=== PATIENT | female | born 1970 | race Caucasian/White ===

== ENCOUNTER 2018-08-06 21:53 | Emergency (ER) | payer OTHER, SELFPAY ==
[2018-08-06 21:53] VITALS: BP 131/82; PULSE 94; RESP 16; TEMP 37.2; O2SAT 98; BMI 21.0
--- NOTE | 2018-08-06 22:40 | ED.VIS.GEN ---
History of Present Illness Chief Complaint: Laceration Informant: Patient Narrative: She stated that she is here for a tetanus shot. She was using a boxing trainer accidentally cut a small abrasion into her wrist. Work wanted her to come in for further evaluation. It is not bleeding. It is very small. It is barely breaking the skin. They wanted her evaluated because her tetanus needed updated. Current severity is mild. No previous. Past Medical History - Allergies and Home Meds Allergies/Adverse Reactions: Allergies No Known Allergies Allergy (Verified 04/19/16 08:26) Primary Care Physician: Bentley Clement MD [Primary Care Provider] - Prior records reviewed: Yes Past Medical History: - - Reviewed Surgical History: appendectomy Lives: With Family Smoking Status: Current every day smoker Alcohol: None Drugs: None - Family History Maternal Family History: Reports: - - No coronary artery disease Review of Systems General: Denies: Chills, Fever, Sweats Eyes: Denies: Visual changes - bilaterally, Diplopia ENT: Denies: Rhinorrhea, Sore throat Cardiovascular: Denies: Chest pain, Palpitations Respiratory: Denies: Dyspnea, Cough, Dyspnea on exertion Gastrointestinal: Denies: Abdominal pain, Nausea, Vomiting, Diarrhea, Melena, Hematochezia Genitourinary: Denies: Dysuria, Hematuria, Frequency Musculoskeletal: Denies: Back pain, Extremity Pain Skin: Reports: Wounds - Abrasion superficial scratch to the inside of the left breast. Denies: Rash Neurological: Denies: Headache, Weakness, Numbness Physical Exam Vital Signs/Narrative: Vital Signs Temp Pulse Resp BP Pulse Ox 08/06/18 21:53 98.9 F 94 16 131/82 H 98 General: Well nourished, Well developed, No Acute Distress Head: Normocephalic, Atraumatic Eyes: Perrl, EOMI ENT: Moist mucous membranes, No rhinorrhea Neck: Supple, Nontender Cardiovascular: Regular rate, Regular rhythm, No murmurs Respiratory: No distress, CTA bilaterally, Chest nontender Abdomen: Soft, Nontender, Nondistended, Normal bowel sounds Back: Nontender, Normal Inspection Extremities: Nontender, No edema Skin: Normal color, No rash, - - 0.25 cm x 1 mm superficial abrasion/break in the skin Neurological: Alert, Oriented x3, Cranial nerves II-XII grossly intact, Normal Strength, Normal Sensation Psychological: Normal affect, Normal Mood Diagnostic/Tx/Re-eval - Medical Decision Making Is a very tiny wound. It is more of a superficial abrasion. Tetanus updated. Patient will keep it clean and use a Band-Aid. There is nothing to suture. ED Disposition - Plan for ED Patient: Disposition: Senior Living Facility Diagnosis: Superficial laceration Instructions: ED Laceration All Referrals: Bentley Clement MD [Primary Care Provider] -
[2018-08-06] MEDS: Diphth,Pertuss(Acell),Tet Vac 0.5 ML Vial IM (22:48)
== END 2018-08-06 23:06 | disposition home or self-care (01) ==
PROVIDERS: Emergency Provider Emergency Medicine; Family Provider Family Medicine; PCP Family Medicine
DX: S61.512A Laceration without foreign body of left wrist, initial encounter (principal); W26.8XXA Contact with other sharp object(s), not elsewhere classified, initial encounter; Y93.9 Activity, unspecified; Y92.9 Unspecified place or not applicable; Y99.0 Civilian activity done for income or pay; F17.200 Nicotine dependence, unspecified, uncomplicated
CPT/HCPCS: 90715; 99281

== ENCOUNTER → 2019-12-07 13:54 | Outpatient (CLI) | payer MEDICAID, SELFPAY ==
--- NOTE | 2019-12-07 14:00 | BI_ITS ---
MAMMOGRAPHY - BILATERAL SCREENING 3-D TOMOSYNTHESIS REASON FOR EXAM: Female, 49 years old. Routine screening PERTINENT HISTORY: No significant family history. Implants TECHNIQUE: 2-D mammograms and 3-D Tomosynthesis of the breast (s) were performed. CAD was performed, along with implant displaced views. COMPARISON: None. FINDINGS: The breast composition is almost entirely fat. Scattered benign calcifications are seen. No dense spiculated masses or suspicious microcalcifications are identified. No architectural distortion is identified. There is no skin thickening or retraction. Implants are intact and free of complication There has been no significant change since the prior study. BI/SCREEN MAMM (CAD) W/ANNETTA BILAT IMPRESSION: No mammographic signs of malignancy. Routine yearly mammograms recommended. ASSESSMENT CATEGORY: BIRADS Category 1: Negative. A letter regarding these results will be sent to the patient by the facility within 30 days. FOLLOW UP RECOMMENDATION: Yearly follow up mammogram recommended. (A) Approximately 10% of breast cancers are not detected by mammography. A normal mammogram should not delay biopsy of a clinically suspicious abnormality. Electronically Signed: Costa Maxwell MD at 15:00 EDT , Service support ,
== END ==
PROVIDERS: PCP Family Medicine; Referring Provider Family Medicine; Visit Provider Family Medicine
DX: Z12.31 Encounter for screening mammogram for malignant neoplasm of breast (principal)
CPT/HCPCS: 77063; 77067

== ENCOUNTER 2021-08-02 04:55 | Emergency (ER) | payer MEDICAID, SELFPAY ==
[2021-08-02 04:56] VITALS: BP 150/89; PULSE 96; RESP 16; RESP 17; TEMP 37.1; O2SAT 98; BMI 20.9
--- NOTE | 2021-08-02 05:08 | CT_ITS ---
STUDY: CT ABDOMEN AND PELVIS WITHOUT CONTRAST REASON FOR EXAM: Female, 51 years old. right flank pain RADIATION DOSAGE (If Supplied By Facility): CTDIvol = ( 6.09 ) mGy, DLP = ( 282.92 ) mGycm TECHNIQUE: Transaxial images were obtained from the dome of the diaphragm to the symphysis pubis without oral contrast, and without intravenous contrast. Sagittal and coronal images were reconstructed. Individualized dose optimization techniques were used for this CT. COMPARISON: None. FINDINGS: The visualized lung bases are unremarkable. The visualized portions of the heart are within normal limits. Normal liver. Normal gallbladder and extrahepatic biliary system. Normal spleen. Normal pancreas. Normal bilateral adrenal glands. Normal right kidney. Normal left kidney. Normal visualized stomach. Normal small intestine. Normal colon. There are surgical clips in the region of the appendix consistent with a prior appendectomy. Normal abdominal aorta. Normal inferior vena cava. Normal retroperitoneum. Normal urinary bladder. Normal abdominal wall. Normal osseous structures. CT/Abdomen/Pelvis without Cont IMPRESSION: Normal unenhanced CT of the abdomen and pelvis. Electronically Signed: Rika Bradford MD at 6:43 EDT ,
--- NOTE | 2021-08-02 05:08 | EDS_ITS ---
HPI History of Present Illness Chief Complaint: Flank Pain Detail of Chief Complaint: Back pain x3 days Informant: patient Narrative Narrative: Patient presents to the emergency department chief complaint of pain in her back x3 days. Patient states that she woke up with some mild back pain 3 days ago and went to work and the pain progressively worsened. Patient now describes intermittent sharp pains radiating into her right hip and pelvis that feels like labor cramps. Patient was seen in urgent care yesterday and diagnosed with the UTI and started on antibiotics and Pyridium. Patient rates her pain currently is a 10 out of 10. She denies weakness of the extremity. She denies loss of bowel or bladder function. She denies saddle anesthesia. She denies any trauma to her back. She had some mild dysuria a few days ago but that seems to is resolved. Prior similar symptoms: No PFSH PFSH Home Medications vitamin B complex 1 ea PO DAILY 07/13/13 [History Last Taken 04/30/16 06:00] Potassium (Otc) [Potassium Otc] 99 mg PO DAILY 04/30/16 [History Last Taken 04/30/16 06:00] omega 7-klb-ize-fish oil 1 ea PO DAILY 04/30/16 [History Last Taken 04/30/16 06:00] cyclobenzaprine 10 mg PO TID PRN #20 tablet 08/02/21 [Rx Last Taken Unknown] hydrocodone-acetaminophen 1 tab PO Q4H PRN PRN 2 Days #14 tablet 08/02/21 [Rx Last Taken Unknown] naproxen 500 mg PO BID #14 tab 08/02/21 [Rx Last Taken Unknown] Allergy/AdvReac Type Severity Reaction Status Date / Time No Known Allergies Allergy Verified 04/19/16 08:26 Social History Smoking Status: Current every day smoker tobacco type: cigarettes ROS ROS ED Constitutional Constitutional ED: Reports systems reviewed and no addt'l complaints, except as documented; Denies body ache(s), change in weight or chills Eyes Eyes: Denies acute decrease in peripheral vision, change in vision, double vision or loss of vision ENT ENT ED: Reports none; Denies ear pain, lip swelling, loss taste/smell, neck pain, otalgia or sore throat Cardiovascular Cardiovascular: Reports none; Denies abdominal pain, chest pain with activity, leg edema, lightheadedness, palpitations, rapid heart rate or syncope Respiratory/Chest Respiratory/Chest: Reports none; Denies change in mental status, dry cough, dyspnea, hemoptysis, shortness of breath at rest or shortness of breath with exertion Gastrointestinal Gastrointestinal: Reports none; Denies abdominal pain, change in stool character, diarrhea, hematemesis, hematochezia, melena, rectal bleeding or vomiting Genitourinary Genitourinary ED: Reports none; Denies abdominal discomfort, anuria, dysuria, genital pain or polyuria Musculoskeletal Musculoskeletal: Reports none and back pain; Denies arthralgias, difficulty walking, extremity pain, muscle weakness or myalgias Integumentary Reports none; Denies abscess or rash Neurologic Neurologic: Reports none; Denies abnormal gait, confusion, focal weakness, frequent falls, headache(s), loss of vision, numbness, paresthesias, radicular pain, vertigo or weakness Psychiatric Psychiatric: Reports systems reviewed and no addt'l complaints, except as documented and none; Denies behavioral changes, confusion, difficulty concentrating, hallucinations, suicidal ideation, tactile hallucinations or visual hallucinations Endocrine Endocrinology: Denies none, cold intolerance, excessive sweating, fatigue or heat intolerance Hematologic/Lymphatic Hematologic/Lymphatic: Reports none; Denies anemia, easy bleeding or easy bruising Allergic/Immunologic Allergic/Immunologic ED: Denies as per HPI, none, lip swelling, mouth swelling, throat swelling, tongue swelling or hives EXAM Physical Exam Const Vital Signs: 08/02/21 04:56 Temperature 98.7 F Temperature Source Temporal Pulse Rate 96 Respiratory Rate 17 Blood Pressure 150/89 H Blood Pressure Mean 109 Pulse Ox 98 Oxygen Delivery Method Room Air Positive well nourished and well developed General Appearance ED: well developed and NAD HEENT Reports TM's clear and moist mucous membranes normocephalic and atraumatic; Negative for trauma or tenderness Tympanic Membrane ED: Yes TM's clear Eyes PERRL and EOMs intact bilaterally General Eye ED: Negative for pale conjunctiva or scleral icterus Neck no lymphadenopathy, supple and no JVD General: Negative for tenderness Chest Wall inspection of chest normal and palpation of chest normal Chest: Negative for tenderness Resp normal respiratory effort and clear to auscultation bilaterally Effort and Inspection: Negative for respiratory distress or pain with movement Auscultation: Negative for rhonchi, wheezes or diminished lung sounds Cardio regular rate, regular rhythm, S1 normal heart sound, S2 normal heart sound and no murmurs Peripheral Pulses: pulses 2+ throughout GI normal to inspection, nondistended, normoactive bowel sounds, soft to palpation, non-tender, non-distended and no masses Back/Spine no thoracic nor lumbar tenderness Back/Spine Narrative: Patient with some CVA tenderness on the right. Patient also with diffuse tenderness over the lumbar paraspinal musculature bilaterally. She has negative straight leg raises. Deep tendon reflexes are plus 2 out of 4 bilaterally at the patella Achilles. Patient has normal L5 extension bilaterally. Normal sensation to light touch. Extremity normal to inspection General Extremety ED: Negative for edema General Extremity: Negative for edema Neuro oriented x3, CN's II-XII intact bilaterally, no sensory deficits noted and gait normal Sensorium / Orientation: awake, alert, oriented to person, oriented to place and oriented to time Motor Exam: strength 5/5 throughout and strength abnormal Psych mental status grossly normal Skin no rashes or lesions noted and no wounds MDM MDM MDM Narrative Medical decision making narrative: Line established on arrival. Patient was medicated with morphine, Zofran, and Toradol. Patient had good pain relief with that. Lab work-up was unremarkable. Urinalysis was normal. CT scan of the pelvis without contrast was unremarkable. At this point I suspect patient likely has musculoskeletal back pain. There are no red flags for cauda equina. Patient will be given a prescription for Naprosyn, Flexeril, and [place]. She will be given work restrictions. Patient advised to follow-up with primary care physician 3 to 5 days. Patient to return if worsening pain, weakness in extremities, change in bowel or bladder function, or condition should worsen anyway. Lab Data Attestation: I reviewed the patient's lab results. Labs: Laboratory Results - last 24 hr 08/02/21 08/02/21 08/02/21 05:26 05:26 05:29 WBC 8.4 RBC 4.05 L Hgb 14.2 Hct 40.6 MCV 100.2 H MCH 35.1 H MCHC 35.0 RDW Std Deviation 46.6 H RDW Coeff of Elis 12.5 Plt Count 280 MPV 8.7 Immature Gran % (Auto) 0.500 Neut % (Auto) 50.2 Lymph % (Auto) 34.5 Wells % (Auto) 10.1 H Eos % (Auto) 3.7 Baso % (Auto) 1.0 Absolute Neuts (auto) 4.2 Absolute Lymphs (auto) 2.88 Nucleated RBC % 0 Sodium 132 L Potassium 4.0 Chloride 99 Carbon Dioxide 28.0 Anion Gap 5 BUN 5 L Creatinine 0.60 Estim Creat Clear Calc 91.76 Est GFR (MDRD) Af Amer 135 Est GFR (MDRD) Non-Af 111 BUN/Creatinine Ratio 8.3 L Glucose 86 Calcium 9.5 Urine Color Yellow Urine Clarity Clear Urine pH 7.0 Ur Specific [place] 1.005 Urine Protein Negative Urine Glucose (UA) Normal Urine Ketones Negative Urine Occult Blood 25 H Urine Nitrite Negative Urine Bilirubin Negative Urine Urobilinogen Normal Ur Leukocyte Esterase Negative Urine RBC 0 SEEN Urine WBC 0 SEEN Ur Squamous Epith Cells 0-5 SEEN Urine Bacteria 0 SEEN Urine Mucus 0 SEEN Radiography Diagnostic Testing: Clinical Impression(s) from Imaging Studies Abdomen/Pelvis CT 08/02/21 05:08 IMPRESSION: Normal unenhanced CT of the abdomen and pelvis. Electronically Signed: Rika Bradofrd MD at 6:43 EDT Reading Location ID and State: [facility] / [place] Tel , Service support , Discharge Plan Triage Chief Complaint: Flank Pain ED Provider: Paris Santacruz Dx/Rx/DC Orders Clinical Impression: Back pain Instructions: ED Back Pain (Acute or Chronic), ED Back and Neck Pain, General Prescriptions: New cyclobenzaprine [cyclobenzaprine] 10 MG tablet 10 mg PO TID PRN (Reason: Muscle Spasm) Qty: 20 RF: 0 hydrocodone-acetaminophen [hydrocodone-acetaminophen] 1 TABLET tablet 1 tab PO Q4H PRN PRN (Reason: Pain) 2 Days Qty: 14 RF: 0 naproxen 500 MG tablet 500 mg PO BID Qty: 14 RF: 0 No Action vitamin B complex 1 EACH capsule 1 ea PO DAILY RF: 0 omega 4-cvd-mjm-fish oil 1 EACH capsule 1 ea PO DAILY RF: 0 Potassium (Otc) [Potassium Otc] 99 MG tablet 99 mg PO DAILY RF: 0 Primary Care Provider: Bentley Clement Referrals: Bentley Clement MD [Primary Care Provider] - 3-5 Days Disposition Disposition: Home, Self Care
[2021-08-02 05:34] LABS: Bacteria 0 SEEN /hpf (None Seen); Mucous, Urine 0 SEEN /hpf (<or=2+); Red Blood Cells-Urine 0 SEEN /hpf (0-5); White Blood Cells 0 SEEN /hpf (0-5)
[2021-08-02 05:35] LABS: Absolute Lymphocyte Count 2.88 X10^3/uL (0.83-4.51); Absolute Neutrophil Count 4.2 X10^3/uL (2.0-7.7); Basophil# 0.08 X10^3/uL; Eosinophil# 0.31 X10^3/uL; Eosinophils% 3.7 % (0-5); Hematocrit 40.6 % (37-47); Hemoglobin 14.2 g/dL (12.0-15.0); Lymphocyte # 2.88 X10^3/ul (0.83-4.51); Lymphocyte % 34.5 % (19-41); Mean Corpuscular Hgb 35.1 pg (27.0-32.0); Mean Corpuscular Volume 100.2 fL (81-99); Mean Platelet Vol. 8.7 fl (6.2-12.0); Monocyte# 0.84 X10^3/uL; Monocyte% 10.1 % (0-10); NRBC Flagged by Analyzer 0 % (0-5); Neutrophil % 50.2 % (47-70); Platelet Count 280 K/mm3 (150-450); RBC Distribution Width CV 12.5 % (11.6-14.6); RBC Distribution Width SD 46.6 fl (35.1-43.9); Red Blood Count 4.05 M/mm3 (4.2-5.4); White Blood Count 8.4 K/mm3 (4.4-11.0)
[2021-08-02] MEDS: Ketorolac 15 MG/ML Vial IV (05:35)
[2021-08-02] MEDS: Ondansetron 4 MG/2 ML Vial IV (05:35)
[2021-08-02 05:36] LABS: Color, Urine Yellow (Yellow); Glucose, Dipstick Normal (Normal); Ketone-Dipstick Negative (Negative); Leukocyte Esterase-Dipstick Negative /ul (Negative); Nitrite-Dipstick Negative (Negative); Occult Blood-Urine 25 /ul (Negative); Protein-Dipstick Negative (Negative); Specific Gravity, Urine 1.005 (1.002-1.030); Urine Bilirubin Dipstick Negative (Negative); Urine Clarity Clear (Clear); Urine Urobilinogen Normal (Normal)
[2021-08-02] MEDS: Morphine 4 MG/ML Syringe IV (05:36)
[2021-08-02] MEDS: 0.9% Normal Saline 1,000 ML 150 ML IV (05:40)
[2021-08-02 05:45] LABS: Squamous Epithelial Cells - UA 0-5 SEEN /hpf (5-10)
[2021-08-02 05:55] LABS: Anion Gap 5 (5-15); BUN 5 mg/dL (7-18); BUN/Creat Ratio 8.3 RATIO (10-20); Calcium,Total 9.5 mg/dL (8.5-10.1); Chloride 99 mmol/L (98-107); EST Glomerular Filtration Rate 111 mL/min (>60); Est Glom Filt Rate - Afr Amer 135 mL/min (>60); Estimated Creatinine Clearance 91.76 ml/min; Glucose 86 mg/dL (74-106); Sodium Level 132 mmol/L (136-145)
[2021-08-02 07:22] VITALS: RESP 16
== END 2021-08-02 07:26 | disposition home or self-care (01) ==
PROVIDERS: Emergency Provider Emergency Medicine; PCP Family Medicine; Visit Provider Emergency Medicine
DX: M54.50 Low back pain, unspecified (principal); N39.0 Urinary tract infection, site not specified; F17.210 Nicotine dependence, cigarettes, uncomplicated
CPT/HCPCS: 74176; 80048; 81001; 85025; 96361; 96374; 96375; 99283; J7030; A4216; J2405

== ENCOUNTER → 2021-10-13 | Outpatient (CLI) | payer MEDICAID, SELFPAY ==
[2021-10-13 10:23] LABS: Erythrocyte Sedimentation Rate 6 mm/hr (0-30)
[2021-10-13 10:24] LABS: Absolute Lymphocyte Count 1.93 X10^3/uL (0.83-4.51); Absolute Neutrophil Count 4.2 X10^3/uL (2.0-7.7); Basophil# 0.06 X10^3/uL; Basophil% 0.9 % (0-1); Eosinophil# 0.11 X10^3/uL; Eosinophils% 1.6 % (0-5); Hematocrit 39.2 % (37-47); Hemoglobin 13.6 g/dL (12.0-15.0); Lymphocyte # 1.93 X10^3/ul (0.83-4.51); Lymphocyte % 28.2 % (19-41); Mean Corp Hgb Conc 34.7 g/dL (32-36); Mean Corpuscular Hgb 35.1 pg (27.0-32.0); Mean Corpuscular Volume 101.3 fL (81-99); Monocyte# 0.52 X10^3/uL; Monocyte% 7.6 % (0-10); NRBC Flagged by Analyzer 0 % (0-5); Neutrophil # 4.19 X10^3/uL (2.7-7.7); Neutrophil % 61.3 % (47-70); Platelet Count 345 K/mm3 (150-450); RBC Distribution Width CV 12.6 % (11.6-14.6); RBC Distribution Width SD 47.7 fl (35.1-43.9); Red Blood Count 3.87 M/mm3 (4.2-5.4); White Blood Count 6.8 K/mm3 (4.4-11.0)
[2021-10-13 10:55] LABS: ALB/GLOB Ratio 1.1 RATIO (0.9-2.4); AST(SGOT) 28 U/L (15-37); Alanine Aminotransfer ALT/SGPT 31 U/L (13-56); Albumin, Serum 4.2 g/dL (3.2-5.0); Alkaline Phosphatase 51 U/L (45-117); Anion Gap 6 (5-15); BUN 7 mg/dL (7-18); BUN/Creat Ratio 13.3 RATIO (10-20); CRP < 2.90 mg/L (0.0-3.0); Calcium,Total 8.9 mg/dL (8.5-10.1); Chloride 100 mmol/L (98-107); Creatinine, Serum 0.53 mg/dL (0.55-1.02); EST Glomerular Filtration Rate 130 mL/min (>60); Est Glom Filt Rate - Afr Amer 157 mL/min (>60); Globulin 3.7 g/dL (2.2-4.2); Glucose 76 mg/dL (74-106); Potassium 3.7 mmol/L (3.5-5.1); Protein, Total 7.9 g/dL (6.4-8.2); Rheumatoid Factor < 10.0 IU/mL (<15); Sodium Level 133 mmol/L (136-145)
[2021-10-18 11:16] LABS: ANTINUCLEAR ANTIBODIES DIRECT Negative (Negative)
[2021-10-24 21:33] LABS: HLA B27 Negative (.)
== END | disposition home or self-care (01) ==
LOC: MFPLAB 09:20
PROVIDERS: PCP Family Medicine; Referring Provider Family Medicine; Visit Provider Family Medicine
DX: M54.9 Dorsalgia, unspecified (principal)
CPT/HCPCS: 36415; 80053; 81374; 85025; 85652; 86038; 86140; 86431

== ENCOUNTER → 2021-12-16 | Outpatient (CLI) | payer MEDICAID, SELFPAY ==
--- NOTE | 2021-12-16 08:46 | MRI_ITS ---
STUDY: MRI LUMBAR SPINE WITHOUT CONTRAST REASON FOR EXAM: Female, 51 years old. LUMBAR RADICULOPATHY, RIGHT LEG PAIN TECHNIQUE: Standardized fat and water weighted pulse sequences were obtained in the sagittal and axial planes. COMPARISON: None FINDINGS: T12-L1: Normal endplates. Normal disc height, hydration and morphology. Normal bilateral facet joints. Normal central canal and bilateral lateral recesses. Normal bilateral intervertebral neural foramina. Normal lumbar lordosis. There is no substantial scoliosis. Normal conus medullaris that terminates at T12-L1 L1-2: Normal endplates. Normal disc height, hydration and morphology. Normal bilateral facet joints. Normal central canal and bilateral lateral recesses. Normal bilateral intervertebral neural foramina. L2-3: Normal endplates. Normal disc height, hydration and minimal annular bulge. Normal bilateral facet joints. Normal central canal and bilateral lateral recesses. Normal bilateral intervertebral neural foramina. L3-4: Normal endplates. Normal disc height, hydration and mild annular bulge.. Mild facet arthropathy. Normal central canal and bilateral lateral recesses. Mild to moderate bilateral neuroforaminal encroachment. L4-5: Normal endplates. Normal disc height, desiccation and mild annular bulge with right paracentral/posterolateral disc extrusion with posterior inferior extension. Facet arthropathy and thickening of ligamenta flava. Mild to moderate narrowing the central canal. Severe right lateral recess and subarticular stenosis with moderate neuroforaminal stenosis. Moderate left neuroforaminal encroachment L5-S1: Normal endplates. Normal disc height, hydration and minimal annular bulge with small right foraminal disc protrusion facet arthropathy and thickening of ligamenta flava.. Normal central canal and bilateral lateral recesses. Mild left neuroforaminal encroachment and severe narrowing on the right Normal visualized sacral ala. Normal visualized paraspinous soft tissue structures. MRI/Spine Lumbar (Routine) IMPRESSION: No evidence for acute fracture or other significant bony pathology. Multilevel spinal stenosis secondary to disc disease and bony hypertrophy most severe on the right at L4-5 and L5-S1. Findings as above Electronically Signed: Irving Noland MD at 21:35 EDT ,
== END | disposition home or self-care (01) ==
LOC: MRI 08:43
PROVIDERS: PCP Family Medicine; Referring Provider Anesthesiology Pain Medicine; Visit Provider Anesthesiology Pain Medicine
DX: M54.16 Radiculopathy, lumbar region (principal)
CPT/HCPCS: 72148

== ENCOUNTER → 2022-01-26 | Outpatient (CLI) | payer MEDICAID, SELFPAY ==
--- NOTE | 2022-01-26 13:37 | BI_ITS ---
MAMMOGRAPHY - BILATERAL SCREENING REASON FOR EXAM: Female, 51 years old. Routine annual screening examination. PERTINENT HISTORY: Non-contributory. Bilateral breast implants. TECHNIQUE: Digital bilateral breast annetta (3D mammographic acquisition) in the CC and MLO projections. 2-D mediolateral oblique (MLO) and craniocaudad (CC) views of both breasts were obtained. CAD: Full Field Digital Mammography with Computer Added Detection was performed. COMPARISON: Comparison is made with prior examination dated 12/07/2019 and 08/03/2015. FINDINGS: Breast Composition: There are scattered areas of fibroglandular density. There are no dominant masses or suspicious calcifications. Stable appearance of the bilateral breast implants. No other significant abnormalities are identified. There has been no significant change since the prior study. BI/SCRN MAMM (CAD)W/ANNETTA BILAT IMPRESSION: Stable bilateral screening mammogram. Yearly follow-up mammogram recommended. (A) ASSESSMENT CATEGORY: BIRADS Category 2: Benign. A letter regarding these results will be sent to the patient by the facility within 30 days. Approximately 10% of breast cancers are not detected by mammography. A normal mammogram should not delay biopsy of a clinically suspicious abnormality. [id number] Electronically Signed: Milton Isaac MD at 14:35 EDT ,
== END | disposition home or self-care (01) ==
PROVIDERS: PCP Family Medicine; Visit Provider Family Medicine
DX: Z12.31 Encounter for screening mammogram for malignant neoplasm of breast (principal)
CPT/HCPCS: 77063; 77067

== ENCOUNTER → 2022-03-08 | Outpatient (CLI) | payer MEDICAID, SELFPAY ==
[2022-03-22 15:38] LABS: HPV APTIMA, High Risk Negative (Negative)
== END | disposition home or self-care (01) ==
LOC: LABSPEC 15:22
PROVIDERS: PCP Family Medicine; Visit Provider Obstetrics & Gynecology
DX: Z12.4 Encounter for screening for malignant neoplasm of cervix (principal)
CPT/HCPCS: 87624; 88175; G0145

== ENCOUNTER 2022-04-16 10:02 | Observation (INO) | payer MEDICAID, SELFPAY ==
--- NOTE | 2022-04-09 13:58 | EKG12_ITS ---
Test Reason : PREOP Blood Pressure : / mmHG Vent. Rate : 091 BPM Atrial Rate : 091 BPM P-R Int : 130 ms QRS Dur : 088 ms QT Int : 362 ms P-R-T Axes : 064 -52 062 degrees QTc Int : 445 ms Normal sinus rhythm Left axis deviation Abnormal ECG Confirmed by FAM BISHOP, BARBI ([id number]), index editor JERRY KIRK ([id number]) on 04/10/2022 8:45:38 AM Referred By: Marito Faustin Confirmed By:BARBI OTTO MD
[2022-04-09 15:02] LABS: Absolute Lymphocyte Count 3.14 X10^3/uL (0.83-4.51); Absolute Neutrophil Count 5.2 X10^3/uL (2.0-7.7); Basophil# 0.05 X10^3/uL; Basophil% 0.5 % (0-1); Eosinophil# 0.12 X10^3/uL; Eosinophils% 1.3 % (0-5); Hematocrit 36.5 % (37-47); Hemoglobin 12.4 g/dL (12.0-15.0); Lymphocyte # 3.14 X10^3/ul (0.83-4.51); Lymphocyte % 33.5 % (19-41); Mean Corpuscular Hgb 34.1 pg (27.0-32.0); Mean Corpuscular Volume 100.3 fL (81-99); Mean Platelet Vol. 8.8 fl (6.2-12.0); Monocyte# 0.82 X10^3/uL; Monocyte% 8.8 % (0-10); NRBC Flagged by Analyzer 0 % (0-5); Neutrophil # 5.22 X10^3/uL (2.7-7.7); Neutrophil % 55.7 % (47-70); Platelet Count 319 K/mm3 (150-450); RBC Distribution Width CV 12.3 % (11.6-14.6); RBC Distribution Width SD 45.8 fl (35.1-43.9); Red Blood Count 3.64 M/mm3 (4.2-5.4); White Blood Count 9.4 K/mm3 (4.4-11.0)
[2022-04-09 15:28] LABS: Magnesium 2.4 mg/dL (1.6-2.6)
[2022-04-09 15:32] LABS: Anion Gap 6 (5-15); BUN 14 mg/dL (7-18); BUN/Creat Ratio 20.9 RATIO (10-20); Calcium,Total 9.9 mg/dL (8.5-10.1); Chloride 98 mmol/L (98-107); Creatinine, Serum 0.67 mg/dL (0.55-1.02); EST Glomerular Filtration Rate 98 mL/min (>60); Est Glom Filt Rate - Afr Amer 119 mL/min (>60); Glucose 93 mg/dL (74-106); Potassium 3.8 mmol/L (3.5-5.1); Sodium Level 133 mmol/L (136-145)
[2022-04-09 16:08] LABS: HIV - WCH Non-Reactive (Nonreactive); Hepatitis B Surface Antibody Non-Reactive; Hepatitis C Antibody Non-Reactive (Nonreactive)
--- NOTE | 2022-04-10 13:11 | PCM.HP.BLA ---
History and Physical MR#: [id number] Acct: [id number] Name:JACKLYN NAVARRETE Rep #: [id number] : 1970 ? ? Provider: Dr. Marito Faustin, Age/Sex:? 51/F ? ? Location: [facility] Status: Signed Intake Vital Signs ? 08/03/2203:56 03/05/2214:49 Height 5 ft 3 in 5 ft 3 in Weight: ? 110 lb 6 oz BMI ? 19.5 Intake Visit Reasons:?Lumbar spine Is patient in pain?: Yes Pain scale (1-10): 7 Allergies No Known Allergies Allergy (Verified 03/05/22 14:49) Medications vitamin B complex 1 ea PO DAILY 07/13/13 [History Confirmed 03/05/22] Potassium (Otc) [Potassium Otc] 99 mg PO DAILY 04/30/16 [History Confirmed 03/05/22] omega 4-mrw-xao-fish oil 60 mg-90 mg-500 mg capsule 1 ea PO DAILY 04/30/16 [History Confirmed 03/05/22] gabapentin 100 mg capsule 2,500 mg PO DAILY 03/05/22 [History Confirmed 03/05/22] PFSH Family History?(Updated 03/05/22 @ 14:52 by Amanda Roland) Other Cancer Myocardial infarction Social History Smoking Status:? Current every day smoker tobacco type: cigarettes HPI Lumbar spine Details: Parts of this documentation were recorded by a scribe, this documentation accurately reflects the service provided and the decisions made by me, Dr. Marito Faustin, DO 03/05/22 0475. JACKLYN DÍAZ is a 51 year old F here today for lower back pain. States that the pain is in her mid lower back and that she has really bad sciatica on her right side. States that her sciatic nerve shoots pain up her back into her right shoulder blade. States that the nerve also shoots down into her right leg into her posterior calf. States that she also has numbness and tingling on her right side as well. States that she did have injections with Basali which did help a little. States that she has been in pain since July 24 2021. Pain (location, quality, quantity, radiation): Onset (date, injury, precipitating event): Prior Hx (injury, surgery, prior issues with extremity): Aggravating factor (position, tasks): Treatments (ice/heat , Medication, injections, home exercises): Comorbidities (BMI, DM, Inflammatory conditions, blood thinner, chemotherapy): Social (upper extremity dominance, profession, tobacco/drugs/ETOH: Other:? Jacklyn is a most pleasant lady 51 years old that has a chief complaint of pain on the right side of her low back that radiates into her right buttocks down her right thigh and down her right leg.? She is describing basically an L5 dermatome.? She woke up with it on September 23 for no apparent reason.? She has been in pain ever since.? The injections that Dr. Zacarias has done have helped her some but the pain is still relentless.? She denies any bowel or bladder dysfunction.? She denies history of unexplained weight loss night fever sweats or chills. On examination she has positive tension signs on the right she has positive straight leg raising on the right.? She has 2+ patella 2+ Achilles and 2+ posterior tibial reflexes.? She has good motor strength of all the major muscle groups of both lower extremities.? She has no evidence of muscle atrophy.? She has no long tract signs.? Clonus is absent Babinski's are downgoing. I reviewed her MRI scan that was done in December.? She has a herniated disc at L4-5 on the right side along with superimposed stenosis at 4 5. Our plan is for lumbar laminectomy discectomy L4-5 on the right side.? I will see her at preop 1 week before her surgery. Coding Level of Care Code Off vis,new,level 3 Diagnoses Herniated nucleus pulposus, L4-5 right? M51.26 Time Spent (min) 30 Assessment and Plan Assessment and Plan (1) Herniated nucleus pulposus, L4-5 right:
--- NOTE | 2022-04-10 15:14 | CASEMGMT ---
QUINCY ROWLAND Assessment: TC to pt for initial transition planning/care coordination assessment. RN JANETT introduced self and role at [facility], pt voices understanding and consents to assessment. Care providers, pharmacy, and demographics verified/updated. Admitting Dx: lumbar laminectomy discectomy L4-5 PCP:Racquel Specialists:Ramin, spine [place] Preferred [facility]acy: [facility] Insurance: [facility] Prescription Benefit: yes LNOK: Keiry Vaughn, dtr; Jacky Felicity, friend Living Arrangements: Pt lives with a roommate in a two story home with 6-8 steps to enter. Pt reports she is I in ADL's and denies concerns at home. Transportation: Pt drives self and denies concerns with transportation. Pt states her dtr will transport her post surgery to medical appts. DME/HHC/SNF: Pt denies having any DME in the home, previous HHC or SNF stays. Pt states no concerns with going home at time of dc. Pt states no further concerns/needs. CM to follow. Advised pt to ask CM if any further question/concerns/needs arise, voices understanding. Pt Goal: Home Plan: Home
[2022-04-11 14:59] LABS: Hepatitis A AB, Total Negative (Negative)
[2022-04-16] VITALS (13 sets, daily range): BP systolic 101–169; BP diastolic 61–93; PULSE 66–113; RESP 16–18; TEMP 36.3–37.7; O2SAT 95–100; BMI 20.2; BMI 21.8
[2022-04-16] MEDS: Magnesium 1 GM over 15 mins IV (06:05)
[2022-04-16] MEDS: Lactated Ringers 1,000 ML 15 ML IV ×2 (06:08→10:44)
[2022-04-16] MEDS: Acetaminophen 500 MG Tablet 1000 MG PO (06:13)
[2022-04-16 06:30] LABS: Bedside Glucose 80 mg/dL (74-106)
--- NOTE | 2022-04-16 06:30 | RAD_ITS ---
STUDY: X-RAY - LUMBAR SPINE REASON FOR EXAM: Female, 51 years old. LAMINECTOMY DISCECTOMY L4-5, RIGHT TECHNIQUE: 1 view(s) of the lumbar spine were obtained. COMPARISON: None FINDINGS: The localization instrument is seen posterior to the L4-L5 disc space level. RAD/Spine 1 View Any Level IMPRESSION: The localization instrument is seen posterior to the L4-L5 disc space level. Electronically Signed: Milton Isaac MD at 15:16 EST ,
[2022-04-16] MEDS: Scopolamine 1mg/72hr Patch 1 PATCH TD (06:57)
--- NOTE | 2022-04-16 07:30 | DISC_PTH ---
PATIENT: SHUBHAM DÍAZ LOC: MS3 U#:[id number] AGE/SX: 51/F ROOM: MS311 RE04/16/[address]: Dr. Marito Faustin DO : 1970 BED: 1 DIS: 04/17/2022 SPEC #: [id number] RECD: 04/16/22 12:35 STATUS: [place] REMalissa #: [id number] DINORAH: 04/16/22 07:[address]: Marito Faustin DEPT: SURGICAL PATHOLOGY RECD BY: Veronika Bill ENTERED: 04/17/22 07:31 SP TYPE: DISC OTHR DR: MD Dr. Hussain Lundberg MD Tissues: Intervertebral disc, NOS Procedures: Surgery Specimen Level III HEADER OPERATION: ERAS, lumbar laminectomy, discectomy L4-5 PRE-OP DIAGNOSIS: Herniated nucleus pulposus L4-5 right TISSUE SUBMITTED: Disc MICROSCOPIC DIAGNOSIS Intervertebral disc, L4-5, discectomy: Fragments of intervertebral disc with degenerative change. AM:jayson 04/18/2022 MICROSCOPIC DESCRIPTION Slides are reviewed. GROSS DESCRIPTION Received in fixative is one container labeled with the patient's name and designated disc. The specimen consists of multiple irregular fragments of green, indurated tissue that in aggregate measure 3 x 2.5 x 0.3 cm. The specimen is totally submitted in one cassette. / SJ:jayson 04/17/2022 TC:5 CPT: 99642
[2022-04-16] MEDS: Cefazolin 2 GM in 0.9% Normal Saline 100 ML IV (07:40)
[2022-04-16] MEDS: THROMBIN (RECOMBINANT) 20,000 UNIT VIAL 20000 UNIT TOPICAL (08:47)
[2022-04-16] MEDS: Sugammadex Sodium 200 MG/2 ML VIAL IV (08:52)
--- NOTE | 2022-04-16 10:06 | PCM.OPRPT ---
Report of Operation Description of Surgical Findings:: Preoperative diagnoses: Herniated disc L4-5 with severe right L5 radiculopathy and intractable pain. Postoperative diagnosis: The same Procedure: Lumbar laminectomy discectomy L4-5 on the right CPT code 84654 Surgeon: Dr. Faustin faculty i on call medical assistant: Zarina LOZADA Anesthesia: General endotracheal by [facility] EBL: Too little to count Drains: None Complications: None Procedure: Patient was taken to the OR where she was placed under general endotracheal anesthesia. A Fitzgerald catheter was inserted. Neuro monitoring placed her leads on the patient. She was then placed on the prone position on the Christophe frame on the OR table. After good positioning with care to protect her bony prominences her breasts ulnar nerves of both elbows the brachial plexus bilaterally and her cervical spine and facial features the back was prepped and draped in standard fashion. I then made a longitudinal incision small in nature centered over what I thought would be L4 5 subcutaneous tissues were incised the length of the skin incision using cautery. I then elevated the subcutaneous tissues off of the platysma either side. We Culebra retractors were put in place I then opened the lumbar fascia using cautery just to the right of the spinous processes at L4-5 elevating the muscles off of the lamina of L4 and the top of the lamina of L5. An intraoperative x-ray was taken that confirmed that we were indeed at the proper level. I then had to thin down the lamina as it was quite thickened using double-action rongeurs I then released the ligamentum flavum off the underside of the lamina using sharp curettes note that the superior facet of L5 was quite large and extended quite medially at this No Doubt was what trapped the nerve between the disc and the bone. Then released the ligamentum flavum laterally and then did a medial facetectomy of the superior facet of L5. I finished the laminotomy with 45 degree Kerrison rongeurs I had a hard time removing the ligamentum flavum but was able to remove it to where we could see the dura. We then retracted the nerve root that was incidentally quite swollen and red medialward exposing the protruded disc that had trapped the nerve between it and the now partial removal of the medial facet of L5. I then cut the annulus with a 15 blade remove that portion and removed more nucleus from within the disc space with pituitary rongeurs. This completely decompressed the L5 nerve root I then checked it into the foramen of both on the posterior portion and the anterior portion of the nerve and it was found to be completely decompressed. Noted we thoroughly irrigated this several times in the course of the case to prevent infection. I did pack the laminotomy site with thrombin-soaked Gelfoam and we had excellent hemostasis note that the blood loss throughout the case was minimal. We then placed an amniotic membrane over the laminotomy site to prevent infections in the future particularly because it was an inflamed nerve root. We then placed Gelfoam over the top of that. The field was so dry that we felt that we did not need to put a drain in place. We closed the lumbar fascia using zsvevn-sv-zygxx suture with #1 Vicryl. This was followed by closure of the subcutaneous tissues with 2-0 Vicryl in interrupted fashion. The skin was approximated using skin clips. Sterile dressings were then applied. The patient was then recovered in the OR she was moved to her hospital bed and taken to recovery in satisfactory condition. This is the end of operative summary on Jacklyn Wilson. This is Dr. Faustin dictating.
[2022-04-16] MEDS: oxyCODONE 5 MG Tablet PO ×2 (12:09→18:02)
[2022-04-16] MEDS: Lactated Ringers 1,000 ML 100 ML IV (12:11)
[2022-04-16] MEDS: Ensure Surgery 237 ML LIQUID PO (12:11)
[2022-04-16] MEDS: Morphine 4 MG/ML Syringe IV ×5 (13:09→23:19)
[2022-04-16] MEDS: 0.9% Saline Lock 10 ML Syringe IV ×3 (13:10→18:31)
[2022-04-16] MEDS: Gabapentin 800 MG Tablet PO ×2 (14:53→21:44)
--- NOTE | 2022-04-16 15:07 | CON.PCM.HO_ITS ---
Assessment & Plan Assessment/Plan (1) Herniated nucleus pulposus, L4-5 right: PLAN: Plan This is a 51-year-old female is admitted electively after right L4-L5 lumbar laminectomy and discectomy: 1. Herniated disc L4-5 with severe right L5 radiculopathy, sciatica in nature: Patient had surgery on 04/08/2022 as described above under general anesthesia. No nausea or vomiting. Patient has Fitzgerald catheter, will keep today and may be discontinued tomorrow. PT and OT and pain control. Continue gabapentin. 2. Chronic migraine headache: Currently patient not having any acute migraine headache. Patient is not on chronic migraine prophylaxis at home. 3. Chronic smoker: On nicotine patch. 4. Patient also has left meniscectomy: No acute issues. VTE prophylaxis: DVT prophylaxis as per surgeon discretion. Bilateral SCDs while she is on bed. Total time of the visit including total time spent in counseling or coordination of care, (more than 50% of the total time, spent in obtaining medical informat ion from nurses and other ancillary care providers,explaining to the patient about labs, imaging, diagnosis and management of active complex medical conditions), discussion with attending, review of labs and imaging is 45 minutes. HPI Consult Data Date of Consult: 04/16/22 HPI Narrative Reason for Consultation: Perioperative management of herniated disc L4-L5 with right L5 radiculopath HPI Narrative: SHUBHAM DÍAZ, is a 51 F was admitted electively for lumbar laminectomy by Dr. Faustin. Hospitalist was asked to see for perioperative management. Patient has history of right-sided back pain, sciatica in nature with radiation to RLE up to calf level started in July 2021. She states she was having severe back pain w hile at work which is mostly standing job. At times, her right leg gave out, lose balance and equilibrium and she fell down. This got progressively worse and did not get better with back injection by Dr. Cantu. She does not have urine retention, overflow or incontinence. No acute bowel dysfunction. MRI done in December 2019 shows herniated disc at L4-L5 along with superimposed stenosis at L4-5. Patient had lumbar laminectomy discectomy at L4-5 on right on 04/08/2022 and admitted after surgery. Patient has Fitzgerald catheter and passing clear urine. She does not have a drain. Past medical history: Denies hypertension, diabetes mellitus type 2. Chronic smoking since young age. Currently smoking half pack per day. Denies chronic alcohol use or substance use. [facility] Medical History Alcohol use Back pain Cardiology follow-up encounter History of pain when walking History of steroid therapy History of stress test Hx of mitral valve prolapse Leg cramps Migraine headache Post-menopausal Smoker Wears glasses Home Medications omega 4-yli-bgi-fish oil 60 mg-90 mg-500 mg capsule 1 ea PO DAILY 04/30/16 [History Last Taken 04/15/22] BEET ROOT 1 tab PO/SL DAILY 03/27/22 [History Last Taken 04/15/22] gabapentin 800 mg tablet 800 mg PO TID 03/27/22 [History Last Taken 04/15/22] tumeric 100 mg-kasi 150 mg-olive 50 mg-oreg 150 mg-caprylate capsule 1 cap PO DAILY 03/27/22 [History Last Taken 04/15/22] Allergy/AdvReac Type Severity Reaction Status Date / Time No Known Allergies Allergy Verified 04/16/22 06:24 Family History Other Cancer Myocardial infarction Surgical History History of meniscectomy of left knee Hx of appendectomy Hx of breast augmentation Hx of colonoscopy Hx of laparoscopy Social History Smoking Status: Current every day smoker tobacco type: cigarettes ROS ROS Narrative Constitutional: No fever or chills. HEENT: Reports systems reviewed and no addt'l complaints, except as documented Respiratory/Chest: Denies chest pain, shortness of breath at rest or with exe rtion Gastrointestinal: Denies coffee ground emesis, hematemesis or vomiting Genitourinary: Denies burning urination or new urinary tract symptoms Musculoskeletal: Chronic back pain and sciatica. Neuropathy pain. Rest as described in HPI. Neurologic: Denies seizure-like activity. No focal weakness of RLE. skin: No ulcer. No rash Endocrinology: Reports systems reviewed and no addt'l complaints, except as documented Hematologic/Lymphatic: Reports systems reviewed and no addt'l complaints, except as documented Rest 14 ROS are negative except as mentioned in HPI Physical Exam Narrative General: Alert, Oriented x3, Cooperative HEENT: Atraumatic, PERRLA, EOMI, Normocephalic Oral: Oral mucosa moist. No Gingival or Mucosal Lesions/ Ulcerations Neck: Supple, No JVD, Negative Carotid Bruits Lungs: Air entry diminished in bilateral lung bases. No crepitation/rhonchi Cardiovascular: Regular rate, Regular Rhythm, Normal S1, Normal S2, No murmurs Abdomen: Bowel Sounds Present, Soft, Non Tender, Non-Distended : No renal angle tenderness. No suprapubic tenderness. Extremities: No edema, Capillary Refill Less than 3 Seconds Skin: No rashes, No breakdown Musculoskeletal: No Tenderness to Palpation of Joints or Extremities. ROM intact. Spine: Surgical dressing is dry over lumbar area. No drain. No palpable he matoma or bruise. Neurological: Cranial nerves II-XII grossly intact, DTR 2+/4 and Symmetrical, Neuro grossly intact Psych/Mental Status: Normal Affect, Appropriate. Lab / Micro Data Result Diagrams: 04/09/22 14:09 04/09/22 14:09 Labs: Laboratory Results - last 24 hr 04/16/22 06:01: POC Glucose 80 Charges/Coding Visit Charges Office Visits / Consults: 47505 OP Consult L4
[2022-04-16] MEDS: Cefazolin 1 GM/50 ML BAG IV ×2 (15:35→23:16)
[2022-04-16] MEDS: diazePAM 5 MG Tablet PO (20:15)
[2022-04-17 02:59] VITALS: BP 126/100; PULSE 81; RESP 18; TEMP 36.6; O2SAT 97
[2022-04-17] MEDS: diazePAM 5 MG Tablet PO ×2 (03:07→10:07)
[2022-04-17] MEDS: oxyCODONE 5 MG Tablet PO ×3 (03:07→11:40)
[2022-04-17 05:55] VITALS: BP 126/100; PULSE 81; RESP 18; TEMP 36.6; O2SAT 97
[2022-04-17] MEDS: Gabapentin 800 MG Tablet PO (05:55)
[2022-04-17] MEDS: 0.9% Saline Lock 10 ML Syringe IV (05:57)
[2022-04-17] MEDS: Morphine 4 MG/ML Syringe IV (05:58)
[2022-04-17 06:05] LABS: Absolute Lymphocyte Count 2.31 X10^3/uL (0.83-4.51); Absolute Neutrophil Count 4.3 X10^3/uL (2.0-7.7); Basophil# 0.02 X10^3/uL; Basophil% 0.3 % (0-1); Eosinophil# 0.01 X10^3/uL; Eosinophils% 0.1 % (0-5); Hematocrit 36.1 % (37-47); Hemoglobin 12.3 g/dL (12.0-15.0); Lymphocyte # 2.31 X10^3/ul (0.83-4.51); Lymphocyte % 31.4 % (19-41); Mean Corp Hgb Conc 34.1 g/dL (32-36); Mean Corpuscular Hgb 34.6 pg (27.0-32.0); Mean Corpuscular Volume 101.7 fL (81-99); Mean Platelet Vol. 9.1 fl (6.2-12.0); Monocyte# 0.68 X10^3/uL; Monocyte% 9.3 % (0-10); NRBC Flagged by Analyzer 0 % (0-5); Neutrophil # 4.31 X10^3/uL (2.7-7.7); Neutrophil % 58.6 % (47-70); Platelet Count 251 K/mm3 (150-450); RBC Distribution Width CV 12.5 % (11.6-14.6); RBC Distribution Width SD 47.1 fl (35.1-43.9); Red Blood Count 3.55 M/mm3 (4.2-5.4); White Blood Count 7.4 K/mm3 (4.4-11.0)
[2022-04-17 06:31] LABS: Anion Gap 3 (5-15); BUN 8 mg/dL (7-18); BUN/Creat Ratio 16.4 RATIO (10-20); Calcium,Total 8.9 mg/dL (8.5-10.1); Chloride 99 mmol/L (98-107); Creatinine, Serum 0.49 mg/dL (0.55-1.02); EST Glomerular Filtration Rate 141 mL/min (>60); Est Glom Filt Rate - Afr Amer 171 mL/min (>60); Estimated Creatinine Clearance 107.43 ml/min; Glucose 80 mg/dL (74-106); Sodium Level 134 mmol/L (136-145)
[2022-04-17 08:22] VITALS: BP 144/84; PULSE 67; RESP 16; TEMP 37.2; O2SAT 100
[2022-04-17 08:24] VITALS: O2SAT 95
--- NOTE | 2022-04-17 11:40 | CASEMGMT ---
QUINCY CM in to pt room, pt sitting up in bed. Pt states she is doing very well that she has walked 15 laps around the unit unassisted. Pt denies any homegoing needs and is anxious to dc.
[2022-04-17 11:51] VITALS: BP 141/92; PULSE 71; RESP 16; TEMP 36.9; O2SAT 100
--- NOTE | 2022-04-17 11:59 | PN.HOSP_ITS ---
Subjective Subjective Follow-up for perioperative management of lumbar laminectomy and discectomy. Pain is controlled. Patient positive. PT and OT. Patient walked to the hallway. Objective Data Objective Data Vital Signs: Vital Signs Temp Pulse Resp BP Pulse Ox O2 Del Method O2 Flow Rate 98.5 F 71 16 141/92 H 100 Room Air 4 04/17/22 11:51 04/17/22 11:51 04/17/22 11:51 04/17/22 11:51 04/17/22 11:51 04/17/22 11:51 04/17/22 05:55 Oxygen Flow Rate (L/min) 4 Oxygen Delivery Method Room Air Weight: 119 lb 4.991 oz Body Mass Index (BMI) 21.8 Intake & Output: Intake and Output for Last 24 Hours 04/15/22 04/16/22 04/17/22 23:59 23:59 23:59 Intake Total 1412.67 / 1412.67 2923.5 / 2923.5 Output Total 2830 / 2830 1999 Balance -1417.33 / -1417.33 923.5 / 923.5 Lab / Micro Data Result Diagrams: 04/17/22 04:59 04/17/22 04:59 Labs: Laboratory Results - last 24 hr 04/17/22 04:59: WBC 7.4, RBC 3.55 L, Hgb 12.3, Hct 36.1 L, MCV 101.7 H, MCH 34.6 H, MCHC 34.1, RDW Std Deviation 47.1 H, RDW Coeff of Elis 12.5, Plt Count 251, MPV 9.1, Immature Gran % (Auto) 0.300, Neut % (Auto) 58.6, Lymph % (Auto) 31.4, [place] % (Auto) 9.3, Eos % (Auto) 0.1, Baso % (Auto) 0.3, Absolute Neuts (auto) 4. 3, Absolute Lymphs (auto) 2.31, Nucleated RBC % 0 04/17/22 04:59: Sodium 134 L, Potassium 4.0, Chloride 99, Carbon Dioxide 32.0, Anion Gap 3 L, BUN 8, Creatinine 0.49 L, Estim Creat Clear Calc 107.43, Est GFR (MDRD) Af Amer 171, Est GFR (MDRD) Non-Af 141, BUN/Creatinine Ratio 16.4, Glucose 80, Calcium 8.9 Micro: Microbiology 04/09/22 14:09 Swab (Method) Nasal Screen MRSA/MSSA - Final Radiography Diagnostic Testing: Radiology Impression Spine X-Ray 04/16/22 06:30 IMPRESSION: The localization instrument is seen posterior to the L4-L5 disc space level. Electronically Signed: Milton Isaac MD at 15:16 EST , Physical Exam Narrative General: Alert, Oriented x3, Cooperative HEENT: Atraumatic, PERRLA, EOMI, Normocephalic Oral: Oral mucosa moist. No Gingival or Mucosal Lesions/ Ulcerations Neck: Supple, No JVD, Negative Carotid Bruits Lungs: Air entry diminished in bilateral lung bases. No crepitation/rhonchi Cardiovascular: Regular rate, Regular Rhythm, Normal S1, Normal S2, No murmurs Abdomen: Bowel Sounds Present, Soft, Non Tender, Non-Distended : No renal angle tenderness. No suprapubic tenderness. Extremities: No edema, Capillary Refill Less than 3 Seconds Skin: No rashes, No breakdown Musculoskeletal: No Tenderness to Palpation of Joints or Extremities. ROM intact. Spine: Surgical dressing is dry over lumbar area. No drain. No palpable hematoma or bruise. Neurological: Cranial nerves II-XII grossly intact, DTR 2+/4 and Symmetrical, Neuro grossly intact Psych/Mental Status: Normal Affect, Appropriate. Assessment & Plan Assessment/Plan (1) Herniated nucleus pulposus, L4-5 right: PLAN: Plan This is a 51-year-old female is admitted electively after right L4-L5 lumbar laminectomy and discectomy: 1. Herniated disc L4-5 with severe right L5 radiculopathy, sciatica in nature: Patient had surgery on 04/08/2022 as described above under general anesthesia. No nausea or vomiting. Patient has Fitzgerald catheter, will keep today and may be discontinued tomorrow. PT and OT and pain control. Continue gabapentin. 04/17: Patient did not had any major event overnight. Patient walked through the hallway. Patient is medically and hemodynamically good to be discharged home. 2. Chronic migraine headache: Currently patient not having any acute migraine headache. Patient is not on chronic migraine prophylaxis at home. 04/17: Patient did not had headache. Advised to follow-up with neurologist if she has frequent acute headache more than 10 days a month for prophylaxis 3. Chronic smoker: On nicotine patch. 4. Patient also has left meniscectomy: No acute issues. VTE prophylaxis: DVT prophylaxis as per surgeon discretion. Bilateral SCDs while she is on bed. Charges/Coding Visit Charges OBSV E&M: 79998 Subsequent observation care L2
--- NOTE | 2022-04-17 12:09 | DCINST_ITS ---
Discharge Instructions Follow Up Care Test Results: Test results from this visit will be discussed in further detail at your follow- up appointment, if applicable. Discharge Plan Admission Admit Date/Time: 04/16/22 10:02 Primary Reason for Your Visit: lumbar surgery Attending Provider: Marito Faustin Primary Care Provider: Bentley Clement Consulting Providers: Hussain Zapata Discharge Orders/Prescriptions Prescriptions: No Action omega 8-nfy-hra-fish oil 1 EACH capsule 1 ea PO DAILY gabapentin 800 mg Tablet 800 mg PO TID zlnpxis-ofvj-rtuoc-oreg-capryl 100 mg-150 mg- 50 mg-150 mg Capsule 1 cap PO DAILY BEET ROOT 1 tab PO/SL DAILY Referrals / Follow Up: Bentley Clement MD [Primary Care Provider] - Disposition Disposition (needs filled in before D/C Order can be placed): Home, Self Care
--- NOTE | 2022-04-17 12:11 | PCM.DC.SUM ---
Providers Date of Admission: 04/16/22 Primary Care Physician: Dr. Bentley Clement MD Consultations 04/16/22 11:19 Consult: Hospitalist Routine Consulting Provider: Hussain Zapata Reason for Consult: Medical Management EMERGENT Consult: No MD Notified: Yes Date Notified: 04/16/22 Time Notified: 12:09 Method of Notification: Text Reason For Visit: LUMBAR LAMINECTOMY DISCECTOMY RT L4-5 Diagnosis Discharge Diagnosis (1) Herniated nucleus pulposus, L4-5 right: Status: Acute Code(s): M51.26 - Other intervertebral disc displacement, lumbar region Plan This is discharge summary on Jacklyn Wilson. She was admitted to the hospital yesterday and underwent lumbar laminectomy L4-5 on the right side. Today on post op day #1 she is doing extremely well her leg pain is completely gone. Her dressing is dry. Neurologically she is intact. She wishes to go home. Gave her instructions regarding the care of her dressing she is to remove it on Saturday and is can start taking showers on Saturday. She already has an appointment to see me in the office. We will give her oxycodone Tylenol 7.5's 325 for home. This is the end of discharge summary on Jacklyn Wilson. This is Dr. Faustin dictating. Medications at Discharge Home Medications omega 1-gyw-gqu-fish oil 60 mg-90 mg-500 mg capsule 1 ea PO DAILY 04/30/16 BEET ROOT 1 tab PO/SL DAILY 03/27/22 gabapentin 800 mg tablet 800 mg PO TID 03/27/22 tumeric 100 mg-kasi 150 mg-olive 50 mg-oreg 150 mg-caprylate capsule 1 cap PO DAILY 03/27/22 oxycodone-acetaminophen 7.5 mg-325 mg tablet 1 tab PO Q6H PRN pain 7 days #40 tabs 04/17/22 Weight / BMI Weight Weight: 119 lb 4.991 oz Body Mass Index (BMI) 21.8 ABG / Lab / Microbiology Data Result Diagrams: 04/17/22 04:59 04/17/22 04:59 Laboratory: Laboratory Results - last 24 hr 04/17/22 04:59: WBC 7.4, RBC 3.55 L, Hgb 12.3, Hct 36.1 L, MCV 101.7 H, MCH 34.6 H, MCHC 34.1, RDW Std Deviation 47.1 H, RDW Coeff of Elis 12.5, Plt Count 251, MPV 9.1, Immature Gran % (Auto) 0.300, Neut % (Auto) 58.6, Lymph % (Auto) 31.4, [place] % (Auto) 9.3, Eos % (Auto) 0.1, Baso % (Auto) 0.3, Absolute Neuts (auto) 4.3, Absolute Lymphs (auto) 2.31, Nucleated RBC % 0 04/17/22 04:59: Sodium 134 L, Potassium 4.0, Chloride 99, Carbon Dioxide 32.0, Anion Gap 3 L, BUN 8, Creatinine 0.49 L, Estim Creat Clear Calc 107.43, Est GFR (MDRD) Af Amer 171, Est GFR (MDRD) Non-Af 141, BUN/Creatinine Ratio 16.4, Glucose 80, Calcium 8.9 Microbiology: Microbiology 04/09/22 14:09 Swab (Method) Nasal Screen MRSA/MSSA - Final Radiography Diagnostic Testing: Radiology Impression Spine X-Ray 04/16/22 06:30 IMPRESSION: The localization instrument is seen posterior to the L4-L5 disc space level. Electronically Signed: Milton Isaac MD at 15:16 EST , Meaningful Use Info Meaningful Use Diagnoses (Choose all that apply): None applicable Discharge Plan Admission Admit Date/Time: 04/16/22 10:02 Primary Reason for Your Visit: lumbar surgery Attending Provider: Marito Faustin Primary Care Provider: Bentley Clement Consulting Providers: Hussain Zapata Discharge Orders/Prescriptions Prescriptions: New oxycodone-acetaminophen 7.5-325 mg tablet 1 tab PO Q6H PRN (Reason: pain) 7 Days Qty: 40 0RF No Action omega 5-ddg-gki-fish oil 1 EACH capsule 1 ea PO DAILY gabapentin 800 mg Tablet 800 mg PO TID xywhplv-adhx-scssy-oreg-capryl 100 mg-150 mg- 50 mg-150 mg Capsule 1 cap PO DAILY BEET ROOT 1 tab PO/SL DAILY Referrals / Follow Up: Bentley Clement MD [Primary Care Provider] - Disposition Disposition (needs filled in before D/C Order can be placed): Home, Self Care
--- NOTE | 2022-04-17 13:48 | PHA.DC.MR ---
Pharmacy Service has performed discharge medication reconciliation for this patient. The patient's discharge medication list was reviewed for discrepancies and discrepancies were resolved. Home Medications omega 8-ytw-zzm-fish oil 60 mg-90 mg-500 mg capsule 1 ea PO DAILY 04/30/16 BEET ROOT 1 tab PO/SL DAILY 03/27/22 gabapentin 800 mg tablet 800 mg PO TID 03/27/22 tumeric 100 mg-kasi 150 mg-olive 50 mg-oreg 150 mg-caprylate capsule 1 cap PO DAILY 03/27/22 oxycodone-acetaminophen 7.5 mg-325 mg tablet 1 tab PO Q6H PRN pain 7 days #40 tabs 04/17/22
== END 2022-04-17 12:30 | disposition home or self-care (01) ==
LOC: SDC 10:53 → MS3 10:53
PROVIDERS: Anesthesiology; Internal Medicine; Admitting Provider Orthopaedic Surgery; PCP Family Medicine; Referring Provider Orthopaedic Surgery; Visit Provider Orthopaedic Surgery
PROC: (CPT 63030; principal; 2022-04-16 07:00)
DX: M51.16 Intervertebral disc disorders with radiculopathy, lumbar region (principal); F17.210 Nicotine dependence, cigarettes, uncomplicated; M48.061 Spinal stenosis, lumbar region without neurogenic claudication; Z79.899 Other long term (current) drug therapy
CPT/HCPCS: 63030; 00630; J2405; 36415; 72020; 80048; 82962; 83735; 85025; 86703; 86706; 86708; 86803; 87081; 88304; 93005; 96365; 96366; 96375; 96376; 97161; 97802; 99218; 99251; 99406; J7120; A4216; G0378; G0463; J3475

== ENCOUNTER 2022-08-17 19:48 | Emergency (ER) | payer MEDICAID, SELFPAY ==
[2022-08-17 19:49] VITALS: BP 145/95; PULSE 89; RESP 16; TEMP 36.6; O2SAT 100; BMI 20.8
--- NOTE | 2022-08-17 20:59 | ED.RN ---
AT APPROX 2004 PT STATES SHE IS LEAVING, DECLINES WAITING TO BE SEEN IN ED. AMBULATED OUT OF DEPT WITHOUT DIFFICULTY.
== END 2022-08-17 20:05 | disposition left against medical advice (07) ==
LOC: ED 21:07
PROVIDERS: PCP Family Medicine
DX: R10.9 Unspecified abdominal pain (principal)

== ENCOUNTER → 2023-02-06 | Outpatient (CLI) | payer MEDICAID, SELFPAY ==
--- NOTE | 2023-02-06 12:45 | BI_ITS ---
MAMMOGRAPHY - BILATERAL SCREENING REASON FOR EXAM: Female, 52 years old. Routine annual screening examination. PERTINENT HISTORY: Non-contributory. Bilateral breast implants. TECHNIQUE: Digital bilateral breast annetta (3D mammographic acquisition) in the CC and MLO projections. 2-D mediolateral oblique (MLO) and craniocaudad (CC) views of both breasts were obtained. CAD: Full Field Digital Mammography with Computer Added Detection was performed. COMPARISON: Comparison is made with prior study January 26, 2022 and December 07, 2019. FINDINGS: Breast Composition: There are scattered areas of fibroglandular density. There are no dominant masses or suspicious calcifications. Stable appearance of the bilateral breast implants. No other significant abnormalities are identified. There has been no significant change since the prior study. BI/SCRN MAMM (CAD)W/ANNETTA BILAT IMPRESSION: Stable bilateral screening mammogram. Yearly follow-up mammogram recommended. (A) ASSESSMENT CATEGORY: BIRADS Category 2: Benign. A letter regarding these results will be sent to the patient by the facility within 30 days. Approximately 10% of breast cancers are not detected by mammography. A normal mammogram should not delay biopsy of a clinically suspicious abnormality. [id number] Electronically Signed: Milton Isaac MD at 13:52 EDT ,
== END | disposition home or self-care (01) ==
PROVIDERS: PCP Family Medicine; Referring Provider Obstetrics & Gynecology; Visit Provider Obstetrics & Gynecology
DX: Z12.31 Encounter for screening mammogram for malignant neoplasm of breast (principal)
CPT/HCPCS: 77063; 77067

== ENCOUNTER → 2023-03-27 | Outpatient (CLI) | payer MEDICAID, SELFPAY ==
[2023-03-27 10:35] LABS: Absolute Lymphocyte Count 3.26 X10^3/uL (0.83-4.51); Absolute Neutrophil Count 4.7 X10^3/uL (2.0-7.7); Basophil# 0.08 X10^3/uL; Basophil% 0.9 % (0-1); Eosinophil# 0.17 X10^3/uL; Eosinophils% 1.9 % (0-5); Hematocrit 39.8 % (37-47); Hemoglobin 13.4 g/dL (12.0-15.0); Lymphocyte # 3.26 X10^3/ul (0.83-4.51); Lymphocyte % 35.7 % (19-41); Mean Corp Hgb Conc 33.7 g/dL (32-36); Mean Corpuscular Hgb 33.8 pg (27.0-32.0); Mean Corpuscular Volume 100.5 fL (81-99); Mean Platelet Vol. 8.8 fl (6.2-12.0); Monocyte# 0.85 X10^3/uL; Monocyte% 9.3 % (0-10); NRBC Flagged by Analyzer 0 % (0-5); Neutrophil # 4.74 X10^3/uL (2.7-7.7); Neutrophil % 51.9 % (47-70); Platelet Count 363 K/mm3 (150-450); RBC Distribution Width CV 12.7 % (11.6-14.6); Red Blood Count 3.96 M/mm3 (4.2-5.4); White Blood Count 9.1 K/mm3 (4.4-11.0)
[2023-03-27 11:12] LABS: Anion Gap 4 (5-15); BUN 7 mg/dL (7-18); BUN/Creat Ratio 12.3 RATIO (10-20); Chloride 97 mmol/L (98-107); Cholesterol 241 mg/dL (200); Creatinine, Serum 0.57 mg/dL (0.55-1.02); EST Glomerular Filtration Rate 118 mL/min (>60); Est Glom Filt Rate - Afr Amer 143 mL/min (>60); Glucose 88 mg/dL (74-106); High Density Lipoprotein 110 mg/dL; Potassium 4.4 mmol/L (3.5-5.1); Sodium Level 131 mmol/L (136-145); Thyroid Stim Hormone (TSH) 1.12 uIU/mL (0.358-3.74); Triglycerides 54 mg/dL; Very Low Density Lipoprotein 11 mg/dL (5-40)
== END | disposition home or self-care (01) ==
PROVIDERS: PCP Family Medicine; Referring Provider Family Medicine; Visit Provider Family Medicine
DX: Z13.220 Encounter for screening for lipoid disorders (principal); R00.2 Palpitations
CPT/HCPCS: 36415; 80048; 80061; 84443; 85025

== ENCOUNTER → 2023-04-03 | Outpatient (CLI) | payer MEDICAID, SELFPAY ==
[2023-04-03 10:58] LABS: Osmolality, Serum 275 mOsm/KG (275-295)
== END | disposition home or self-care (01) ==
LOC: MTLAB 08:09
PROVIDERS: PCP Family Medicine; Referring Provider Family Medicine; Visit Provider Family Medicine
DX: E87.1 Hypo-osmolality and hyponatremia (principal)
CPT/HCPCS: 36415; 83930

== ENCOUNTER 2023-06-11 11:30 | Outpatient (RCR) | payer MEDICAID, SELFPAY ==
--- NOTE | 2023-05-28 13:11 | HP.PTEVAL_ITS ---
Patient's Visit Information Visit Information Visit Information: SHUBHAM DÍAZ is a 52 year old F referred to Physical Therapy by Dr. Marito Faustin DO with a diagnosis of HNP L4/L5 and sp laminectomy . Date of Evaluation: 05/28/23 Physical Therapist: TIFFANY Jeffrey Visit Plan Frequency: 2x /Week Duration: 2 Months Plan: 2X/ week for 8 weeks for neutral spine core stability, R LE strengthening, Light LB and leg stretching with HEP HEP: PPT and zandra pose back stretch Subjective Subjective: Pt reports that she woke up one morning to go to work and she could barely move and went to the ER and did not have a good experience. 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 Pain was down her R leg and she was dragging her R leg and falling. She went to her PCP he had thought that she had ruptured it and then did PT, which made it worse. She had an MRI after waiting after 2 months and then was referred to Dr Zacarias for pain management and he got the MRI approved. The MRI showed HD and got shots and woke up the next morning with no pain. It lasted a week. He made another appt with him and they went in from another angle and then referred to Dr Faustin. Dr Faustin did the surgery on 03-25-22 and the pain in her butt has never gone away but the pain in her back is gone. She has been dealing with the pain in her butt. 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 She has a back brace that she wears when she has to lift. He back is painful again. If she sits longer than an hour than her back and leg are painful. She can not walk like she used to. She is looking at an MRI or fusion if PT does not work. She stretches at home with the piriformis on the R at home and she has a roller but it it really painful. She has N&T in her R butt cheek and it is stuck in the middle of her calf. It is always there in the middle of her butt. She gets some spams in her R butt cheek. She can not drive very far cause her back hurts. She wakes up every 1-2 hours. Pt has not squated down to the floor in years....she goes on all 4 out of fear Pain Back pain: Pain Intensity (Out of 10): 6 R buttock pain: Pain Intensity (Out of 10): 7 Objective Objective: Gait: Pt walks with short stride Trunk AROM: flex 50%, ext 10%, SB B 50%, Rot B 10% Pt is able to heel and toe raise Increase pain with walking BW LE MMT: R hip flex 15.4 and L 15.5 R knee ext 14.3 and L 23.4 R knee flex 7.4 and L 12.8 R hip abd 10.7 and L 14.4 R hip ext 7.3 and L 14.3 Prone on Elbows slight pain in R buttcheck, if lays flat not on elbow she has less pain in her R buttcheek. SLUMP TEST + on the R for pain in R buttock SLR tight but no pain. Standing heel and toe raises: no strength issue. 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 Goal Time Frame: 6-8 Weeks Goal 4:: Increase trunk Rotation and extension AROM (at the time of the eval: Trunk AROM: flex 50%, ext 10%, SB B 50%, Rot B 10%) Goal Time Frame: 6-8 Weeks Rehabilitation Potential Rehabilitation Potential: Good Anticipated Interventions Patient/Client Instruction: Educate patient on: Condition and Plan of Care For the Purpose of:: To decrease pain, To increase ROM, To improve nutrient delivery to tissue, To improve muscle performance and motor function, To improve ability to perform ADL's, To increase tolerance to activity/condition/position, To improve performance and independence with ADL's, To decrease level of supervision to perform tasks, To improve gait and locomotor functions, To improve health of tissue, To decrease soft tissue restriction and To increase flexibility/ROM Therapeutic Exercise to Include: Strength training, Postural training, Flexibilty training, Gait and locomotor training, Neuromotor development, Active ROM, Dynamic Lumbar Stabilization and Scapular Strength/Stabilization For the Purpose of:: To decrease pain, To increase ROM, To improve nutrient delivery to tissue, To improve muscle performance and motor function, To improve ability to perform ADL's, To increase tolerance to activity/condition/position, To improve performance and independence with ADL's, To improve gait and locomotor functions, To improve health of tissue, To decrease soft tissue res triction and To increase flexibility/ROM Text: Thank you for the opportunity to evaluate your patient. For Medicare and Medicare HMO plans, please review the plan of care and approve it. It will need to be FAXED BACK to us at [phone] for Medicare purposes. For Medicare only, by signing this I certify the plan of care. Please let me know if there are questions or concerns regarding this plan of care. Physician Signature: Date:
--- NOTE | 2023-06-11 11:53 | HP.PTDCSUM ---
Discharge Summary D/C summary: It has been my pleasure to treat SHUBHAM DÍAZ referred by Dr. Marito Faustin DO, with the diagnosis of HNP L4/L5 and sp laminectomy for a total of 4 visit(s). Discharge Date: 06/11/23 Please see the following information for a summary of their discharge status. Subjective Subjective: Pt has her MRI on 06-18-23. She is in so much pain last night. She does not think that PT is helping. She has appeal to her insurance company for them to keep her. She has tried the towel roll and she can only tolerate it so much. 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 Goal Progress: Not Progressing Goal 4:: Increase trunk Rotation and extension AROM (at the time of the eval: Trunk AROM: flex 50%, ext 10%, SB B 50%, Rot B 10%) Goal Progress: Not Progressing Plan Plan: DC PT to MRI D/C Information Discharge Comments: DC PT to MRI d/c sentence: If there are questions or concerns regarding this patient's physical therapy, please feel free to call me at [phone]. Thank you for the referral of this patient. Sincerely, Estelle Harris, MPT Balance/Gait/Functional tests Balance/Special Test Scores Oswestry Low Back Score: 21 Improvement % Improvement: 0
--- NOTE | 2023-06-24 08:15 | HP.PTDCSUM ---
Discharge Summary D/C summary: It has been my pleasure to treat SHUBHAM DÍAZ referred by Dr. Marito Faustin DO, with the diagnosis of HNP L4/L5 and sp laminectomy for a total of 4 visit(s). Discharge Date: 06/11/23 Please see the following information for a summary of their discharge status. Subjective Subjective: Pt has her MRI on 06-18-23. She is in so much pain last night. She does not think that PT is helping. She has appeal to her insurance company for them to keep her. She has tried the towel roll and she can only tolerate it so much. 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 Goal Progress: Not Progressing Goal 4:: Increase trunk Rotation and extension AROM (at the time of the eval: Trunk AROM: flex 50%, ext 10%, SB B 50%, Rot B 10%) Goal Progress: Not Progressing Plan Plan: DC PT to MRI D/C Information Discharge Comments: DC PT to MRI d/c sentence: If there are questions or concerns regarding this patient's physical therapy, please feel free to call me at [phone]. Thank you for the referral of this patient. Sincerely, Estelle Harris, MPT Balance/Gait/Functional tests Balance/Special Test Scores Oswestry Low Back Score: 21 Improvement % Improvement: 0
== END 2023-06-11 19:00 | disposition home or self-care (01) ==
LOC: PT 11:30
PROVIDERS: Referring Provider Orthopaedic Surgery; Visit Provider Orthopaedic Surgery
DX: M51.26 Other intervertebral disc displacement, lumbar region (principal); Z98.890 Other specified postprocedural states
CPT/HCPCS: 97110; 97161; 97530

== ENCOUNTER → 2023-06-18 | Outpatient (CLI) | payer MEDICAID, SELFPAY ==
--- NOTE | 2023-06-18 08:07 | MRI_ITS ---
STUDY: MRI LUMBAR SPINE WITH AND WITHOUT CONTRAST REASON FOR EXAM: Female, 52 years old. presumptive dx-reherniation of L4-5 TECHNIQUE: Standardized fat and water weighted pulse sequences were obtained in the sagittal and axial planes. IV 10ml clariscan was administered for the contrast portion of the examination. COMPARISON: MRI the lumbar spine dated December 16, 2021. X-ray the lumbar spine dated April 16, 2022. X-ray the lumbar spine dated March 05, 2022 FINDINGS: Normal lumbar lordosis. There is no substantial scoliosis. Normal conus medullaris that terminates at the T12-L1 level. No marrow edema or fracture or compression deformity is present. No suspicious lesions are present. As the prior study a right laminotomy defect has appeared at the L4-L5 level with expected and mild postoperative scarring within the surgical bed. Otherwise there are no abnormal enhancement of the remaining bony or soft tissue structures. No enhancing fluid collection is present. T12-L1: Mild disc desiccation and small Schmorl''s node. No disc herniation or bulging is present. Normal bilateral facet joints. Normal central canal and bilateral lateral recesses. Normal bilateral intervertebral neural foramina. L1-2: Mild disc desiccation and small Schmorl''s node. No disc herniation or bulging is present. Normal bilateral facet joints. Normal central canal and bilateral lateral recesses. Normal bilateral intervertebral neural foramina. L2-3: Mild disc desiccation and small Schmorl''s node. No disc herniation or bulging is present. Normal bilateral facet joints. Normal central canal and bilateral lateral recesses. Normal bilateral intervertebral neural foramina. L3-4: Diffuse disc desiccation with mild disc space narrowing and a minor anterior disc spur complex. Small Schmorl''s node. Mild facet joint and ligament of flavum hypertrophy. Normal central canal and bilateral lateral recesses. Normal bilateral intervertebral neural foramina. L4-5: Normal endplates. Right laminotomy defect and minor fibrotic scarring in the surgical bed. No recurrent extruded disc material is present. Moderate 1.77 cm focus of perineural enhancing fibrosis and thickening of the exiting nerve root within the right lateral recess at the laminotomy site is demonstrated. See image 02/01 series 7 and series 14. This results in right lateral recess stenosis with compression of the descending nerve root. Moderate central canal stenosis is present primarily due to moderate facet joint and ligament of flavum hypertrophy. A mild posterior disc space narrowing and posterior annular bulge is also present. Normal bilateral intervertebral neural foramina. Slight retrolisthesis of L4 and L5 of less than 2 mm. L5-S1: Normal endplates. Normal disc height, hydration and morphology. Normal bilateral facet joints. Normal central canal and bilateral lateral recesses. Normal bilateral intervertebral neural foramina. Normal visualized sacral ala. Normal visualized paraspinous soft tissue structures. MRI/Spine Lumbar W/WO Contrast IMPRESSION: 1. L4-5: Right laminotomy defect and minor fibrotic scarring in the surgical bed. No recurrent extruded disc material is present. Moderate 1.77 cm focus of perineural enhancing fibrosis and thickening of the exiting nerve root within the right lateral recess at the laminotomy site is demonstrated. See image 9/15 series 7 and series 14. This results in right lateral recess stenosis with compression of the descending nerve root. Moderate central canal stenosis is present primarily due to moderate facet joint and ligament of flavum hypertrophy. A mild posterior disc space narrowing and annular bulge is also present. Electronically Signed: Pete Srinivasan MD at 10:07 [facility] ,
--- OUTSIDE RECORDS SUMMARY | 2023-06-18 08:27 | XMS RPT_ITS | CCD ---
Author Name Unknown Address [address] [place] [address] Organization [facility] Care Team Providers Care Excel Specialist Name Role Phone PHYSICIAN, NOT RECORDED Primary Care Physician U navailable PHYSICIAN, NOT RECORDED Primary Care Unavaila shadi WONG MD, ABDIAS Romano Attending Unavail able Problems Problem Classification Problem Date Documented Da te Episodic/Chronic Open wounds of extremities (1 source) Laceration of left thumb; Translations: [Laceration without foreign body of left thumb without damage to nail, initial encounter] Onset: 09-20-2021 Episodic Vital Signs Date Time Vital Sign Value Performing Clinician Faci lity 09-20-2021 19:23-0400 Body temperature 98.06 [degF] ABDIAS WONG MD [facility] 09-20-2021 19:23-0400 Diastolic blood pressure 104 mm[Hg] ABDIAS WONG MD [facility] 09-20-2021 19:23-0400 Heart rate 102 /min ABDIAS WONG MD [facility] 09-20-2021 19:23-0400 Respiratory rate 16 /min ABDIAS WONG MD [facility] 09-20-2021 19:23-0400 Systolic blood pressure 162 mm[Hg] ABDIAS WONG MD [facility] Encounters Encounter Date Encounter Type Care Provider Facility Start: 09-20-2021 End: 09-20-2021 Emergency department patient visit NOT RECORDED PHYSICIAN Facility:B Start: 09-20-2021 End: 09-20-2021 Emergency department patient visit ABDIAS WONG MD [facility] Payers Date Payer Category Payer Unknown [id number] 1970 Unknown [id number] Social History Date Type Detail Facility Start: 09-20-2021 Tobacco smoking status Heavy t obacco smoker (finding) [facility] Sex Assigned At Sex [facility] Functional Status Date Assessment Result Facility 09-20-2021 Functional Status [facility] Mental Status Date Assessment Result Facility 09-20-2021 [facility] Hospital Discharge instructions 09-20-2021 Note Date & Type Note Facility 09-20-2021 Hospital Discharg e instructions Patient Education 09/20/2021 19:44:00 Laceration, Extremity: Skin Glue Extremity Laceration: Skin Glue A laceration is a cut through the skin. You have a laceration that has been closed with skin glue. This is used on cuts that have smooth edges and are not infected. It's best used on straight, clean cuts on areas that do not get a lot of tension. You may need a tetanus shot. This is given if you have no record of a shot, and the object that caused the cut may lead to tetanus. Home care Your healthcare provider may prescribe an antibiotic. This is to help prevent infection. Follow all instructions for taking this medicine. Take the medicine every day until it is gone or you are told to stop. You should not have any left over. The healthcare provider may prescribe medicines for pain. Follow instructions for taking them. Follow the healthcare provider s instructions on how to care for the cut. No bandage is needed. Skin glue peels off on its own within 5 to 10 days. Most skin wounds heal within 10 days. Keep the wound clean. You may shower or bathe as usual, but do not use soaps, lotions, or ointments on the wound area. Do not scrub the wound. After bathing, pat the wound dry with a soft towel. Don't scratch, rub, or pick at the film. Don't place tape directly over the film. Don't put liquids such as peroxide, ointments, or creams on the wound while the skin glue is in place. Many oil based products can weaken and dissolve the glue. Don't do any activities that may reinjure your wound. Don't do any activities that cause heavy sweating. Protect the wound from sunlight. Most skin wounds heal without problems. But an infection sometimes occurs even with proper treatment. Watch for the signs of infection listed below. Follow-up care Follow up as directed with your healthcare provider, or as advised. When to seek medical advice Call your healthcare provider right away if any of these occur: Wound bleeding not controlled by direct pressure Signs of infection, including increasing pain in the wound, increasing wound redness or swelling, or pus or bad odor coming from the wound Fever of 100.4 F (38. C) or higher, or as directed by your healthcare provider Wound edges reopen Wound changes colors Numbness around the wound Decreased movement around the injured area [id number] [employer]. [address] [place] [address]. All rights reserved. This information is not intended as a substitute for professional medical care. Always follow your healthcare professional's instructions. Follow Up Care 09/20/2021 19:19:49 With:CONOR PERDOMO Address: [place] [address]- When:2-4 days [facility] Evaluation + Plan note Note Date & Type Note Facility Evaluation + Plan note No data available for this section [facility] Progress note Note Date & Type Note Facility Progress note No data available for this section [facility] Summary Purpose Family History No Family History Records Found Advance Directives No Advanced Directives Records Found Additional Source Comments Care Team (unrecognized sect ion and content) Personnel Name: PHYSICIAN, NOT RECORDED INFORMATION SOURCE (unrecogn ized section and content) FOR RECORDS PERTAINING TO PATIENTS WHO ARE OR HAVE BEEN ENROLLED IN A CHEMICAL DEPENDENCY/SUBSTANCEABUSE PROGRAM, SOME INFORMATION MAY BE OMITTED. This clinical summary was aggregated from multiple sources. Caution should be exercised in using it in the provision of clinical care. This summary normalizes information from multiple sources, and as a consequence, information in this document may materially change the coding, format and clinical context of patient data. In addition, data may be omitted in some cases. CLINICAL DECISIONS SHOULD BE BASED ON THE PRIMARY CLINICAL RECORDS. [facility] [facility]. provides no warranty or guarantee of the accuracy or completeness of information in this document.
== END | disposition home or self-care (01) ==
LOC: MRI 08:02
PROVIDERS: PCP Family Medicine; Referring Provider Orthopaedic Surgery; Visit Provider Orthopaedic Surgery
DX: M51.26 Other intervertebral disc displacement, lumbar region (principal); Z98.890 Other specified postprocedural states
CPT/HCPCS: 72158; A9575

== ENCOUNTER 2023-09-09 05:26 | Inpatient (IN) | payer MEDICAID, SELFPAY ==
--- NOTE | 2023-08-30 07:03 | EKG12_ITS ---
Test Reason : PRE-OP Blood Pressure : / mmHG Vent. Rate : 098 BPM Atrial Rate : 098 BPM P-R Int : 126 ms QRS Dur : 080 ms QT Int : 360 ms P-R-T Axes : 065 -56 036 degrees QTc Int : 459 ms Normal sinus rhythm Left axis deviation Abnormal ECG Confirmed by Albert Fountain ([id number]), features editor JERRY KIRK ([id number]) on 08/30/2023 1:30:28 PM Referred By: ANAI Confirmed By:Albert Fountain
[2023-08-30 07:43] LABS: Absolute Lymphocyte Count 2.11 X10^3/uL (0.83-4.51); Basophil# 0.08 X10^3/uL; Basophil% 0.9 % (0-1); Eosinophil# 0.12 X10^3/uL; Eosinophils% 1.3 % (0-5); Hematocrit 39.7 % (37-47); Hemoglobin 13.8 g/dL (12.0-15.0); Lymphocyte # 2.11 X10^3/ul (0.83-4.51); Lymphocyte % 23.5 % (19-41); Mean Corp Hgb Conc 34.8 g/dL (32-36); Mean Corpuscular Hgb 34.8 pg (27.0-32.0); Mean Platelet Vol. 8.3 fl (6.2-12.0); Monocyte# 0.69 X10^3/uL; Monocyte% 7.7 % (0-10); NRBC Flagged by Analyzer 0 % (0-5); Neutrophil # 5.95 X10^3/uL (2.7-7.7); Neutrophil % 66.2 % (47-70); Platelet Count 287 K/mm3 (150-450); RBC Distribution Width CV 13.1 % (11.6-14.6); RBC Distribution Width SD 48.4 fl (35.1-43.9); Red Blood Count 3.97 M/mm3 (4.2-5.4)
[2023-08-30 08:37] LABS: Vitamin B12 1954 pg/mL (211-911); Vitamin D,25 Hydroxy 65.3 ng/mL
[2023-08-30 09:13] LABS: HIV - WCH Non-Reactive (Nonreactive); Hepatitis B Surface Antibody Non-Reactive; Hepatitis C Antibody Non-Reactive (Nonreactive); Magnesium 2.2 mg/dL (1.6-2.6)
[2023-08-30 09:16] LABS: ALB/GLOB Ratio 1.3 RATIO (0.9-2.4); AST(SGOT) 24 U/L (15-37); Alanine Aminotransfer ALT/SGPT 24 U/L (13-56); Albumin, Serum 4.4 g/dL (3.2-5.0); Alkaline Phosphatase 58 U/L (45-117); Anion Gap 4 (5-15); BUN 7 mg/dL (7-18); BUN/Creat Ratio 11.7 RATIO (10-20); Calcium,Total 9.4 mg/dL (8.5-10.1); Chloride 102 mmol/L (98-107); Cholesterol 236 mg/dL (200); EST Glomerular Filtration Rate 112 mL/min (>60); Est Glom Filt Rate - Afr Amer 135 mL/min (>60); Ferritin 110 ng/mL (8-252); GGTP 52 U/L (5-55); Globulin 3.5 g/dL (2.2-4.2); Glucose 90 mg/dL (74-106); High Density Lipoprotein 122 mg/dL; Protein, Total 7.9 g/dL (6.4-8.2); Sodium Level 134 mmol/L (136-145); Thyroid Stim Hormone (TSH) 1.38 uIU/mL (0.358-3.74); Triglycerides 61 mg/dL; Very Low Density Lipoprotein 12 mg/dL (5-40)
[2023-08-30 09:45] LABS: Osmolality, Serum 285 mOsm/KG (275-295)
[2023-08-31 06:09] LABS: Hepatitis A AB, Total Negative (Negative)
--- NOTE | 2023-09-05 15:34 | PCM.HP.BLA ---
History and Physical MR#: [id number] Acct: [id number] Name: JACKLYN DÍAZ Rep #: [id number] : 1970 Provider: Dr. Marito Faustin DO Age/Sex: 52/F Location: [facility] [place] Status: Signed Intake Vital Signs 08/17/2318:49 Height 5 ft 2 in Intake Visit Reasons: LUMBAR SPINE Chief Complaint: abd pain Allergies No Known Allergies Allergy (Verified 08/27/22 14:30) Medications omega 4-hga-pct-fish oil 60 mg-90 mg-500 mg capsule 1 ea PO DAILY 04/30/16 [History Confirmed 08/27/22] BEET ROOT 1 tab PO/SL DAILY 03/27/22 [History Confirmed 08/27/22] turmeric 100 mg-kasi 150 mg-olive 50 mg-oreg 150 mg-capryl capsule 1 cap PO DAILY 03/27/22 [History Confirmed 08/27/22] gabapentin 800 mg tablet 800 mg PO 05/23/23 [History Confirmed 05/23/23] PFSH Medical History Alcohol use Back pain Cardiology follow-up encounter History of pain when walking History of steroid therapy History of stress test Hx of mitral valve prolapse Leg cramps Migraine headache Post-menopausal Smoker Wears glasses Surgical History History of meniscectomy of left knee Hx of appendectomy Hx of breast augmentation Hx of colonoscopy Hx of laparoscopy Family History Other Cancer Myocardial infarction Social History Smoking Status: Current every day smoker tobacco type: cigarettes HPI LUMBAR SPINE Details: This documentation accurately reflects the service provided and the decisions made by me, Dr. Marito Faustin DO 05/23/23 0837. Part of today?s visit was documented by Angeles STAFFORD, acting as scribe. JACKLYN DÍAZ is a 52 year old F here today for sciatic back pain. She states that it radiates into her right buttock and sometimes down into her calf. She states that she feels her right buttock tighten and it has made an indentation. She states that the sciatic pain hasn't stopped since her surgery which was on 04/16/22, Lumbar laminectomy discectomy L4-5 on the right. She states that it has gotten worse over time to where is is affecting her sleep and she is unable to sit for long periods of time. She states that Tylenol and stretching are not helpful and the only thing that helps is gabapentin and a hot shower. Jacklyn returns for follow-up. Unfortunately she does not work at [employer] anymore. 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 He went into kidney failure he is on oxygen he was a very high risk to begin with. Is very hard on her she is a person that weighs about 110 or 12 pounds. Nonetheless the back has been bothering her she has a lot of back pain now and but mainly pain in the right buttocks goes into the thigh. The right buttocks pain is the worst. Laminectomy that we did a little over a year ago was at L4-5 on the right side. She has reached a point where she cannot stand the pain anymore. It wakes her up at night she is unable to sleep. At times the back pain is insurmountable. On examination she has very positive straight leg raising on the right side. Any forward bending causes a great deal of pain in her buttocks even though it is there all the time it is worse when she starts to bend forward. She has very little pain with extension. She can stand on her toes and she can stand on her heels. He has good motor strength of all the major muscle groups of both lower extremities. He does have a absent posterior tibialis reflex on the right and it is +1 on the left. Of course this points at the L5 nerve root. Symptoms have been going on long enough now that we need to proceed with an MRI scan of the lumbar spine with contrast. The insurance carrier may require physical therapy before they approve the MRI scan. However they might bypass this since this is a repeat problem. Obviously physical therapy will not help her in fact that will probably aggravate the condition. Coding Level of Care Code Off vis,est,level 3 Diagnoses S/P laminectomy Z98.890 HNP (herniated nucleus pulposus), lumbar M51.26
[2023-09-09] VITALS (20 sets, daily range): BP systolic 91–160; BP diastolic 61–93; PULSE 74–120; RESP 16–18; TEMP 36.1–36.8; O2SAT 94–100; BMI 20.2
--- NOTE | 2023-09-09 | DISC_PTH ---
PATIENT: SHUBHAM DÍAZ LOC: MS3 U#:[id number] AGE/SX: 53/F ROOM: NH313 RE09/09/[address]: Dr. Marito Faustin DO : 1970 BED: 1 DIS: 09/11/2023 SPEC #: [id number] RECD: 09/09/23 18:23 STATUS: [place] REQ #: [id number] DINORAH: 09/09/23 00:[address]: Marito Faustin DEPT: SURGICAL PATHOLOGY RECD BY: Steve Jacobson ENTERED: 09/10/23 07:59 SP TYPE: DISC OTHR DR: Dr. Craig Ellis, DO MD Dr. Thalia Matt MD Dr. Autumn L White, MD Dr. Christopher Ranney, MD Dr. David de Lorenzo, DO MD Du Marcum MD Dr. Eric Jopperi, DO Dr. Saieg Tellez, DO Dr. Diony Henderson, DO MD Dr. Cristian Daly MD Dr. Prakash Chand, MD Dr. Paul Nielsen, MD Dr. Paige Pierce, MD Dr. 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 / 09/11/2023 MICROSCOPIC DESCRIPTION Slides are reviewed. GROSS DESCRIPTION Received in fixative is one container labeled with the patient's name and designated Disc L4-5. The specimen consists of multiple irregular fragments of green indurated tissue that in aggregate measure 6.0 x 4.5 x 2.0 cm. The specimen is totally submitted in one cassette. The largest piece measures 6.5cm in greatest dimension. Roller Gold Leaf sections are submitted in two cassettes. ANGELA/ 09/10/23 TC:5 CPT:54547
[2023-09-09] MEDS: Acetaminophen 500 MG Tablet 1000 MG PO ×2 (06:17→18:12)
[2023-09-09] MEDS: Magnesium 1 GM over 15 mins IV (06:28)
[2023-09-09] MEDS: Lactated Ringers 1,000 ML 15 ML IV (06:28)
[2023-09-09 06:48] LABS: Bedside Glucose 134 mg/dL (74-106)
[2023-09-09] MEDS: Cefazolin 2 GM in 0.9% Normal Saline (100mL Bag) 100 ML IV ×2 (07:50→11:46)
[2023-09-09] MEDS: Heparin 10,000 UNITS/10 ML Vial 10000 UNITS (08:18)
--- NOTE | 2023-09-09 09:55 | RAD_ITS ---
STUDY: X-RAY - LUMBAR SPINE REASON FOR EXAM: Female, 53 years old. 360 FUSION L4-5 WITH REPEAT LAMINECTOMY ON RT TECHNIQUE: 1 view(s) of the lumbar spine were obtained. COMPARISON: None FINDINGS: Single lateral radiograph lumbar spine is obtained in operating room during surgery. . RAD/Spine 1 View Any Level IMPRESSION: X-Ray Lumbar Spine during surgery. Electronically Signed: Guy Morocho MD at 23:03 EDT ,
--- NOTE | 2023-09-09 10:50 | RAD_ITS ---
STUDY: X-RAY - LUMBAR SPINE REASON FOR EXAM: Female, 53 years old. LUMBAR 360 -- IMAGE 2 TECHNIQUE: 1 view(s) of the lumbar spine were obtained. COMPARISON: None FINDINGS: A single crosstable lateral radiograph the lumbar spine obtained in the operating room demonstrates patient is status post discectomy and anterior fixation at L4/L5. . RAD/Spine 1 View Any Level IMPRESSION: Status post discectomy and anterior fixation at L4/L5. Electronically Signed: Guy Morocho MD at 23:03 EDT ,
--- NOTE | 2023-09-09 11:15 | OP.PCM_ITS ---
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 The insurance carriers would like these 2 procedures to be coded with 1 CPT code ho wever it should be 2 CPT codes for the simple reason that these are not connected. That would be appropriate with a stand-alone cage. However it would not be appropriate for this as they are 2 different procedures. The plate is not dependent on the cage and the cage is not dependent on the plate.) #3 insertion of anterior lumbar cage CPT code 10927 #4 bone marrow aspirate from right iliac crest CPT code 08672 #5 use of bone allograft and cage CPT code 57295 Co-surgeons: Dr. Faustin and Dr. Gutierrez [employer] Online: Faith from surgery Anesthesia: General endotracheal administered by [facility] EBL: 50 cc Drains: None Complications: None Before I start the description of the operative summary I would like to point out that once the disc had been removed and we took measurements for a cage we found that we needed a 14 high 35 x 25 mm cage. Once the package was actually opened the spine rep noticed that the expiration date was July 15, 2023. Unfortunately that is the only 14 mm 35 x 25 mm cage that she had. A 14 me millimeters larger cage would have been too big. 16 high cage would have been too big also. And a 12 mm high cage would have been too small. Thus I was faced with the dilemma. However its only been 7 weeks since the so-called expiration. Note that the expiration dates on these cages are about 4 years. So 7 weeks extra over a 4-year. Is not likely to be detrimental. In fact once they do the company simply reprocess and repackaged the same cages. These expiration dates are probably required by the FDA. In a practical matter however it probably makes no difference at all. Procedure: Patient was taken to the OR where she was placed in a spine position on the operating table. The abdomen was prepped and draped in standard fashion. Bone marrow aspiration of the ASIS was done with a Jamshidi needle. 50 cc of fluid were then handed off to the program technician who was able to use her centrifuge to separate the stem cells from the other cells and concentrated them 8-10 times and give us back a few cc. The operative summary for the surgical approach as described by Dr. Gutierrez. Once I had good access to the L4-5 disc after first taken an intraoperative x-ray to confirm the level I removed the anterior annulus with a 10 blade and removed more nucleus from within the disc base with pituitary rongeurs ring curettes and bowl curettes. I was able to find the tear in the posterior longitudinal ligament where the extrusion had exited. I was able to bring back a small piece of disc however it such a large disc that we will have to do a repeat Lami once we do the backside. Once I removed all the cartilage off both endplates with curettes I took measurements for the cage we decided on a 35 x 25 mm 14 mm high cage. These have 7 degree angles. I then used the first a 12 mm broach followed by the use of the 14 mm broach this flattened the endplate surfaces and got a some bleeding endplate which is desirable. Note that thorough irrigation was carried out several times in the course of the procedure. Once the cage was opened and we found that that was the only 1 available I made the decision to go ahead and use it in spite of the somewhat arbitrary expiration date. We filled the cage with spongy bone al lograft on both halves. I then soaked it in the patient's own stem cells. We then tamped into place and countersunk it a couple of millimeters. It was an excellent fit. We then used a 25 mm anterior spine plate which of course is separate from the cage. The 2 are not connected and they are not dependent on each other. (Hence 2 different CPT codes). Once it was centered I held the plate in place while Dr. Grimaldo used the awl to punch each of the 4 holes 2 into L4 and 2 and L5. He then entered with the a 4 self-tapping 30 mm screws. He then activated the locking mechanism. We observed that on an x-ray intraoperatively and found it to be an excellent fit. Amnionic membrane was placed over the cage as the vessels would be lying right on it and this is to prevent adhesions to the vessels. The operative closure is then described in Dr. Gutierrez's operative summary. This is the end of operative summary on Jacklyn Wilson. This is Dr. Faustin dictating.
[2023-09-09] MEDS: THROMBIN (RECOMBINANT) 20,000 UNIT VIAL 20000 UNIT TOPICAL (12:03)
--- NOTE | 2023-09-09 12:10 | RAD_ITS ---
EXAM: XR SPINE, 1 VIEW CLINICAL INDICATION: LUMBAR FUSION TECHNIQUE: Single view of the spine. COMPARISON: No relevant prior studies available. FINDINGS: VERTEBRAE: Single intraoperative image shows hardware from an anterior fusion of L4 and L5 along with an interbody spacer. Preserved vertebral body height. No fracture. Preservation of the normal spine curvature. No significant facet arthropathy. DISC SPACES: Unremarkable. Disc spaces are maintained. SOFT TISSUES: Unremarkable. RAD/Spine 1 View Any Level IMPRESSION: Fusion of L4-5. Electronically Signed: Jadon Medina MD at 0:00 EDT ,
--- NOTE | 2023-09-09 14:07 | OP.PCM_ITS ---
Report of Operation Description of Surgical Findings:: Preoperative diagnosis:recurrent disc herniation L4-5 on the right Postoperative diagnosis: Same Procedures: #1 posterior fusion L4-5 CPT code 12806 #2repeat laminectomy L4-5 CPT code 66065 #3 internal segmental fixation L4-5 CPT code 08159 #4 spongy bone allograft L4-5 CPT code 61888 Surgeon: Dr. Faustin Burglar Alarm Installer: Faith from surgery Anesthesia: General endotracheal administered by [facility] EBL: 50 cc on the back, 50 cc on the front for a total of 100 for both surgeries. Drains: None Complications: None Procedure: After the anterior procedure was complete pleat and Dr. Gutierrez closed the abdomen the patient was then turned onto the prone position on the Christophe frame. After proper positioning with care to protect her bony prominences her breasts her ulnar nerves of both elbows the brachial plexus and the cervical spine and facial features the back was prepped and draped standard fashion. I then made a longitudinal incision directly over the old incision. Subcutaneous tissues were incised length of the skin incision. I then opened the lumbar fascia to the right of the spinous processes and elevated the paravertebral muscles off the top of the lamina of L4. Great care was taken to do this so sent him plunge into the dura. I then cauterized it out laterally over the facets and then cauterized scar tissue off of the top of the L5 lamina. Great care was taken to slowly go toward the middle with curettes slowly removing the scar tissue until I found the edge of the laminotomy. I then used a angled curette to release scar tissue out from underneath the lamina and I then began enlarging the size of the laminotomy basically removing more bone lateralward. I was not worried about instability as she is already fused on the front. Released the dura and scar tissue off of the top of the L5 lamina. Using 45 degree Kerrison rongeurs I carried out a significant laminectomy at the top of L5. I also removed bone lateralward completely opening the lateral space. I then began retracting. Note that I removed 2 large pieces of bone that I think were calcified disks. Also note that much of the disc was probably brought back in through the anterior approach as nucleus was removed. Once done however there was no more pressure whatsoever on the L5 nerve root. Bleeders were controlled with bipolar cautery and thrombin-soaked Gelfoam. Note that prior to the increase in size of the laminectomy I did open the left side elevated paravertebral muscles off the lamina of 5 and the lamina of L4. Super slide retractors were then used it was it with the super slide retractors that I was able to perform the laminectomy repeat in nature on the right side. I moved the ligament between the spinous process and took the measurement for the endograft. Note of the endograft is basically a bone for fusion and spacer at the same time. I then placed a spongy bone that was soaked the patient's own concentrated stem cells over the left side from lamina to lamina after first burring the lamina. Amniotic membrane was placed in the laminotomy site and Gelfoam was placed over the top of that. We then tamped the endograft into place. This was followed by the application of the internal fixation device. Once positioned properly it was locked into place and the locking mechanisms were activated. We had a very little bleeding. Note that we did thoroughly irrigate repeatedly in the course of the case. I then closed the lumbar fascia using [id number] suture with #1 Vicryl followed by closure of subcutaneous tissues with 2-0 Vicryl in interrupted fashion and the skin was approximated using skin clips. Sterile dressings were then applied. The patient was then recovered in the OR she was moved to her hospital bed and taken to recovery in satisfactory condition. This the end of operative summary on Jacklyn Wilson. This is Dr. Faustin dictating.
--- NOTE | 2023-09-09 15:09 | OP.PCM_ITS ---
Report of Operation Date of Procedure: 09/09/23 Pre-Operative Diagnosis: Recurrent disc herniation L4-5 with severe right L5 ra diculopathy intractable pain and neurological deficit Post-Operative Diagnosis: same Surgery/Procedure Performed:: #1 anterior lumbar interbody fusion L4-5 CPT code 48843 #2 Anterior spine plate L4-5 CPT code 70725/59 #3 insertion of anterior lumbar cage CPT code 29420 #4 bone marrow aspirate from right iliac crest CPT code 11023 #5 use of bone allograft and cage CPT code 41966 Surgeon: Co Surgeons: Dr. Faustin, Dr. Gutierrez Type of Anesthesia: General Description of Procedure: HPI: Patient is a 53-year-old female evaluated by Dr. Faustin for L4-L5 deg enerative disc disease with radiculopathy. He feels that she is a candidate for anterior lumbar interbody fusion in addition to her posterior instrumentation. Vascular surgery services are requested for exposure and mobilization of the abdominal great vessels. Description of procedure: Upon obtaining form consent and verification correct patient procedure site patient taken to the operating where she was placed under general anesthesia. She was then positioned prepped and draped in usual sterile fashion and timeout performed. Punctate skin incision was made over the right iliac crest and bone marrow aspirated and then passed off the field for processing for use with the implant. Next transverse incision in the left lower quadrant and Bovie with cautery to dissect down through the subcutaneous tissue and self-retaining retractor put in position. Further dissection carried on the fascia and the fascia incised transversely with counterincisions inferior medially and superior laterally. The rectus muscle was then mobilized circumferentially and retracted medially after which blunt dissection used to create a plane between the abdominal wall and the peritoneum mobilizing off of the posterior sheath. The posterior sheath was then incised vertically and then further mobilization of the abdominal contents towards the midline performed. A wet lap sponges and placed in position and then the self-retaining retractor brought into position. Retractor blades were then placed and the left iliac vessels visualized. Sharp dissection was then used to mobilize the left common and external iliac artery and these were then retracted superiorly and laterally. The left iliac veins were then dissected free with sharp dissection and the iliolumbar vein identified, ligated with silk ties, clips and oversewn with Prolene. It was then divided and hemostasis noted the iliac veins were then retracted inferiorly medially exposing the L4-L5 disc space. Further mobilization of the connective tissue anterior to the spine was performed until adequate exposure was obtained. At this point Dr. Faustin performed his discectomy which she will describe in further detail. Upon completion the retractors were then released and the vessel was inspected. There is no evidence of any injury and the iliac arteries had palpable pulses. The iliac veins were soft and compressible with no evidence of thrombus. Retractor blades were then removed and the abdominal wall incision closed with running strata fix suture followed by 3-0 Vicryl 4-0 Monocryl for the skin. Patient then flipped into prone position for further procedures described separately by Dr. Faustin.
[2023-09-09] MEDS: Ondansetron 4 MG/2 ML Vial IV (18:11)
[2023-09-09] MEDS: Gabapentin 800 MG Tablet PO (18:12)
[2023-09-09] MEDS: Lactated Ringers 1,000 ML 100 ML IV (18:12)
--- NOTE | 2023-09-09 19:01 | PN.HOSP_ITS ---
Reason for Visit Reason for Visit: Consult requested by Dr. Faustin for postoperative medical management. Subjective Subjective Nauseated postoperatively. Objective Data Objective Data Vital Signs: Vital Signs Temp Pulse Resp BP Pulse Ox O2 Del Method O2 Flow Rate 36.8 C 74 18 115/74 98 Room Air 4 09/09/23 18:16 09/09/23 18:16 09/09/23 18:16 09/09/23 18:16 09/09/23 18:16 09/09/23 18:16 09/09/23 16:00 FiO2 42 09/09/23 14:25 Oxygen Flow Rate (L/min) 4 Oxygen Delivery Method Room Air Weight: 50.349 kg Body Mass Index (BMI) 20.2 Intake & Output: Intake and Output for Last 24 Hours 09/07/23 09/08/23 09/09/23 23:59 23:59 23:59 Intake Total 2572 / 2572 Output Total 610 / 610 Balance 1961 / 1961 Lab / Micro Data 08/30/23 07:24 08/30/23 07:24 Labs: Laboratory Results - last 24 hr 09/09/23 05:55: POC Glucose 134 H Micro: Microbiology 08/30/23 07:24 Swab (Method) Nasal Screen MRSA/MSSA - Final Physical Exam Const alert Constitutional Narrative: Tremulous. Has an emesis bag near her face but no active retching or vomiting. HEENT head/scalp atraumatic and moist oral mucous membranes Resp normal respiratory effort, no retractions, no use of accessory muscles and clear to auscultation bilaterally Cardio regular rate, regular rhythm, S1 normal heart sound and S2 normal heart sound GI normal to inspection, nondistended, normoactive bowel sounds, soft to palpation, non-tender and non-distended Neuro Sensorium / Orientation: awake and alert Assessment & Plan Assessment/Plan (1) Nausea: PLAN: Plan Postoperative nausea * She has as needed ondansetron. Will add as needed Compazine as well. * Code anticipate that that would continue to improve as the anesthesia fully wears off. 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 * Management per orthopedic spine surgery. * VTE prophylaxis per orthopedic spine surgery. Thank you for the consult. The hospitalist service will follow along during this patient's hospitalization. Charges/Coding Visit Charges Inpatient E&M: 22766 Subs Hosp L2
[2023-09-09] MEDS: Cefazolin 1 GM/50 ML BAG IV (19:40)
[2023-09-09] MEDS: proCHLORPERazine 10 MG/2 ML Vial 5 MG IV (21:36)
[2023-09-10] MEDS: HYDROmorphone 0.5 MG/0.5 ML SYRINGE IV ×5 (00:22→21:14)
[2023-09-10 00:39] VITALS: BP 115/75; PULSE 93; RESP 16; TEMP 36.2; O2SAT 96
[2023-09-10] MEDS: Cefazolin 1 GM/50 ML BAG IV (03:51)
[2023-09-10] MEDS: Lactated Ringers 1,000 ML 100 ML IV (03:51)
[2023-09-10 04:00] VITALS: BP 113/76; PULSE 81; RESP 16; TEMP 36.3; O2SAT 100
[2023-09-10] MEDS: Acetaminophen 500 MG Tablet 1000 MG PO ×3 (05:30→21:14)
[2023-09-10] MEDS: Gabapentin 800 MG Tablet PO ×3 (05:31→21:14)
[2023-09-10] MEDS: 0.9% Saline Lock 10 ML Syringe IV ×2 (08:22→17:21)
[2023-09-10 08:29] VITALS: BP 106/66; PULSE 89; RESP 16; TEMP 36.6; O2SAT 98
[2023-09-10 08:30] VITALS: O2SAT 98
--- NOTE | 2023-09-10 10:03 | PCM.PN.HOSP ---
Reason for Visit Reason for Visit: Diagnoses Hypo-osmolality and hyponatremia (09/09/23) Nausea (09/09/23) Encounter for other preprocedural examination (09/09/23) Encounter for screening for lipoid disorders (09/09/23) Other specified health status (09/09/23) Objective Data Objective Data Vital Signs: Vital Signs Temp Pulse Resp BP Pulse Ox O2 Del Method O2 Flow Rate 97.9 F 89 16 106/66 98 Room Air 4 09/10/23 08:29 09/10/23 08:29 09/10/23 08:29 09/10/23 08:29 09/10/23 08:30 09/10/23 08:30 09/09/23 16:00 FiO2 42 09/09/23 14:25 Oxygen Flow Rate (L/min) 4 Oxygen Delivery Method Room Air Weight: 111 lb Body Mass Index (BMI) 20.2 Intake & Output: Intake and Output for Last 24 Hours 09/08/23 09/09/23 09/10/23 23:59 23:59 23:59 Intake Total 3167.33 / 3167.33 1136.67 / 1136.67 Output Total 660 / 660 1500 / 1500 Balance 2507.33 / 2507.33 -363.33 / -363.33 Lab / Micro Data 08/30/23 07:24 08/30/23 07:24 Micro: Microbiology 08/30/23 07:24 Swab (Method) Nasal Screen MRSA/MSSA - Final Radiography Diagnostic Testing: Radiology Impression Spine X-Ray 09/09/23 09:55 IMPRESSION: X-Ray Lumbar Spine during surgery. Electronically Signed: Guy Morocho MD at 23:03 EDT Reading Location ID and State: [id number] / [employer] , Service support , Spine X-Ray 09/09/23 10:50 IMPRESSION: Status post discectomy and anterior fixation at L4/L5. Electronically Signed: Guy Morocho MD at 23:03 EDT Reading Location ID and State: [id number] / [employer] , Service support , Spine X-Ray 09/09/23 12:10 IMPRESSION: Fusion of L4-5. Electronically Signed: Jadon Medina MD at 0:00 EDT , Physical Exam Narrative Seen and examined. Patient is spontaneously voiding urine. Passing flatus. Physical exam General: Alert, Oriented x3, Cooperative HEENT: Atraumatic, PERRLA, EOMI, Normocephalic Oral: Oral mucosa moist. No Gingival or Mucosal Lesions/ Ulcerations Neck: Supple, No JVD, Negative Carotid Bruits Chest wall/Lungs: Air entry diminished in bilateral lung bases. No crepitation/rhonchi Cardiovascular: Regular rate, Regular Rhythm, Normal S1, Normal S2, No M/G/R Abdomen: Bowel Sounds Present, Soft, Non Tender, Non-Distended : No dysuria. No renal angle tenderness. No suprapubic tenderness. Extremities: No edema, Capillary Refill Less than 3 Seconds Skin: No rashes, No breakdown Musculoskeletal: No Tenderness to Palpation of Joints or Extremities. ROM full. Spine: Lumbar spine surgical dressing is dry. Mild tenderness around the operative region. Neurological: Cranial nerves II-XII grossly intact, DTR 2+/4. No acute focal neurological deficit. Psych/Mental Status: Normal Affect, Appropriate. Assessment & Plan Assessment/Plan (1) Nausea: PLAN: Plan 1. Postoperative nausea She has as needed ondansetron. Will add as needed Compazine as well. Code anticipate that that would continue to improve as the anesthesia fully wears off. 09/09: Postop nausea has resolved. 2. Recurrent disc herniation of L4-5 Patient underwent posterior fusion of L4-5, repeat laminectomy, internal segmental fixation and spongy bone allograft to that region today. 09/09: Patient is walking in the hallway. Surgical dressing is dry. PT and OT to continue. Voiding urine and passing flatus.Bilateral SCDs. Management per orthopedic spine surgery. VTE prophylaxis per orthopedic spine surgery. Charges/Coding Visit Charges Inpatient E&M: 27246 Subs Hosp L2
--- NOTE | 2023-09-10 10:35 | CASEMGMT ---
Face to Face with pt for initial transition planning/care coordination assessment. Pt sitting up in chair in no distress. RN CM introduced self and role at [facility], pt voices understanding and consents to assessment. Pt is A&O x4 and answers all questions appropriately at this time. Care providers, pharmacy, and demographics verified/updated. Admitting Dx: Recurrent disc herniation L4-5 on R PCP:Racquel Specialists: Malinda Faustin Pharmacy: [facility] Insurance: [employer] Prescription Benefit: yes LNOK: Keiry Vaughn - daughter Living Arrangements: Pt lives with roommate in a 2 story home with 4 steps into entrance with handrails. Pt reports she is independent with ADLs and denies concerns at home. Transportation: Pt drives self and denies concerns with transportation. Stated roommate is able to assist until she can drive herself. DME: Denies having any equipment at home. HHC/SNF: Denies Hx of. Pt states no concerns with going home at time of dc. Pt states no further concerns/needs. CM to follow. Advised pt to ask CM if any further question/concerns/needs arise, voices understanding. Pt Goal: Home with no needs. Plan: Home with no needs. QUINCY Ceja CM
[2023-09-10 15:53] VITALS: BP 129/84; PULSE 75; RESP 14; TEMP 37.1; O2SAT 100
--- NOTE | 2023-09-10 16:20 | PCM.PN.ORT ---
Subjective Subjective Jacklyn is seen on rounds. This is postop day #1. She is doing remarkably well. She has been up several times walking around with no help without a walker. Her leg pain is completely resolved. She already has a little flatulence but not too much and has some mild bowel sounds. I told her that even though she is feeling hungry she is still not ready to start eating food probably until tomorrow. So for now we will keep her on the clear liquids. Both of her dressings are dry. Neurologically she is intact. I am very pleased with how she is doing as she is also. We may consider adding NicoDerm patch for her as she is a non-smoker. Will be up to her but the nurse will offer it to her. I will see her again tomorrow around noon or so. In all likelihood she will be going home. Objective Data Objective Data Vital Signs: Vital Signs Temp Pulse Resp BP Pulse Ox O2 Del Method O2 Flow Rate 98.7 F 75 14 129/84 H 100 Room Air 4 09/10/23 15:53 09/10/23 15:53 09/10/23 15:53 09/10/23 15:53 09/10/23 15:53 09/10/23 15:53 09/09/23 16:00 FiO2 42 09/09/23 14:25 Oxygen Flow Rate (L/min) 4 Oxygen Delivery Method Room Air Weight: 111 lb 0.009 oz Body Mass Index (BMI) 20.2 Intake & Output: Intake and Output for Last 24 Hours 09/08/23 09/09/23 09/10/23 23:59 23:59 23:59 Intake Total 3167.33 / 3167.33 1920.00 / 1920.00 Output Total 660 / 660 1500 / 1500 Balance 2507.33 / 2507.33 420.00 / 420.00 Lab / Micro Data 08/30/23 07:24 08/30/23 07:24 Micro: Microbiology 08/30/23 07:24 Swab (Method) Nasal Screen MRSA/MSSA - Final Radiography Diagnostic Testing: Radiology Impression Spine X-Ray 09/09/23 09:55 IMPRESSION: X-Ray Lumbar Spine during surgery. Electronically Signed: Guy Morocho MD at 23:03 EDT , Spine X-Ray 09/09/23 10:50 IMPRESSION: Status post discectomy and anterior fixation at L4/L5. Electronically Signed: Guy Morocho MD at 23:03 EDT , Spine X-Ray 09/09/23 12:10 IMPRESSION: Fusion of L4-5. Electronically Signed: Jadon Medina MD at 0:00 EDT ,
[2023-09-10 21:00] VITALS: BP 125/85; PULSE 88; RESP 18; TEMP 36.9; O2SAT 95
[2023-09-11] MEDS: HYDROmorphone 0.5 MG/0.5 ML SYRINGE IV ×2 (05:44→10:24)
[2023-09-11 06:00] VITALS: BP 140/76; PULSE 95; RESP 16; TEMP 37.1; O2SAT 100
[2023-09-11] MEDS: Acetaminophen 500 MG Tablet 1000 MG PO (06:10)
[2023-09-11] MEDS: Gabapentin 800 MG Tablet PO (06:10)
[2023-09-11 07:55] VITALS: O2SAT 99
[2023-09-11 08:00] VITALS: BP 134/93; PULSE 99; RESP 16; TEMP 37.1; O2SAT 97
[2023-09-11] MEDS: 0.9% Saline Lock 10 ML Syringe IV (10:25)
--- NOTE | 2023-09-11 11:30 | CASEMGMT ---
[facility] NOTE: RN CM to room. Pt up ad eva in room. Introduced self and role. Pt denies having any discharge needs/concerns. Jarrod BSN [facility]
--- NOTE | 2023-09-11 13:06 | DCINST_ITS ---
Discharge Instructions Activity May shower in (days): 3 May resume sexual activity in: 4-6 weeks Lifting Restrictions: 15# Dressing / Incision Remove Dressing in: 2 days Follow Up Care Test Results: Test results from this visit will be discussed in further detail at your follow- up appointment, if applicable. Discharge Plan Admission Admit Date/Time: 09/09/23 05:26 Primary Reason for Your Visit: back surgery Attending Provider: Marito Faustin Primary Care Provider: Moris Clmeent Consulting Providers: Craig Ellis; Shereen Cook; Thalia Maciel; Georgette Wen; Charanjit Snyder; Charanjit Ford; Du Gavin; Fitz Dela Cruz; Saige Tellez; Diony Henderson; Esmer Pleitez; Cristian Blunt; Tarik Monterroso; Kaitlin Mckeon; Lamont Venegas; Hussain Zapata Discharge Orders/Prescriptions Prescriptions: No Action gabapentin 800 mg tablet 800 mg PO TID cholecalciferol (vitamin D3) 250 mcg (10,000 unit) capsule 250 mcg PO PRN omega 7-hvh-hno-fish oil 1 EACH capsule 1 ea PO PRN bgiroqzv-xufu-pnnyl-oreg-capry 100 mg-150 mg- 50 mg-150 mg Capsule 1 cap PO DAILY PRN (Reason: SUPPLEMENT) multivitamin [Daily Multi-Vitamin] Tablet 1 tab PO DAILY hydromorphone [Dilaudid] 2 mg tablet 2 mg PO Q4H 5 Days Qty: 30 0RF Referrals / Follow Up: Moris Clement MD [Primary Care Provider] - Disposition Disposition (needs filled in before D/C Order can be placed): Home, Self Care
--- NOTE | 2023-09-11 13:08 | PCM.DC.SUM ---
Providers Date of Admission: 09/09/23 Primary Care Physician: Dr. Moris Clement MD Attending Physician: This is discharge summary on patient Jacklyn Wilson. This patient was admitted on Saturday 2 days ago and underwent 360 degree fusion at the L4-5 level with repeat laminectomy of L4-5 on the right side. She had a partial ileus yesterday as is expected. Last night however she had a lot of flatulence and her abdomen feels reasonably well now. She actually ate some real food this morning. She has good bowel sounds now. Her dressings are both dry. She was given directions regarding her activities. She already has an appointment to see me in the office. She knows how to get ahold of me if she should need me before I see her in the office. This is the end of the discharge summary on Jacklyn Wilson. This is Dr. Faustin dictating. Consultations 09/09/23 14:37 Consult: Hospitalist Routine Consulting Provider: [facility] Reason for Consult: Medical Management EMERGENT Consult: No MD Notified: Yes Date Notified: 09/09/23 Time Notified: 18:26 Method of Notification: Text Reason For Visit: RECURRENT DISC HERNIATION L4-5 ON RIGHT Diagnosis Discharge Diagnosis (1) Nausea: Status: Acute Code(s): R11.0 - Nausea Medications at Discharge Home Medications omega 3-iad-tpm-fish oil 60 mg-90 mg-500 mg capsule 1 ea PO PRN SUPPLEMENT 04/30/16 turmeric 100 mg-kasi 150 mg-olive 50 mg-oreg 150 mg-capryl capsule 1 cap PO DAILY PRN SUPPLEMENT 03/27/22 gabapentin 800 mg tablet 800 mg PO TID PAIN 05/23/23 cholecalciferol (vitamin D3) 250 mcg (10,000 unit) capsule 250 mcg PO PRN SUPPLEMENT 06/20/23 multivitamin (Daily Multi-Vitamin tablet) 1 tab PO DAILY SUPPLEMENT 08/26/23 hydromorphone 2 mg tablet (Dilaudid) 2 mg PO Q4H 5 days #30 tabs 09/11/23 Weight / BMI Weight Weight: 111 lb 0.009 oz Body Mass Index (BMI) 20.2 ABG / Lab / Microbiology Data 08/30/23 07:24 08/30/23 07:24 Microbiology: Microbiology 08/30/23 07:24 Swab (Method) Nasal Screen MRSA/MSSA - Final D/C Instructions May shower in (days): 3 May resume sexual activity in: 4-6 weeks Meaningful Use Info Meaningful Use Meaningful Use Diagnoses (Choose all that apply): None applicable Ischemic Stroke Statin Dosing Therapy Reference: STATIN DOSE THERAPY REFERENCE: * Patients > 75 years receive moderate or high dose statin therapy. * Patients 75 years or YOUNGER should receive HIGH intensity statin dose unless contraindicated. You will be required to document reason for non-treatment if statin daily dose does not meet guidelines. HIGH DOSE STATIN THERAPY DAILY Atorvastatin > than or = to 40 mg Rosuvastatin > than or = to 20 mg Amlodipine + Atorvastatin > than or = to 2.5/40 mg Ezetimibe + Simvastatin 10/80 mg Simvastatin 80mg Discharge Plan Admission Admit Date/Time: 09/09/23 05:26 Primary Reason for Your Visit: back surgery Attending Provider: Marito Faustin Primary Care Provider: Moris Clement Consulting Providers: Craig Ellis; Shereen Cook; Thalia Maciel; Georgette Wen; Charanjit Snyder; Charanjit Ford; Du Gavin; Fitz Dela Cruz; Saige Tellez; Diony Henderson; Esmer Pleitez; Cristian Blunt; Tarik Monterroso; Kaitlin Mckeon; Lamont Venegas; Hussain Zapata Discharge Orders/Prescriptions Prescriptions: No Action gabapentin 800 mg tablet 800 mg PO TID cholecalciferol (vitamin D3) 250 mcg (10,000 unit) capsule 250 mcg PO PRN omega 6-myr-ciz-fish oil 1 EACH capsule 1 ea PO PRN znsbbtiz-mwdi-ozqqh-oreg-capry 100 mg-150 mg- 50 mg-150 mg Capsule 1 cap PO DAILY PRN (Reason: SUPPLEMENT) multivitamin [Daily Multi-Vitamin] Tablet 1 tab PO DAILY hydromorphone [Dilaudid] 2 mg tablet 2 mg PO Q4H 5 Days Qty: 30 0RF Referrals / Follow Up: Moris Clement MD [Primary Care Provider] - Disposition Disposition (needs filled in before D/C Order can be placed): Home, Self Care
--- NOTE | 2023-09-11 15:51 | PN.HOSP_ITS ---
Reason for Visit Reason for Visit: Diagnoses Hypo-osmolality and hyponatremia (09/09/23) Nausea (09/09/23) Encounter for other preprocedural examination (09/09/23) Encounter for screening for lipoid disorders (09/09/23) Other specified health status (09/09/23) Objective Data Objective Data Vital Signs: Vital Signs Temp Pulse Resp BP Pulse Ox O2 Del Method O2 Flow Rate 98.8 F 99 16 134/93 H 97 Room Air 4 09/11/23 08:00 09/11/23 08:00 09/11/23 08:00 09/11/23 08:00 09/11/23 08:00 09/11/23 08:02 09/09/23 16:00 FiO2 42 09/09/23 14:25 Oxygen Flow Rate (L/min) 4 Oxygen Delivery Method Room Air Weight: 111 lb 0.009 oz Body Mass Index (BMI) 20.2 Intake & Output: Intake and Output for Last 24 Hours 09/09/23 09/10/23 09/11/23 23:59 23:59 23:59 Intake Total 3167.33 / 3167.33 1920.00 / 1920.00 Output Total 660 / 660 1500 / 1500 Balance 2507.33 / 2507.33 420.00 / 420.00 Lab / Micro Data 08/30/23 07:24 08/30/23 07:24 Micro: Microbiology 08/30/23 07:24 Swab (Method) Nasal Screen MRSA/MSSA - Final Physical Exam Narrative Seen and examined. Patient is spontaneously voiding urine. Passing flatus. Not had bowel movement. Patient is walking on the hallway. Physical exam General: Alert, Oriented x3, Cooperative HEENT: Atraumatic, PERRLA, EOMI, Normocephalic Oral: Oral mucosa moist. No Gingival or Mucosal Lesions/ Ulcerations Neck: Supple, No JVD, Negative Carotid Bruits Chest wall/Lungs: Air entry diminished in bilateral lung bases. No crepitation/rhonchi Cardiovascular: Regular rate, Regular Rhythm, Normal S1, Normal S2, No M/G/R Abdomen: Bowel Sounds Present, Soft, Non Tender, Non-Distended : No dysuria. No renal angle tenderness. No suprapubic tenderness. Extremities: No edema, Capillary Refill Less than 3 Seconds Skin: No rashes, No breakdown Musculoskeletal: No Tenderness to Palpation of Joints or Extremities. ROM full. Spine: Lumbar spine surgical dressing is dry. No discharge. Minimal tenderness around the operative region. Neurological: Cranial nerves II-XII grossly intact, DTR 2+/4. No acute focal neurological deficit. Psych/Mental Status: Normal Affect, Appropriate. Assessment & Plan Assessment/Plan (1) Nausea: PLAN: Plan 1. Postoperative nausea * She has as needed ondansetron. Will add as needed Compazine as well. * Code anticipate that that would continue to improve as the anesthesia fully wears off. 09/09: Postop nausea has resolved. 2. 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 09/09: Patient is walking in the hallway. Surgical dressing is dry. PT and OT to continue. Voiding urine and passing flatus.Bilateral SCDs. * Management per orthopedic spine surgery. * VTE prophylaxis per orthopedic spine surgery. 09/10: Patient is hemodynamically stable for discharge. Continue incentive spirometry for 1 week. Patient is to be discharged today. Charges/Coding Visit Charges Inpatient E&M: 45667 Subs Hosp L2
== END 2023-09-11 13:25 | disposition home or self-care (01) | DRG 304 ==
LOC: ACINP 08:50 → MS3 16:24
PROVIDERS: Anesthesiology; Admitting Provider Orthopaedic Surgery; PCP Family Medicine; Referring Provider Orthopaedic Surgery; Visit Provider Orthopaedic Surgery
PROC: 07DR0ZZ Extraction of Iliac Bone Marrow, Open Approach (ICD-10-PCS; principal; 2023-09-09 07:00)
DX: M51.26 Other intervertebral disc displacement, lumbar region (principal); K56.7 Ileus, unspecified; F17.210 Nicotine dependence, cigarettes, uncomplicated; K91.89 Other postprocedural complications and disorders of digestive system; Y83.8 Other surgical procedures as the cause of abnormal reaction of the patient, or of later complication, without mention of misadventure at the time of the procedure
CPT/HCPCS: 36415; 72020; 80053; 80061; 82306; 82607; 82728; 82962; 82977; 83735; 83930; 84443; 85025; 86703; 86706; 86708; 86803; 87077; 87081; 88304; 93005; 94668; 97802; J7120; A4216; J2405; J3475

== ENCOUNTER 2023-12-31 10:25 | Outpatient (RCR) | payer MEDICAID, SELFPAY ==
--- NOTE | 2024-01-01 10:01 | HP.PTEVAL ---
Patient's Visit Information Visit Information Visit Information: SHUBHAM DÍAZ is a 53 year old F referred to Physical Therapy by Dr. Moris Clement MD with a diagnosis of lumbar DDD and piriformis syndrome. Date of Evaluation: 12/31/23 Physical Therapist: Jones Reynoso DPT Visit Plan Frequency: 1x/Week Duration: 4 Weeks Plan: Start with slight prone lying and prone prop as this was able to centralize symptoms. May trial DN, but is very irritable in that region, slowly trial. Subjective Subjective: Pt. is here today for here initial evaluation with diagnosis of lumbar DDD and piriformis syndrome with suggestion for dry needling. Pt. reports having increased pain since 2020. Pt. reports having a discectomy then eventually a fusion earlier this year. Pt. reports having increased pain in her back and leg since. She denies NT in either LE. Pt. reports that her radicular symptoms are at her glute then skips to her R lateral calf. Pt. denies that her legs give out on her. Pt. reports pain with all positions. No position of relief, but has to frequently change positions. 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 She did see a spinal surgeon whom suggested and MRI and a bone density scan. Pain SI region R side: Pain Intensity (Out of 10): 8 Pain Intensity Range: 6 and 10 R glute: Pain Intensity (Out of 10): 8 Pain Intensity Range: 6 and 10 R calf: Pain Intensity (Out of 10): 0 Pain Intensity Range: 0 and 8 Objective Objective: POSTURE: Pt. has fairly normal posture in stance. Normal iliac crest heights. Pt. does have any lateral shift noted. PALPATION: Pt. is very tender at R SI joint and R glute. No pain along HS or calf. Pt. does have tenderness at L3-S1, but worst at R SI joint., NEURO: normal sensation and DTR of BLEs. Pt. is able to rise on heels/toes without issues. ROM: LUMBAR SPINE: flexion nil loss NE, ext min loss NE, SB nil loss Tyler NE, rotation nil loss mild increase nW. Pt. has normal HS length and normal hip flexor length. Pt. has good hip ROM without increase in symptoms. MMT: Pt. had a 15# difference with R being weaker with knee extension. The rest were symmetrical. GAIT: Normal with mild increase NW. STAIRS: Pt. is able to complete with reciprocal pattern without HR but does have mild increase in symptoms. Pt. reports worst in AMs and with prolonged standing and sitting. She reports having to frequently change positions Balance/Special Test Scores Oswestry Low Back Score: 27 Goals Goal 1:: LTG: pt. to be I with HEP. Goal Time Frame: 4-6 Weeks Goal 2:: STG: Pt. to have full ROM of lumbar spine without increase in radicular symptoms. Goal Time Frame: 2-4 Weeks Goal 3:: LTG: Pt. to be able to be able to sit for greater than 1 hour without increase in symptoms. Goal Time Frame: 4-6 Weeks Goal 4:: LTG: pt. to stand for longer than 1 hour without increase in radicular symptoms. Goal Time Frame: 4-6 Weeks Goal 5:: LTG: Pt. to reports symptoms have reduced by greater than 80%. Goal Time Frame: 4-6 Weeks Rehabilitation Potential Physical Therapy Diagnosis: Pt. has signs and symptoms consistent with lumbar DD and piriformis syndrome. Pt. has marked radicular symptoms. She was very painful with palpation of gluteal region and at R SI region. She does have good ROM of her R hip and is constantly doing piriformis stretching at home. Pt would benefit from PT to work on exercises to reduce symptoms and gradually progress her tolerance to activities. Rehabilitation Potential: Good Anticipated Interventions Patient/Client Instruction: Educate patient on: Condition, Plan of Care, Risk Factors and Benefits of Fitness Program For the Purpose of:: To foster healthy habits, To improve decision making, To facilitate caregiver knowledge, To improve self management, To prevent re-injury and To improve ability to perform tasks related to life management Therapeutic Exercise to Include: Strength training, Power training, Coordination, Body mechanics, Postural training, Flexibilty training, Passive ROM and Active ROM For the Purpose of:: To decrease pain, To decrease swelling/inflammation, To increase ROM, To improve muscle performance and motor function, To improve ability to perform ADL's, To increase tolerance to activity/condition/position, To improve performance and independence with ADL's and To decrease level of supervision to perform tasks For the Purpose of:: To increase ROM, To improve nutrient delivery to tissue, To improve health of tissue, To decrease soft tissue restriction and To increase flexibility/ROM Text: Thank you for the opportunity to evaluate your patient. For Medicare and Medicare HMO plans, please review the plan of care and approve it. It will need to be FAXED BACK to us at [phone] for Medicare purposes. For Medicare only, by signing this I certify the plan of care. Please let me know if there are questions or concerns regarding this plan of care. Physician Signature: Date:
== END 2023-12-31 19:00 | disposition home or self-care (01) ==
LOC: PT 10:25
PROVIDERS: PCP Family Medicine; Referring Provider Family Medicine; Visit Provider Family Medicine
DX: M51.36 Other intervertebral disc degeneration, lumbar region (principal); M54.50 Low back pain, unspecified; G57.00 Lesion of sciatic nerve, unspecified lower limb
CPT/HCPCS: 97161

== ENCOUNTER → 2024-01-17 | Outpatient (CLI) | payer MEDICAID, SELFPAY ==
--- NOTE | 2024-01-17 06:42 | MRI_ITS ---
EXAM: MR LUMBAR SPINE WITHOUT AND WITH INTRAVENOUS CONTRAST CLINICAL INDICATION: Pain -- Persistent radiculopathy, s/p decompression/fusion TECHNIQUE: Multiplanar and multisequence MR images of the lumbar spine without and with intravenous contrast. CONTRAST: 10 cc Clariscan COMPARISON: MR Lumbar Spine dated 05/22/2023 FINDINGS: VERTEBRAE: Alignment of the lumbar vertebral bodies is normal. No bone marrow edema. SPINAL CORD: Normal. Normal position and signal intensity of the conus medullaris. SOFT TISSUES: Interval development of a 2 cm simple appearing cystic structure along the anterior portion of the left psoas muscle at the level of the L4-5 disc. This may represent seroma or lymphocele related to the interval surgery. DISCS/SPINAL CANAL/NEURAL FORAMINA: L1-L2: Intact intervertebral disc. Stable mild irregularity of the endplates suggestive of small Schmorl nodes. No disc herniation. No spinal or neural foraminal stenosis. L2-L3: No significant disc space narrowing. Stable mild disc bulging causes mild impression on the thecal sac. No significant spinal or neural foraminal stenosis. L3-L4: Mild disc space narrowing. Mild disc bulging, ligamentous hypertrophy and facet arthropathy results in mild spinal stenosis. Intact neural foramina. L4-L5: Interval disc implantation with anterior posterior fixation. There is residual mild posterior osteophytosis, ligamentous hypertrophy and facet arthropathy causing mild spinal stenosis, improved from prior exam. Lateral disc protrusion results in moderate left and mild right neural foraminal narrowing. There is residual scar tissue along the right L4 laminotomy as well as persistent perineural soft tissue thickening along the L5 nerve root. L5-S1: Normal disc height and morphology. Normal spinal canal and lateral recesses. Mild narrowing of the neural foramina related to lateral disc protrusion and facet arthropathy.. MRI/Spine Lumbar W/WO Contrast IMPRESSION: Interval surgical disc implantation at L4-5 with improvement in the spinal stenosis. Persistent perineural thickening of the right L5 nerve root suggestive of fibrosis. Appearance of the lumbar spine otherwise unchanged. Electronically Signed: Brayan Montana MD at 13:09 EDT ,
== END | disposition home or self-care (01) ==
LOC: MRI 06:22
PROVIDERS: PCP Family Medicine; Referring Provider Orthopaedic Surgery Orthopaedic Surgery of the Spine; Visit Provider Orthopaedic Surgery Orthopaedic Surgery of the Spine
DX: M54.16 Radiculopathy, lumbar region (principal); Z98.1 Arthrodesis status
CPT/HCPCS: 72158; A9575

== ENCOUNTER → 2024-02-06 | Outpatient (CLI) | payer MEDICAID, SELFPAY ==
--- NOTE | 2024-02-06 13:46 | BD_ITS ---
STUDY: DUAL ENERGY X-RAY ABSORPTIOMETRY / DXA REASON FOR EXAM: Female, 53 years old. Pain TECHNIQUE: Bone Mineral Density (BMD) measurements of lumbar spine and bilateral hips were obtained. COMPARISON: None. FINDINGS: Lumbar Spine (L1-L4): g/cm2 (0.925) / T-score (-0.8) / Z-score (0.1) Findings are suggestive of normal bone density with a low fracture risk. Left Femur Total: g/cm2 (0.741) / T-score (-1.7) / Z-score (-1.0) Left Femoral Neck: g/cm2 (0.711) / T-score (-1.2) / Z-score (-0.3) Right Femur Total: g/cm2 (0.716) / T-score (-1.9) / Z-score (-1.2) Right Femoral Neck: g/cm2 (0.674) / T-score (-1.6) / Z-score (-0.6) BD/Dexa Bone Density Study IMPRESSION: The patient is considered osteopenic as outlined below according to World Rory Organization (WHO) criteria with a high fracture risk. Reference Information: The T-score is the number of standard deviations above or below the standard which is normal for young adults at their peak bone mineral density. The World Health Organization (WHO) interprets the T-scores as follows: Above -1 Normal bone density Between -1 and -2.5 Osteopenia Equal to / or below -2.5 Osteoporosis As a practical clinical guideline, osteopenia may be graded as follows: Mild -1 through -1.5 Moderate -1.6 through -2.0 Severe -2.1 through -2.4 The Z-score is the number of standard deviations above or below age-matched controls. A Z-score of less than -1.5 would be considered abnormal. References: 1. NIH Osteoporosis and Related Bone Diseases www osteo.org 2. International Society for Clinical Densitometry www iscd.org 3. National Osteoporosis Foundation www nof.org Electronically Signed: Milton Isaac MD at 11:56 EDT ,
== END | disposition home or self-care (01) ==
LOC: OPBD 13:46
PROVIDERS: PCP Family Medicine; Referring Provider Orthopaedic Surgery Orthopaedic Surgery of the Spine; Visit Provider Orthopaedic Surgery Orthopaedic Surgery of the Spine
DX: M85.851 Other specified disorders of bone density and structure, right thigh (principal); M85.852 Other specified disorders of bone density and structure, left thigh
CPT/HCPCS: 77080

== ENCOUNTER 2024-04-19 09:43 | Emergency (ER) | payer MEDICAID, SELFPAY ==
[2024-04-19 09:44] VITALS: BP 152/85; PULSE 93; RESP 19; TEMP 36.6; O2SAT 94; BMI 21.2
--- NOTE | 2024-04-19 10:06 | ED.VIS.BACK ---
HPI History of Present Illness Chief Complaint: Back Detail of Chief Complaint: Acute. Low back pain Informant: patient Onset/Context/Timing Onset: Yesterday Context: Sudden Onset Chronic pain exacerbated by: Not applicable Injury: bending Timing: Continuous Quality: Sharp Location: Lumbar Current Severity: Mild Maximum Severity: Severe Worsened by: improves with Movement, Bending and Lifting Relieved by: Nothing Associated Symptoms Associated Symptoms: - (Denies saddle paresthesia or anesthesia.); Negative for Numbness, Tingling, Radiation to Right Leg, Radiation to Left Leg, Fever, Abdominal Pain, Dysuria, Unable to Ambulate, Unable to Transfer, Urinary Retention, Urinary Incontinence, Constipation or Fecal Incontinence Narrative Narrative: Patient is a 53-year-old female. She has history of a fusionL4-5 nucleus pulposus. She has since had problems with the L3-4 disc. She denies fever, chills night sweats. There is no history of direct trauma. She states she dropped her cell phone. She was at her daughter's. The phone fell behind the sectional. She went to pull the sectional and got severe pain. Urinated since. She has had no loss of bowel control. She has had no saddle paresthesia anesthesia. She denies radicular pain. She does have a ride home. She reportedly has reaction to oxycodone. When asked she informed that nausea and vomiting not anaphylaxis. Prior similar symptoms: Yes Recent Illness/Hospitalization: No PFSH PFSH Medical History History of irregular heartbeat Post-menopausal Wears glasses Alcohol use History of steroid therapy Back pain Migraine headache Smoker Leg cramps History of pain when walking History of stress test Cardiology follow-up encounter Hx of mitral valve prolapse Home Medications ?Medication ?Instructions ?Recorded ?Last Taken ?Type omega 6-hyz-dcb-fish oil 60 mg-90 1 ea PO PRN SUPPLEMENT 04/30/16 04/15/22 History mg-500 mg capsule turmeric 100 mg-kasi 150 1 cap PO DAILY PRN SUPPLEMENT 03/27/22 04/15/22 History mg-olive 50 mg-oreg 150 mg-capryl capsule gabapentin 800 mg tablet 800 mg PO TID PAIN 05/23/23 09/08/23 19:30 History cholecalciferol (vitamin D3) 250 250 mcg PO PRN SUPPLEMENT 06/20/23 Unknown History mcg (10,000 unit) capsule multivitamin (Daily Multi-Vitamin 1 tab PO DAILY SUPPLEMENT 08/26/23 Unknown History tablet) omeprazole 40 mg capsule,delayed 40 mg PO QDAY 12/27/23 Unknown History release hydrocodone-acetaminophen 5-325mg 1 tab PO Q6H PRN PRN Pain 3 days 04/19/24 Unknown Rx 5mg-325mg #10 TABLETS naproxen 500 mg tablet 500 mg PO BID #14 tabs 04/19/24 Unknown Rx Allergy/AdvReac Type Severity Reaction Status Date / Time oxycodone Allergy Severe Anaphylaxis Verified 01/24/24 09:35 Family History Other Cancer Myocardial infarction Surgical History Hx of laminectomy Hx of colonoscopy Hx of laparoscopy Hx of breast augmentation Hx of appendectomy History of meniscectomy of left knee Social History Smoking Status: Current every day smoker tobacco type: cigarettes ROS ROS ED Constitutional Constitutional ED: Reports sweats; Denies chills, fever(s), subjective or weight loss Gastrointestinal Gastrointestinal: Denies abdominal pain, constipation, nausea or vomiting Genitourinary Genitourinary ED: Denies dysuria, hematuria or urinary frequency Musculoskeletal Musculoskeletal: Reports back pain; Denies arthralgias or myalgias Neurologic Neurologic: Denies paresthesias or weakness EXAM Physical Exam Const Vital Signs: 04/19/24 09:44 Temperature 97.8 F Temperature Source Temporal Pulse Rate 93 Respiratory Rate 19 H Blood Pressure 152/85 H Blood Pressure Mean 107 Pulse Ox 94 Oxygen Delivery Method Room Air Positive well nourished and well developed General Appearance ED: well developed and NAD HEENT Reports moist mucous membranes HEENT Narrative: Head is atraumatic and normocephalic. Ears are normal. Eyes PERRL and EOMs intact bilaterally General Eye ED: Negative for pale conjunctiva or scleral icterus Resp normal respiratory effort and clear to auscultation bilaterally Cardio regular rate, regular rhythm, S1 normal heart sound, S2 normal heart sound and no murmurs GI normal to inspection, nondistended, normoactive bowel sounds, soft to palpation, non-tender, non-distended and no masses Back/Spine normal to inspection; Negative for no thoracic nor lumbar tenderness Back/Spine Narrative: Patient has pain to palpation left greater than right. Straight leg test is negative bilaterally. EHL is intact bilaterally. 5/5 strength plantar and dorsiflexion of the foot. Normal sensation L3-S1 dermatome. DP pulses 2+ and palpable. Patella and ankle reflex are 1+ and symmetric. General Back: Negative for CVA tenderness Cervical Spine: Negative for cervical spine tenderness Lumbar Spine / Lower Back: ROM limited and straight leg raise negative bilaterally Extremity normal to inspection and no clubbing, cyanosis or edema Neuro oriented x3 and no sensory deficits noted Sensorium / Orientation: alert Deep Tendon Reflexes: Rt Patellar (L4): 1+, Lt Patellar (L4): 1+, Rt Ankle (S1): 1+ and Lt Ankle (S1): 1+ Deep Tendon Reflexes Back: Rt Patellar (L4): 1+, Lt Patellar (L4): 1+, Rt Ankle (S1): 1+ and Lt Ankle (S1): 1+ Plantar Reflex: Downgoing: bilateral Psych mental status grossly normal Skin no rashes or lesions noted and no wounds MDM MDM MDM Narrative Medical decision making narrative: Patient with acute back pain. History and physical are consistent with muscular pain and not due to herniated disc. She has no radicular pain. Will need to assess quadricep function once pain is under better control. At this time in my opinion advanced imaging is not indicated. And her symptoms are not consistent with spinal stenosis. There is no concern for cauda equina, spontaneous epidural hematoma or epidural abscess. Patient was medicated with 4 mg of Zofran because of the reported nausea with opiate analgesia and 50 mg of ketorolac with 4 mg of morphine sulfate. Patient was reassessed at 1051. She is now able to sit up. Patient be discharged to home with prescription for NSAID and opiate analgesia. Of note she has a lidocaine patch on her back. She arrived with this. She plans on calling Dr. Davidson's office in the morning. Discharge Plan Triage Chief Complaint: Back ED Provider: Scottie Camacho Dx/Rx/DC Orders Clinical Impression: Acute bilateral low back pain, S/P laminectomy Instructions: ED Back and Neck Pain, General Prescriptions: New hydrocodone-acetaminophen 5-325 mg tablet 1 tab PO Q6H PRN PRN (Reason: Pain) 3 Days Qty: 10 0RF naproxen 500 mg tablet 500 mg PO BID Qty: 14 0RF No Action gabapentin 800 mg tablet 800 mg PO TID cholecalciferol (vitamin D3) 250 mcg (10,000 unit) capsule 250 mcg PO PRN omeprazole 40 mg capsule,delayed release(DR/EC) 40 mg PO QDAY omega 5-lce-zni-fish oil 1 EACH capsule 1 ea PO PRN dbfplqmn-xzsx-yvdbk-oreg-capry 100 mg-150 mg- 50 mg-150 mg Capsule 1 cap PO DAILY PRN (Reason: SUPPLEMENT) multivitamin [Daily Multi-Vitamin] Tablet 1 tab PO DAILY Primary Care Provider: Moris Clement Referrals: Moris Clement MD [Primary Care Provider] - 3-5 Days if not improving Print Language: Cymraes Disposition Disposition: Home, Self Care
[2024-04-19] MEDS: Ketorolac 15 MG/ML Vial IV (10:28)
[2024-04-19] MEDS: Ondansetron 4 MG/2 ML Vial IV (10:28)
[2024-04-19] MEDS: Morphine 4 MG/ML Syringe IV (10:28)
[2024-04-19 11:18] VITALS: BP 136/84; PULSE 91; RESP 16; TEMP 36.6; O2SAT 96
== END 2024-04-19 11:18 | disposition home or self-care (01) ==
PROVIDERS: Emergency Provider Emergency Medicine; PCP Family Medicine; Visit Provider Emergency Medicine
DX: M54.50 Low back pain, unspecified (principal); Z98.890 Other specified postprocedural states; X50.9XXA Other and unspecified overexertion or strenuous movements or postures, initial encounter; Y93.89 Activity, other specified; Y92.89 Other specified places as the place of occurrence of the external cause; Z90.49 Acquired absence of other specified parts of digestive tract; F17.210 Nicotine dependence, cigarettes, uncomplicated
CPT/HCPCS: 96374; 96375; 99282; A4216; J2405

== ENCOUNTER → 2024-06-11 | Outpatient (CLI) | payer MEDICAID, SELFPAY ==
[2024-06-11 12:02] LABS: PTHIN 40.9 pg/mL (18.4-80.1)
[2024-06-15 16:08] LABS: Insulin Like Growth Factor 140 ng/mL (65-216); PROEL- A/G Ratio 1.4 (0.7-1.7); PROEL- Albumin 5.1 g/dL (2.9-4.4); PROEL- Alpha-1 Globulin 0.4 g/dL (0.0-0.4); PROEL- Alpha-2 Globulin 0.8 g/dL (0.4-1.0); PROEL- Beta Globulin 1.1 g/dL (0.7-1.3); PROEL- Gamma Globulin 1.2 g/dL (0.4-1.8); PROEL- Globulin, Total 3.6 g/dL (2.2-3.9); PROEL- TOTAL PROTEIN 8.7 g/dL (6.0-8.5); PROEL-M-Spike Not Observed g/dL (Not Observed); PROELU- Albumin, Urine 14.3 % (.); PROELU- Alpha-2-Globulin,Ur 16.3 % (.); PROELU- Beta Globulin, Ur 38.5 % (.); PROELU- Gamma Globulin, Ur 15.8 % (.); Total Protein, Ur < 4.0 mg/dL (Not Estab.)
== END | disposition home or self-care (01) ==
LOC: LAB 10:34
PROVIDERS: PCP Family Medicine; Referring Provider Internal Medicine Endocrinology, Diabetes & Metabolism; Visit Provider Internal Medicine Endocrinology, Diabetes & Metabolism
DX: S32.030A Wedge compression fracture of third lumbar vertebra, initial encounter for closed fracture (principal); M85.80 Other specified disorders of bone density and structure, unspecified site
CPT/HCPCS: 36415; 83970; 84165; 84166; 84305

== ENCOUNTER → 2024-06-16 | Outpatient (CLI) | payer MEDICAID, SELFPAY | END | disposition home or self-care (01) | LOC: LAB 07:52 | PROVIDERS: PCP Family Medicine; Referring Provider Internal Medicine Endocrinology, Diabetes & Metabolism; Visit Provider Internal Medicine Endocrinology, Diabetes & Metabolism | DX: S32.030A Wedge compression fracture of third lumbar vertebra, initial encounter for closed fracture (principal); X58.XXXA Exposure to other specified factors, initial encounter | CPT/HCPCS: 36415; 82533 ==

== ENCOUNTER → 2024-07-07 | Outpatient (CLI) | payer BC, SELFPAY ==
[2024-07-07 18:06] LABS: ALB/GLOB Ratio 1.3 RATIO (0.9-2.4); AST(SGOT) 20 U/L (15-37); Alanine Aminotransfer ALT/SGPT 22 U/L (13-56); Albumin, Serum 4.3 g/dL (3.2-5.0); Alkaline Phosphatase 59 U/L (45-117); Anion Gap 6 (5-15); BUN 11 mg/dL (7-18); BUN/Creat Ratio 21.6 RATIO (10-20); Calcium,Total 10.6 mg/dL (8.5-10.1); Chloride 97 mmol/L (98-107); Creatinine, Serum 0.51 mg/dL (0.55-1.02); EST Glomerular Filtration Rate 134 mL/min (>60); Est Glom Filt Rate - Afr Amer 162 mL/min (>60); Globulin 3.2 g/dL (2.2-4.2); Glucose 84 mg/dL (74-106); Potassium 4.5 mmol/L (3.5-5.1); Protein, Total 7.5 g/dL (6.4-8.2); Sodium Level 135 mmol/L (136-145)
[2024-07-09 14:41] LABS: Vitamin D,25 Hydroxy 39.4 ng/mL
== END | disposition home or self-care (01) ==
LOC: LAB 17:00
PROVIDERS: PCP Family Medicine; Referring Provider Internal Medicine Endocrinology, Diabetes & Metabolism; Visit Provider Internal Medicine Endocrinology, Diabetes & Metabolism
DX: E55.9 Vitamin D deficiency, unspecified (principal)
CPT/HCPCS: 36415; 80053; 82306

== ENCOUNTER → 2024-07-24 | Outpatient (CLI) | payer BC, SELFPAY ==
[2024-07-24 16:15] LABS: Absolute Lymphocyte Count 3.21 X10^3/uL (0.83-4.51); Absolute Neutrophil Count 7.1 X10^3/uL (2.0-7.7); Basophil# 0.06 X10^3/uL; Basophil% 0.5 % (0-1); Eosinophil# 0.09 X10^3/uL; Eosinophils% 0.8 % (0-5); Hematocrit 37.2 % (37-47); Hemoglobin 12.5 g/dL (12.0-15.0); Lymphocyte # 3.21 X10^3/ul (0.83-4.51); Lymphocyte % 28.2 % (19-41); Mean Corp Hgb Conc 33.6 g/dL (32-36); Mean Corpuscular Hgb 32.7 pg (27.0-32.0); Mean Corpuscular Volume 97.4 fL (81-99); Mean Platelet Vol. 8.7 fl (6.2-12.0); Monocyte# 0.89 X10^3/uL; Monocyte% 7.8 % (0-10); NRBC Flagged by Analyzer 0 % (0-5); Neutrophil # 7.11 X10^3/uL (2.7-7.7); Neutrophil % 62.3 % (47-70); Platelet Count 330 K/mm3 (150-450); RBC Distribution Width CV 13.3 % (11.6-14.6); RBC Distribution Width SD 47.9 fl (35.1-43.9); Red Blood Count 3.82 M/mm3 (4.2-5.4); White Blood Count 11.4 K/mm3 (4.4-11.0)
== END | disposition home or self-care (01) ==
LOC: LAB 15:10
PROVIDERS: PCP Family Medicine; Referring Provider Internal Medicine Endocrinology, Diabetes & Metabolism; Visit Provider Internal Medicine Endocrinology, Diabetes & Metabolism
DX: M80.80XD Other osteoporosis with current pathological fracture, unspecified site, subsequent encounter for fracture with routine healing (principal)
CPT/HCPCS: 36415; 85025

== ENCOUNTER → 2024-09-11 | Outpatient (CLI) | payer BC, SELFPAY ==
--- NOTE | 2024-09-11 14:51 | BI_ITS ---
EXAM: SCRN MAMM (CAD)W/ANNETTA BILAT DATE: 09/11/2024 CLINICAL HISTORY: F, Age 54 y/o , SCREEN BREAST CANCER Patient has bilateral breast implants. BREAST CANCER RISK ASSESSMENT: Has not been calculated. TECHNIQUE: Bilateral screening digital breast tomosynthesis with 2D and 3D images. Pushback Cathy CC and pushback Cathy MLO views of the right and left breasts were also performed. Computer aided detection. COMPARISON: Prior exam(s) dated 02/06/2023 and 01/26/2022. FINDINGS: TISSUE DENSITY: The breast tissue is composed of scattered area of fibroglandular density. Bilateral Breast Mammographic Findings: No suspicious masses, suspicious cluster of microcalcifications, architectural distortion or secondary sign of malignancy is identified in either breast. Both breast implants appear to be intact. BI/SCRN MAMM (CAD)W/ANNETTA BILAT IMPRESSION: OVERALL FINAL ASSESSMENT: BIRADS 2 BENIGN FINDING RECOMMENDATION: Routine annual follow-up in 1 Year A letter with findings and recommendations will be mailed to the patient. Reading Location: [id number]
== END | disposition home or self-care (01) ==
LOC: OPBI 14:49
PROVIDERS: PCP Family Medicine; Referring Provider Family Medicine; Visit Provider Family Medicine
DX: Z12.31 Encounter for screening mammogram for malignant neoplasm of breast (principal)
CPT/HCPCS: 77063; 77067

== ENCOUNTER → 2025-01-23 | Outpatient (CLI) | payer BC, SELFPAY ==
--- OUTSIDE RECORDS SUMMARY | 2025-01-25 07:35 | XMS RPT_ITS | CCD ---
Author Organization 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 Bentley Victor Primary Care Provider Dr. Bentley Clement Referring Provider Dr. Marito Faustin Attending Provider Gabrielle, Dr. Soto Attending Provider Dr. Bentley Clement Primary Care Provider [phone] Dr. Bentley Clement Referring Provider Dr. Marito Faustin Attending Provider Dr. Charles Anthony Attending Provider Dr. Marito Faustin Referring Provider Dr. Marito Faustin Other Provider Dr. Marito Faustin Admit Provider Dr. Hussain Zapata Attending Provider Benny, Dr. Nixon Other Provider PHYSICIAN, NOT RECORDED Primary Care UnavailABDIAS Chavira MD Attending Unavail able Dr. Bentley Clement Primary Care Provider Dr. Bentley Clement Referring Provider Dr. Marito Faustin Attending Provider Dr. Bentley Clement Primary Care Provider Dr. Bentley Clement Referring Provider Dr. Marito Faustin Attending Provider Dr. Moris Clement Primary Care Provider [phone] Dr. Moris Clement Referring Provider Dr. Marito Faustin Attending Provider Dr. Albert Fountain Attending Provider Dr. Marito Faustin Referring Provider Dr. Marito Faustin Admit Provider Dr. Marito Faustin Other Provider Dr. Craig Ellis Other Provider Dr. Shereen Cook Other Provider Dr. Thalia Maciel Other Provider Unavailable Dr. Georgette Wen Other Provider Dr. Charanjit Snyder Other Provider Unavailabl Dr. Charanjit Kent Other Provider Unavailable MD Du Gavin Other Provider Dr. Fitz Dela Cruz Other Provider Dr. Saige Tellez Other Provider Dr. Dioyn Henderson Other Provider Dr. Esmer Pleitez Other Provider Dr. Cristian Blunt Other Provider Dr. Tarik Monterroso Other Provider Dr. Kaitlin Mckeon Other Provider Dr. Lamont Venegas Other Provider [phone] Hussain Zapata Other Provider Dr. Fitz Gutierrez Attending Provider Dr. Fitz Dela Cruz Attending Provider Dr. Hussain Zapata Attending Provider Dr. Moris Clement MD Primary Care Provider Doug BISHOP, Dr. Rubin Attending Provider Dr. Scottie Camacho MD Emergency Provider Dr. Moris Clement MD Referring Provider Quique BISHOP, Dr. Coreas Attending Provider Gabrielle MD, Dr. Soto Attending Provider [phone] King EDNA, Dr. Reynoso Attending Provider King EDNA, Dr. Reynoso Referring Provider Racquel BISHOP, Dr. Subramanian Primary Care Provider Racquel BISHOP, Dr. Subramanian Attending Provider Racquel BISHOP, Dr. Subramanian Referring Provider [phone] Quique BISHOP, Dr. Coreas Attending Provider Gabrielle BISHOP, Dr. Soto Attending Provider [phone] Lei, Joss Referring Unavailable Ranney, Christopher Primary Care Unavailable Lei, Joss Attending Unavailable Gabrielle, Charles Attending Unavailable Ranney, Christopher Primary Care Unavailable Ranney, Christopher Referring Unavailable Ranney, Christopher Primary Care Unavailable Lei, Joss Attending Unavailable Dick, Edgardo Attending Unavailable Ranney, Christopher Referring Unavailable Ranney, Christopher Primary Care Unavailable Lei, Joss Attending Unavailable Ranney, Christopher Referring Unavailable Ranney, Christopher Primary Care Unavailable Gabrielle, [place] Attending Unavailable Ranney, Christopher Primary Care Unavailable Ranney, Christopher Referring Unavailable Ranney, Christopher Primary Care Unavailable Lei, Joss Attending Unavailable Gabrielle, [place] Attending Unavailable Ranney, Christopher Primary Care Unavailable Lei, Joss Attending Unavailable Ranney, Christopher Referring Unavailable Ranney, Christopher Primary Care Unavailable Dick, Edgardo Attending Unavailable Dick, Edgardo Referring Unavailable Ranney, Christopher Primary Care Unavailable Dick, Edgardo Attending Unavailable Dick, Edgardo Referring Unavailable Ranney, Christopher Primary Care Unavailable Ranney, Christopher Referring Unavailable Ranney, Christopher Primary Care Unavailable Ranney, Christopher Attending Unavailable Lei, Joss Attending Unavailable Lei, Joss Referring Unavailable Ranney, Christopher Primary Care Unavailable Camacho, Scottie Attending Unavailable Ranney, Christopher Primary Care Unavailable Dick, Edgardo Attending Unavailable Dick, Edgardo Referring Unavailable Ranney, Christopher Primary Care Unavailable Dick, Edgardo Attending Unavailable Dick, Edgardo Referring Unavailable Ranney, Christopher Primary Care Unavailable Ranney, Christopher Referring Unavailable Ranney, Christopher Primary Care Unavailable Ranney, Christopher Attending Unavailable Racquel BISHOP, Dr. Subramanian Primary Care Provider Dr. Moris Clement MD Referring Provider Bri Stephens Attending Provider Allergies Allergy Classification Reported Allergen(s) Allergy Type Date of Onset Reaction(s) Facility (5 sources) oxyCODONE Drug Allergy 4 Anaphylaxis, Other [facility] Comment on above: Sweating, Shaking un controllable and vomiting (1 source) oxyCODONE Drug Allergy 5 [facility] Repository Medications Current Medications Medication Drug Class(es) Dates Sig (Normalized) Sig (Original) calcium acetate 667 mg oral tablet (4 sources) Start: 05-25-2024 take 1 tablet by mouth once Calcium Acetate 667 mg tablet Active 667 mg PO ONCE May 25, 2024 1:00am gabapentin 800 mg oral tablet (20 sources) Anti-epileptic Agent Start: 05-23-2023 take 1 tablet by mouth three times daily Gabapentin 800 mg tablet Active 800 mg PO THREE TIMES A DAY May 23, 2023 1:00am PAIN Start: 03-27-2022 End: 09-26-2022 take 1 tablet by mouth three times daily Gabapentin 800 mg tablet Discontinued 800 mg PO THREE TIMES A DAY 90 30 0 August 27, 2022 12:00am September 25, 2022 12:00am September 26, 2022 12:04am nerve pain Start: 03-05-2022 take 2500 mg by mout h once daily Gabapentin Active 2500 MG PO DAILY March 05, 2022 12:00am Ginkgo Biloba [place] Extract (4 sources) Start: 05-25-2024 take 1 tablet by mouth twice daily Ginkgo Biloba [place] Extract 60 mg tablet Active 60 mg PO TWICE A DAY May 25, 2024 1:00am give with meal/snack methocarbamol 500 mg oral tablet (7 sources) Muscle Relaxant Start: 11-12-2024 take 1 tablet by mouth three times daily as needed for pain Methocarbamol 500 mg tablet Active 500 mg PO THREE TIMES A DAY as needed for pain/spasms 30 0 November 12, 2024 12:00am Start: 04-20-2024 End: 06-11-2024 take 1 tablet by mouth three times daily as needed for pain Methocarbamol 500 mg tablet Discontinued 500 mg PO THREE TIMES A DAY as needed for pain/spasms 30 0 April 20, 2024 1:00am June 11, 2024 10:06am Multivitamin (Daily Multi-Vitamin) tablet (5 sources) Start: 08-26-2023 Multivitamin ( Daily Multi-Vitamin) tablet Active 1 {tbl} PO DAILY August 26, 2023 12:00am SUPPLEMENT Start: 08-26-2023 Multivitamin ( Daily Multi-Vitamin) tablet Active 1 {tbl} PO DAILY August 26, 2023 12:00am Start: 08-26-2023 take 1 tablet by cameron th once daily Multivitamin (Daily Multi-Vitamin) tablet Active 1 TABLET PO DAILY August 26, 2023 12:00am [place] 4-Ktx-Kgs-Fish Oil (10 sources) Start: 04-30-2016 [place] 3-Dha-Ep a-Fish Oil Active 1 EACH PO NEEDED April 30, 2016 1:00am Start: 04-30-2016 [place] 3-Dha-Ep a-Fish Oil Active 1 EACH PO DAILY April 30, 2016 12:00am Start: 04-30-2016 [place] 3-Dha-Ep a-Fish Oil Active 1 EACH PO DAILY April 30, 2016 1:00am potassium gluconate 2.5 meq oral tablet (3 sources) Start: 04-30-2016 take 1 tablet by mouth once daily Potassium (Otc) (Potassium Otc) 99 MG tablet Active 99 MG PO DAILY April 30, 2016 1:00am tumeric (4 sources) Start: 05-25-2024 tumeric Active PO May 25, 2024 1:00am Totbgdu-Diwx-Elbvf-Ore g-Capryl (5 sources) Start: 03-27-2022 take 1 capsule by mouth once daily Xbsumvp-Rhsq-Pikbh-Oreg -Capryl Active 1 CAP PO DAILY March 27, 2022 1:00am Start: 03-27-2022 take 1 capsule by mouth once daily Xinlukh-Peim-Ncdff-Oreg-Capryl Active 1 CAP PO DAILY March 27, 2022 12:00am Jwjnhejx-Kgkh-Fpnpq-Oreg-Cap ry (2 sources) Start: 03-27-2022 take 1 capsule by mouth once daily Lqmghlyq-Qfll-Dnfax-Oreg-Capry Active 1 CAP PO DAILY March 27, 2022 1:00am Start: 03-27-2022 take 1 capsule by mouth once daily Dlhsbhtb-Mozn-Ecjjj-Oreg-Capry Active 1 CAP PO DAILY March 27, 2022 12:00am Vitamin B Complex (3 sources) Start: 07-13-2013 Vitamin B Comp ann marie Active 1 EACH PO DAILY July 13, 2013 1:00am 100 ml zoledronic acid 0.05 mg/ml injection (4 sources) Bisphosphonate Start: 06-18-2024 Zoledronic Ugzx-Avrgsycb-Hqtgc 5 mg/100 mL piggyback Active 1 NMA .Route ONCE 100 0 June 18, 2024 1:00am infuse over 20 minutes. Completed/Discontinued Medications Medication Drug Class(es) Dates Sig (Normalized) Sig (Original) acetaminophen 325 mg / HYDROcodone bitartrate 5 mg oral tablet (18 sources) Opioid Agonist Start: 04-19-2024 End: 04-28-2024 Hydrocodone-Acetamino phen 5-325 mg tablet Discontinued 1 {tbl} PO EVERY 6 HOURS NEEDED as needed for Pain 10 3 0 April 19, 2024 April 28, 2024 10:18am Acute bilateral low back pain Status post lumbar spinal fusion Herniated nucleus pulposus, L4-5 right Low back pain, unspecified Arthrodesis status Other intervertebral disc displacement, lumbar region Start: 08-02-2021 End: 03-05-2022 Hydrocodone-Acetaminophen 1 TABLET tablet Discontinued 1 {tbl} PO EVERY 4 HOURS NEEDED as needed for Pain 14 2 0 August 02, 2021 March 05, 2022 2:50pm Back pain Dorsalgia, unspecified Start: 08-02-2021 End: 03-05-2022 take 1 tablet by mouth every four hours as needed Hydrocodone-Acetaminophen Discontinued 1 TABLET PO EVERY 4 HOURS NEEDED 14 2 August 02, 2021 March 05, 2022 2:50pm acetaminophen 325 mg / oxyCODONE hydrochloride 5 mg oral tablet (20 sources) Opioid Agonist Start: 07-15-2023 End: 07-30-2023 Oxycodone-Acetaminophen 5-32 5 mg tablet Discontinued 1 {tbl} PO EVERY 6 HOURS as needed for pain 60 15 0 July 15, 2023 July 29, 2023 12:00am July 30, 2023 12:07am Herniated nucleus pulposus, L4-5 right Status post laminectomy Other intervertebral disc displacement, lumbar region Other specified postprocedural states Start: 07-15-2023 End: 07-30-2023 take 1 tablet by mouth every six hours Oxycodone-Acetaminophen Discontinued 1 TABLET PO EVERY 6 HOURS 60 15 July 15, 2023 July 30, 2023 12:07am Start: 06-11-2023 End: 06-20-2023 Oxycodone-Acetaminophen 5-32 5 mg tablet Discontinued 1 {tbl} PO EVERY 6 HOURS as needed for pain 40 10 0 June 11, 2023 June 20, 2023 1:00am June 20, 2023 2:10pm Status post laminectomy Herniation of intervertebral disc of lumbar spine Other specified postprocedural states Other intervertebral disc displacement, lumbar region Start: 06-11-2023 End: 06-20-2023 take 1 tablet by mouth every six hours Oxycodone-Acetaminophen Discontinued 1 TABLET PO EVERY 6 HOURS 40 10 June 11, 2023 June 20, 2023 2:10pm Start: 04-17-2022 End: 08-27-2022 Oxycodone-Acetaminophen 7.5- 325 mg tablet Discontinued 1 {tbl} PO EVERY 6 HOURS as needed for pain 40 7 0 April 17, 2022 August 27, 2022 2:30pm Herniated nucleus pulposus, L4-5 right Other intervertebral disc displacement, lumbar region Start: 04-17-2022 End: 08-27-2022 take 1 tablet by mouth every six hours Oxycodone-Acetaminophen Discontinued 1 TABLET PO EVERY 6 HOURS 40 7 April 17, 2022 August 27, 2022 2:30pm BEET ROOT (11 sources) Start: 03-27-2022 End: 06-20-2023 BEET ROOT Discontinued 1 {tb l} SL/PO DAILY March 27, 2022 1:00am June 20, 2023 2:09pm Start: 03-27-2022 End: 06-20-2023 take 1 tablet by mouth once daily BEET ROOT Discontinued 1 TABLET SL/PO DAILY March 27, 2022 1:00am June 20, 2023 2:09pm Start: 03-27-2022 End: 06-20-2023 take 1 tablet by mouth once daily BEET ROOT Discontinued 1 TABLET SL/PO DAILY March 27, 2022 12:00am June 20, 2023 1:09pm Start: 03-27-2022 take 1 tablet by cameron th once daily BEET ROOT Active 1 TABLET SL/PO DAILY March 27, 2022 1:00am Start: 03-27-2022 take 1 tablet by cameron th once daily BEET ROOT Active 1 TABLET SL/PO DAILY March 27, 2022 12:00am cholecalciferol 0.25 mg oral capsule (6 sources) Vitamin D Start: 06-20-2023 End: 06-11-2024 Cholecalciferol (Vitamin D3) 250 mcg (10,000 unit) capsule Discontinued 250 ug PO NEEDED June 20, 2023 1:00am June 11, 2024 10:05am SUPPLEMENT cyclobenzaprine hydrochloride 5 mg oral tablet (20 sources) Muscle Relaxant Start: 10-31-2023 End: 11-10-2023 take 1 tablet by mouth three times daily as needed for muscle spasms Cyclobenzaprine 5 mg tablet Discontinued 5 mg PO THREE TIMES A DAY as needed for muscle spasm 30 10 October 31, 2023 12:00am November 09, 2023 12:00am November 10, 2023 12:05am Start: 05-08-2022 End: 08-27-2022 take 1 tablet by mouth three times daily as needed for muscle spasms Cyclobenzaprine 5 mg tablet Discontinued 5 mg PO THREE TIMES A DAY as needed for muscle spasm 32 0 May 08, 2022 1:00am August 27, 2022 2:30pm Status post laminectomy Other specified postprocedural states Start: 08-02-2021 End: 03-05-2022 take 1 tablet by mouth three times daily as needed for muscle spasms Cyclobenzaprine 10 MG tablet Discontinued 10 mg PO THREE TIMES A DAY as needed for Muscle Spasm 0 August 02, 2021 12:00am March 05, 2022 2:50pm dexamethasone 1 mg oral tablet (4 sources) Corticosteroid Start: 06-11-2024 End: 01-23-2025 take 10 tablets by mouth once in the evening Dexamethasone 1 mg tablet Discontinued 1 mg PO .once 10 pm 1 0 June 11, 2024 1:00am January 23, 2025 11:58am HYDROmorphone hydrochloride 4 mg oral tablet (9 sources) Opioid Agonist Start: 09-25-2023 End: 10-05-2023 take 1 tablet by mouth every six hours as needed for pain Hydromorphone (Dilaudid) 4 mg tablet Discontinued 4 mg PO EVERY 6 HOURS as needed for pain 40 10 0 September 25, 2023 October 04, 2023 12:00am October 05, 2023 12:13am Status post lumbar spinal fusion Status post laminectomy Arthrodesis status Other specified postprocedural states Start: 09-11-2023 End: 09-16-2023 take 1 tablet by mouth every four hours Hydromorphone (Dilaudid) 2 mg tablet Discontinued 2 mg PO Q4H 30 5 0 September 11, 2023 September 15, 2023 12:00am September 16, 2023 12:06am Status post lumbar spinal fusion Arthrodesis status methylPREDNISolone 4 mg oral tablet (4 sources) Corticosteroid Start: 10-09-2023 End: 10-15-2023 take 1 tablet by mouth once Methylprednisolone (Medrol ([place])) 4 mg tablets,dose pack Discontinued 0 PO per package directions 21 6 0 October 09, 2023 12:00am October 14, 2023 12:00am October 15, 2023 12:04am PO PER PKG DIR naproxen 500 mg oral tablet (18 sources) Nonsteroidal Anti-inflammatory Drug Start: 04-19-2024 End: 04-28-2024 take 1 tablet by mouth twice daily Naproxen 500 mg tablet Discontinued 500 mg PO TWICE A DAY 14 April 19, 2024 1:00am April 28, 2024 10:19am Start: 08-02-2021 End: 03-05-2022 take 1 tablet by mouth twice daily Naproxen 500 MG tablet Discontinued 500 mg PO TWICE A DAY 14 August 02, 2021 12:00am March 05, 2022 2:50pm [place] 3-Myl-Euh-Fish Oil 1 E ACH capsule (4 sources) Start: 04-30-2016 End: 06-11-2024 [place] 3-Bjb-Bdj-Fish Oil 1 E A[facility] capsule Discontinued 1 NMA PO NEEDED April 30, 2016 1:00am June 11, 2024 10:06am SUPPLEMENT Start: 04-30-2016 End: 06-11-2024 [place] 1-Iaq-Qho-Fish Oil 1 E A[facility] capsule Discontinued 1 NMA PO NEEDED April 30, 2016 1:00am June 11, 2024 10:06am Omeprazole 40 mg capsule,delayed release(DR/EC) (4 sources) Start: 12-27-2023 End: 06-11-2024 take 1 capsule by mouth once daily Omeprazole 40 mg capsule,delayed release(DR/EC) Discontinued 40 mg PO daily December 27, 2023 12:00am June 11, 2024 10:07am Njxyrauc-Byou-Wufcp-Oreg- Capry 100 mg-150 mg- 50 mg-150 mg Capsule (4 sources) Start: 03-27-2022 End: 06-11-2024 take 1 capsule by mouth once daily as needed Fhdisjiz-Yyhw-Ozomx-Oreg -Capry 100 mg-150 mg- 50 mg-150 mg Capsule Discontinued 1 NMA PO DAILY as needed for SUPPLEMENT March 27, 2022 1:00am June 11, 2024 10:07am Problems Active Problems Problem Classification Problem Date Documented Da te Episodic/Chronic Genitourinary symptoms and ill-defined conditions (2 sources) Increased frequency of urination; Translations: [Frequency of micturition] 01-23-2025 Episodic Nausea and vomiting (6 sources) Nausea; Translations: [Nausea] 09-09-2023 Episodic Nutritional deficiencies (1 source) Vitamin D deficiency, unspecified; Translations: [Vitamin D deficiency, unspecified] Onset: 07-22-2024 Chronic Open wounds of extremities (1 source) Laceration of left thumb; Translations: [Laceration without foreign body of left thumb without damage to nail, initial encounter] Onset: 09-20-2021 Episodic Osteoarthritis (4 sources) Arthritis of hip; Translations: [Bilateral primary osteoarthritis of hip] 12-18-2024 Chronic Osteoporosis (7 sources) Osteoporosis; Translations: [Age-related osteoporosis without current pathological fracture] 06-19-2024 Chronic Other bone disease and musculoskeletal deformities (1 source) Osteopenia; Translations: [Other specified disorders of bone density and structure, unspecified site] 04-28-2024 Episodic Other congenital anomalies (4 sources) Transitional vertebra; 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, not associated with scoliosis] 12-18-2024 Chronic Other connective tissue disease (7 sources) History of lumbar fusion; Translations: [Arthrodesis status] 09-11-2023 Episodic Other fractures (6 sources) Compression fracture of lumbar spine; Translations: [Wedge compression fracture of third lumbar vertebra, initial encounter for closed fracture] 04-28-2024 Episodic Other injuries and conditions due to external causes (14 sources) Superficial laceration; Translations: [Other injury of unspecified body region, initial encounter] 08-07-2018 Episodic Residual codes; unclassified (10 sources) H/O Spinal surgery; Translations: [Other specified postprocedural states] 05-02-2022 Episodic Residual codes; unclassified (7 sources) Other specified postprocedural states; Translations: [Other postprocedural status] 05-02-2022 Episodic Septicemia (except in labor) (14 sources) Sepsis; Translations: [Sepsis, unspecified organism] 08-06-2018 Episodic Spondylosis; intervertebral disc disorders; other back problems (20 sources) Displacement of lumbar intervertebral disc without myelopathy; Translations: [Other intervertebral disc displacement, lumbar region] Onset: 06-24-2024 Chronic Spondylosis; intervertebral disc disorders; other back problems (20 sources) Backache; Translations: [Dorsalgia, unspecified] Onset: 01-24-2024 03-05-2022 Episodic Unclassified (1 source) M85.80 - Other specified disorders of bone density and structure, unspecified site,S32.030A - Wedge compression fracture of third lumbar vertebra, initial encounter for closed fracture Unclassified (1 source) Low back pain, unspecified; Translations: [Low back pain, unspecified] Onset: 05-21-2024 Urinary tract infections (14 sources) Pyelonephritis; Translations: [Tubulo-interstitial nephritis, not specified as acute or chronic] 08-06-2018 Episodic Past or Other Problems Problem Classification Problem Date Documented Da te Episodic/Chronic Other bone disease and musculoskeletal deformities (1 source) Other specified disorders of bone density and structure, unspecified site; Translations: [Other specified disorders of bone density and structure, unspecified site] Onset: 06-11-2024 Episodic Other bone disease and musculoskeletal deformities (1 source) Other specified disorders of bone density and structure, right thigh; Translations: [Other specified disorders of bone density and structure, right thigh] Onset: 03-02-2024 Episodic Other connective tissue disease (1 source) Arthrodesis status; Translations: [Arthrodesis status] Onset: 04-28-2024 Episodic Other fractures (1 source) Wedge compression fracture of third lumbar vertebra, initial encounter for closed fracture; Translations: [Wedge compression fracture of third lumbar vertebra, initial encounter for closed fracture] Onset: 07-04-2024 Episodic Other screening for suspected conditions (not mental disorders or infectious disease) (1 source) Encounter for screening mammogram for malignant neoplasm of breast; Translations: [Encounter for screening mammogram for malignant neoplasm of breast] Onset: 09-15-2024 Episodic Pathological fracture (1 source) Other osteoporosis with current pathological fracture, unspecified site, subsequent encounter for fracture with routine healing; Translations: [Other osteoporosis with current pathological fracture, unspecified site, subsequent encounter for fracture with routine healing] Onset: 08-04-2024 Episodic Results Test Name Value Interpretation Reference Range Facility L/S Spine Min 4 Viewson 08-0 L/S Spine Min 4 Views [facility] [address] [place] [address] [id number] (072) L/S Spine Min 4 Views MR#: [id number] Acct: [id number] Name: JACKLYN WILSON Rep #: [id number] : 1970 F 54 From: Donato Torres MD PCP: Dr. Moris Clement MD Status: DEP AMB Study: L/S Spine Min 4 Views Date of Exam: 12/18/24 Exam# [id number] Ordering Dr: Syl Liu PROCEDURE: L/S SPINE MIN 4 VIEWS 12/18/2024 REASON FOR EXAM: BACK PAIN, RECENT FALL DOWN STAIRS TECHNIQUE: L/S SPINE MIN 4 VIEWS COMPARISON: 04/28/2024 FINDINGS: Transitional anatomy. Ooeo-cnlnkuy-puyf-right hip osteoarthritis. Status post anterior and posterior fusion, L4-L5. Anterior wedge compression deformity, L3, small interval worsening. No abnormal motion with flexion/extension. RAD/L/S Spine Min 4 Views IMPRESSION: Small interval worsening in L3 anterior wedge compression deformity. Reading Location: [facility] CC: NEVILLE Wilkinson; Dr. Moris Clement MD Manufacturing Lead: Signed Normal [facility] Orthopedic Visit Reporton Orthopedic Visit Report [facility] [address] [place] [address] OFFICE VISIT Date of Service: 12/18/24 MR#: [id number] Acct: [id number] Name: JACKLYN WILSON Rep #: [id number] : 1970 Provider: Dr. Joss Lei MD Age/Sex: 54/F [place] [facility] [place] Status: Signed Intake Vital Signs 06/11/24 09:02 12/18/24 15:05 Height 5 ft 2 in 5 ft 2 in Weight: 113 lb BMI 20.6 Intake Visit Reasons: LUMBAR SPINE Chief Complaint: lumbar spine pain Accompanied by: Self Is patient in pain?: Yes Pain scale (1-10): 7 Allergies oxycodone Allergy (Severe, Verified 12/18/24 15:07) Anaphylaxis Medications ???Medication ???Instructions ???Recorded ???Confirmed ???Type gabapentin 800 mg tablet 800 mg PO TID PAIN 05/23/23 History multivitamin (Daily Multi-Vitamin 1 tab PO DAILY SUPPLEMENT 4 12/18/24 History tablet) calcium acetate 667 mg tablet 667 mg PO ONCE 05/25/24 12/18/24 H istory ginkgo biloba leaf extract 60 mg 60 mg PO BID 05/25/24 12/18/24 His tory tablet tumeric PO 05/25/24 12/18/24 History dexamethasone 1 mg tablet 1 mg PO .once 10 pm #1 TAB 5 12/18/24 Rx zoledronic acid 5 mg/100 mL in 1 ea .Route ONCE #100 mL 06/18/24 12/18/24 Rx mannitol 5 %-water intravenous piggybck methocarbamol 500 mg tablet 500 mg PO TID PRN pain/spasms #30 11/12/24 12/18/24 Rx tabs Have you fallen in the past year?: Yes PFSH Medical History (Updated 12/18/24 @ 15:44 by Chitra Jennings RN) Bilateral hip joint arthritis Transitional vertebrae Osteoporosis History of irregular heartbeat Post-menopausal Wears glasses Alcohol use History of steroid therapy Back pain Migraine headache Smoker Leg cramps History of pain when walking History of stress test Cardiology follow-up encounter Hx of mitral valve prolapse Surgical History Hx of laminectomy Hx of colonoscopy Hx of laparoscopy Hx of breast augmentation Hx of appendectomy History of meniscectomy of left knee Family History Other Alcoholism Anxiety Arthritis Cancer Diabetes Myocardial infarction Social History Smoking Status: Current every day smoker tobacco type: cigarettes Electronic Cigarette Use: with nicotine alcohol intake: current substance use type: does not use what type of physical activity do you participate in: walking frequency: daily HPI LUMBAR SPINE Details: This documentation accurately reflects the service provided and the decisions made by me, Dr. Joss Lei MD 12/18/24 [id number]. Part of today???s visit was documented by Julia Alvarenga MA and Chitra Jennings RN, acting as scribe. JACKLYN WILSON is a 54 year old F here today for lumbar spine. Patient states that she is having pain in the lower back. She fell down the steps about a month ago at home. Patient states that she was home, and she tripped over her dogs and fell down the steps. She landed on her right side. She was able to roll to her knees and pull herself up. She states the pain was severe and she had to call off of work for three to four days. She didn't feel any popping in the lower back when she fell. Patient stated that she didn't go to the ER. 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 This started a few months ago. She states that she still has lower back pain, but the pain has decreased. Patient would like to get x-rays done to see if there is any thing broken. She had an injection of Reclast in July for osteoporosis, she will receive this infusion once per year. The last injection with Dr. Moore was not helpful at all. The patient is a 54-year-old female presenting with back pain and sciatica following a recent fall. The patient experienced a fall about a month ago, tripping over her dog and landing on her side, which caused severe pain and initial difficulty in breathing. She was unable to move immediately and needed several days off work to regain mobility. The patient has a history of sciatica, which has evolved from a stabbing pain to a numbing sensation, starting in the buttock and radiating towards the knee, mainly on the right side. Prolonged standing exacerbates the pain. The patient has osteoporosis and is on Reclast, an annual IV infusion, to prevent further bone loss. She avoids steroids due to their adverse effects on bone density. The patient has a transitional vertebra with asymmetry, contributing to her pain. 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 Normal [facility] SCRN MAMM (CAD)W/ANNETTA BILATo n 09-11-2024 SCRN MAMM (CAD)W/ANNETTA BILAT [facility] Imaging Services [address] [place] [address] [id number] SCRN MAMM (CAD)W/ANNETTA BILAT MR#: [id number] Acct: [id number] Name: JACKLYN WILSON Rep #: [id number] : 1970 F 54 From: [place] PCP: Dr. Moris Clement MD Status: [facility] Study: SCRN MAMM (CAD)W/ANNETTA BILAT Date of Exam: 08/19 10/11 Exam# [id number] Ordering Dr: Moris Clement EXAM: SCRN MAMM (CAD)W/ANNETTA BILAT DATE: 09/11/2024 CLINICAL HISTORY: F, Age 54 y/o , SCREEN BREAST CANCER Patient has bilateral breast implants. BREAST CANCER RISK ASSESSMENT: Has not been calculated. TECHNIQUE: Bilateral screening digital breast tomosynthesis with 2D and 3D images. Pushback Cathy CC and pushback Cathy MLO views of the right and left breasts were also performed. Computer aided detection. COMPARISON: Prior exam(s) dated 02/06/2023 and 01/26/2022. FINDINGS: TISSUE DENSITY: The breast tissue is composed of scattered area of fibroglandular density. Bilateral Breast Mammographic Findings: No suspicious masses, suspicious cluster of microcalcifications, architectural distortion or secondary sign of malignancy is identified in either breast. Both breast implants appear to be intact. BI/SCRN MAMM (CAD)W/ANNETTA BILAT IMPRESSION: OVERALL FINAL ASSESSMENT: BIRADS 2 BENIGN FINDING RECOMMENDATION: Routine annual follow-up in 1 Year A letter with findings and recommendations will be mailed to the patient. Reading Location: [id number] CC: Dr. Moris Clement MD Manufacturing Lead: Signed Normal [facility] Absolute neutrophil countOrd ered By: Edgardo Jennings on 07-24-2024 Neutrophils (Bld) [#/Vol] 7.1 10*3/uL 2.0-7.7 [facility] Basophil percentageOrdered B y: Edgardo Jennings on 07-24-2024 Basophils/100 WBC (Bld) 0.5 % 0-[address] [facility] CBC W/Diff, Automatedon 03- Absolute Lymph 3.21 X10 3/uL Normal 0.83-4.51 [facility] Comment on above: Performed By: #### L 100.0100 ####[facility] [address] [facility] [place], [address] Absolute Neut 7.1 X10 3/uL Normal 2.0-7.7 [facility] Comment on above: Performed By: #### L 100.0100 ####[facility] [address] [place], [address] Basophils/100 WBC (Bld) 0.5 % Normal 0-[address] [facility] Comment on above: Performed By: #### L 100.0100 ####[facility] [address] [facility] [place], [address] Eosinophils/100 WBC (Bld) 0.8 % Normal 0-5 [facility] Comment on above: Performed By: #### L 100.0100 ####[facility] [address] [place], [address] Erythrocyte distribution width (RBC) [Ratio] 13.3 % Normal 11.6-14.6 [facility] Comment on above: Performed By: #### L 100.0100 ####[facility] [address] [place], [address] Hematocrit (Bld) [Volume fraction] 37.2 % Normal 37-47 [facility] Comment on above: Performed By: #### L 100.0100 ####[facility] [address] [place], [address] Hemoglobin (Bld) [Mass/Vol] 12.5 g/dL Normal 12.0-15.0 [facility] Comment on above: Performed By: #### L 100.0100 ####[facility] [address] [place], [address] IG% 0.400 Normal 0.0-0.9 [facility] Comment on above: Result Comment: IG% - Immature Granulocytes (promyelocytes, myelocytes and metamyelocytes) > 1% indicates that a LEFT SHIFT is Present. Performed By: #### L 100.0100 ####[facility] [address] [place], [address] Lymphocytes/100 WBC (Bld) 28.2 % Normal 19-41 [facility] Comment on above: Performed By: #### L 100.0100 ####[facility] [address] [place], [address] MCH (RBC) [Entitic mass] 32.7 pg High 27.0-32.0 [facility] Comment on above: Performed By: #### L 100.0100 ####[facility] [address] [place], [address] MCHC (RBC) [Mass/Vol] 33.6 g/dL Normal 32-36 [facility] Comment on above: Performed By: #### L 100.0100 ####[facility] [address] [place], [address] MCV (RBC) [Entitic vol] 97.4 fL Normal 81-[address] [facility] Comment on above: Performed By: #### L 100.0100 ####[facility] [address] [place], [address] Monocytes/100 WBC (Bld) 7.8 % Normal 0-10 [facility] Comment on above: Performed By: #### L 100.0100 ####[facility] [address] [place], [address] Neutrophils/100 WBC (Bld) 62.3 % Normal 47-70 [facility] Comment on above: Performed By: #### L 100.0100 ####[facility] [address] [place], [address] Nucleated RBC (Bld) [#/Vol] 0 10*3/uL Normal 0-5 [facility] Comment on above: Performed By: #### L 100.0100 ####[facility] [address] [place], [address] Platelet mean volume (Bld) [Entitic vol] 8.7 fL Normal 6.2-12.0 [facility] Comment on above: Performed By: #### L 100.0100 ####[facility] [address] [place], [address] Platelets (Bld) [#/Vol] 330 10*3/uL Normal 150-450 [facility] Comment on above: Performed By: #### L 100.0100 ####[facility] [address] [place], [address] RBC (Bld) [#/Vol] 3.82 10*6/uL Low 4.2-5.4 [facility] Comment on above: Performed By: #### L 100.0100 ####[facility] [address] [place], [address] RDW SD 47.9 fl High 35.1-43.9 [facility] Comment on above: Performed By: #### L 100.0100 ####[facility] [address] [place], [address] WBC (Bld) [#/Vol] 11.4 10*3/uL High 4.4-11.0 [facility] Comment on above: Performed By: #### L 100.0100 ####[facility] [address] [place], [address] Eosinophil percentageOrdered By: Edgardo Jennings on 07-24-2024 Eosinophils/100 WBC (Bld) 0.8 % 0-5 [facility] Erythrocyte distribution wid th ratioOrdered By: Edgardo Jennings on 07-24-2024 Erythrocyte distribution width (RBC) [Ratio] 13.3 % 11.6-14.6 [facility] Erythrocyte distribution wid th standard deviationOrdered By: Edgardo Jennings on 07-24-2024 Erythrocyte distribution width (RBC) [Entitic vol] 47.9 fL High 35.1-43.9 [facility] Hematocrit Auto (Bld) [Volum e fraction]Ordered By: Edgardo Jennings on 07-24-2024 Hematocrit (Bld) [Volume fraction] 37.2 % 37-47 [facility] Hemoglobin measurementOrdere d By: Edgardo Jennings on 07-24-2024 Hemoglobin (Bld) [Mass/Vol] 12.5 g/dL 12.0-15.0 [facility] Immature granulocytes/100 WB C Auto (Bld)Ordered By: Edgardo Jennings on 07-24-2024 Immature granulocytes/100 WBC (Bld) 0.400 % 0.0-0.9 [facility] Comment on above: IG% - Immature Granu locytes (promyelocytes, myelocytes and metamyelocytes) > 1% indicates that a LEFT SHIFT is Present. Lymphocytes Auto (Unsp spec) [#/Vol]Ordered By: Edgardo Jennings on 07-24-2024 Lymphocytes (Bld) [#/Vol] 3.21 10*3/uL 0.83-4.51 [facility] Lymphocytes/100 WBC Auto (Un sp spec)Ordered By: Edgardo Jennings on 07-24-2024 Lymphocytes/100 WBC (Bld) 28.2 % 19-41 [facility] MCV (mean corpuscular volume ) determinationOrdered By: Edgardo Jennings on 07-24-2024 MCV (RBC) [Entitic vol] 97.4 fL 81-[address] [facility] Mean corpuscular hemoglobin (MCH) determinationOrdered By: Edgardo Jennings on 07-24-2024 MCH (RBC) [Entitic mass] 32.7 pg High 27.0-32.0 [facility] Mean corpuscular hemoglobin concentration (MCHC) determinationOrdered By: Edgardo Jennings on 07-24-2024 MCHC (RBC) [Mass/Vol] 33.6 g/dL 32-36 [facility] Mean platelet volume determi nationOrdered By: Edgardo Jennings on 07-24-2024 Platelet mean volume (Bld) [Entitic vol] 8.7 fL 6.2-12.0 [facility] Monocyte percentageOrdered B y: Edgardo Jennings on 07-24-2024 Monocytes/100 WBC (Bld) 7.8 % 0-[address] [facility] Neutrophil percentageOrdered By: Edgardo Jennings on 07-24-2024 Neutrophils/100 WBC (Bld) 62.3 % 47-70 [facility] Nucleated red blood cell per centageOrdered By: Edgardo Jennings on 07-24-2024 Nucleated RBC/100 WBC (Bld) [Ratio] 0 % 0-5 [facility] Platelet countOrdered By: Nikolas Jennings on 07-24-2024 Platelets (Bld) [#/Vol] 330 10*3/uL 150-450 [facility] RBC Auto (Bld) [#/Vol]Ordere d By: Edgardo Jennings on 07-24-2024 RBC (Bld) [#/Vol] 3.82 10*6/uL Low 4.2-5.4 [facility] White blood cell (WBC) count Ordered By: Edgardo Jennings on 07-24-2024 WBC (Bld) [#/Vol] 11.4 10*3/uL High 4.4-11.0 [facility] Vitamin D,25 Hydroxyon 07-09 Vitamin D 25-OH 39.4 ng/mL Normal [facility] Comment on above: Result Comment: Alexandra min D 25(OH) Status Range Deficiency <20 ng/mL (50nmol/L) Insufficiency 20 - 30 ng/mL (50 - 75 nmol/L) Sufficiency 30 - 100 ng/mL (75 - 250 nmol/L) Toxicity >100 ng/mL (>250 nmol/L) Performed By: #### L 506.1000, L500.4050 #### [facility] [address] [place], [place], [id number]-WK-[id number] DOrdered By: Trever Jennings on 07-07-2024 Vitamin D 25-Hydroxy 39.4 ng/mL [facility] Comment on above: Vitamin D 25(OH) Sta tus Range Deficiency <20 ng/mL (50nmol/L) Insufficiency 20 - 30 ng/mL (50 - 75 nmol/L) Sufficiency 30 - 100 ng/mL (75 - 250 nmol/L) Toxicity >100 ng/mL (>250 nmol/L) Albumin to globulin ratioOrd ered By: Edgardo Jennings on 07-07-2024 Albumin/Globulin [Mass ratio] 1.3 {ratio} 0.9-2.4 [facility] Bilirubin, totalOrdered By: Edgardo Jennings on 07-07-2024 Bilirubin [Mass/Vol] 0.50 mg/dL 0.20-1.00 [facility] Comment on above: For patients on eltr ombopag therapy, use of Dimension [place] TBIL is not recommended. Blood urea nitrogen (BUN)/cr eatinine ratioOrdered By: Edgardo Jennings on 07-07-2024 Urea nitrogen/Creatinine [Mass ratio] 21.6 mg/mg High 10- [facility] Carbon dioxide measurementOr dered By: Edgardo Jennings on 07-07-2024 CO2 [Moles/Vol] 32.0 mmol/L 21.0-32.0 [facility] Chloride measurementOrdered By: Edgardo Jennings on 02-18-2025 Chloride [Moles/Vol] 97 mmol/L Low 98-107 [facility] Comprehensive Metabolic Prof ilon 07-07-2024 Albumin [Mass/Vol] 4.3 g/dL Normal 3.2-5.0 [facility] Comment on above: Performed By: #### L 506.1000, L500.4050 #### [facility] [address] [place], [address] Albumin/Globulin [Mass ratio] 1.3 {ratio} Normal 0.9-2.4 [facility] Comment on above: Performed By: #### L 506.1000, L500.4050 #### [facility] [address] [place], [address] ALK P 59 U/L Normal 45-117 [facility] Comment on above: Performed By: #### L 506.1000, L500.4050 #### [facility] [address] [place], [address] ALT [Catalytic activity/Vol] 22 U/L Normal 13-56 [facility] Comment on above: Performed By: #### L 506.1000, L500.4050 #### [facility] [address] [place], [address] AST [Catalytic activity/Vol] 20 U/L Normal 15-37 [facility] Comment on above: Performed By: #### L 506.1000, L500.4050 #### [facility] [address] [place], [address] Bilirubin [Mass/Vol] 0.50 mg/dL Normal 0.20-1.00 [facility] Comment on above: Result Comment: For patients on eltrombopag therapy, use of Dimension [place] TBIL is not recommended. Performed By: #### L 506.1000, L500.4050 #### [facility] [address] [place], [address] BUN/CRE 21.6 RATIO High 10-20 [facility] Comment on above: Performed By: #### L 506.1000, L500.4050 #### [facility] [address] [place], [address] CA,Total 10.6 mg/dL High 8.5-10.1 [facility] Comment on above: Performed By: #### L 506.1000, L500.4050 #### [facility] [address] [place], [address] Chloride [Moles/Vol] 97 mmol/L Low 98-107 [facility] Comment on above: Performed By: #### L 506.1000, L500.4050 #### [facility] [address] [place], [address] CO2 [Moles/Vol] 32.0 mmol/L Normal 21.0-32.0 [facility] Comment on above: Performed By: #### L 506.1000, L500.4050 #### [facility] [address] [place], [address] Creatinine [Mass/Vol] 0.51 mg/dL Low 0.55-1.02 [facility] Comment on above: Result Comment: The validity of the calculated GFR GFRAA in patients over 70 years has not been determined. Clinical correlation is essential. Performed By: #### L 506.1000, L500.4050 #### [facility] [address] [place], [address] EST GFR - AA 162 mL/min Normal >60 [facility] Comment on above: Result Comment: Afri can Maltese GFR Calc Performed By: #### L 506.1000, L500.4050 #### [facility] [address] [place], [address] GAP 6 Normal 5-15 [facility] Comment on above: Performed By: #### L 506.1000, L500.4050 #### [facility] [address] [place], [address] GFR/1.73 sq M.predicted among non-blacks MDRD (S/P/Bld) [Vol rate/Area] 134 mL/min/{1.73_m2} Normal >60 [facility] Comment on above: Result Comment: Non- GFR Calc Performed By: #### L 506.1000, L500.4050 #### [facility] [address] [place], [address] Globulin (S) [Mass/Vol] 3.2 g/dL Normal 2.2-4.2 [facility] Comment on above: Performed By: #### L 506.1000, L500.4050 #### [facility] [address] [place], [address] Glucose [Mass/Vol] 84 mg/dL Normal 74-106 [facility] Comment on above: Performed By: #### L 506.1000, L500.4050 #### [facility] [address] [place], [address] Potassium [Moles/Vol] 4.5 mmol/L Normal 3.5-5.1 [facility] Comment on above: Performed By: #### L 506.1000, L500.4050 #### [facility] [address] [place], [address] Sodium [Moles/Vol] 135 mmol/L Low 136-145 [facility] Comment on above: Performed By: #### L 506.1000, L500.4050 #### [facility] [address] [place], [address] T PROT 7.5 g/dL Normal 6.4-8.2 [facility] Comment on above: Performed By: #### L 506.1000, L500.4050 #### [facility] [address] [place], [address] Urea nitrogen [Mass/Vol] 11 mg/dL Normal 7-18 [facility] Comment on above: Performed By: #### L 506.1000, L500.4050 #### [facility] [address] [place], [address] Estimated glomerular filtrat ion rate (GFR) AmericanOrdered By: Edgardo Jennings on 07-07-2024 Estimated GFR (MDRD) Amer 162 mL/min >60 [facility] Comment on above: GFR Calc Glomerular filtration rate ( GFR) estimationOrdered By: Edgardo Jennings on 07-07-2024 Estimated GFR (MDRD) Non-Af Amer 134 mL/min >60 [facility] Comment on above: Non- GFR Calc Glucose measurementOrdered B y: Edgardo Jennings on 07-07-2024 Glucose [Mass/Vol] 84 mg/dL 74-106 [facility] - Chemistry and C hemistry - challengeOrdered By: Edgardo Jennings on 07-07-2024 AST [Catalytic activity/Vol] 20 U/L 15-37 [facility] Potassium measurementOrdered By: Edgardo Jennings on 07-07-2024 Potassium [Moles/Vol] 4.5 mmol/L 3.5-5.1 [facility] Serum anion gap measurementO rdered By: Edgardo Jennings on 07-07-2024 Anion gap [Moles/Vol] 6 mmol/L 5-15 [facility] Serum globulin measurementOr dered By: Edgardo Jennings on 07-07-2024 Globulin (S) [Mass/Vol] 3.2 g/dL 2.2-4.[address] [facility] Serum or plasma alanine pineda otransferase (ALT) measurementOrdered By: Edgardo Jennings on 07-07-2024 ALT [Catalytic activity/Vol] 22 U/L 13-56 [facility] Serum or plasma albumin nate urement (mass/volume)Ordered By: Edgardo Jennings on 07-07-2024 Albumin [Mass/Vol] 4.3 g/dL 3.2-5.0 [facility] Serum or plasma alkaline zulma sphatase measurementOrdered By: Edgardo Jennings on 02-18-2025 ALP [Catalytic activity/Vol] 59 U/L 45-117 [facility] Serum or plasma calcium nate urement (mass/volume)Ordered By: Edgardo Jennings on 07-07-2024 Calcium [Mass/Vol] 10.6 mg/dL High 8.5-10.1 [facility] Serum or plasma creatinine m easurement (mass/volume)Ordered By: Edgardo Jennings on 07-07-2024 Creatinine [Mass/Vol] 0.51 mg/dL Low 0.55-1.02 [facility] Comment on above: The validity of the calculated GFR & GFRAA in patients over 70 years has not been determined. Clinical correlation is essential. Serum or plasma urea nitroge n measurement (mass/volume)Ordered By: Edgardo Jennings on 07-07-2024 Urea nitrogen [Mass/Vol] 11 mg/dL 18 [facility] Sodium levelOrdered By: Edgardo Jennings on 07-07-2024 Sodium [Moles/Vol] 135 mmol/L Low 136-145 [facility] Total proteinOrdered By: Kirk Jennings on 07-07-2024 Protein [Mass/Vol] 7.5 g/dL 6.4-8.2 [facility] Protein Electro.Ur-Randomon 06-17-2024 M-SPIKE,U Normal [facility] Comment on above: Order Comment: N Result Comment: NOT OBSERVED Performed By: #### L 3400.1350, L3100.3450, L3600.4000, L509.1000 #### [facility] [address] [place], [place], [address] CORTISOL SERUMon 06-16-2024 CORTISOL 0.70 ug/dL Low 3.44-22.45 [facility] Comment on above: Result Comment: Adul t (AM) 5.27 - 22.45 ug/dL Adult (PM) 3.44 - 16.76 ug/dL Performed By: #### L 509.6000 #### [facility] [address] [place], [place], [address] Cortisol [Mass/Vol]Ordered B y: Edgardo Jennings on 06-16-2024 Cortisol 0.70 ug/dL Low 3.44-22.45 [facility] Comment on above: Adult (AM) 5.27 - 22 .45 ug/dL Adult (PM) 3.44 - 16.76 ug/dL Insulin Like Growth Factoron 06-15-2024 SOMATOMEDIN C 140 ng/mL Normal 65-216 [facility] Comment on above: Order Comment: N Result Comment: Perf ormed at: - [facility] [address] [id number] [address]: Weston Gagnon PhD, Phone: [phone] Performed at: - [facility] [id number] [address]: Lisa Rosales MD, Phone: [phone] Performed By: #### L 3400.1350, L3100.3450, L3600.4000, L509.1000 #### [facility] [address] [place], [address] Protein Electroph, Son 06-15 Albumin [Mass/Vol] 5.1 g/dL High 2.9-4.4 [facility] Comment on above: Order Comment: N Performed By: #### L 3400.1350, L3100.3450, L3600.4000, L509.1000 #### [facility] [address] [place], [address] Albumin/Globulin [Mass ratio] 1.4 {ratio} Normal 0.7-1.7 [facility] Comment on above: Order Comment: N Performed By: #### L 3400.1350, L3100.3450, L3600.4000, L509.1000 #### [facility] [address] [place], [address] ALPHA-1 GLOBUL 0.4 g/dL Normal 0.0-0.4 [facility] Comment on above: Order Comment: N Performed By: #### L 3400.1350, L3100.3450, L3600.4000, L509.1000 #### [facility] [address] [place], [address] ALPHA-2 GLOBUL 0.8 g/dL Normal 0.4-1.0 [facility] Comment on above: Order Comment: N Performed By: #### L 3400.1350, L3100.3450, L3600.4000, L509.1000 #### [facility] [address] [place], [address] BETA GLOBULIN 1.1 g/dL Normal 0.7-1.3 [facility] Comment on above: Order Comment: N Performed By: #### L 3400.1350, L3100.3450, L3600.4000, L509.1000 #### [facility] [address] [place], [address] GAMMA GLOBULIN 1.2 g/dL Normal 0.4-1.8 [facility] Comment on above: Order Comment: N Performed By: #### L 3400.1350, L3100.3450, L3600.4000, L509.1000 #### [facility] [address] [place], [address] Globulin (S) [Mass/Vol] 3.6 g/dL Normal 2.2-3.[address] [facility] Comment on above: Order Comment: N Performed By: #### L 3400.1350, L3100.3450, L3600.4000, L509.1000 #### [facility] [address] [place], [address] INTERPRETATION Comment Normal . [facility] Comment on above: Order Comment: N Result Comment: Prot ein electrophoresis scan will follow via computer, mail, or senior ui software engineer delivery. Performed By: #### L 3400.1350, L3100.3450, L3600.4000, L509.1000 #### [facility] [address] [place], [address] M-SPIKE Not Observed Normal Not Observed [facility] Comment on above: Order Comment: N Performed By: #### L 3400.1350, L3100.3450, L3600.4000, L509.1000 #### [facility] [address] [place], [address] NOTE Comment Normal . [facility] Comment on above: Order Comment: N Result Comment: Prot ein electrophoresis scan will follow via computer, mail, or senior ui software engineer delivery. Performed By: #### L 3400.1350, L3100.3450, L3600.4000, L509.1000 #### [facility] [address] [place], [address] NOTE: Comment: Normal . [facility] Comment on above: Order Comment: N Result Comment: SPE shows an increased total protein and albumin. Performed By: #### L 3400.1350, L3100.3450, L3600.4000, L509.1000 #### [facility] [address] [place], [place], [address] Protein [Mass/Vol] 8.7 g/dL High 6.0-8.5 [facility] Comment on above: Order Comment: N Performed By: #### L 3400.1350, L3100.3450, L3600.4000, L509.1000 #### [facility] [address] [place], [address] Addendum DocumentOrdered By: Edgardo Jennings on 06-11-2024 Protein Electrophoresis Note Comment: . [facility] Comment on above: SPE shows an increas ed total protein and albumin. Albumin Elph (U) [Mass fract ion]Ordered By: Edgardo Jennings on 06-11-2024 Urine Albumin 14.3 % . [facility] Albumin Elph [Mass/Vol]Order ed By: Edgardo Jennings on 06-11-2024 Albumin [Mass/Vol] 5.1 g/dL High 2.9-4.4 [facility] Albumin/Globulin Elph [Mass ratio]Ordered By: Edgardo Jennings on 06-11-2024 Albumin/Globulin (PEP) 1.4 0.7-1.7 [facility] Alpha 1 globulin Elph (U) [M ass fraction]Ordered By: Edgardo Jennings on 06-11-2024 Urine Repvz-9-Txpmmkso 15.0 % . [facility] Alpha 2 globulin Elph (24H U ) [Mass fraction]Ordered By: Edgardo Jennings on 06-11-2024 Urine Miycj-7-Udttkutjc 16.3 % . [facility] Nqzki-3-aumwbgkn measurement by protein electrophoresisOrdered By: Edgardo Jennings on 06-11-2024 Jwdsn-1-Sthorgaje 0.4 g/dL 0.0-0.4 [facility] Imjbo-3-gvoangdm measurement by protein electrophoresisOrdered By: Edgardo Jennings on 06-11-2024 Rmxnz-8-Wfkrdzdai 0.8 g/dL 0.4-1.0 [facility] Beta globulin Elph (24H U) [ Mass fraction]Ordered By: Edgardo Jennings on 06-11-2024 Urine Beta Globulin 38.5 % . [facility] Beta globulin Elph [Mass/Vol ]Ordered By: Edgardo Jennings on 06-11-2024 Beta Globulins 1.1 g/dL 0.7-1.3 [facility] Endocrinology Visit Reporton 06-11-2024 Endocrinology Visit Report [facility] [address] [place] [address] OFFICE VISIT Date of Service: 06/11/24 MR#: [id number] Acct: [id number] Name: JACKLYN WILSON Rep #: [id number] : 1970 Provider: Vaishali Terry Age/Sex: 53/F Location: [facility] Status: Signed Intake Vital Signs 04/19/24 09:44 06/11/24 09:02 Height 5 ft 2 in 5 ft 2 in Weight: 113 lb 2 oz BMI 20.7 BP 164/89 H Blood Pressure Location Rt brachial Position Sitting Pulse 93 Pulse Source Monitor Pulse Oximetry (%) 99 Oxygen Delivery Method room air Intake Visit Reasons: Osteoporosis Chief Complaint: lumbar spine Is patient in pain?: Yes Pain scale (1-10): 7 Allergies oxycodone Allergy (Severe, Verified 06/11/24 09:05) Anaphylaxis Medications ???Medication ???Instructions ???Recorded ???Confirmed ???Type gabapentin 800 mg tablet 800 mg PO TID PAIN 05/23/23 History multivitamin (Daily Multi-Vitamin 1 tab PO DAILY SUPPLEMENT 4 05/25/24 History tablet) calcium acetate 667 mg tablet 667 mg PO ONCE 05/25/24 05/25/24 H istory ginkgo biloba leaf extract 60 mg 60 mg PO BID 05/25/24 05/25/24 His tory tablet tumeric PO 05/25/24 History dexamethasone 1 mg tablet 1 mg PO .once 10 pm #1 TAB 5 06/11/24 Rx zoledronic acid 5 mg/100 mL in 1 ea .Route ONCE #100 mL 06/18/24 Rx mannitol 5 %-water intravenous piggybck [facility] Medical History (Updated 06/19/24 @ 09:[address] Edgardo Jennings MD) Osteoporosis History of irregular heartbeat Post-menopausal Wears glasses Alcohol use History of steroid therapy Back pain Migraine headache Smoker Leg cramps History of pain when walking History of stress test Cardiology follow-up encounter Hx of mitral valve prolapse Surgical History Hx of laminectomy Hx of colonoscopy Hx of laparoscopy Hx of breast augmentation Hx of appendectomy History of meniscectomy of left knee Family History Other Alcoholism Anxiety Arthritis Cancer Diabetes Myocardial infarction Social History Smoking Status: Current every day smoker tobacco type: cigarettes Electronic Cigarette Use: with nicotine alcohol intake: current substance use type: does not use what type of physical activity do you participate in: walking frequency: daily HPI HPI JACKLYN WILSON, is a 53 F who presents to the office today for evaluation and management of osteoporosis. She was diagnosed with compression fractures of T12 and L3 in April. Her bone density shows T-scores of -.8 in the spine and -1.9 in the hip.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 REHABILITATION SERVICES INITIAL EVALUATION MR#: [id number] Acct: [id number] Name: JACKLYN WILSON Rep #: [id number] : 1970 53 From: Jones Reynoso DPT Referring Dr.: Dr. Moris Clement MD Status: REG RCR Insurance: [facility] SEL[employer]Y INSURANCE Patient's Visit Information Visit Information Visit Information: JACKLYN WILSON is a 53 year old F referred to Physical Therapy by Dr. oMris Clement MD with a diagnosis of lumbar DDD and piriformis syndrome. Date of Evaluation: 12/31/23 Physical Therapist: Jones Reynoso DPT Visit Plan Frequency: 1x/Week Duration: 4 Weeks Plan: Start with slight prone lying and prone prop as this was able to centralize symptoms. May trial DN, but is very irritable in that region, slowly trial. Subjective Subjective: Pt. is here today for here initial evaluation with diagnosis of lumbar DDD and piriformis syndrome with suggestion for dry needling. Pt. reports having increased pain since 2020. Pt. reports having a discectomy then eventually a fusion earlier this year. Pt. reports having increased pain in her back and leg since. She denies NT in either LE. Pt. reports that her radicular symptoms are at her glute then skips to her R lateral calf. Pt. denies that her legs give out on her. Pt. reports pain with all positions. No position of relief, but has to frequently change positions. 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 She did see a spinal surgeon whom suggested and MRI and a bone density scan. Pain SI region R side: Pain Intensity (Out of 10): 8 Pain Intensity Range: 6 and 10 R glute: Pain Intensity (Out of 10): 8 Pain Intensity Range: 6 and 10 R calf: Pain Intensity (Out of 10): 0 Pain Intensity Range: 0 and 8 Objective Objective: POSTURE: Pt. has fairly normal posture in stance. Normal iliac crest heights. Pt. does have any lateral shift noted. PALPATION: Pt. is very tender at R SI joint and R glute. No pain along HS or calf. Pt. does have tenderness at L3-S1, but worst at R SI joint., NEURO: normal sensation and DTR of BLEs. Pt. is able to rise on heels/toes without issues. ROM: LUMBAR SPINE: flexion nil loss NE, ext min loss NE, SB nil loss Tyler NE, rotation nil loss mild increase nW. Pt. has normal HS length and normal hip flexor length. Pt. has good hip ROM without increase in symptoms. MMT: Pt. had a 15# difference with R being weaker with knee extension. The rest were symmetrical. GAIT: Normal with mild increase NW. STAIRS: Pt. is able to complete with reciprocal pattern without HR but does have mild increase in symptoms. Pt. reports worst in AMs and with prolonged standing and sitting. She reports having to frequently change positions Balance/Special Test Scores Oswestry Low Back Score: 27 Goals Goal 1:: LTG: pt. to be I with HEP. Goal Time Frame: 4-6 Weeks Goal 2:: STG: Pt. to have full ROM of lumbar spine without increase in radicular symptoms. Goal Time Frame: 2-4 Weeks Goal 3:: LTG: Pt. to be able to be able to sit for greater than 1 hour without increase in symptoms. Goal Time Frame: 4-6 Weeks Goal 4:: LTG: pt. to stand for longer than 1 hour without increase in radicular symptoms. Goal Time Frame: 4-6 Weeks Goal 5:: LTG: Pt. to reports symptoms have reduced by greater than 80%. Goal Time Frame: 4-6 Weeks Rehabilitation Potential Physical Therapy Diagnosis: Pt. has signs and symptoms consistent with lumbar DD and piriformis syndrome. Pt. has marked radicular symptoms. She was very painful with palpation of gluteal region and at R SI region. She does have good ROM of her R hip and is constantly doing piriformis stretching at home. Pt would benefit from PT to work on exercises to reduce symptoms and gradually progress her tolerance to activities. Rehabilitation Potential: Good Anticipated Interventions Patient/Client Instruction: Educate patient on: Condition, Plan of Care, Risk Factors and Benefits of Fitness Program For the Purpose of:: To foster healthy habits, To improve decision making, To facilitate caregiver knowledge, To improve self management, To prevent re-injury and To improve ability to perform tasks related to life management Therapeutic Exercise to Include: Strength training, Power training, Coordination, Body mechanics, Postural training, Flexibilty training, Passive ROM and Active ROM For the Purpose of:: To decrease pain, To decrease swelling/inflammation, To increase ROM, To improve muscle performance and motor function, To improve ability to perform ADL's, To increase tolerance to activity/condition/positi on, To improve performance and independence with ADL's and To decrease level of supervision to perform tasks For the Purpose of:: To increas (more content not included)... Normal [facility] Lumbar Spine 2 or 3 Viewson 12-27-2023 Lumbar Spine 2 or 3 Views [facility] [address] [place] [address] Lumbar Spine 2 or 3 Views MR#: [id number] Acct: [id number] Name: JACKLYN WILSON Rep #: [id number] : 1970 F 53 From: Arina engel MD PCP: Dr. Moris Clement MD Status: DEP AMB Study: Lumbar Spine 2 or 3 Views Date of Exam: Exam# [id number] Ordering Dr: Syl Liu [id number] HISTORY: s/p lumbar fusion -- please do upright AP and LAT. TECHNIQUE: XR Spine Lumbar 2 or 3 Views. COMPARISON: 10/23/2023. FINDINGS: VERTEBRAE: Vertebral body heights preserved. Unchanged appearance of anterior and posterior spinal fusion hardware of L4-5 with interbody fusion material. ALIGNMENT: Mild degenerative changes and spinal osteophytes again noted. INTERVERTEBRAL DISCS: Disc spaces maintained. RAD/Lumbar Spine 2 or 3 Views IMPRESSION: No acute fracture or dislocation identified in the lumbar spine. Chronic postoperative change L4-5. Electronically Signed: Arina Walker MD at 10:46 EDT , CC: NEVILLE Wilkinson; Dr. Moris Clement MD Manufacturing Lead: Signed Normal [facility] Orthopedic Visit Reporton Orthopedic Visit Report [facility] [address] [place] [address] [address] [place] [address] OFFICE VISIT Date of Service: 12/27/23 MR#: [id number] Acct: [id number] Name: JACKLYN WILSON Rep #: [id number] : 1970 Provider: Dr. Joss Lei MD Age/Sex: 53/F [place] [facility] [place] Status: Signed Intake Vital Signs 09/10/23 15:04 Height 5 ft 2 in Intake Visit Reasons: LUMBAR SPINE Allergies oxycodone Allergy (Severe, Verified 12/27/23 11:32) Anaphylaxis Medications ???Medication ???Instructions ???Recorded ???Confirmed ???Type omega 9-czh-tef-fish oil 60 mg-90 1 ea PO PRN SUPPLEMENT 04/30/16 12/27/23 History mg-500 mg capsule turmeric 100 mg-kasi 150 1 cap PO DAILY PRN SUPPLEMENT 03/27/22 12/27/23 History mg-olive 50 mg-oreg 150 mg-capryl capsule gabapentin 800 mg tablet 800 mg PO TID PAIN 05/23/23 12/27/23 History cholecalciferol (vitamin D3) 250 250 mcg PO PRN SUPPLEMENT 06/20/23 12/27/23 History mcg (10,000 unit) capsule multivitamin (Daily Multi-Vitamin 1 tab PO DAILY SUPPLEMENT 08/26/23 12/27/23 History tablet) omeprazole 40 mg capsule,delayed 40 mg PO QDAY 12/27/23 12/27/23 History release PFSH Medical History History of irregular heartbeat Post-menopausal Wears glasses Alcohol use History of steroid therapy Back pain Migraine headache Smoker Leg cramps History of pain when walking History of stress test Cardiology follow-up encounter Hx of mitral valve prolapse Surgical History Hx of laminectomy Hx of colonoscopy Hx of laparoscopy Hx of breast augmentation Hx of appendectomy History of meniscectomy of left knee Family History Other Cancer Myocardial infarction Social History Smoking Status: Current every day smoker tobacco type: cigarettes HPI LUMBAR SPINE Details: This documentation accurately reflects the service provided and the decisions made by me, Dr. Joss Lei MD 12/27/23 1121. Part of today???s visit was documented by Angeles STAFFORD, acting as scribe. JACKLYN WILSON is a 53 year old F here today for s/p 360 fusion with repeat laminectomy at the L4-5 level. She states that she is still having the SI joint pain. Pain started originally in 2020. She states that she is still having pain in the middle of her tailbone but it is no longer radiating down the right leg. Pain is in the middle of her buttocks on her R side and goes down to her calf. No numbness in her foot. She has had 6 different injections with no benefit. She states that she saw Dr. Moore about a week after seeing Dr. Faustin and has had 2 injections into her SI and she didn't get any relief. She would like to discuss her next options today. She has an appointment with PT next week to get dry needling done, but says if it causes pain she won't get it done. Ortho Exam General General: Yes no acute distress Neurologic: Yes alert and Yes oriented x3 Spine SPINE TESTING CERVICAL THORACIC LUMBAR Musculoskeletal Strength 0=absent - 5=normal Details: Neurological exam of the lower extremities shows 5x5 strength. Normal sensation across all dermatomes. Christian test negative. Well healed midline surgical scar. No midline or paraspinal tenderness. Single stand does not cause pain. Coding Level of Care Code Off vis,est,level 5 Diagnoses S/P lumbar fusion Z98.1 Sacral pain M53.3 Osteopenia determined by x-ray M85.80 Time Spent (min) 45 Assessment and Plan Assessment and Plan (1) S/P lumbar fusion: Status: Acute (2) Sacral pain: Status: Acute (3) Osteopenia determined by x-ray: Status: Acute Orders: Orders Lumbar Spine 2 or 3 Views Today NEVILLE Wilkinson Z98.1 - Arthrodesis status Spine Lumbar W/WO Contrast Today Dr. Joss Lei MD M54.16 - Radiculopathy, lumbar region, Z98.1 - Arthrodesis status Dexa Bone Density Study Today Dr. Joss Lei MD M85.80 - Other specified disorders of bone density and structure, unspecified site Plan Obtained and reviewed xrays with patient today. Xrays show low bone density. Mild subsidence seen at L4-5 interbody fusion, but this is unchanged from Radha x-rays. Osteopenia makes it difficult to assess for any sclerosis around the SI joints. No postop MRI available. I explained to her the imaging findings in detail. She had severe radiculopathy a few days after the surgery into the right lower extremity. Now this is reduced to 2 areas of pain mainly her middle and right side of her tailbone as well as the right calf. This may be due to improvement of her postoperative colopathy with time versus other source of localized sacral trell (more content not included)... Normal [facility] Thin prep Papanicolaou smear with manual screeningOrdered By: Marito Faustin on 09-09-2023 Thin prep Papanicolaou smear with manual screening 134 mg/dL 74-106 [facility] Comment on above: MANAGEMENT OF PATIEN T CARE PER NURSING PROTOCOL Absolute lymphocyte countOrd ered By: Marito Faustin on 08-30-2023 Lymphocytes Auto (Unsp spec) [#/Vol] 2.11 10*3/uL 0.83-4.51 [facility] Automated lymphocyte count a s percentage of total leukocytesOrdered By: Marito Faustin on 08-30-2023 Lymphocytes/100 WBC Auto (Unsp spec) 23.5 % 19-41 [facility] Basophil percentageOrdered B y: Marito Faustin on 08-30-2023 Basophils/100 WBC (Bld) 0.9 % 0-[address] [facility] Eosinophils/100 WBC (Bld) 1.3 % 0-5 [facility] Hemoglobin (Bld) [Mass/Vol] 13.8 g/dL 12.0-15.0 [facility] Monocytes/100 WBC (Bld) 7.7 % 0-10 [facility] Neutrophils (Bld) [#/Vol] 6.0 10*3/uL 2.0-7.7 [facility] Neutrophils/100 WBC (Bld) 66.2 % 47-70 [facility] WBC (Bld) [#/Vol] 9.0 10*3/uL 4.4-11.0 [facility] Basophil percentageOrdered B y: Moris Clement on 08-30-2023 Bilirubin [Mass/Vol] 0.50 mg/dL 0.20-1.00 [facility] Comment on above: For patients on eltr ombopag therapy, use of Dimension [place] TBIL is not recommended. Chloride [Moles/Vol] 102 mmol/L 98-107 [facility] Cholesterol [Mass/Vol] 236 mg/dL <200 [facility] Comment on above: <200 mg/dL Desirable 200-240 mg/dL Borderline >240 mg/dL High Risk Glucose [Mass/Vol] 90 mg/dL 74-106 [facility] Potassium [Moles/Vol] 4.0 mmol/L 3.5-5.1 [facility] Protein [Mass/Vol] 7.9 g/dL 6.4-8.2 [facility] Sodium [Moles/Vol] 134 mmol/L 136-145 [facility] Triglyceride [Mass/Vol] 61 mg/dL <199 [facility] Comment on above: The drugs N-Acetylcy steine and Metamizole may falsely depress this assay.Serum Triglycerides Reference Interval Normal <150 mg/dL Borderline high 150 - 199 mg/dL High 200 - 499 mg/dL Very High > or = 500 mg/dL Determination of erythrocyte mean corpuscular volume (MCV)Ordered By: Marito Faustin on 08-30-2023 MCV (RBC) [Entitic vol] 100.0 fL 81-[address] [facility] Erythrocyte distribution wid th ratioOrdered By: Marito Faustin on 08-30-2023 Erythrocyte distribution width (RBC) [Ratio] 13.1 % 11.6-14.6 [facility] Erythrocyte distribution wid th standard deviationOrdered By: Marito Faustin on 08-30-2023 Erythrocyte distribution width (RBC) [Entitic vol] 48.4 fL 35.1-43.9 [facility] HIV 1 and HIV-2 antibody ass ay with HIV-1 p24 antigen detectionOrdered By: Marito Faustin on 08-30-2023 HIV 1+2 Ab+HIV1 p24 Ag IA Ql Non-Reactive Nonreactive [facility] Hematocrit Auto (Bld) [Volum e fraction]Ordered By: Marito Faustin on 08-30-2023 Hematocrit (Bld) [Volume fraction] 39.7 % 37-47 [facility] Immature granulocytes/100 WB C Auto (Bld)Ordered By: Marito Faustin on 08-30-2023 Immature granulocytes/100 WBC (Bld) 0.400 % 0.0-0.9 [facility] Comment on above: IG% - Immature Granu locytes (promyelocytes, myelocytes and metamyelocytes) > 1% indicates that a LEFT SHIFT is Present. Laboratory - Chemistry and C hemistry - challengeOrdered By: Moris Clement on 08-30-2023 Albumin/Globulin [Mass ratio] 1.3 {ratio} 0.9-2.4 [facility] ALP [Catalytic activity/Vol] 58 U/L 45-117 [facility] ALT [Catalytic activity/Vol] 24 U/L 13-56 [facility] Amylase [Catalytic activity/Vol] 52 U/L 5-55 [facility] Cholesterol in HDL [Mass/Vol] 122 mg/dL >40 [facility] Comment on above: The drugs N-Acetylcy steine and Metamizole may falsely depress this assay. Reference Range HDL <40 mg/dL Low HDL Cholesterol HDL >or= 60 mg/dL High HDL Cholesterol Cholesterol in LDL [Mass/Vol] 102 mg/dL 0-130 [facility] CO2 [Moles/Vol] 28.0 mmol/L 21.0-32.0 [facility] Cobalamin (Vitamin B12) [Mass/Vol] 1954 pg/mL 211-911 [facility] Ferritin [Mass/Vol] 110 ng/mL 8-252 [facility] Globulin (S) [Mass/Vol] 3.5 g/dL 2.2-4.2 [facility] Urea nitrogen/Creatinine [Mass ratio] 11.7 mg/mg 10-20 [facility] Laboratory - Chemistry and C hemistry - challengeOrdered By: Carlos A Jimenez on 08-30-2023 Magnesium [Mass/Vol] 2.2 mg/dL 1.6-2.6 [facility] Laboratory - Hematology and Cell countsOrdered By: Marito Faustin on 08-30-2023 MCH (RBC) [Entitic mass] 34.8 pg 27.0-32.0 [facility] MCHC (RBC) [Mass/Vol] 34.8 g/dL 32-36 [facility] Nucleated RBC/100 WBC (Bld) [Ratio] 0 % 0-5 [facility] Platelet mean volume (Bld) [Entitic vol] 8.3 fL 6.2-12.0 [facility] Platelets (Bld) [#/Vol] 287 10*3/uL 150-450 [facility] No Panel InformationOrdered By: Moris Clement on 08-30-2023 Estimated GFR (MDRD) Amer 135 mL/min >60 [facility] Comment on above: GFR Calc Estimated GFR (MDRD) Non-Af Amer 112 mL/min >60 [facility] Comment on above: Non- GFR Calc Vitamin D 25-Hydroxy 65.3 ng/mL [facility] Comment on above: Vitamin D 25(OH) Sta tus Range Deficiency <20 ng/mL (50nmol/L) Insufficiency 20 - 30 ng/mL (50 - 75 nmol/L) Sufficiency 30 - 100 ng/mL (75 - 250 nmol/L) Toxicity >100 ng/mL (>250 nmol/L) VLDL Cholesterol 12 mg/dL 5-40 [facility] No Panel InformationOrdered By: Marito Faustin on 08-30-2023 Hepatitis A Antibody Total Negative Negative [facility] Comment on above: Comment: The HAV tot al antibody assay detects both IgG andIgM but does not differentiate between them. A negativeresult suggests susceptibility to infection. A positiveresult could be due to vaccination, previously resolvedinfection or active infection. Testing for HAV IgM shouldbe performed if active HAV infection is suspected. [facility]offers profiles that will automatically reflex positive HAVtotal antibody results to IgM (e.g., panel #[id number] HAVAntibody w/ Rfx).Performed at: [facility] [id number] Director: Weston Gagnon PhD, Phone: [phone] Hepatitis C Antibody Non-Reactive Nonreactive [facility] Comment on above: Non Reactive: < 0.8 Equivocal: >/= 0.8 to < 1.0 Reactive: >/= 1.0The CDC requires that a reactive/equivocal HCV antibody result be sent out for confirmation. HCV Quant by PCR testing. Nasal Screen MRSA/MSSA [facility] RBC Auto (Bld) [#/Vol]Ordere d By: Marito Faustin on 08-30-2023 RBC (Bld) [#/Vol] 3.97 10*6/uL 4.2-5.4 [facility] Serum hepatitis B virus surf denae antibody IgG detectionOrdered By: Marito Faustin on 08-30-2023 HBV surface IgG Ql (S) Non-Reactive [facility] Comment on above: Non Reactive: Incons istent with immunity less than <10 mIU/mL Reactive: Consistent with immunity greater than or equal to 10 mIU/mL Serum or plasma calcium nate urement (mass/volume)Ordered By: Moris Clement on 08-30-2023 Calcium [Mass/Vol] 9.4 mg/dL 8.5-10.1 [facility] Serum or plasma creatinine m easurement (mass/volume)Ordered By: Moris Clement on 08-30-2023 Creatinine [Mass/Vol] 0.60 mg/dL 0.55-1.02 [facility] Comment on above: The validity of the calculated GFR & GFRAA in patients over 70 years has not been determined. Clinical correlation is essential. Serum or plasma thyroid stim ulating hormone (TSH) measurement (units/volume)Ordered By: Moris Clement on 08-30-2023 TSH Qn 1.38 uIU/mL 0.358-3.74 [facility] Serum or plasma urea nitroge n measurement (mass/volume)Ordered By: Moris Clement on 08-30-2023 Urea nitrogen [Mass/Vol] 7 mg/dL 7-18 [facility] Thin prep Papanicolaou smear with manual screeningOrdered By: Moris Clement on 08-30-2023 Thin prep Papanicolaou smear with manual screening 4.4 g/dL 3.2-5.0 [facility] Thin prep Papanicolaou smear with manual screening 24 U/L 15-37 [facility] Thin prep Papanicolaou smear with manual screening 4 5-15 [facility] Thin prep Papanicolaou smear with manual screening 285 mOsm/KG 275-295 [facility] Thin prep Papanicolaou smear with manual screeningOrdered By: Bentley Clement on 04-03-2023 Thin prep Papanicolaou smear with manual screening 275 mOsm/KG 275-295 [facility] Absolute lymphocyte countOrd ered By: Bentley Clement on 03-27-2023 Lymphocytes Auto (Unsp spec) [#/Vol] 3.26 10*3/uL 0.83-4.51 [facility] Basophil percentageOrdered B y: Bentley Clement on 03-27-2023 Basophils/100 WBC (Bld) 0.9 % 0-[address] [facility] Chloride [Moles/Vol] 97 mmol/L 98-107 [facility] Cholesterol [Mass/Vol] 241 mg/dL <200 [facility] Comment on above: <200 mg/dL Desirable 200-240 mg/dL Borderline >240 mg/dL High Risk Eosinophils/100 WBC (Bld) 1.9 % 0-5 [facility] Glucose [Mass/Vol] 88 mg/dL 74-106 [facility] Neutrophils (Bld) [#/Vol] 4.7 10*3/uL 2.0-7.7 [facility] Neutrophils/100 WBC (Bld) 51.9 % 47-70 [facility] Potassium [Moles/Vol] 4.4 mmol/L 3.5-5.1 [facility] Sodium [Moles/Vol] 131 mmol/L 136-145 [facility] Triglyceride [Mass/Vol] 54 mg/dL <[address] [facility] Comment on above: The drugs N-Acetylcy steine and Metamizole may falsely depress this assay.Serum Triglycerides Reference Interval Normal <150 mg/dL Borderline high 150 - 199 mg/dL High 200 - 499 mg/dL Very High > or = 500 mg/dL WBC (Bld) [#/Vol] 9.1 10*3/uL 4.4-11.0 [facility] Blood erythrocytes count (nu mber/volume)Ordered By: Bentley Clement on 03-27-2023 RBC (Bld) [#/Vol] 3.96 10*6/uL 4.2-5.4 [facility] Blood hemoglobin measurement (mass/volume)Ordered By: Bentley Clement on 03-27-2023 Hemoglobin (Bld) [Mass/Vol] 13.4 g/dL 12.0-15.0 [facility] Blood lymphocytes/100 leukoc ytesOrdered By: Bentley Clement on 03-27-2023 Lymphocytes/100 WBC (Bld) 35.7 % 19-41 [facility] Blood monocytes/100 leukocyt esOrdered By: Bentley Clement on 03-27-2023 Monocytes/100 WBC (Bld) 9.3 % 0-[address] [facility] Blood platelet mean volumeOr dered By: Bentley Clement on 03-27-2023 Platelet mean volume (Bld) [Entitic vol] 8.8 fL 6.2-12.0 [facility] Determination of erythrocyte mean corpuscular volume (MCV)Ordered By: Bentley Clement on 03-27-2023 MCV (RBC) [Entitic vol] 100.5 fL 81-[address] [facility] Hematocrit Auto (Bld) [Volum e fraction]Ordered By: Bentley Clement on 03-27-2023 Hematocrit (Bld) [Volume fraction] 39.8 % 37-47 [facility] Laboratory - Chemistry and C hemistry - challengeOrdered By: Bentley Clement on 03-27-2023 CO2 [Moles/Vol] 30.0 mmol/L 21.0-32.0 [facility] Urea nitrogen/Creatinine [Mass ratio] 12.3 mg/mg 10-20 [facility] Laboratory - Hematology and Cell countsOrdered By: Bentley Clement on 03-27-2023 Erythrocyte distribution width (RBC) [Entitic vol] 47.0 fL 35.1-43.9 [facility] Erythrocyte distribution width (RBC) [Ratio] 12.7 % 11.6-14.6 [facility] Immature granulocytes/100 WBC (Bld) 0.300 % 0.0-0.9 [facility] Comment on above: IG% - Immature Granu locytes (promyelocytes, myelocytes and metamyelocytes) > 1% indicates that a LEFT SHIFT is Present. MCH (RBC) [Entitic mass] 33.8 pg 27.0-32.0 [facility] Nucleated RBC/100 WBC (Bld) [Ratio] 0 % 0-5 [facility] MCHC Auto (RBC) [Mass/Vol]Or dered By: Bentley Clement on 03-27-2023 MCHC (RBC) [Mass/Vol] 33.7 g/dL 32-36 [facility] No Panel InformationOrdered By: Bentley Clement on 03-27-2023 Estimated GFR (MDRD) Amer 143 mL/min >60 [facility] Comment on above: GFR Calc Estimated GFR (MDRD) Non-Af Amer 118 mL/min >60 [facility] Comment on above: Non- GFR Calc Thyroid Stimulating Hormone (TSH) 1.12 uIU/mL 0.358-3.74 [facility] Platelets bldOrdered By: Zo Clement on 03-27-2023 Platelets (Bld) [#/Vol] 363 10*3/uL 150-450 [facility] Serum or plasma calcium nate urement (mass/volume)Ordered By: Bentley Clement on 03-27-2023 Calcium [Mass/Vol] 10.0 mg/dL 8.5-10.1 [facility] Serum or plasma cholesterol in HDL measurement (mass/volume)Ordered By: Bentley Clement on 03-27-2023 Cholesterol in HDL [Mass/Vol] 110 mg/dL >40 [facility] Comment on above: The drugs N-Acetylcy steine and Metamizole may falsely depress this assay. Reference Range HDL <40 mg/dL Low HDL Cholesterol HDL >or= 60 mg/dL High HDL Cholesterol Serum or plasma cholesterol in VLDL measurement (mass/volume)Ordered By: Bentley Clement on 03-27-2023 Cholesterol in VLDL [Mass/Vol] 11 mg/dL 5-40 [facility] Serum or plasma creatinine m easurement (mass/volume)Ordered By: Bentley Clement on 03-27-2023 Creatinine [Mass/Vol] 0.57 mg/dL 0.55-1.02 [facility] Comment on above: The validity of the calculated GFR & GFRAA in patients over 70 years has not been determined. Clinical correlation is essential. Serum or plasma low density lipoprotein (LDL) cholesterol measurement (mass/volume)Ordered By: Bentley Clement on 03-27-2023 Cholesterol in LDL [Mass/Vol] 120 mg/dL 0-130 [facility] Serum or plasma urea nitroge n measurement (mass/volume)Ordered By: Bentley Clement on 03-27-2023 Urea nitrogen [Mass/Vol] 7 mg/dL 7-18 [facility] Thin prep Papanicolaou smear with manual screeningOrdered By: Bentley Clement on 03-27-2023 Thin prep Papanicolaou smear with manual screening 4 5-15 [facility] Absolute lymphocyte counton 04-17-2022 Lymphocytes Auto (Unsp spec) [#/Vol] 2.31 10*3/uL 0.83-4.51 [facility] Work Phone: Basophil percentageon 2021 Basophils/100 WBC (Bld) 0.3 % 0-[address] [facility] Work Phone: Chloride [Moles/Vol] 99 mmol/L 98-107 [facility] Work Phone: Eosinophils/100 WBC (Bld) 0.1 % 0-5 [facility] Work Phone: Glucose [Mass/Vol] 80 mg/dL 74-106 [facility] Work Phone: Neutrophils (Bld) [#/Vol] 4.3 10*3/uL 2.0-7.7 [facility] Work Phone: Neutrophils/100 WBC (Bld) 58.6 % 47-70 [facility] Work Phone: Potassium [Moles/Vol] 4.0 mmol/L 3.5-5.1 [facility] Work Phone: Sodium [Moles/Vol] 134 mmol/L 136-145 [facility] Work Phone: WBC (Bld) [#/Vol] 7.4 10*3/uL 4.4-11.0 [facility] Work Phone: Blood erythrocytes count (nu mber/volume)on 04-17-2022 RBC (Bld) [#/Vol] 3.55 10*6/uL 4.2-5.4 [facility] Work Phone: Blood hemoglobin measurement (mass/volume)on 04-17-2022 Hemoglobin (Bld) [Mass/Vol] 12.3 g/dL 12.0-15.0 [facility] Work Phone: Blood lymphocytes/100 leukoc yteson 04-17-2022 Lymphocytes/100 WBC (Bld) 31.4 % 19-41 [facility] Work Phone: Blood monocytes/100 leukocyt eson 04-17-2022 Monocytes/100 WBC (Bld) 9.3 % 0-[address] [facility] Work Phone: Blood platelet mean volumeon 04-17-2022 Platelet mean volume (Bld) [Entitic vol] 9.1 fL 6.2-12.0 [facility] Work Phone: Determination of erythrocyte mean corpuscular volume (MCV)on 04-17-2022 MCV (RBC) [Entitic vol] 101.7 fL 81-[address] [facility] Work Phone: Hematocrit Auto (Bld) [Volum e fraction]on 04-17-2022 Hematocrit (Bld) [Volume fraction] 36.1 % 37-47 [facility] Work Phone: Laboratory - Chemistry and C hemistry - challengeon 04-17-2022 CO2 [Moles/Vol] 32.0 mmol/L 21.0-32.0 [facility] Work Phone: Urea nitrogen/Creatinine [Mass ratio] 16.4 mg/mg 10-20 [facility] Work Phone: Laboratory - Hematology and Cell countson 04-17-2022 Erythrocyte distribution width (RBC) [Entitic vol] 47.1 fL 35.1-43.9 [facility] Work Phone: Erythrocyte distribution width (RBC) [Ratio] 12.5 % 11.6-14.6 [facility] Work Phone: Immature granulocytes/100 WBC (Bld) 0.300 % 0.0-0.9 [facility] Work Phone: Comment on above: IG% - Immature Granu locytes (promyelocytes, myelocytes and metamyelocytes) > 1% indicates that a LEFT SHIFT is Present. MCH (RBC) [Entitic mass] 34.6 pg 27.0-32.0 [facility] Work Phone: Nucleated RBC/100 WBC (Bld) [Ratio] 0 % 0-5 [facility] Work Phone: MCHC Auto (RBC) [Mass/Vol]on 04-17-2022 MCHC (RBC) [Mass/Vol] 34.1 g/dL 32-36 [facility] Work Phone: No Panel Informationon 04-17 Estimated Creatinine Clearance Calc 107.43 ml/min [facility] Work Phone: Estimated GFR (MDRD) Amer 171 mL/min >60 [facility] Work Phone: Comment on above: GFR Calc Estimated GFR (MDRD) Non-Af Amer 141 mL/min >60 [facility] Work Phone: Comment on above: Non- GFR Calc Platelets bldon 04-17-2022 Platelets (Bld) [#/Vol] 251 10*3/uL 150-450 [facility] Work Phone: Serum or plasma calcium nate urement (mass/volume)on 04-17-2022 Calcium [Mass/Vol] 8.9 mg/dL 8.5-10.1 [facility] Work Phone: Serum or plasma creatinine m easurement (mass/volume)on 04-17-2022 Creatinine [Mass/Vol] 0.49 mg/dL 0.55-1.02 [facility] Work Phone: Comment on above: The validity of the calculated GFR & GFRAA in patients over 70 years has not been determined. Clinical correlation is essential. Serum or plasma urea nitroge n measurement (mass/volume)on 04-17-2022 Urea nitrogen [Mass/Vol] 8 mg/dL 7-18 [facility] Work Phone: Thin prep Papanicolaou smear with manual screeningon 04-17-2022 Thin prep Papanicolaou smear with manual screening 3 5-15 [facility] Work Phone: Glucose Glucometer (BldC) [M ass/Vol]on 04-16-2022 Glucose [Mass/Vol] 80 mg/dL 74-106 [facility] Work Phone: Comment on above: MANAGEMENT OF PATIEN T CARE PER NURSING PROTOCOL HIV 1 and HIV-2 antibody ass ay with HIV-1 p24 antigen detectionon 04-09-2022 HIV 1+2 Ab+HIV1 p24 Ag IA Ql Non-Reactive Nonreactive [facility] Work Phone: Laboratory - Chemistry and C hemistry - challengeon 04-09-2022 Magnesium [Mass/Vol] 2.4 mg/dL 1.6-2.6 [facility] Work Phone: No Panel Informationon 04-09 Hepatitis A Antibody Total Negative Negative [facility] Work Phone: Comment on above: Performed at: - [address] [id number] Director: Weston Gagnon PhD, Phone: [phone] Hepatitis C Antibody Non-Reactive Nonreactive [facility] Work Phone: Comment on above: Non Reactive: < 0.8 Equivocal: >/= 0.8 to < 1.0 Reactive: >/= 1.0The CDC recommends that a reactive/equivocal HCV antibody result be followed up by the HCV Nucleic Acid Amplificationtest (895780) Serum hepatitis B virus surf denae antibody IgG detectionon 04-09-2022 HBV surface IgG Ql (S) Non-Reactive [facility] Work Phone: Comment on above: Non Reactive: Incons istent with immunity less than <10 mIU/mL Reactive: Consistent with immunity greater than or equal to 10 mIU/mL Cervical or vagninal specime n microscopic examination by cytology stain (reported ason 03-08-2022 Cytology report Cyto stain Doc (Cvx/Vag) Comment . [facility] Work Phone: Comment on above: The Pap smear is a s creening test designed to aid in thedetection of premalignant and malignant conditions of theuterine cervix. It is not a diagnostic procedure andshould not be used as the sole means of detecting cervicalcancer. Both false-positive and false-negative reports dooccur. Detection in cervical specim en of any of human papilloma virus (HPV) 16, 18, 31, 33,on 03-08-2022 HPV 16+18+31+33+35+39+45+51 +52+56+58+59+66+68 DNA Probe+sig amp Ql (Cvx) Negative Negative [facility] Work Phone: Comment on above: This nucleic acid am plification test detects fourteen high-risk HPV types (16,18,31,33,35,39,45,51,52,56,58,59,66,68)without differentiation.HPV Genotype ReflexCriteria not met, HPV Genotype not performed. Laboratory - Cytologyon 02-18 Bread Molder Cyto stain Nom (Cvx/Vag) [ID] Comment . [facility] Work Phone: Comment on above: Angel Mo totechnologist (ASCP) Pathologist Cyto stain Nom (Cvx/Vag) [ID] Comment . [facility] Work Phone: Comment on above: Camilla Thao MD, P athologist Laboratory - Miscellaneous t estson 03-08-2022 Service comment (Unsp spec) [Interp] Comment . [facility] Work Phone: Comment on above: This liquid based Th inPrep(R) pap test was screened withthe use of an image guided system. Service comment (Unsp spec) [Interp] . . [facility] Work Phone: No Panel Informationon 03-08 Pathology report final diagnosis Narrative Comment . [facility] Work Phone: Comment on above: NEGATIVE FOR INTRAEP ITHELIAL LESION OR MALIGNANCY.REACTIVE CELLULAR CHANGES AND/OR REPAIR ARE PRESENT. Absolute lymphocyte counton 10-13-2021 Lymphocytes Auto (Unsp spec) [#/Vol] 1.93 10*3/uL 0.83-4.51 [facility] Work Phone: [phone] Basophil percentageon 2021 Basophils/100 WBC (Bld) 0.9 % 0-[address] [facility] Work Phone: [phone] Bilirubin [Mass/Vol] 0.50 mg/dL 0.20-1.00 [facility] Work Phone: [phone] Comment on above: For patients on eltr ombopag therapy, use of [employer] [place] TBIL is not recommended. Chloride [Moles/Vol] 100 mmol/L 98-107 [facility] Work Phone: Eosinophils/100 WBC (Bld) 1.6 % 0-5 [facility] Work Phone: Glucose [Mass/Vol] 76 mg/dL 74-106 [facility] Work Phone: Neutrophils (Bld) [#/Vol] 4.2 10*3/uL 2.0-7.7 [facility] Work Phone: Neutrophils/100 WBC (Bld) 61.3 % 47-70 [facility] Work Phone: Potassium [Moles/Vol] 3.7 mmol/L 3.5-5.1 [facility] Work Phone: Protein [Mass/Vol] 7.9 g/dL 6.4-8.2 [facility] Work Phone: Sodium [Moles/Vol] 133 mmol/L 136-145 [facility] Work Phone: WBC (Bld) [#/Vol] 6.8 10*3/uL 4.4-11.0 [facility] Work Phone: Blood erythrocytes count (nu mber/volume)on 10-13-2021 RBC (Bld) [#/Vol] 3.87 10*6/uL 4.2-5.4 [facility] Work [facility]: Blood hemoglobin measurement (mass/volume)on 10-13-2021 Hemoglobin (Bld) [Mass/Vol] 13.6 g/dL 12.0-15.0 [facility] Work Phone: Blood lymphocytes/100 leukoc yteson 10-13-2021 Lymphocytes/100 WBC (Bld) 28.2 % 19-41 [facility] Work Phone: Blood monocytes/100 leukocyt eson 10-13-2021 Monocytes/100 WBC (Bld) 7.6 % 0-[address] [facility] Work Phone: Blood platelet mean volumeon 10-13-2021 Platelet mean volume (Bld) [Entitic vol] 9.0 fL 6.2-12.0 [facility] Work Phone: [phone] Determination of erythrocyte mean corpuscular volume (MCV)on 10-13-2021 MCV (RBC) [Entitic vol] 101.3 fL 81-[address] [facility] Work Phone: Erythrocyte sedimentation ra etelvina 10-13-2021 ESR (Bld) [Velocity] 6 mm/h 0-30 [facility]: Hematocrit Auto (Bld) [Volum e fraction]on 10-13-2021 Hematocrit (Bld) [Volume fraction] 39.2 % 37-47 [facility] Work Phone: Laboratory - Chemistry and C hemistry - challengeon 10-13-2021 ALP [Catalytic activity/Vol] 51 U/L 45-117 [facility] Work Phone: ALT [Catalytic activity/Vol] 31 U/L 13-56 [facility] Work Phone: [phone] CO2 [Moles/Vol] 27.0 mmol/L 21.0-32.0 [facility] Work Phone: [phone] Globulin (S) [Mass/Vol] 3.7 g/dL 2.2-4.[address] [facility] Work Phone: Urea nitrogen/Creatinine [Mass ratio] 13.3 mg/mg 10-20 [facility] Work Phone: [phone] Laboratory - Hematology and Cell countson 10-13-2021 Erythrocyte distribution width (RBC) [Entitic vol] 47.7 fL 35.1-43.9 [facility] Work Phone: [phone] Erythrocyte distribution width (RBC) [Ratio] 12.6 % 11.6-14.6 [facility] Work Phone: Immature granulocytes/100 WBC (Bld) 0.400 % 0.0-0.9 [facility] Work Phone: Comment on above: IG% - Immature Granu locytes (promyelocytes, myelocytes and metamyelocytes) > 1% indicates that a LEFT SHIFT is Present. MCH (RBC) [Entitic mass] 35.1 pg 27.0-32.0 [facility] Work Phone: Nucleated RBC/100 WBC (Bld) [Ratio] 0 % 0-5 [facility] Work Phone: MCHC Auto (RBC) [Mass/Vol]on 10-13-2021 MCHC (RBC) [Mass/Vol] 34.7 g/dL 32-36 [facility] Work [facility]: No Panel Informationon 10-13 Anti-Nuclear Antibody Screen Negative Negative [facility] Work Phone: Comment on above: Performed at: [address] [id number] Director: Weston Gagnon PhD, Phone: [phone] Estimated GFR (MDRD) Amer 157 mL/min >60 [facility] Work Phone: Comment on above: GFR Calc Estimated GFR (MDRD) Non-Af Amer 130 mL/min >60 [facility] Work Phone: Comment on above: Non- GFR Calc Platelets bldon 10-13-2021 Platelets (Bld) [#/Vol] 345 10*3/uL 150-450 [facility] Work Phone: Serum or plasma C reactive p rotein measurement (mass/volume)on 10-13-2021 CRP [Mass/Vol] mg/L 0.0-3.0 [facility] Work Phone: Comment on above: C-Reactive Protein ( CRP) provides useful information for thediagnosis, therapy and monitoring of inflammatory processesand associated diseases. For the evaluation of Relative Riskfor Cardiovascular Disease, a High Sensitivity CRP (HSCRP)should be ordered. Serum or plasma albumin nate urement (mass/volume)on 10-13-2021 Albumin [Mass/Vol] 4.2 g/dL 3.2-5.0 [facility] Work Phone: Serum or plasma albumin/glob ulin mass ratioon 10-13-2021 Albumin/Globulin [Mass ratio] 1.1 {ratio} 0.9-2.4 [facility] Work Phone: Serum or plasma calcium nate urement (mass/volume)on 10-13-2021 Calcium [Mass/Vol] 8.9 mg/dL 8.5-10.1 [facility] Work Phone: Serum or plasma creatinine m easurement (mass/volume)on 10-13-2021 Creatinine [Mass/Vol] 0.53 mg/dL 0.55-1.02 [facility] Work Phone: Comment on above: The validity of the calculated GFR & GFRAA in patients over 70 years has not been determined. Clinical correlation is essential. Serum or plasma urea nitroge n measurement (mass/volume)on 10-13-2021 Urea nitrogen [Mass/Vol] 7 mg/dL 7-18 [facility] Work Phone: Serum rheumatoid factor dete ctionon 10-13-2021 Rheumatoid factor Ql (S) < 10.0 IU/mL <15 [facility] Work Phone: Thin prep Papanicolaou smear with manual screeningon 10-13-2021 Thin prep Papanicolaou smear with manual screening 28 U/L 15-37 [facility] Work Phone: Thin prep Papanicolaou smear with manual screening 6 5-15 [facility] Work Phone: Thin prep Papanicolaou smear with manual screening Negative . [facility] Work Phone: Comment on above: HLA-B*27 [id number] allele interpretation for all loci based on IMGT/HLAdatabase version 3.44This test was developed and its performance characteristicsdetermined by [employer]. It has not been cleared or approvedby the Food and Drug Administration.[facility] CLIA ID Number [id number] test was performed using PCR (Polymerase ChainReaction)/SSOP (Sequence Specific Oligonucleotide Probes)technique. SBT (Sequence Based Typing) and/or SSP(Sequence Specific Primers) may be used as supplementalmethods when necessary. Please contact [facility] CustomerService at if you have any questions. Director of [facility] Laboratory Dr Yuri Higginbotham, PhDPerformed at: [facility] [id number] [place], [place] [id number] Director: Yuri Higginbotham PhD, Phone: [phone] No Panel Information Nasal Screen MRSA/MSSA [facility] Work Phone: Vital Signs Date Time Vital Sign Value Performing Clinician Faci lity 01-23-2025 11:39-0400 Body height 157.[address] Moris Clement MD Work Phone: [facility] 12-18-2024 15:05-0400 Body height 157.[address] Moris Clement MD Work Phone: [facility] 12-18-2024 15:05-0400 Body mass index (BMI) [Ratio] 20.6 kg/m2 Dr. Moris Clement MD Work Phone: [facility] 12-18-2024 15:05-0400 Body weight 51.[address] Moris Clement MD Work Phone: [facility] 06-11-2024 09:02-0500 Body height 157.[address] Moris Clement MD Work Phone: 6([phone])357-871963 [place] [address] 06-11-2024 09:02-0500 Body mass index (BMI) [Ratio] 20.7 kg/m2 Dr. Moris Clement MD Work Phone: [facility] 06-11-2024 09:02-0500 Body weight 51.[address] Moris Clement MD Work Phone: 5(684)475-837263 [place] [address] 06-11-2024 09:02-0500 Diastolic blood pressure 89 mm[Hg] Dr. Moris Clement MD Work Phone: 2(993)754-100563 [place] [address] 06-11-2024 09:02-0500 Heart rate 93 /min Dr. Moris Clement MD Work Phone: [facility] 06-11-2024 09:02-0500 SaO2% (BldA) [Mass fraction] 99 % Dr. Moris Clement MD Work Phone: [facility] 06-11-2024 09:02-0500 Systolic blood pressure 164 mm[Hg] Dr. Moris Clement MD Work Phone: [facility] 04-19-2024 11:18-0500 Body temperature 97.9 [degF] Dr. Moris Clement MD Work Phone: [facility] 04-19-2024 11:18-0500 Diastolic blood pressure 84 mm[Hg] Dr. Moris Clement MD Work Phone: [facility] 04-19-2024 11:18-0500 Heart rate 91 /min Dr. Moris Clement MD Work Phone: [facility] 04-19-2024 11:18-0500 Respiratory rate 16 /min Dr. Moris Clement MD Work Phone: [facility] 04-19-2024 11:18-0500 SaO2% (BldA) [Mass fraction] 96 % Dr. Moris Clement MD Work Phone: [facility] 04-19-2024 11:18-0500 Systolic blood pressure 136 mm[Hg] Dr. Moris Clement MD Work Phone: 3(515)305-829856 [place] [address] 04-19-2024 09:44-0500 Body mass index (BMI) [Ratio] 21.2 kg/m2 Dr. Moris Clement MD Work Phone: 9(196)768-599156 [place] [address] 04-19-2024 09:44-0500 Body weight 52.[address] Moris Clement MD Work Phone: 2(370)840-450456 [place] [address] 09-11-2023 08:00-0400 Body temperature 98.8 [degF] Dr. Moris Clement Work Phone: 3(473)799-483663 [place] [address] 09-11-2023 08:00-0400 Diastolic blood pressure 93 mm[Hg] Dr. Moris Clement Work Phone: 1(435)348-275256 [place] [address] 09-11-2023 08:00-0400 Heart rate 99 /min Dr. Moris Clement Work Phone: 2(640)015-907263 [place] [address] 09-11-2023 08:00-0400 Respiratory rate 16 /min Dr. Moris Clement Work Phone: [facility] 09-11-2023 08:00-0400 SaO2% (BldA) [Mass fraction] 97 % Dr. Moris Clement Work Phone: [facility] 09-11-2023 08:00-0400 Systolic blood pressure 134 mm[Hg] Dr. Moris Clement Work Phone: 9(730)887-821563 [place] [address] 09-10-2023 15:04-0400 Body height 157.[address] Moris Clement Work Phone: [facility] 09-10-2023 15:04-0400 Body weight 50.[address] Moris Clement Work Phone: 6(175)368-685956 [place] [address] 09-09-2023 17:42-0400 Body mass index (BMI) [Ratio] 20.2 kg/m2 Dr. Moris Clement Work Phone: 1(721)501-787856 [place] [address] 09-09-2023 16:00-0400 Inhaled oxygen flow rate 4 L/min Dr. Moris Clement Work Phone: 3(465)735-110656 [place] [address] 09-09-2023 14:25-0400 Inhaled oxygen concentration 42 % Dr. Moris Clement Work Phone: 1(694)428-785456 [place] [address] 08-28-2023 11:25-0400 Body mass index (BMI) [Ratio] 20.5 kg/m2 Dr. Moris Clement Work Phone: 4(172)603-103256 [place] [address] 08-28-2023 11:25-0400 Body weight 51.[address] Moris Clement Work Phone: 1(206)131-633056 [place] [address] 06-20-2023 13:04-0500 Body height 157.[address] Bentley Clement Work Phone: 5(862)665-540656 [place] [address] 06-20-2023 13:04-0500 Body mass index (BMI) [Ratio] 20.7 kg/m2 Dr. Bentley Clement Work Phone: 9(304)198-881156 [place] [address] 06-20-2023 13:04-0500 Body weight 51.[address] Bentley Clement Work Phone: [phone] [place] [address] 08-17-2022 19:49-0400 Body height 157.[address] Bentley Clement Work Phone: [phone] [place] [address] 08-17-2022 19:49-0400 Body mass index (BMI) [Ratio] 20.8 kg/m2 Dr. Bentley Clement Work Phone: [phone] [place] [address] 08-17-2022 19:49-0400 Body temperature 97.8 [degF] Dr. Bentley Clement Work Phone: [facility] 08-17-2022 19:49-0400 Body weight 51.[address] Bentley Clement Work Phone: [facility] 08-17-2022 19:49-0400 Diastolic blood pressure 95 mm[Hg] Dr. Bentley Clement Work Phone: [facility] 08-17-2022 19:49-0400 Heart rate 89 /min Dr. Bentley Clement Work Phone: [facility] 08-17-2022 19:49-0400 Respiratory rate 16 /min Dr. Bentley Clement Work Phone: [facility] 08-17-2022 19:49-0400 SaO2% (BldA) [Mass fraction] 100 % Dr. Bentley Clement Work Phone: [facility] 08-17-2022 19:49-0400 Systolic blood pressure 145 mm[Hg] Dr. Bentley Clement Work Phone: [facility] 04-17-2022 11:51-0500 Body temperature 98.5 [degF] Dr. Bentley Clement Work Phone: [facility] Work Phone: 04-17-2022 11:51-0500 Diastolic blood pressure 92 mm[Hg] Dr. Bentley Clement Work Phone: [facility] Work Phone: 04-17-2022 11:51-0500 Heart rate 71 /min Dr. Bentley Clement Work Phone: [facility] Work Phone: 04-17-2022 11:51-0500 Respiratory rate 16 /min Dr. Bentley Clement Work Phone: [facility] Work Phone: 04-17-2022 11:51-0500 SaO2% (BldA) [Mass fraction] 100 % Dr. Bentley Clement Work Phone: [facility] Work Phone: 04-17-2022 11:51-0500 Systolic blood pressure 141 mm[Hg] Dr. Bentley Clement Work Phone: [facility] Work Phone: 04-17-2022 05:55-0500 Inhaled oxygen flow rate 4 L/min Dr. Bentley Clement Work Phone: [facility] Work Phone: 04-16-2022 14:41-0500 Body height 157.[address] Bentley Clement Work Phone: [facility] Work Phone: 04-16-2022 14:41-0500 Body weight 54.[address] Bentley Clement Work Phone: [facility] Work Phone: 04-16-2022 11:19-0500 Body mass index (BMI) [Ratio] 21.8 kg/m2 Dr. Bentley Clement Work Phone: [facility] Work Phone: 03-05-2022 14:49-0400 Body height 160.[address] Bentley Clement Work Phone: [facility] Work Phone: 03-05-2022 14:49-0400 Body mass index (BMI) [Ratio] 19.5 kg/m2 Dr. Bentley Clement Work Phone: [facility] Work Phone: 03-05-2022 14:49-0400 Body weight 50.[address] Bentley Clement Work Phone: [facility] Work Phone: 09-20-2021 19:23-0400 Body temperature 98.06 [degF] ABDIAS WOGN MD [facility] 09-20-2021 19:23-0400 Diastolic blood pressure 104 mm[Hg] ABDIAS WONG MD [facility] 09-20-2021 19:23-0400 Heart rate 102 /min ABDIAS WONG MD [facility] 09-20-2021 19:23-0400 Respiratory rate 16 /min ABDIAS WONG MD [facility] 09-20-2021 19:23-0400 Systolic blood pressure 162 mm[Hg] ABDIAS WONG MD [facility] Encounters Encounter Date Encounter Type Care Provider Facility Start: 01-23-2025 End: 01-23-[address] Moris Clement MD Work Phone: [facility] Start: 01-23-2025 End: 01-23-2025 Patient encounter procedure Bri Dumont SUPERVISOR/PORT DIRECTOR-C [facility] Work Phone: Start: 12-18-2024 End: 12-18-[address] Charles Anthony MD -[facility] Start: 12-18-2024 End: 12-18-[address] Moris Clement MD Work Phone: -[facility] Start: 09-11-2024 End: 09-11-[address] Moris Clement MD -Outpatient Breast Imaging Work Phone: Start: 09-11-2024 End: 09-11-2024 ambulatory Moris Clement Facility:[facility] Start: 07-24-2024 End: 07-24-[address] Moris Clement MD Work Phone: [facility] Work Phone: Start: 07-24-2024 End: 07-24-[address] Edgardo Jennings MD -Laboratory Work Phone: Start: 07-24-2024 End: 07-24-2024 ambulatory [facility] Start: 07-07-2024 End: 07-07-[address] Edgardo Jennings MD -Laboratory Work Phone: Start: 07-07-2024 End: 07-07-2024 ambulatory [facility] Facility:[facility] Start: 06-16-2024 End: 06-16-[address] Edgardo Jennings MD -Laboratory Work Phone: Start: 06-16-2024 End: 06-16-2024 ambulatory [facility] Facility:[facility] Start: 06-11-2024 End: 06-11-[address] Edgardo Jennings MD -Laboratory Work Phone: Start: 06-11-2024 End: 06-11-[address] Edgardo Jennings MD -[facility] Work Phone: Start: 06-11-2024 End: 06-11-2024 ambulatory [facility] Start: 06-11-2024 End: 06-11-2024 ambulatory [facility] Facility:[facility] Start: 04-28-2024 End: 04-28-[address] Joss Lei MD -[facility] Work Phone: Start: 04-28-2024 End: 04-28-2024 ambulatory Moris Clement [facility] Start: 04-19-2024 End: 04-19-2024 Emergency department patient visit Dr. Scottie Camacho MD -Emergency Department Work Phone: Start: 02-06-2024 End: 02-06-2024 ambulatory Joss Lei Facility:[facility] Start: 01-24-2024 End: 01-24-2024 ambulatory Moris Clement Facility:[facility] Start: 01-17-2024 End: 01-17-2024 ambulatory Joss Quique Facility:[facility] Start: 12-31-2023 End: 12-31-2023 ambulatory Moris Clement Facility:[facility] Start: 12-27-2023 End: 12-27-2023 ambulatory Joss Lei [facility] Start: 09-11-2023 Non-patient / Non-visit Dr. Moris Clement Work Phone: [facility] Start: 09-10-2023 Non-patient / Non-visit Dr. Moris Clement Work Phone: [facility] Start: 09-10-2023 Non-patient / Non-visit Dr. Moris Clement Work Phone: [facility] Work Phone: Start: 09-09-2023 Non-patient / Non-visit Dr. Moris Clement Work Phone: [facility] Work Phone: Start: 09-09-2023 Non-patient / Non-visit Dr. Moris Clement Work Phone: [facility] Start: 09-09-2023 Non-patient / Non-visit [facility]. Moris Clement [facility] Start: 09-09-2023 End: 09-11-2023 Evaluation and management of inpatient Dr. Moris Clement Work Phone: [facility]-Medical Surgical 3 Work Phone: Start: 09-05-2023 Non-patient / Non-visit Dr. Moris Clement [facility] Start: 08-30-2023 End: 08-30-2023 Non-patient / Non-visit Dr. Moris Clement Work Phone: [facility] Work Phone: Start: 08-28-2023 End: 08-28-[address] Moris Clement Work Phone: [facility] Work Phone: Start: 06-20-2023 End: 06-20-[address] Bentley Clement Work Phone: [facility] Work Phone: Start: 06-18-2023 End: 06-18-[address] Bentley Clement Work Phone: [facility] Work Phone: Start: 06-11-2023 End: 06-11-[address] Bentley Clement Work Phone: [facility] Work Phone: Start: 06-11-2023 End: 06-11-[address] Bentley Clement Work Phone: [facility]-Physical Therapy Work Phone: Start: 05-23-2023 End: 05-23-[address] Bentley Clement Work Phone: [facility] Work Phone: Start: 04-03-2023 End: 04-03-2023 ambulatory [facility] Work Phone: Start: 04-03-2023 End: 04-03-2023 Patient encounter procedure [facility] Work Phone: Start: 03-27-2023 End: 03-27-2023 ambulatory [facility] Work Phone: Start: 03-27-2023 End: 03-27-2023 Patient encounter procedure [facility] Work Phone: Start: 02-06-2023 End: 02-06-2023 ambulatory [facility] Work Phone: Start: 02-06-2023 End: 02-06-2023 Patient encounter procedure [facility]-Outpatient Breast Imaging Work Phone: Start: 08-17-2022 End: 08-17-2022 Emergency department patient visit Dr. Bentley Clement Work Phone: [facility]-Emergency Department Start: 05-30-2022 End: 05-30-[address] Bentley Clement Work Phone: [facility] Start: 05-02-2022 End: 05-02-[address] Bentley Clement Work Phone: [facility] Start: 04-17-2022 Non-patient / Non-visit Dr. Bentley Clement Work Phone: [facility] Start: 04-16-2022 Non-patient / Non-visit Dr. Bentley Clement Work Phone: [facility] Start: 04-16-2022 Non-patient / Non-visit Dr. Bentley Clement Work Phone: [facility] Start: 04-16-2022 End: 04-17-2022 Evaluation and management of inpatient Dr. Bentley Clement [facility] Start: 04-16-2022 End: 04-17-[address] Bentley Clement Work Phone: [facility] Work Phone: Start: 04-10-2022 Non-patient / Non-visit Dr. Bentley Clement Work Phone: [facility] Start: 04-09-2022 End: 04-09-[address] Bentley Clement Work Phone: [facility] Start: 03-08-2022 End: 03-08-[address] Bentley Clement Work Phone: [facility] Work Phone: Start: 03-08-2022 End: 03-08-[address] Bentley Clement Work Phone: [facility]-Laboratory, Specimen Start: 03-05-2022 End: 03-05-[address] Bentley Clement Work Phone: [facility] Start: 01-26-2022 End: 01-26-2022 ambulatory [facility] Work Phone: Start: 01-26-2022 End: 01-26-2022 Patient encounter procedure [facility]-Outpatient Breast Imaging Start: 12-16-2021 End: 12-16-2021 Patient encounter procedure [facility]-MRI - [facility] Start: 10-13-2021 End: 10-13-2021 Patient encounter procedure [facility]-Laboratory, [place] [facility] Start: 09-20-2021 End: 09-20-2021 Emergency department patient visit NOT RECORDED PHYSICIAN Facility:[facility] Start: 09-20-2021 End: 09-20-2021 Emergency department patient visit ABDIAS WONG MD [facility] Procedures Date Procedure Procedure Detail Performing Clinician Start: 12-18-2024 X-ray of lumbosacral spine Dr. Moris Clement MD Work Phone: Start: 09-11-2024 Screening mammography Estee Clement MD Work Phone: Start: 04-28-2024 X-ray of lumbar spin e, two or three views Dr. Moris Clement MD Work Phone: Start: 09-09-[address] Brit Clement Work Phone: Start: 09-09-2023 End: 09-09-[address] Moris dia Work Phone: Start: 09-09-[address] Brit Clement Work Phone: Start: 08-30-2023 Nasal Screen MRSA/MSSA Dr. Moris Clement Work Phone: Start: 06-18-2023 MRI of lumbar spine with contrast Dr. Bentley Clement Work Phone: Start: 02-06-2023 Screening mammography Start: 04-16-2022 Laminectomy,Lumbar M icro Decompression (Right) Dr. Bentley Clement Work Phone: Start: 04-16-[address] Brit Clement Work Phone: Start: 03-05-2022 X-ray of lumbar spin e, two or three views Dr. Bentley Clement Work Phone: Start: 01-26-2022 Screening mammography Start: 12-16-2021 MRI of lumbar spine Nasal Screen MRSA/MSSA Dr. Jennifer Clement Work Phone: Plan of Treatment Date Care Activity Detail Author Start: 12-18-2024 X-ray of lumbosacral spine L/S Spine Min 4 Views [facility] Start: 12-18-2024 XR Spine Lumbar and Sacrum GE 4 Views [facility] Start: 04-28-2024 Patient referral [facility] Work Phone: Start: 04-19-2024 [facility] Start: 09-11-2023 Patient discharge [facility] Start: 09-09-2023 Following clinical p athway protocol [facility] Start: 09-09-2023 Application of inter mittent pneumatic compression device [facility] Start: 09-09-2023 Catheterization of vein [facility] Start: 09-09-2023 Consultation [facility] Start: 09-09-2023 Following clinical p athway protocol [facility] Start: 09-09-2023 Measuring intake and output [facility] Start: 09-09-2023 Neurovascular assessment [facility] Start: 09-09-2023 Patient education [facility] Start: 09-09-2023 Procedure discontinued [facility] Start: 09-09-2023 Provision of activit y privileges [facility] Start: 09-09-2023 Recommendation to mary moore with treatment [facility] Start: 09-09-2023 Referral to service [facility] Start: 09-09-2023 Taking patient vital signs [facility] Start: 09-09-2023 Admission procedure [facility] Start: 09-09-2023 Patient referral to dietitian [facility] Start: 05-23-2023 Patient referral [facility] Work Phone: Start: 08-17-2022 Blood chemistry [facility] Start: 08-17-2022 Lipase measurement [facility] Start: 04-17-2022 Patient discharge [facility] Work Phone: Start: 04-16-2022 Application of inter mittent pneumatic compression device [facility] Work Phone: Start: 04-16-2022 Application of inter mittent pneumatic compression device [facility] Work Phone: Start: 04-16-2022 Catheterization of vein [facility] Work Phone: Start: 04-16-2022 Consultation [facility] Work Phone: Start: 04-16-2022 End: 04-16-2022 Following clinical pathway protocol [facility] Work Phone: Start: 04-16-2022 Incentive spirometry [facility] Work Phone: Start: 04-16-2022 Measuring intake and output [facility] Work Phone: Start: 04-16-2022 Neurovascular assessment [facility] Work Phone: Start: 04-16-2022 Oxygen therapy [facility] Work Phone: Start: 04-16-2022 Patient education [facility] Work Phone: Start: 04-16-2022 Procedure discontinued [facility] Work Phone: Start: 04-16-2022 Provision of activit y privileges [facility] Work Phone: Start: 04-16-2022 Referral to service [facility] Work Phone: Start: 04-16-2022 Taking patient vital signs [facility] Work Phone: Start: 04-16-2022 [facility] Work Phone: Start: 04-16-2022 Admission procedure [facility] Work Phone: Start: 04-16-2022 Patient referral to dietitian [facility] Work Phone: Anion gap measurement [facility] Bilirubin measurement, urine [facility] BUN/Creatinine ratio [facility] Calcium [Mass/volume ] in Serum or Plasma [facility] Carbon dioxide, tota l [Moles/volume] in Serum or Plasma [facility] Chloride [Moles/volu me] in Serum or Plasma [facility] Choriogonadotropin.b eta subunit ( test) [Presence] in Serum or Plasma [facility] Creatinine [Moles/vo lume] in Serum or Plasma [facility] Glucose [Mass/volume ] in Serum or Plasma [facility] Hematocrit [Volume F raction] of Blood [facility] Hemoglobin [Mass/vol ume] in Blood [facility] Hemoglobin [Presence ] in Urine [facility] Leukocytes [#/volume ] in Blood [facility] Mean corpuscular hem oglobin concentration determination [facility] Mean corpuscular hem oglobin determination [facility] Measurement of keton es in urine using dipstick [facility] Measurement of renal function [facility] Microscopic urinalysis [facility] Neutrophil count [facility] Neutrophil percent differential count [facility] Path report.final Dx Spec [facility] Work Phone: Patient Education ED Back and Ne ck Pain, General [facility] Work Phone: Patient referral [facility] Work Phone: pH of Urine [facility] Platelets [#/volume] in Blood [facility] Potassium [Moles/vol ume] in Serum or Plasma [facility] Red blood cell count [facility] Red cell distributio n width determination [facility] Sodium [Moles/volume ] in Serum or Plasma [facility] Specific gravity of Urine [facility] Urea nitrogen [Mass/ volume] in Serum or Plasma [facility] Urinalysis, blood, qualitative [facility] Urine dipstick for glucose [facility] Urine dipstick for l eukocyte esterase [facility] Urine dipstick for nitrite [facility] Urine dipstick for protein [facility] Urine examination [facility] Urine microscopy: ep ithelial cells [facility] Urine Microscopy: wh ite cells [facility] Urobilinogen [Presen ce] in Urine [facility] Immunizations Immunization Date Immunization Notes Care Provider Fa cility 08-06-2018 tetanus toxoid, redu khurram diphtheria toxoid, and acellular pertussis vaccine, adsorbed [facility] Payers Date Payer Category Payer Unknown [id number] 2023 Self-pay [id number] 2021 Unknown [id number] 2013 Medicaid [id number] 2013 Unknown [id number] [facility] [id number] 1970 Unknown [id number] 2.16.8 [id number] Unknown [id number] Unknown [id number] 2.16.8 [id number] Unknown [id number] 2.16.8 [id number] Unknown [id number] 2.16.8 [id number] Unknown [id number] 2.16.8 [id number] Unknown [id number] 2.16.8 [id number] Unknown [id number] 2.16.8 [id number] Unknown [id number] 2.16.8 [id number] Unknown [id number] 2.16.8 [id number] Unknown [id number] 2.16.8 [id number] Unknown [id number] 2.16.8 [id number] Unknown [id number] 2.16.8 [id number] Unknown [id number] 2.16.8 [id number] Unknown [id number] 2.16.8 [id number] Unknown [id number] 2.16.8 [id number] Unknown [id number] 2.16.8 [id number] Unknown [id number] 2.16.8 [id number] Unknown [id number] 2.16.8 [id number] Social History Date Type Detail Facility Start: 09-20-2021 Tobacco smoking status Heavy t obacco smoker (finding) [facility] Sex Assigned At Sex [facility] Start: 08-02-2021 End: 09-09-2023 Tobacco smoking status NHIS Unknown if ever smoked [facility] Start: 08-06-2018 None [facility] Start: 08-06-2018 With Family [facility] Start: 04-19-2016 Cigarettes [facility] Start: 1970 Sex Assigned At Female [facility] Start: 05-25-2024 End: 01-23-2025 Tobacco smoking status NHIS Smokes tobacco daily (finding) [facility] Start: 08-04-2024 Sex Female (finding) [facility] Medical Equipment Procedure Code Equipment Code Equipment Original Text Equipment Identifier Dates Fusion, spine, lumbar, 360 degree, starting in supine position transitioning to prone 25MM PLATE FDA Start: 09-09-2023 Fusion, spine, lumbar, 360 degree, starting in supine position transitioning to prone SPACER,10MM INTERLAM FDA Start: 09-09-2023 Fusion, spine, lumbar, 360 degree, starting in supine position transitioning to prone STRIP,BONE CANC [id number] FDA Start: 09-09-2023 Fusion, spine, lumbar, 360 degree, starting in supine position transitioning to prone Ligation clip, metallic ()[id number] FDA Start: 09-09-2023 Fusion, spine, lumbar, 360 degree, starting in supine position transitioning to prone ([id number]) Bare-metal biliary stent ()[id number] FDA Start: 09-09-2023 Fusion, spine, lumbar, 360 degree, starting in supine position transitioning to prone 3D ANTERIOR LUMBAR FDA Start: 09-09-2023 Fusion, spine, lumbar, 360 degree, starting in supine position transitioning to prone 40MM AXLE FDA Start: 09-09-2023 Fusion, spine, lumbar, 360 degree, starting in supine position transitioning to prone [id number] VARIABLE SCREWS FDA Start: 09-09-2023 Fusion, spine, lumbar, 360 degree, starting in supine position transitioning to prone [id number] VARIABLE SCREWS FDA Start: 09-09-2023 Fusion, spine, lumbar, 360 degree, starting in supine position transitioning to prone [id number] VARIABLE SCREWS FDA Start: 09-09-2023 Fusion, spine, lumbar, 360 degree, starting in supine position transitioning to prone [id number] VARIABLE SCREWS FDA Start: 09-09-2023 Fusion, spine, lumbar, 360 degree, starting in supine position transitioning to prone PATCH,AMNION [id number] FDA Start: 09-09-2023 Fusion, spine, lumbar, 360 degree, starting in supine position transitioning to prone PATCH,AMNION 4x4CM FDA Start: 09-09-2023 Fusion, spine, lumbar, 360 degree, starting in supine position transitioning to prone 25MM PLATE FDA Start: 09-09-2023 Fusion, spine, lumbar, 360 degree, starting in supine position transitioning to prone SPACER,10MM INTERLAM FDA Start: 09-09-2023 Fusion, spine, lumbar, 360 degree, starting in supine position transitioning to prone STRIP,BONE CANC [id number] FDA Start: 09-09-2023 Fusion, spine, lumbar, 360 degree, starting in supine position transitioning to prone 3D ANTERIOR LUMBAR FDA Start: 09-09-2023 Fusion, spine, lumbar, 360 degree, starting in supine position transitioning to prone 40MM AXLE FDA Start: 09-09-2023 Fusion, spine, lumbar, 360 degree, starting in supine position transitioning to prone [id number] VARIABLE SCREWS FDA Start: 09-09-2023 Fusion, spine, lumbar, 360 degree, starting in supine position transitioning to prone [id number] VARIABLE SCREWS FDA Start: 09-09-2023 Fusion, spine, lumbar, 360 degree, starting in supine position transitioning to prone [id number] VARIABLE SCREWS FDA Start: 09-09-2023 Fusion, spine, lumbar, 360 degree, starting in supine position transitioning to prone [id number] VARIABLE SCREWS FDA Start: 09-09-2023 Fusion, spine, lumbar, 360 degree, starting in supine position transitioning to prone PATCH,AMNION 2X3CM FDA Start: 09-09-2023 Fusion, spine, lumbar, 360 degree, starting in supine position transitioning to prone PATCH,AMNION 4x4CM FDA Start: 09-09-2023 Fusion, spine, lumbar, 360 degree, starting in supine position transitioning to prone 25MM PLATE FDA Start: 09-09-2023 Fusion, spine, lumbar, 360 degree, starting in supine position transitioning to prone SPACER,10MM INTERLAM FDA Start: 09-09-2023 Fusion, spine, lumbar, 360 degree, starting in supine position transitioning to prone STRIP,BONE CANC [id number] FDA Start: 09-09-2023 Fusion, spine, lumbar, 360 degree, starting in supine position transitioning to prone 3D ANTERIOR LUMBAR FDA Start: 09-09-2023 Fusion, spine, lumbar, 360 degree, starting in supine position transitioning to prone 40MM AXLE FDA Start: 09-09-2023 Fusion, spine, lumbar, 360 degree, starting in supine position transitioning to prone [id number] VARIABLE SCREWS FDA Start: 09-09-2023 Fusion, spine, lumbar, 360 degree, starting in supine position transitioning to prone 5.4VEG15CE VARIABLE SCREWS FDA Start: 09-09-2023 Fusion, spine, lumbar, 360 degree, starting in supine position transitioning to prone 5.0IZV49DY VARIABLE SCREWS FDA Start: 09-09-2023 Fusion, spine, lumbar, 360 degree, starting in supine position transitioning to prone 5.3XFZ01PB VARIABLE SCREWS FDA Start: 09-09-2023 Fusion, spine, lumbar, 360 degree, starting in supine position transitioning to prone PATCH,AMNION 2X3CM FDA Start: 09-09-2023 Fusion, spine, lumbar, 360 degree, starting in supine position transitioning to prone PATCH,AMNION 4x4CM FDA Start: 09-09-2023 Fusion, spine, lumbar, 360 degree, starting in supine position transitioning to prone 25MM PLATE FDA Start: 09-09-2023 Fusion, spine, lumbar, 360 degree, starting in supine position transitioning to prone SPACER,10MM INTERLAM FDA Start: 09-09-2023 Fusion, spine, lumbar, 360 degree, starting in supine position transitioning to prone STRIP,BONE CANC [id number] FDA Start: 09-09-2023 Fusion, spine, lumbar, 360 degree, starting in supine position transitioning to prone 3D ANTERIOR LUMBAR FDA Start: 09-09-2023 Fusion, spine, lumbar, 360 degree, starting in supine position transitioning to prone 40MM AXLE FDA Start: 09-09-2023 Fusion, spine, lumbar, 360 degree, starting in supine position transitioning to prone 5.6EDE36VL VARIABLE SCREWS FDA Start: 09-09-2023 Fusion, spine, lumbar, 360 degree, starting in supine position transitioning to prone 5.0DWV90EB VARIABLE SCREWS FDA Start: 09-09-2023 Fusion, spine, lumbar, 360 degree, starting in supine position transitioning to prone 5.8IOC61YZ VARIABLE SCREWS FDA Start: 09-09-2023 Fusion, spine, lumbar, 360 degree, starting in supine position transitioning to prone 5.3RFZ91SS VARIABLE SCREWS FDA Start: 09-09-2023 Fusion, spine, lumbar, 360 degree, starting in supine position transitioning to prone PATCH,AMNION 2X3CM FDA Start: 09-09-2023 Fusion, spine, lumbar, 360 degree, starting in supine position transitioning to prone PATCH,AMNION 4x4CM FDA Start: 09-09-2023 PATCH,AMNION 2X3CM FDA Start: 04-16-2022 PATCH,AMNION 2X3CM FDA Start: 04-16-2022 PATCH,AMNION 2X3CM FDA Start: 04-16-2022 PATCH,AMNION 2X3CM FDA Start: 04-16-2022 PATCH,AMNION 2X3CM FDA Start: 04-16-2022 PATCH,AMNION 2X3CM FDA Start: 04-16-2022 PATCH,AMNION 2X3CM FDA Start: 04-16-2022 PATCH,AMNION 2X3CM FDA Start: 04-16-2022 PATCH,AMNION 2X3CM FDA Start: 04-16-2022 PATCH,AMNION 2X3CM FDA Start: 04-16-2022 PATCH,AMNION 2X3CM FDA Start: 04-16-2022 Goals Date Patient Goal Desired Activity /State Functional Status Date Assessment Result Facility 09-11-2023 Functional status Ambulates [facility] Work Phone: 04-17-2022 Functional status Ambulates;Bathroom Priv ilege [facility] Work Phone: 09-20-2021 [facility] Status Date Assessment Result Facility 09-11-2023 Cognitive function Voice/Name [facility] Work Phone: 04-17-2022 Cognitive function Voice/Name [facility] Work Phone: 09-20-2021 Mental Status [facility] [place] Clinical Notes 09-20-2021 to 01-23-2025 Note Date & Type Note Facility 01-23-2025 Progress note [facility] 01-23-2025 Progress note Note Date/Time January 23, 2025 12:29pm [facility] [address], [address] [place] [address] OFFICE VISIT Date of Service: 01/23/25 MR#: [id number] Acct: [id number] Name: JACKLYN WILSON Rep #: [id number] : 1970 Provider: WILLIAM Najera Age/Sex: 54/F [place] [facility] Status: Signed Intake Vital Signs 12/18/24 15:05 01/23/25 11:39 Height 5 ft 2 in 5 ft 2 in Weight: 113 lb BMI 20.6 Intake Visit Reasons: CONCERN FOR UTI Chief Complaint: dysuria 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: No Is patient in pain?: No Allergies oxycodone Adverse Reaction (Severe, Verified 01/23/25 12:15) Other Medications ?Medication ?Instructions ?Recorded ?Confirmed ?Type gabapentin 800 mg tablet 800 mg PO TID PAIN 05/23/23 01/23/25 History multivitamin (Daily Multi-Vitamin 1 tab PO DAILY SUPPL EMENT 08/26/23 01/23/25 History tablet) calcium acetate 667 mg tablet 667 mg PO ONCE 05/25/24 01/23/25 History ginkgo biloba leaf extract 60 mg 60 mg PO BID 05/25/24 01/23/25 History tablet tumeric PO 05/25/24 01/23/25 History zoledronic acid 5 mg/100 mL in 1 ea .Route ONCE #100 m L 06/18/24 01/23/25 Rx mannitol 5 %-water intravenous piggybck methocarbamol 500 mg tablet 500 mg PO TID PRN pain/spa sms #30 11/12/24 01/23/25 Rx tabs Is last menstrual period known: No Post menopausal: Yes Patient : No Have you fallen in the past year?: No Nurse's Note: back pain, urinary odor, fatigue x 10 days. denies abd pain, fever, blood in urine. concern for UTI PFSH Medical History Bilateral hip joint arthritis Transitional vertebrae Osteoporosis History of irregular heartbeat Post-menopausal Wears glasses Alcohol use History of steroid therapy Back pain Migraine headache Smoker Leg cramps History of pain when walking History of stress test Cardiology follow-up encounter Hx of mitral valve prolapse Surgical History Hx of laminectomy Hx of colonoscopy Hx of laparoscopy Hx of breast augmentation Hx of appendectomy History of meniscectomy of left knee Family History Other Alcoholism Anxiety Arthritis Cancer Diabetes Myocardial infarction Social History Smoking Status: Current every day smoker tobacco type: cigarettes Electronic Cigarette Use: with nicotine alcohol intake: current substance use type: does not use what type of physical activity do you participate in: walking frequency: daily HPI HPI Chief Complaint: dysuria Details: JACKLYN WILSON, is a 54 F who presents to the office today for ?uti -sx about 10 days ago- -does admit to chronic back pain with surgery- feels her lower back has been hurting more than usual -denies pain, burning, urgency. + frequency. No blood or discharge. No fever or chills -x1 when she woke up had cloudy urine with odor- none since the 1 episode -in office UA today trace non hemolyzed blood, negative nitrate, and only small ROS Const Constitutional: Positive for other (ROS negative x6 except what was placed in HPI) Exam Const General: cooperative and no acute distress Orientation: alert and oriented x3 Resp Effort & Inspection: normal respiratory effort, able to speak in complete sentences and symmetric chest movement Auscultation: Bilateral: Clear to Auscultation, Left: Clear to Auscultation and Right: Clear to Auscultation Cardio Rate: regular rate Rhythm: regular rhythm Heart Sounds: S1 normal and S2 normal GI Auscultation: normal bowel sounds Palpation: soft and no hepatosplenomegaly Other: -lumbar tenderness with palpation- NO CVA tenderness -no pain with palpation to abd/pelvic region Neuro General: patient alert, patient awake and patient oriented x3 Extrem General: normal to inspection and full ROM Psych Appearance: grossly normal Mental Status: mental status grossly normal Attitude: cooperative Thought Process: normal Thought Content: normal Judgment: judgment good Results POC Urinalysis Dip (Clinic) Office Urine Color Dk Yellow Last Edit by Micaela Grant on 01/23/25 12:25 Office Urine Clarity Clear Last Edit by Micaela Grant on 01/23/25 12:25 Office Urine Glucose Negative Last Edit by Micaela Grant on 01/23/25 12:25 Office Urine Ketones Negative Last Edit by Micaela Grant on 01/23/25 12:25 Off Ur Spec [place] 1.020 Last Edit by Micaela Grant on 01/23/25 12:25 Office Urine pH 6.0 Last Edit by Micaela Grant on 01/23/25 12:25 Office Urine Bilirubin Negative Last Edit by Micaela Grant on 01/23/25 12: 25 Office Urine Urobilinogen Negative Last Edit by Micaela Grant on 01/23/25 12:25 Office Urine Blood Trace Last Edit by Micaela Grant on 01/23/25 12:25 Office Urine Blood Hemolyzed Negative Last Edit by Micaela Grant on 12:25 Office Urine Protein Trace Last Edit by Micaela Grant on 01/23/25 12:25 Office Urine Nitrate Negative Last Edit by Micaela Grant on 01/23/25 12:25 Off Ur Leukocytes Positive Last Edit by Micaela Grant on 01/23/25 12:25 Coding Level of Care Code Off vis,new,level 3 Diagnoses Urinary frequency R35.0 Chronic bilateral low back pain without sciatica M54.50; G89.29 Chronicity: chronic Back pain laterality: bilateral Sciatica presence: without sciatica Assessment and Plan Assessment and Plan (1) Urinary frequency: Status: Acute Plan: -advised UA does not show infection- will send for cx- if + will contact to start an atb -increase water (2) Lower back pain: Status: Acute Qualifiers: Chronicity: chronic Back pain laterality: bilateral Sciatica presence:without sciatica Qualified Code(s): M54.50 - Low back pain, unspecified; G89.29- Other chronic pain Plan: -chronic- has surgery- discussed possible change in weather can be cause for increase in pain -continue current regimen -follow up with pcp or certification and selection specialist Please follow up with your Primary Care Physician for ongoing chronic problems. If symptoms change or worsen, please present to Emergency Room for further evaluation 1. See visit diagnoses, disposition, and orders. 2. Reviewed and updated medication list; Discussed probable diagnosis, test results if available in office today and management options with patient/guardian: agreed to the medical plan above 3. Education provided regarding visit today, see after visit summary. Instruction provided in the use of fluids, vaporizer, acetaminophen, and/or other OTC medication for symptom control. Explained use of antibiotics only for proven or strongly suspected bacterial infections. 4. Prevention and health maintenance with primary care provider. 5. Patient/guardian educated to proceed to ED with worsening of condition, changes, or failure to improve. Orders: Orders POC Urinalysis Dip (Clinic) Today M54.9 - Dorsalgia, unspecified Clinical Quality Measures Falls Risk Screening/Assistive Devices Have you fallen in the past year?: No 01/23/25 5975 <Electronically signed by Bri THOMAS> Date _ Bri THOMAS Cosigner Signature: Date (if applicable) CC: ~ [place] [employer] Work Phone: 1(656) 209-954808-01-2025 Evaluation note* Diagnosis Onset Date Resolution Status Admit Date Bilateral hip joint arthritis acute December 18, 2024 2:58pm Osteoporosis acute December 18, 2024 2:58pm S/P lumbar fusion acute December 18, 2024 2:58pm Sacroiliitis acute December 18, 2024 2:58pm Transitional vertebrae acute Au 2024 2:58pm Lower back pain acute January 23, 2025 12:00pm Urinary frequency acute Sept2024 12:00pm [facility] Work Phone: 1(224) 702-399012-10-2024 Evaluation note* Diagnosis Onset Date Resolution Status Admit Date Closed compression fracture of L3 vertebra acute April 28, 2 024 8:50am S/P lumbar fusion acute Decemb2023 8:50am Osteopenia deleted April 28, 2024 8:50am Closed compression fracture of L3 vertebra acute June 11 9:02am Osteoporosis acute May 9:02am [facility] Work Phone: 1(788) 695-717004-23-2024 Progress note Author Marito Faustin [facility] September 10, 2023 4:25pm Note Date/Time September 10, 2023 4:2 2pm [facility] Medical Records Department [address] [place] [address] Progress Note - Orthopedic 09/10/23 1620 MR#: [id number] Acct: [id number] Name: JACKLYN WILSON SEPTEMBER Rep #:[id number] : 1970 53 From: Marito Archuleta PCP: Dr. Moris Clement MD Status :ADM IN [place] [facility] [id number] Subjective Subjective Jacklyn is seen on rounds. This is postop day #1. She is doing remarkably well. She has been up several times walking around with no help without a walker. Herleg pain is completely resolved. She already has a little flatulence but not too much and has some mild bowel sounds. I told her that even though she is feeling hungry she is still not ready to start eating food probably until tomorrow. So for now we will keep her on the clear liquids. Both of her dressings are dry. Neurologically she is intact. I am very pleased with how she is doing as she is also. We may consider adding NicoDerm patch for her as she is a non-smoker. Will be up to her but the nurse will offer it to her. I will see her again tomorrow around noon or so. In all likelihood she will be going home. Objective Data Objective Data Vital Signs: Vital Signs Temp Pulse Resp BP Pulse Ox O2 Del Method O2 Flow Rate 98.7 F 75 14 129/84 H 100 Room Air 4 09/10/23 15:53 09/10/23 15:53 09/10/23 15:53 09/10/23 15:53 09/10/23 15:53 09/10/23 15:53 09/09/23 16:00 FiO2 42 09/09/23 14:25 Oxygen Flow Rate (L/min) 4 Oxygen Delivery Method Room Air Weight: 111 lb 0.009 oz Body Mass Index (BMI) 20.2 Intake & Output: Intake and Output for Last 24 Hours 09/08/23 09/09/23 09/10/23 23:59 23:59 23:59 Intake Total 3167.33 / 3167.33 1920.00 / 1920.00 Output Total 660 / 660 1500 / 1500 Balance 2507.33 / 2507.33 420.00 / 420.00 Lab / Micro Data 08/30/23 07:24 08/30/23 07:24 Micro: Microbiology 08/30/23 07:24 Swab (Method) Nasal Screen MRSA/MSSA - Final Radiography Diagnostic Testing: Radiology Impression Spine X-Ray 09/09/23 09:55 IMPRESSION: X-Ray Lumbar Spine during surgery. Electronically Signed: Guy Morocho MD at 23:03 EDT Reading Location ID and State: [employer] / [employer] , Service support , Spine X-Ray 09/09/23 10:50 IMPRESSION: Status post discectomy and anterior fixation at L4/L5. Electronically Signed: Guy Morocho MD at 23:03 EDT Reading Location ID and State: [id number] / [employer] , Service support , Spine X-Ray 09/09/23 12:10 IMPRESSION: Fusion of L4-5. Electronically Signed: Jadon Medina MD at 0:00 EDT , 09/10/23 1625 <Electronically signed by Marito Faustin DO> Cosigner Signature (if applicable): CC: ~ Signed [facility] Work Phone: 1(160) 187-271804-23-2024 Procedure [facility] 09-10-2023 Progress note Author Hussain Zapata [facility] September 10, 2023 1:19pm Note Date/Time September 10, 2023 10: 03am [facility] Medical Records Department [address] [place] [id number] Progress Note - Hospitalist 09/10/23 1003 MR#: [id number] Acct: [id number] Name: JACKLYN WILSON Rep #:[id number] : 1970 53 From: Hussain Fontanez PCP: Dr. Moris Clement MD Status :ADM IN Location: [place] [address] Reason for Visit Reason for Visit: Diagnoses Hypo-osmolality and hyponatremia (09/09/23) Nausea (09/09/23) Encounter for other preprocedural examination (09/09/23) Encounter for screening for lipoid disorders (09/09/23) Other specified health status (09/09/23) Objective Data Objective Data Vital Signs: Vital Signs Temp Pulse Resp BP Pulse Ox O2 Del Method O2 Flow Rate 97.9 F 89 16 106/66 98 Room Air 4 09/10/23 08:29 09/10/23 08:29 09/10/23 08:29 09/10/23 08:29 09/10/23 08:30 09/10/23 08:30 09/09/23 16:00 FiO2 42 09/09/23 14:25 Oxygen Flow Rate (L/min) 4 Oxygen Delivery Method Room Air Weight: 111 lb Body Mass Index (BMI) 20.2 Intake & Output: Intake and Output for Last 24 Hours 04/09/09/23 09/10/23 23:59 23:59 23:59 Intake Total 3167.33 / 3167.33 1136.67 / 1136.67 Output Total 660 / 660 1500 / 1500 Balance 2507.33 / 2507.33 -363.33 / -363.33 Lab / Micro Data 08/30/23 07:24 08/30/23 07:24 Micro: Microbiology 08/30/23 07:24 Swab (Method) Nasal Screen MRSA/MSSA - Final Radiography Diagnostic Testing: Radiology Impression Spine X-Ray 09/09/23 09:55 IMPRESSION: X-Ray Lumbar Spine during surgery. Electronically Signed: Guy Morocho MD at 23:03 EDT , Spine X-Ray 09/09/23 10:50 IMPRESSION: Status post discectomy and anterior fixation at L4/L5. Electronically Signed: Guy Morocho MD at 23:03 EDT , Spine X-Ray 09/09/23 12:10 IMPRESSION: Fusion of L4-5. Electronically Signed: Jadon Medina MD at 0:00 EDT , Physical Exam Narrative Seen and examined. Patient is spontaneously voiding urine. Passing flatus. Physical exam General: Alert, Oriented x3, Cooperative HEENT: Atraumatic, PERRLA, EOMI, Normocephalic Oral: Oral mucosa moist. No Gingival or Mucosal Lesions/ Ulcerations Neck: Supple, No JVD, Negative Carotid Bruits Chest wall/Lungs: Air entry diminished in bilateral lung bases. No crepitation/rhonchi Cardiovascular: Regular rate, Regular Rhythm, Normal S1, Normal S2, No M/G/R Abdomen: Bowel Sounds Present, Soft, Non Tender, Non-Distended : No dysuria. No renal angle tenderness. No suprapubic tenderness. Extremities: No edema, Capillary Refill Less than 3 Seconds Skin: No rashes, No breakdown Musculoskeletal: No Tenderness to Palpation of Joints or Extremities. ROM full. Spine: Lumbar spine surgical dressing is dry. Mild tenderness around the operative region. Neurological: Cranial nerves II-XII grossly intact, DTR 2+/4. No acute focal neurological deficit. Psych/Mental Status: Normal Affect, Appropriate. Assessment & Plan Assessment/Plan (1) Nausea: PLAN: Plan 1. Postoperative nausea * She has as needed ondansetron. Will add as needed Compazine as well. * Code anticipate that that would continue to improve as the anesthesia fully wears off. 09/09: Postop nausea has resolved. 2. 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 09/09: Patient is walking in the hallway. Surgical dressing is dry. PT and OT to continue. Voiding urine and passing flatus.Bilateral SCDs. * Management per orthopedic spine surgery. * VTE prophylaxis per orthopedic spine surgery. Charges/Coding Visit Charges Inpatient E&M: 31301 Subs Hosp L2 09/10/23 1319 <Electronically signed by Hussain Zapata MD> Cosigner Signature (if applicable): CC: ~ Signed [facility] Work Phone: 1(695) 346-367704-22-2024 Progress note Author Fitz Dela Cruz [facility] September 09, 2023 7:04pm Note Date/Time September 09, 2023 7:0 4pm [facility] Medical Records Department [address] [place] [address] Progress Note - Hospitalist 09/09/23 1901 MR#: [id number] Acct: [id number] Name: JACKLYN WILSON SEPTEMBER Rep #:[id number] : 1970 53 From: Fitz Dela Cruz DO PCP: Dr. Moris Clement MD Status :ADM IN Location: [place] [address] Reason for Visit Reason for Visit: Consult requested by Dr. Faustin for postoperative medical management. Subjective Subjective Nauseated postoperatively. Objective Data Objective Data Vital Signs: Vital Signs Temp Pulse Resp BP Pulse Ox O2 Del Method O2 Flow Rate 36.8 C 74 18 115/74 98 Room Air 4 09/09/23 18:16 09/09/23 18:16 09/09/23 18:16 09/09/23 18:16 09/09/23 18:16 09/09/23 18:16 09/09/23 16:00 FiO2 42 09/09/23 14:25 Oxygen Flow Rate (L/min) 4 Oxygen Delivery Method Room Air Weight: 50.349 kg Body Mass Index (BMI) 20.2 Intake & Output: Intake and Output for Last 24 Hours 09/07/23 09/08/23 09/09/23 23:59 23:59 23:59 Intake Total 2572 / 2572 Output Total 610 / 610 Balance 1961 / 1961 Lab / Micro Data 08/30/23 07:24 08/30/23 07:24 Labs: Laboratory Results - last 24 hr 09/09/23 05:55: POC Glucose 134 H Micro: Microbiology 08/30/23 07:24 Swab (Method) Nasal Screen MRSA/MSSA - Final Physical Exam Const alert Constitutional Narrative: Tremulous. Has an emesis bag near her face but no active retching or vomiting. HEENT head/scalp atraumatic and moist oral mucous membranes Resp normal respiratory effort, no retractions, no use of accessory muscles and clearto auscultation bilaterally Cardio regular rate, regular rhythm, S1 normal heart sound and S2 normal heart sound GI normal to inspection, nondistended, normoactive bowel sounds, soft to palpation,non-tender and non-distended Neuro Sensorium / Orientation: awake and alert Assessment & Plan Assessment/Plan (1) Nausea: PLAN: Plan Postoperative nausea * She has as needed ondansetron. Will add as needed Compazine as well. * Code anticipate that that would continue to improve as the anesthesia fully wears off. 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 * Management per orthopedic spine surgery. * VTE prophylaxis per orthopedic spine surgery. Thank you for the consult. The hospitalist service will follow along during this patient's hospitalization. Charges/Coding Visit Charges Inpatient E&M: 66794 Subs Hosp L2 09/09/23 1904 <Electronically signed by Fitz Dela Cruz DO> Cosigner Signature (if applicable): CC: ~ Signed [facility] Work Phone: 1(759) 852-157504-22-2024 Procedure [facility] 09-09-2023 Procedure [facility]04-18-2024 History and physical note Author Marito Faustin [facility] September 05, 2023 3:35pm Note Date/Time September 05, 2023 3:3 5pm [facility] Medical Records Department [address] [place] [address] History & Physical Exam 09/05/23 1534 MR#: [id number] Acct: [id number] Name: JACKLYN WILSON SEPTEMBER Rep #:[id number] : 1970 53 From: Marito Archuleta PCP: Dr. Moris Clement MD Status :PRE IN Location: [facility] History and Physical MR#: [id number] Acct: [id number] Name: JACKLYN WILSON SEPTEMBER Rep #: [id number] : 1970 Provider: Dr. Marito Faustin DO Age/Sex: 52/F [place] [facility] Status: Signed Intake Vital Signs 08/17/2318:49 Height 5 ft 2 in Intake Visit Reasons: LUMBAR SPINE Chief Complaint: abd pain Allergies No Known Allergies Allergy (Verified 08/27/22 14:30) Medications omega 8-lov-mee-fish oil 60 mg-90 mg-500 mg capsule 1 ea PO DAILY 04/30/16 [History Confirmed 08/27/22] BEET ROOT 1 tab PO/SL DAILY 03/27/22 [History Confirmed 08/27/22] turmeric 100 mg-kasi 150 mg-olive 50 mg-oreg 150 mg-capryl capsule 1 cap PO DAILY 03/27/22 [History Confirmed 08/27/22] gabapentin 800 mg tablet 800 mg PO 05/23/23 [History Confirmed 05/23/23] PFSH Medical History Alcohol use Back pain Cardiology follow-up encounter History of pain when walking History of steroid therapy History of stress test Hx of mitral valve prolapse Leg cramps Migraine headache Post-menopausal Smoker Wears glasses Surgical History History of meniscectomy of left knee Hx of appendectomy Hx of breast augmentation Hx of colonoscopy Hx of laparoscopy Family History Other Cancer Myocardial infarction Social History Smoking Status: Current every day smoker tobacco type: cigarettes HPI LUMBAR SPINE Details: This documentation accurately reflects the service provided and the decisions made by me, Dr. Marito Faustin, DO 05/23/23 0837. Part of today?s visit was documented by Angeles STAFFORD, acting as scribe. JACKLYN WILSON is a 52 year old F here today for sciatic back pain. She states that it radiates into her right buttock and sometimes down into her calf. She states that she feels her right buttock tighten and it has made an indentation. She states that the sciatic pain hasn't stopped since her surgery which was on 04/16/22, Lumbar laminectomy discectomy L4-5 on the right. She states that it has gotten worse over time to where is is affecting her sleep and she is unable to sit for long periods of time. She states that Tylenol and stretching are not helpful and the only thing that helps is gabapentin and a hot shower. Jacklyn returns for follow-up. Unfortunately she does not work at [employer] anymore. 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 He went into kidney failure he is on oxygen he was a very high risk to begin with. Is very hard on her she is a person that weighs about 110 or 12 pounds. Nonetheless the back has been bothering her she has a lot of back pain now and but mainly pain in the right buttocks goes into the thigh. The right buttocks pain is the worst. Laminectomy that we did a little over a year ago was at L4-5 on the right side. She has reached a point where she cannot stand the pain anymore. It wakes her up at night she is unable to sleep. At times the back pain is insurmountable. On examination she has very positive straight leg raising on the right side. Any forward bending causes a great deal of pain in her buttocks even though it is there all the time it is worse when she starts to bend forward. She has verylittle pain with extension. She can stand on her toes and she can stand on her heels. He has good motor strength of all the major muscle groups of both lower extremities. He does have a absent posterior tibialis reflex on the right and it is +1 on the left. Of course this points at the L5 nerve root. Symptoms have been going on long enough now that we need to proceed with an MRI scan of the lumbar spine with contrast. The insurance carrier may require physical therapy before they approve the MRI scan. However they might bypass this since this is a repeat problem. Obviously physical therapy will not help her in fact that will probably aggravate the condition. Coding Level of Care Code Off vis,est,level 3 Diagnoses S/P laminectomy Z98.890 HNP (herniated nucleus pulposus), lumbar M51.26 09/05/23 153 <Electronically signed by Marito Faustin DO> Cosigner Signature (if applicable): CC: Dr. Moris Clement MD; Dr. Marito Faustin DO~ Signed [facility] Work Phone: 1(571) 238-244102-05-2024 Discharge summary Author Estelle Harris [facility] June 24, 2023 8:15am Note Date/Time June 24, 2023 8 :15am [facility] Physical Therapy [facility] [address] [place] [address] [address] [place] [address] / REHABILITATION SERVICES DISCHARGE SUMMARY MR#: [id number] Acct: [id number] Name: JACKLYN WILSON Rep #: [id number] 1 : 1970 53 From: Estelle Perera Referring Dr.: Dr. Marito Faustin DO Status: REG RCR Insurance: [facility] [employer] Discharge Summary D/C summary: It has been my pleasure to treat JACKLYN WILSON referred by Dr. Marito Faustin DO, with the diagnosis of HNP L4/L5 and sp laminectomy for a total of 4 visit(s). Discharge Date: 06/11/23 Please see the following information for a summary of their discharge status. Subjective Subjective: Pt has her MRI on 06-18-23. She is in so much pain last night. She does not think that PT is helping. She has appeal to her insurance company for them to keep her. She has tried the towel roll and she can only tolerate it so much. Pain Back pain: Pain Intensity (Out of 10): 8 R buttock pain: Pain Intensity (Out of 10): 10 Overall Improvement % Improvement: 0 Objective Objective/Function: Not able to advance pt due to pain and radicular pain into [facility] at this time Goals Goal 1:: I HEP Goal 2:: Be able to order picker and object off the floor keeping back straight such as golfer lift or squat at knees to get object off the floor Goal 3:: Increase R LE strength (at time of the eval: LE MMT: R hip flex 15.4 and L 15.5 R knee ext 14.3 and L 23.4 R knee flex 7.4 and L 12.8 R hip abd 10.7 and L 14.4 R hip ext 7.3 and L 14.3). Goal Progress: Not Progressing Goal 4:: Increase trunk Rotation and extension AROM (at the time of the eval: Trunk AROM: flex 50%, ext 10%, SB B 50%, Rot B 10%) Goal Progress: Not Progressing Plan Plan: DC PT to MRI D/C Information Discharge Comments: DC PT to MRI d/c sentence: If there are questions or concerns regarding this patient's physical therapy, please feel free to call me at [phone]. Thank you for the referral of thispatient. Sincerely, TIFFANY Jeffrey Balance/Gait/Functional tests Balance/Special Test Scores Oswestry Low Back Score: 21 Improvement % Improvement: 0 <Electronically signed by Estelle Harris MPT> 06/24/23 0815 CC: Dr. Marito Faustin DO; Avril Santiago ~ Signed [facility] Work Phone: 1(517) 749-207301-23-2024 Discharge summary Author Estelle Harris [facility] June 11, 2023 11:54am Note Date/Time June 11, 2023 1 1:54am [facility] Physical Therapy [facility] [address] [place] [address] / REHABILITATION SERVICES DISCHARGE SUMMARY MR#: [id number] Acct: [id number] Name: JACKLYN WILSON Rep #: [id number] 6 : 1970 52 From: Estelle Perera Referring Dr.: Dr. Marito Faustin DO Status: REG RCR Insurance: [facility] [employer] Discharge Summary D/C summary: It has been my pleasure to treat JACKLYN WILSON referred by Dr. Marito Faustin DO, with the diagnosis of HNP L4/L5 and sp laminectomy for a total of 4 visit(s). Discharge Date: 06/11/23 Please see the following information for a summary of their discharge status. Subjective Subjective: Pt has her MRI on 06-18-23. She is in so much pain last night. She does not think that PT is helping. She has appeal to her insurance company for them to keep her. She has tried the towel roll and she can only tolerate it so much. Pain Back pain: Pain Intensity (Out of 10): 8 R buttock pain: Pain Intensity (Out of 10): 10 Overall Improvement % Improvement: 0 Objective Objective/Function: Not able to advance pt due to pain and radicular pain into [facility] at this time Goals Goal 1:: I HEP Goal 2:: Be able to order picker and object off the floor keeping back straight such as golfer lift or squat at knees to get object off the floor Goal 3:: Increase R LE strength (at time of the eval: LE MMT: R hip flex 15.4 and L 15.5 R knee ext 14.3 and L 23.4 R knee flex 7.4 and L 12.8 R hip abd 10.7 and L 14.4 R hip ext 7.3 and L 14.3). Goal Progress: Not Progressing Goal 4:: Increase trunk Rotation and extension AROM (at the time of the eval: Trunk AROM: flex 50%, ext 10%, SB B 50%, Rot B 10%) Goal Progress: Not Progressing Plan Plan: DC PT to MRI D/C Information Discharge Comments: DC PT to MRI d/c sentence: If there are questions or concerns regarding this patient's physical therapy, please feel free to call me at [phone]. Thank you for the referral of thispatient. Sincerely, Estelle Harris, TIFFANY Balance/Gait/Functional tests Balance/Special Test Scores Oswestry Low Back Score: 21 Improvement % Improvement: 0 <Electronically signed by Estelle Harris MPT> 06/11/23 1154 CC: Dr. Marito Faustin, DO; Avril Santiago ~ Signed [facility] Work Phone: 1(868) 359-749210-20-2022 NotePap Smear Specimen AdequacyOctober 2021 2:04pmComment.Satisfactory for evaluation. Endocervical and/or squamous metaplasticcells (endocervical component)are present.Areas of partially obscuring inflammatory exudate are present.[facility] A#[id number]. [facility] Work Phone: Comment on above:Satisfactory for evaluation. Endocervical and/or squamous metaplasticcells (endocervical component)are present.Areas of partially obscuring inflammatory exudate are present.09-20-2021 Hospital Discharge instructions Patient Education 09/20/2021 19:44:00 Laceration, Extremity: [...] This is to help prevent infection. Follow allinstructions for taking this medicine. Take the medicine every day until it is gone or you are toldto stop. You should not have any left [...] but do not use soaps, lotions, or ointmentson the wound area. Do not scrub the [...] wound Decreased movement around the injured area [id number] [employer]. [address] [place] [address]. All rights reserved. This information is not intended as a substitute for professional medical care. Always follow yourhealthcare professional's instructions. Follow Up Care 09/20/2021 19:19:49 With:CONOR PERDOMO Address: [address] [place] [address] [place] [address]- When:2-4 days [facility] Discharge summary Author Marito Faustin [facility] September 11, 2023 1:10pm Note Date/Time September 11, 2023 1:1 0pm [facility] Medical Records Department [address] [place] [address] Discharge Summary 09/11/23 1308 MR#: [id number] Acct: [id number] Name: JACKLYN WILSON SEPTEMBER Rep #:[id number] 2 : 1970 53 From: Marito Archuleta PCP: Dr. Moris Clement MD Status :ADM IN Location: MI3 [id number] Providers Date of Admission: 09/09/23 Primary Care Physician: Dr. Moris Clement MD Attending Physician: This is discharge summary on patient Jacklyn Wilson. This patient was admitted on Saturday 2 days ago and underwent 360 degree fusion at the L4-5 level with repeat laminectomy of L4-5 on the right side. She had a partial ileus yesterday as is expected. Last night however she had a lot of flatulence and her abdomen feels reasonably well now. She actually ate some real food this morning. She has good bowel sounds now. Her dressings are both dry. She was given directions regarding her activities. She already has an appointment to see me in the office. She knows how to get ahold of me if she should need me before I see her in the office. This is the end of the discharge summary on Jacklyn Wilson. This is Dr. Faustin dictating. Consultations 09/09/23 14:37 Consult: Hospitalist Routine Consulting Provider: [facility] Reason for Consult: Medical Management EMERGENT Consult: No MD Notified: Yes Date Notified: 09/09/23 Time Notified: 18:26 Method of Notification: Text Reason For Visit: RECURRENT DISC HERNIATION L4-5 ON RIGHT Diagnosis Discharge Diagnosis (1) Nausea: Status: Acute Code(s): R11.0 - Nausea Medications at Discharge Home Medications omega 6-pex-wmh-fish oil 60 mg-90 mg-500 mg capsule 1 ea PO PRN SUPPLEMENT 04/30/16 turmeric 100 mg-kasi 150 mg-olive 50 mg-oreg 150 mg-capryl capsule 1 cap PO DAILY PRN SUPPLEMENT 03/27/22 gabapentin 800 mg tablet 800 mg PO TID PAIN 05/23/23 cholecalciferol (vitamin D3) 250 mcg (10,000 unit) capsule 250 mcg PO PRN SUPPLEMENT 06/20/23 multivitamin (Daily Multi-Vitamin tablet) 1 tab PO DAILY SUPPLEMENT 08/26/23 hydromorphone 2 mg tablet (Dilaudid) 2 mg PO Q4H 5 days #30 tabs 09/11/23 Weight / BMI Weight Weight: 111 lb 0.009 oz Body Mass Index (BMI) 20.2 ABG / Lab / Microbiology Data 08/30/23 07:24 08/30/23 07:24 Microbiology: Microbiology 08/30/23 07:24 Swab (Method) Nasal Screen MRSA/MSSA - Final D/C Instructions May shower in (days): 3 May resume sexual activity in: 4-6 weeks Meaningful Use Info Meaningful Use Meaningful Use Diagnoses (Choose all that apply): None applicable Ischemic Stroke Statin Dosing Therapy Reference: STATIN DOSE THERAPY REFERENCE: * Patients > 75 years receive moderate or high dose statin therapy. * Patients 75 years or YOUNGER should receive HIGH intensity statin dose unless contraindicated. You will be required to document reason for non-treatment if statin daily dose does not meet guidelines. HIGH DOSE STATIN THERAPY DAILY Atorvastatin > than or = to 40 mg Rosuvastatin > than or = to 20 mg Amlodipine + Atorvastatin > than or = to 2.5/40 mg Ezetimibe + Simvastatin 10/80 mg Simvastatin 80mg Discharge Plan Admission Admit Date/Time: 09/09/23 05:26 Primary Reason for Your Visit: back surgery Attending Provider: Marito Faustin Primary Care Provider: Moris Clement Consulting Providers: Craig Ellis; Shereen Cook; Thalia Maciel; Georgette Wen; Charanjit Snyder; Charanjit Ford; Du Gavin; Fitz Dela Cruz; Saige Tellez; Diony Henderson; Esmer Pleitez; Cristian Blunt; Tarik Monterroso;Kaitlin Mckeon; Lamont Venegas; Hussain Zapata Discharge Orders/Prescriptions Prescriptions: No Action gabapentin 800 mg tablet 800 mg PO TID cholecalciferol (vitamin D3) 250 mcg (10,000 unit) capsule 250 mcg PO PRN omega 6-oyb-snt-fish oil 1 EACH capsule 1 ea PO PRN ptsnkwex-baja-brhzm-oreg-capry 100 mg-150 mg- 50 mg-150 mg Capsule 1 cap PO DAILY PRN (Reason: SUPPLEMENT) multivitamin [Daily Multi-Vitamin] Tablet 1 tab PO DAILY hydromorphone [Dilaudid] 2 mg tablet 2 mg PO Q4H 5 Days Qty: 30 0RF Referrals / Follow Up: Moris Clement MD [Primary Care Provider] - Disposition Disposition (needs filled in before D/C Order can be placed): Home, Self Care 09/11/23 1310 <Electronically signed by Marito Faustin DO> Cosigner Signature (if applicable): CC: Dr. Moris Clement MD; Dr. Marito Faustin DO~ Signed [facility] Work Phone: Evaluation + Plan note No data available for this section [facility] Evaluation noteNo assessment information available [facility] Work Phone: Evaluation note* Diagnosis Onset Date Resolution Status Herniated nucleus pulposus, L4-5 right acute [facility] Work Phone: evaluation note* Diagnosis Onset Date Resolution Status Herniated nucleus pulposus, L4-5 right acute Herniated nucleus pulposus, L4-5 right acute Herniated nucleus pulposus, L4-5 right acute [facility] Work Phone: evaluation note* Diagnosis Onset Date Resolution Status S/P laminectomy acute S/P laminectomy acute [facility] Work Phone: Evaluation note* Diagnosis Onset Date Resolution Status HNP (herniated nucleus pulposus), lumbar acute S/P laminectomy acute Herniated nucleus pulposus, L4-5 right acute S/P laminectomy acute [facility] Work Phone: Evaluation note* Diagnosis Onset Date Resolution Status HNP (herniated nucleus pulposus), lumbar acute S/P laminectomy acute Herniated nucleus pulposus, L4-5 right acute S/P laminectomy acute Herniated nucleus pulposus, L4-5 right acute S/P laminectomy acute Nausea acute [facility] Work Phone: Evaluation note* Diagnosis Onset Date Resolution Status Admit Date Bilateral hip joint arthritis acute December 18, 2024 2:58pm Osteoporosis acute December 18, 2024 2:58pm Sacroiliitis acute December 18, 2024 2:58pm Transitional vertebrae acute 2024 2:58pm [facility] Work Phone: Progress note No data available for this section [facility] Reason for referral (narrative)No reason for referral [facility] Work Phone: Chief Complaint and Reason for Visit Chief Complaint LUMBAR RAD Chief Complaint LUMBAR RAD SCREENING Chief Complaint LUMBAR RAD SCREENING Lumbar spine Rm 5 xray Reason for Visit Herniated nucleus pu lposus, L4-5 right Chief Complaint SCREENING Lumbar spine Rm 5 xray lumbar spine LUMBAR LAMINECTOMY DISCECTOMY RT L4-5 LUMBAR LAMINECTOMY DISCECTOMY RT L4-5 LUMBAR LAMINECTOMY DISCECTOMY RT L4-5 LUMBAR LAMINECTOMY DISCECTOMY RT L4-5 LUMBAR LAMINECTOMY DISCECTOMY RT L4-5 LUMBAR LAMINECTOMY DISCECTOMY RT L4-5 Reason for Visit Herniated nucleus pu lposus, L4-5 right Herniated nucleus pulposus, L4-5 right Herniated nucleus pulposus, L4-5 right Chief Complaint lumbar spine Lumbar spine ABD PAIN Reason for Visit S/P laminectomy S/P laminectomy Chief Complaint SCREENING Chief Complaint SCREENING NEED ORDER Chief Complaint SCREENING NEED ORDER NEED ORDER Chief Complaint NEED ORDER NEED ORDER LUMBAR SPINE BACK SURGERY LUMBAR/RX TO BE FAXED S/P LAMINECTOMY; ? REHERNIATION OF L4-5 LUMBAR SPINE Reason for Visit HNP (herniated nucle us pulposus), lumbar S/P laminectomy Herniated nucleus pulposus, L4-5 right S/P laminectomy Chief Complaint LUMBAR SPINE BACK SURGERY LUMBAR/RX TO BE FAXED S/P LAMINECTOMY; ? REHERNIATION OF L4-5 LUMBAR SPINE lumbar spine PREOP 360 Lumbar Fusion L4-5 with repeat laminectomy on RECURRENT DISC HERNIATION L4-5 ON RIGHT 360 Lumbar Fusion L4-5 with repeat laminectomy on RECURRENT DISC HERNIATION L4-5 ON RIGHT RECURRENT DISC HERNIATION L4-5 ON RIGHT RECURRENT DISC HERNIATION L4-5 ON RIGHT RECURRENT DISC HERNIATION L4-5 ON RIGHT RECURRENT DISC HERNIATION L4-5 ON RIGHT Reason for Visit HNP (herniated nucle us pulposus), lumbar S/P laminectomy Herniated nucleus pulposus, L4-5 right S/P laminectomy Herniated nucleus pulposus, L4-5 right S/P laminectomy Nausea Chief Complaint Admit Date BACK PAIN April 19, 2024 9 :43am lumbar spine April 28, 2024 8:50am RM 3 April 28, 2024 9:20am Osteoporosis June 11, 2024 9 :02am INT LABS June 16, 2024 7 :51am INT LAB ORDER July 24, 2024 3:09 pm Reason for Visit Admit Date Closed compression fracture of L3 verteb ra April 28, 2024 8:50am S/P lumbar fusion April 28, 2024 8:50am Osteopenia April 28, 2024 8:50am Closed compression fracture of L3 verteb ra June 11, 2024 9:02am Osteoporosis June 11, 2024 9 :02am Chief Complaint Admit Date SCREENING September 11, 2024 2:4 9pm LUMBAR SPINE December 18, 2024 2:5 8pm Room 1 December 18, 2024 3:1 2pm Reason for Visit Admit Date Bilateral hip joint arthritis December 2:58pm Osteoporosis December 18, 2024 2:5 8pm Sacroiliitis December 18, 2024 2:5 8pm Transitional vertebrae December 18, 2024 2:58pm Chief Complaint Admit Date LUMBAR SPINE December 18, 2024 2:5 8pm Room 1 December 18, 2024 3:1 2pm CONCERN FOR UTI January 23, 2025 12:00pm Reason for Visit Admit Date Bilateral hip joint arthritis December 2:58pm Osteoporosis December 18, 2024 2:5 8pm S/P lumbar fusion December 18, 2024 2:5 8pm Sacroiliitis December 18, 2024 2:5 8pm Transitional vertebrae December 18, 2024 2:58pm Lower back pain January 23, 2025 12:00pm Urinary frequency January 23, 2025 12:00pm Family History Relationship Condition Age at Onset Recorded Date/T mildred Unknown Family History?- Unknown April 5:28pm Family History?- Unknown August 06, 2018 10:43pm Relationship Condition Age at Onset Recorded Date/T mildred Not Specified Myocardial infarction Unknown Malignant neoplasm Unknown Relationship Condition Age at Onset Recorded Date/T mildred Not Specified Diabetes mellitus Unknown Alcoholism Unknown Anxiety Unknown Arthritis Unknown Myocardial infarction Unknown Malignant neoplasm Unknown Advance Directives Advance Directive Response Recorded Date/ Time Advance Directives No April 1:46pm Living Will No August 02, 2021 5:00am Power of [employer] Forming Equipment Operator No August 02 5:00am Advance Directive Response Recorded Date/ Time Advance Directives No April 12:46pm Living Will No April 16, 2 022 11:19am Power of [employer]ing Equipment Operator No April 16, 2022 11:19am Advance Directive Response Recorded Date/ Time Advance Directives No April 1:46pm Living Will No April 16, 12:19pm Power of [employer]ing Equipment Operator No April 16, 2022 12:19pm Advance Directive Response Recorded Date/ Time Advance Directives No April 1:46pm Living Will Yes September 09, 2023 5:42pm Power of [employer] Forming Equipment Operator No September 08 5:42pm Advance Directive Response Recorded Date/ Time Living Will No April 19 11:38am Power of [employer] Forming Equipment Operator No April 19, 2024 11:38am Advance Directives No April 1:46pm Advance Directive Response Recorded Date/ Time Advance Directives No April 1:46pm Advance Directive Response Recorded Date/ Time Advance Directives No January 11:39am Summary Purpose Additional Source Comments Care Team (unrecognized sect ion and content) Team Status: Active Member Role Status Dates Dr. Bentley Clement MD Family Provider Active Dr. Bentley Clement MD Primary Care Provider Activ e Team Status: Inactive Member Role Status Dates Dr. Bentley Clement MD Primary Care Provider, Refe rring Provider Active Dr. Marito Faustin DO Attending Provider Active Team Status: Inactive Member Role Status Dates Dr. Bentley Clement MD Primary Care Provider Activ e Ed Physician Provider Emergency Provider Active Team Status: Inactive Member Role Status Dates Dr. Bentley Clement MD Primary Care Provider Activ e Dr. Rudy Adame MD Attending Provider, Referring Pr ovider Active Team Status: Inactive Member Role Status Dates Dr. Bentley Clement MD Primary Care Provider, Attending Provider, Referring Provider Active Team Status: Inactive Member Role Status Dates Dr. Marito Faustin DO Attending Provider Active Dr. Bentley Clement MD Primary Care Provider, Refe rring Provider Active Team Status: Inactive Member Role Status Dates Dr. Marito Faustin DO Attending Provider, Referring P rovider Active Dr. Bentley Clement MD Primary Care Provider Activ e Team Status: Inactive Member Role Status Dates Dr. Marito Faustin DO Attending Provider, Referring P rovider Active Pamela Thornton Primary Care Provider Active Team Status: Active Member Role Status Dates Dr. Moris Clement MD Family Provider Active Dr. Moris Clement MD Primary Care Provider Acti ve Team Status: Inactive Member Role Status Dates Dr. Moris Clement MD Primary Care Provider, Ref erring Provider Active Dr. Marito Faustin , DO Attending Provider Active Team Status: Inactive Member Role Status Dates Dr. Marito Faustin DO Attending Provider Active Dr. Moris Clement MD Primary Care Provider, Ref erring Provider Active Team Status: Active Member Role Status Dates Dr. Moris Clement MD Primary Care Provider Acti ve Dr. Albert Fountain MD Attending Provider Active Dr. Marito Faustin , DO Referring Provider Active Team Status: Active Member Role Status Dates Dr. Moris Clement MD Primary Care Provider Acti ve Dr. Marito Faustin , DO Admit Provider, A ttending Provider, Other Provider Active Team Status: Active Member Role Status Dates Dr. Moris Clement MD Primary Care Provider Acti ve Dr. Marito Faustin , DO Admit Provider, A ttending Provider, Referring Provider, Other Provider Active Team Status: Active Member Role Status Dates Dr. Moris Clement MD Primary Care Provider Acti ve Dr. Marito Faustin , DO Admit Provider, R eferring Provider, Other Provider Active Dr. Craig Ellis , DO Other Provider Active Dr. Shereen Cook MD Other Provider Active Dr. Thalia Maciel MD Other Provider Active Dr. Georgette Wen MD Other Provider Active Dr. Charanjit Snyder , DO Other Provider Active Dr. Charanjit Ford MD Other Provider Active Du Gavin MD Other Provider Active Dr. Fitz Dela Cruz , DO Attending Provider, Other Provid er Active Dr. Saige Tellez , DO Other Provider Active Dr. Diony Henderson , DO Other Provider Active Dr. Esmer Pleitez MD Other Provider Active Dr. Cristian Blunt MD Other Provider Active Dr. Hussain Zapata MD Other Provider Active Dr. Tarik Monterroso MD Other Provider Active Dr. Kaitlin Mckeon MD Other Provider Active Dr. Lamont Venegas MD Other Provider Active Team Status: Active Member Role Status Dates Dr. Moris Clement MD Primary Care Provider Acti ve Dr. Marito Faustin , DO Admit Provider, R eferring Provider, Other Provider Active Dr. Craig Ellis , DO Other Provider Active Dr. Shereen Cook MD Other Provider Active Dr. Thalia Maciel MD Other Provider Active Dr. Georgette Wen MD Other Provider Active Dr. Charanjit Snyder , DO Other Provider Active Dr. Charanjit Ford MD Other Provider Active Du Gavin MD Other Provider Active Dr. Fitz Dela Cruz , DO Other Provider Active Dr. Saige Tellez , DO Other Provider Active Dr. Diony Henderson , DO Other Provider Active Dr. Esmer Pleitez MD Other Provider Active Dr. Cristian Blunt MD Other Provider Active Dr. Tarik Monterroso MD Other Provider Active Dr. Kaitlin Mckeon MD Other Provider Active Dr. Lamont Venegas MD Other Provider Active Dr. Hussain Zapata MD Attending Provider, Other Provi ute Active Team Status: Active Member Role Status Dates Dr. Moris Clement MD Primary Care Provider Acti ve Dr. Marito Faustin , DO Admit Provider, A ttending Provider, Referring Provider, Other Provider Active Dr. Craig Ellis , DO Other Provider Active Dr. Shereen Cook MD Other Provider Active Dr. Thalia Maciel MD Other Provider Active Dr. Georgette Wen MD Other Provider Active Dr. Charanjit Snyder , DO Other Provider Active Dr. Charanjit Ford MD Other Provider Active Du Gavin MD Other Provider Active Dr. Fitz Dela Cruz , DO Other Provider Active Dr. Saige Tellez , DO Other Provider Active Dr. Diony Henderson , DO Other Provider Active Dr. Esmer Pleitez MD Other Provider Active Dr. Cristian Blunt MD Other Provider Active Dr. Tarik Monterroso MD Other Provider Active Dr. Kaitlin Mckeon MD Other Provider Active Dr. Lamont Venegas MD Other Provider Active Dr. Hussain Zapata MD Other Provider Active Team Status: Active Member Role Status Dates Dr. Moris Clement MD Primary Care Provider Acti ve Dr. Marito Faustin , DO Admit Provider, R eferring Provider, Other Provider Active Dr. Craig Ellis , DO Other Provider Active Dr. Shereen Cook MD Other Provider Active Dr. Thalia Maciel MD Other Provider Active Dr. Georgette Wen MD Other Provider Active Dr. Charanjit Snyder , DO Other Provider Active Dr. Charanjit Ford MD Other Provider Active Du Gavin MD Other Provider Active Dr. Fitz Dela Cruz , DO Other Provider Active Dr. Saige Tellez , DO Other Provider Active Dr. Diony Henderson , DO Other Provider Active Dr. Esmer Pleitez MD Other Provider Active Dr. Cristian Blunt MD Other Provider Active Dr. Tarik Monterroso MD Other Provider Active Dr. Kaitlin Mckeon MD Other Provider Active Dr. Lamont Venegas MD Other Provider Active Dr. Hussain Zapata MD Other Provider Active Dr. Fitz Gutierrez MD Attending Provider Active Team Status: Inactive Member Role Status Dates Dr. Marito Faustin , DO Attending Provider, Referring P rovider Active Dr. Moris Clement MD Primary Care Provider Acti ve Team Status: Inactive Member Role Status Dates Dr. Moris Clement MD Primary Care Provider Acti ve Dr. Marito Faustin , DO Admit Provider, A ttending Provider, Referring Provider Active Dr. Craig Ellis , DO Other Provider Active Dr. Shereen Cook MD Other Provider Active Dr. Thalia Maciel MD Other Provider Active Dr. Georgette Wen MD Other Provider Active Dr. Charanjit Snyder , DO Other Provider Active Dr. Charanjit Ford MD Other Provider Active Du Gavin MD Other Provider Active Dr. Fitz Dela Cruz , DO Other Provider Active Dr. Saige Tellez , DO Other Provider Active Dr. Diony Henderson , DO Other Provider Active Dr. Esmer Pleitez MD Other Provider Active Dr. Cristian Blunt MD Other Provider Active Dr. Tarik Monterroso MD Other Provider Active Dr. Kaitlin Mckeon MD Other Provider Active Dr. Lamont Venegas MD Other Provider Active Dr. Hussain Zapata MD Other Provider Active Team Status: Active Member Role Status Dates Dr. Moris Clement MD Primary Care Provider Acti ve Team Status: Inactive Member Role Status Dates Dr. Moris Clement MD Primary Care Provider Acti ve Start: April 19, 2024 End: April 19, 2024 Dr. Scottie Camacho MD Attending Provider Active Sta rt: April 19, 2024 End: April 19, 2024 Dr. Scottie Camacho MD Emergency Provider Active Sta rt: April 19, 2024 End: April 19, 2024 Team Status: Inactive Member Role Status Dates Dr. Moris Clement MD Primary Care Provider Acti ve Start: April 28, 2024 End: April 28, 2024 Dr. Moris Clement MD Referring Provider Active Start: April 28, 2024 End: April 28, 2024 Dr. Joss Lei MD Attending Provider Active Start: April 28, 2024 End: April 28, 2024 Team Status: Inactive Member Role Status Dates Dr. Moris Clement MD Primary Care Provider Acti ve Start: April 28, 2024 End: April 28, 2024 Dr. Charles Anthony MD Attending Provider Active S tart: April 28, 2024 End: April 28, 2024 Team Status: Inactive Member Role Status Dates Dr. Moris Clement MD Primary Care Provider Acti ve Start: June 11, 2024 End: June 11, 2024 Dr. Moris Clement MD Referring Provider Active Start: June 11, 2024 End: June 11, 2024 Dr. Edgardo Jennings MD Attending Provider Active Sta rt: June 11, 2024 End: June 11, 2024 Team Status: Inactive Member Role Status Dates Dr. Moris Clement MD Primary Care Provider Acti ve Start: June 11, 2024 End: June 11, 2024 Dr. Edgardo Jennings MD Attending Provider Active Sta rt: June 11, 2024 End: June 11, 2024 Dr. Edgardo Jennings MD Referring Provider Active Sta rt: June 11, 2024 End: June 11, 2024 Team Status: Inactive Member Role Status Dates Dr. Moris Clement MD Primary Care Provider Acti ve Start: June 16, 2024 End: June 16, 2024 Dr. Edgardo Jennings MD Attending Provider Active Sta rt: June 16, 2024 End: June 16, 2024 Dr. Edgardo Jennings MD Referring Provider Active Sta rt: June 16, 2024 End: June 16, 2024 Team Status: Inactive Member Role Status Dates Dr. Moris Clement MD Primary Care Provider Acti ve Start: July 07, 2024 End: July 07, 2024 Dr. Edgardo Jennings MD Attending Provider Active Sta rt: July 07, 2024 End: July 07, 2024 Dr. Edgardo Jennings MD Referring Provider Active Sta rt: July 07, 2024 End: July 07, 2024 Team Status: Inactive Member Role Status Dates Dr. Moris Clement MD Primary Care Provider Acti ve Start: July 24, 2024 End: July 24, 2024 Dr. Edgardo Jennings MD Attending Provider Active Sta rt: July 24, 2024 End: July 24, 2024 Dr. Edgardo Jennings MD Referring Provider Active Sta rt: July 24, 2024 End: July 24, 2024 Team Status: Active Member Role/Relationship Status Dates Dr. Moris Clement MD Primary Care Provider Acti ve Team Status: Inactive Member Role/Relationship Status Dates Dr. Moris Clement MD Primary Care Provider Acti ve Start: September 11, 2024 End: September 11, 2024 Dr. Moris Clement MD Attending Provider Active Start: September 11, 2024 End: September 11, 2024 Dr. Moris Clement MD Referring Provider Active Start: September 11, 2024 End: September 11, 2024 Team Status: Active Member Role/Relationship Status Dates Dr. Moris Clement MD Primary Care Provider Acti ve Start: December 18, 2024 Dr. Moris Clement MD Referring Provider Active Start: December 18, 2024 Dr. Joss Lei MD Attending Provider Active Start: December 18, 2024 Team Status: Inactive Member Role/Relationship Status Dates Dr. Moris Clement MD Primary Care Provider Acti ve Start: December 18, 2024 End: December 18, 2024 Dr. Charles Anthony MD Attending Provider Active S tart: December 18, 2024 End: December 18, 2024 Team Status: Inactive Member Role/Relationship Status Dates Dr. Moris Clement MD Primary Care Provider Acti ve Start: December 18, 2024 End: December 18, 2024 Dr. Moris Clement MD Referring Provider Active Start: December 18, 2024 End: December 18, 2024 Dr. Joss Lei MD Attending Provider Active Start: December 18, 2024 End: December 18, 2024 Team Status: Inactive Member Role/Relationship Status Dates Dr. Moris Clement MD Primary Care Provider Acti ve Start: December 18, 2024 End: December 18, 2024 Dr. Moris Clement MD Referring Provider Active Start: December 18, 2024 End: December 18, 2024 Dr. Joss Lei MD Attending Provider Active Start: December 18, 2024 End: December 18, 2024 Team Status: Inactive Member Role/Relationship Status Dates Dr. Moris Clement MD Primary Care Provider Acti ve Start: December 18, 2024 End: December 18, 2024 Dr. Charles Anthony MD Attending Provider Active S tart: December 18, 2024 End: December 18, 2024 Team Status: Inactive Member Role/Relationship Status Dates Dr. Moris Clement MD Primary Care Provider Acti ve Start: January 23, 2025 End: January 23, 2025 Dr. Moris Clement MD Referring Provider Active Start: January 23, 2025 End: January 23, 2025 WILLIAM Greenfield Attending Provider Active Start: January 23, 2025 End: January 23, 2025 Goals (unrecognized section and content) Goals may be documented in a n alternate section INFORMATION SOURCE (unrecogn ized section and content) DATE CREATED AUTHOR 07/04/2022 [facility] ([place] DATE CREATED AUTHOR AUTHOR'S ORGANIZ ATION 12/21/2024 [facility] FOR RECORDS PERTAINING TO PATIENTS WHO ARE [...] BE BASED ON THE PRIMARY CLINICAL RECORDS. [employer] [facility]. provides no warranty or guarantee of the accuracy or completeness of information in this document.
== END | disposition home or self-care (01) ==
LOC: LABSPEC 01-25 07:29
PROVIDERS: PCP Family Medicine; Visit Provider Nurse Practitioner Family
DX: M54.9 Dorsalgia, unspecified (principal)
CPT/HCPCS: 87077; 87086; 87088; 87186

== ENCOUNTER → 2025-03-09 | Outpatient (CLI) | payer BC, SELFPAY ==
--- OUTSIDE RECORDS SUMMARY | 2025-03-09 08:34 | XMS RPT_ITS | CCD ---
Author Organization [facility] CliniSytn Care Team Providers Care Spud Driller Name Role Phone PHYSICIAN, NOT RECORDED Primary [...] Admit Provider Dr. Hussain Zapata Attending Provider Dr. Hussain Zapata Other Provider PHYSICIAN, NOT RECORDED Primary Care ABDIAS Mccarty MD Attending Unavail able Dr. Bentley Clement Primary Care Provider Dr. Bentley Clement Referring Provider Dr. Marito Faustin Attending Provider Dr. Bentley Clement Primary Care Provider Dr. Bentley Clement Referring Provider Dr. Marito Faustin Attending Provider Dr. Moris Clement Primary Care Provider [phone] Dr. Moris Clement Referring Provider Dr. Marito Faustin Attending Provider Dr. Albert Fountain Attending Provider Dr. Marito Faustin Referring Provider Ramin, Dr. Devi Admit Provider Ramin, Dr. Devi Other Provider Dr. Craig Ellis Other Provider Dr. Shereen Cook Other Provider Dr. Thalia Maciel Other Provider Unavailable Dr. Georgette Wen Other Provider Dr. Charanjit Snyder Other Provider Unavailabl Dr. Charanjit Kent Other Provider Unavailable MD Du Gavin Other Provider Dr. Fitz Dela Cruz Other Provider Dr. Saige Tellez Other Provider Dr. Diony Henderson Other Provider Dr. Esmer Pleitez Other Provider Dr. Cristian Blunt Other Provider Dr. Tarik Monterroso Other Provider Dr. Kaitlin Mckeon Other Provider Dr. Lamont Venegas Other Provider 1([facility])[phone] Hussain Zapata Other Provider 1([facility])[phone] Fitz Gutierrez Attending Provider Dr. Fitz Dela Cruz Attending Provider Dr. Hussain Zapata Attending Provider Dr. Moris Clement MD Primary Care Provider Doug BISHOP, Dr. Rubin Attending Provider Dr. Scottie Camacho MD Emergency Provider Dr. Moris Clement MD Referring Provider Quique BISHOP, Dr. Coreas Attending Provider Gabrielle BISHOP, Dr. Soto Attending Provider King EDNA, Dr. Reynoso Attending Provider King EDNA, Dr. Reynoso Referring Provider Racquel BISHOP, Dr. Subramanian Primary Care Provider Racquel BISHOP, Dr. Subramanian Attending Provider Racquel BISHOP, Dr. Subramanian Referring Provider Quique BISHOP, Dr. Coreas Attending Provider Gabrielle BISHOP, Dr. Soto Attending Provider Racquel BISHOP, Dr. Subramanian Primary Care Provider Racquel BISHOP, Dr. Subramanian Referring Provider Tim CLAIM TECHNICIAN-C, Bri Attending Provider Racquel BISHOP, Dr. Subramanian Primary Care Physicia n Quique BISHOP, Dr. Coreas Attending Physician Gabrielle BISHOP, Dr. Soto Attending Physician Tim CLAIM TECHNICIAN-C, Bri Attending Physician Ranney, Christopher Primary Care Unavailable Scottie Camacho Attending Unavailable Ranney, Christopher Primary Care Unavailable Dick, Edgardo Attending Unavailable Dick, Edgardo Referring Unavailable Ranney, Christopher Attending Unavailable Ranney, Christopher Referring Unavailable Ranney, Christopher Primary Care Unavailable Dick, Edgardo Attending Unavailable Dick, Edgardo Referring Unavailable Ranney, Christopher Primary Care Unavailable Ranney, Christopher Primary Care Unavailable Dick, Edgardo Attending Unavailable Ranney, Christopher Referring Unavailable Joss Lei Attending Unavailable Ranney, Christopher Referring Unavailable Ranney, Christopher Primary Care Unavailable Charles Anthony Attending Unavailable Ranney, Christopher Primary Care Unavailable Bri Dumont Attending Unavailable Ranney, Christopher Referring Unavailable Ranney, Christopher Primary Care Unavailable Ranney, Christopher Primary Care Unavailable Joss Lei Attending Unavailable Ranney, Christopher Referring Unavailable Ranney, Christopher Primary Care Unavailable Charles Anthony Attending Unavailable Bri Dumont Attending Unavailable Moris Clement Primary Care Unavailable Edgardo Jennings Referring Unavailable Edgardo Jennings Attending Unavailable Moris Clement Primary Care Unavailable Moris Clement Attending Unavailable Moris Clement Referring Unavailable Moris Clement Primary Care Unavailable Edgardo Jennings Attending Unavailable Edgardo Jennings Referring Unavailable Moris Clement Primary Care Unavailable Allergies Allergy Classification Reported Allergen(s) Allergy Type Date of Onset Reaction(s) Facility (6 sources) oxyCODONE Drug Allergy 4 Anaphylaxis, Other [facility] Comment on above: Sweating, Shaking un controllable and vomiting (1 source) oxyCODONE Drug Allergy 5 [facility] Repository Medications Current Medications Medication Drug Class(es) Dates Sig (Normalized) Sig (Original) calcium acetate 667 mg oral tablet (5 sources) Start: 05-25-2024 take 1 tablet by mouth once Calcium Acetate 667 mg tablet Active 667 mg PO ONCE May 25, 2024 1:00am Complies with drug therapy gabapentin 800 mg oral tablet (20 sources) Anti-epileptic Agent Start: 05-23-2023 take 1 tablet by mouth three times daily Gabapentin 800 mg tablet Active 800 mg PO THREE TIMES A DAY May 23, 2023 1:00am PAIN Complies with drug therapy Start: 03-27-2022 End: 09-26-2022 take 1 tablet by mouth three times daily Gabapentin 800 mg tablet Discontinued 800 mg PO THREE TIMES A DAY 90 30 0 August 27, 2022 12:00am September 25, 2022 12:00am September 26, 2022 12:04am nerve pain Start: 03-05-2022 take 2500 mg by mout h once daily Gabapentin Active 2500 MG PO DAILY March 05, 2022 12:00am Ginkgo Biloba [place] Extract (5 sources) Start: 05-25-2024 take 1 tablet by mouth twice daily Ginkgo Biloba [place] Extract 60 mg tablet Active 60 mg PO TWICE A DAY May 25, 2024 1:00am give with meal/snack Complies with drug therapy Start: 05-25-2024 take 1 tablet by cameron th twice daily Ginkgo Biloba [place] Extract 60 mg tablet Active 60 mg PO TWICE A DAY May 25, 2024 1:00am give with meal/snack methocarbamol 500 mg oral tablet (9 sources) Muscle Relaxant Start: 11-12-2024 take 1 tablet by mouth three times daily as needed for pain Methocarbamol 500 mg tablet Active 500 mg PO THREE TIMES A DAY as needed for pain/spasms 30 0 November 12, 2024 12:00am Complies with drug therapy Start: 04-20-2024 End: 06-11-2024 take 1 tablet by mouth three times daily as needed for pain Methocarbamol 500 mg tablet Discontinued 500 mg PO THREE TIMES A DAY as needed for pain/spasms 30 0 April 20, 2024 1:00am June 11, 2024 10:06am Multivitamin (Daily Multi-Vitamin) tablet (6 sources) Start: 08-26-2023 Multivitamin ( Daily Multi-Vitamin) tablet Active 1 {tbl} PO DAILY August 26, 2023 12:00am SUPPLEMENT Complies with drug therapy Start: 08-26-2023 Multivitamin ( Daily Multi-Vitamin) tablet Active 1 {tbl} PO DAILY August 26, 2023 12:00am SUPPLEMENT Start: 08-26-2023 Multivitamin ( Daily Multi-Vitamin) tablet Active 1 {tbl} PO DAILY August 26, 2023 12:00am Start: 08-26-2023 take 1 tablet by cameron th once daily Multivitamin (Daily Multi-Vitamin) tablet Active 1 TABLET PO DAILY August 26, 2023 12:00am [place] 1-Beo-Qhi-Fish Oil (10 sources) Start: 04-30-2016 [place] 3-Dha-Ep a-Fish Oil Active 1 EACH PO NEEDED April 30, 2016 1:00am Start: 04-30-2016 [place] 3-Dha-Ep a-Fish Oil Active 1 EACH PO DAILY April 30, 2016 12:00am Start: 04-30-2016 [place] 3-Dha-Ep a-Fish Oil Active 1 EACH PO DAILY April 30, 2016 1:00am potassium gluconate 2.5 meq oral tablet (3 sources) Start: 04-30-2016 take 1 tablet by mouth once daily Potassium (Otc) (Potassium Otc) 99 MG tablet Active 99 MG PO DAILY April 30, 2016 1:00am tumeric (5 sources) Start: 05-25-2024 tumeric Active PO May 25, 2024 1:00am Complies with drug therapy Start: 05-25-2024 tumeric Active PO May 25, 2024 1:00am Wypqqsb-Tekj-Bgjzk-Oreg-Capr yl (5 sources) Start: 03-27-2022 take 1 capsule by mouth once daily Jmzsqjx-Xgye-Quwyx-Oreg-Capryl Active 1 CAP PO DAILY March 27, 2022 1:00am Start: 03-27-2022 take 1 capsule by mouth once daily Zdcllhm-Rudq-Tssdg-Oreg-Capryl Active 1 CAP PO DAILY March 27, 2022 12:00am Heeeqnbd-Hjjf-Aqgif-Oreg-Cap ry (2 sources) Start: 03-27-2022 take 1 capsule by mouth once daily Alsbzcha-Vpgs-Wpeyq-Oreg-Capry Active 1 CAP PO DAILY March 27, 2022 1:00am Start: 03-27-2022 take 1 capsule by mouth once daily Onciiymv-Ouww-Dftni-Oreg-Capry Active 1 CAP PO DAILY March 27, 2022 12:00am Vitamin B Complex (3 sources) Start: 07-13-2013 Vitamin B Comp ann marie Active 1 EACH PO DAILY July 13, 2013 1:00am 100 ml zoledronic acid 0.05 mg/ml injection (5 sources) Bisphosphonate Start: 06-18-2024 Zoledronic Ibjl-Vegvkpfg-Ecrlc 5 mg/100 mL piggyback Active 1 NMA .Route ONCE 100 0 June 18, 2024 1:00am infuse over 20 minutes. Complies with drug therapy Completed/Discontinued Medications Medication Drug Class(es) Dates Sig (Normalized) Sig (Original) acetaminophen 325 mg / HYDROcodone bitartrate 5 mg oral tablet (20 sources) Opioid Agonist Start: 04-19-2024 End: 04-28-2024 [...] 14 2 0 August 02, 2021 March 052 2:50pm Back pain Dorsalgia, unspecified Start: 08-02-2021 [...] 2022 August 27, 2022 2:30pm BEET ROOT (12 sources) Start: 03-27-2022 End: 06-20-2023 BEET ROOT [...] 2022 12:00am cholecalciferol 0.25 mg oral capsule (7 sources) Vitamin D Start: 06-20-2023 End: 06-11-2024 [...] as needed for muscle spasm 30 10 0 October 31, 2023 12:00am November 09, 2023 [...] A DAY as needed for Muscle Spasm 20 0 August 02, 2021 12:00am March 05, 2022 2:50pm dexamethasone 1 mg oral tablet (5 sources) Corticosteroid Start: 06-11-2024 End: 01-23-2025 take 10 tablets by mouth once in the evening Dexamethasone 1 mg tablet Discontinued 1 mg PO .once 10 pm 1 0 June 11, 2024 1:00am January 23, 2025 11:58am HYDROmorphone hydrochloride 4 mg oral tablet (11 sources) Opioid Agonist Start: 09-25-2023 End: 10-05-2023 [...] Arthrodesis status methylPREDNISolone 4 mg oral tablet (5 sources) Corticosteroid Start: 10-09-2023 End: 10-15-2023 take 1 tablet by mouth once Methylprednisolone (Medrol (Devno)) 4 mg tablets,dose pack Discontinued 0 PO per package directions 21 6 0 October 09, 2023 12:00am October 14, 2023 12:00am October 15, 2023 12:04am PO PER PKG DIR naproxen 500 mg oral tablet (20 sources) Nonsteroidal Anti-inflammatory Drug Start: 04-19-2024 End: 04-28-2024 take 1 tablet by mouth twice daily Naproxen 500 mg tablet Discontinued 500 mg PO TWICE A DAY 14 0 April 19, 2024 1:00am April 28, 2024 10:19am Start: 08-02-2021 End: 03-05-2022 take 1 tablet by mouth twice daily Naproxen 500 MG tablet Discontinued 500 mg PO TWICE A DAY August 02, 2021 12:00am March 05, 2022 2:50pm nitrofurantoin, macrocrystals 25 mg / nitrofurantoin, monohydrate 75 mg oral capsule (1 source) Nitrofuran Antibacterial Start: 01-27-2025 End: 02-01-2025 take 1 capsule by mouth every twelve hours at mealtime Nitrofurantoin Monohyd/M-Cryst (Macrobid) 100 mg capsule Discontinued 100 mg PO Q12H 10 5 0 January 27, 2025 12:00am January 31, 2025 12:00am February 01, 2025 12:07am must administer with a meal/food [place] 7-Ldh-Aiz-Fish Oil 1 EACH capsule (5 sources) Start: 04-30-2016 End: 06-11-2024 [place] 9-Trf-Vpc-Fish Oil 1 EACH capsule Discontinued 1 NMA PO NEEDED April 30, 2016 1:00am June 11, 2024 10:06am SUPPLEMENT Start: 04-30-2016 End: 06-11-2024 [place] 8-Prn-Sjg-Fish Oil 1 E ACH capsule Discontinued 1 NMA PO NEEDED April 30, 2016 1:00am June 11, 2024 10:06am omeprazole 40 mg delayed release oral capsule (1 source) Proton Pump Inhibitor Start: 12-27-2023 End: 06-11-2024 take 1 capsule by mouth once daily Omeprazole 40 mg capsule,delayed release(DR/EC) Discontinued 40 mg PO daily December 27, 2023 12:00am June 11, 2024 10:07am Omeprazole 40 mg capsule,delayed release(DR/EC) (4 sources) Start: 12-27-2023 End: 06-11-2024 take 1 capsule by mouth once daily Omeprazole 40 mg capsule,delayed release(DR/EC) Discontinued 40 mg PO daily December 27, 2023 12:00am June 11, 2024 10:07am Vgezxrcp-Ydeo-Ngu di-Edja-Vvzix 100 mg-150 mg- 50 mg-150 mg Capsule (5 sources) Start: 03-27-2022 End: 06-11-2024 take 1 capsule by mouth once daily as needed Mbtllbdo-Aemo-Bmqww-O reg-Capry 100 mg-150 mg- 50 mg-150 mg Capsule Discontinued 1 NMA PO DAILY as needed for SUPPLEMENT March 27, 2022 1:00am June 11, 2024 10:07am Problems Active Problems Problem Classification Problem Date Documented Da te Episodic/Chronic Genitourinary symptoms and ill-defined conditions (4 sources) Increased frequency of urination; Translations: [Frequency of micturition] 01-23-2025 Episodic Heart valve disorders (1 source) Nonrheumatic mitral (valve) prolapse; Translations: [Nonrheumatic mitral (valve) prolapse] Onset: 03-04-2025 Chronic Nausea and vomiting (7 sources) Nausea; Translations: [Nausea] 09-09-2023 Episodic Nutritional deficiencies (1 source) Vitamin D deficiency, unspecified; Translations: [Vitamin D deficiency, unspecified] Onset: 07-22-2024 Chronic Open wounds of extremities (1 source) Laceration of left thumb; Translations: [Laceration without foreign body of left thumb without damage to nail, initial encounter] Onset: 09-20-2021 Episodic Osteoarthritis (6 sources) Arthritis of hip; Translations: [Bilateral primary osteoarthritis of hip] 12-18-2024 Chronic Osteoporosis (9 sources) Osteoporosis; Translations: [Age-related osteoporosis without current pathological fracture] 06-19-2024 Chronic Other bone disease and musculoskeletal deformities (1 source) Osteopenia; Translations: [Other specified disorders of bone density and structure, unspecified site] 04-28-2024 Episodic Other congenital anomalies (6 sources) Transitional vertebra; 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, not associated with scoliosis] 12-18-2024 Chronic Other connective tissue disease (9 sources) History of lumbar fusion; Translations: [Arthrodesis status] 09-11-2023 Episodic Other fractures (7 sources) Compression fracture of lumbar spine; Translations: [Wedge compression fracture of third lumbar vertebra, initial encounter for closed fracture] 04-28-2024 Episodic Other injuries and conditions due to external causes (15 sources) Superficial laceration; Translations: [Other injury of unspecified body region, initial encounter] 08-07-2018 Episodic Residual codes; unclassified (11 sources) H/O Spinal surgery; Translations: [Other specified postprocedural states] 05-02-2022 Episodic Residual codes; unclassified (7 sources) Other specified postprocedural states; Translations: [Other postprocedural status] 05-02-2022 Episodic Septicemia (except in labor) (15 sources) Sepsis; Translations: [Sepsis, unspecified organism] 08-06-2018 Episodic Spondylosis; intervertebral disc disorders; other back problems (20 sources) Displacement of lumbar intervertebral disc without myelopathy; Translations: [Other intervertebral disc displacement, lumbar region] Chronic Spondylosis; intervertebral disc disorders; other back problems (20 sources) Backache; Translations: [Dorsalgia, unspecified] Onset: 02-09-2025 03-05-2022 Episodic Unclassified (1 source) M85.80 - Other specified disorders of bone density and structure, unspecified site,S32.030A - Wedge compression fracture of third lumbar vertebra, initial encounter for closed fracture Unclassified (1 source) Low back pain, unspecified; Translations: [Low back pain, unspecified] Onset: 05-21-2024 Urinary tract infections (15 sources) Pyelonephritis; Translations: [Tubulo-interstitial nephritis, not specified as acute or chronic] 08-06-2018 Episodic Past or Other Problems Problem Classification Problem Date Documented Da te Episodic/Chronic Other bone disease and musculoskeletal deformities (1 source) Other specified disorders of bone density and structure, unspecified site; Translations: [Other specified disorders of bone density and structure, unspecified site] Onset: 06-11-2024 Episodic Other connective tissue disease (1 source) [...] Test Name Value Interpretation Reference Range Facility Urine Cultureon 01-27-2025 [facility] Escherichia coli [place] Count 25,000-50,000 Escherichia coli: REACTION Ampicillin Islt NORIS 4 Ampicillin+Sulbac Islt NORIS <=2 S Cefepime Islt NORIS <=0.12 S cefTRIAXone Islt NORIS <=0.25 S Ciprofloxacin Islt NORIS <=0.06 S B-Lactamase Extended Susc Islt NEG Gentamicin Islt NORIS <=1 S levoFLOXacin Islt NORIS <=0.12 S Meropenem Islt NORIS <=0.25 S Nitrofurantoin Islt NORIS <=16 S Pip+Tazo Islt NORIS <=4 S TMP SMX Islt NORIS <=20 S Normal [facility] Comment on above: Performed By: #### M 100.2200 #### [facility] [address] [place] [address], [id number] Urine cultureOrdered By: Kiran Dumont on 01-25-2025 Bacteria identified Cx Nom (U) Escherichia coli Abnormal [facility] - Chemistry and C hemistry - challengeOrdered By: Bri Dumont on 01-23-2025 Bilirubin Ql (U) Negative [facility] Glucose Ql (U) Negative [facility] Ketones Ql (U) Negative [facility] pH (U) 6.0 [pH] [facility] Specific gravity (U) [Rel density] 1.020 [facility] Urobilinogen (U) [Mass/Vol] Negative [facility] - Hematology and Cell countsOrdered By: Bri Dumont on 01-23-2025 Hemoglobin Ql (U) Trace [facility] - Specimen inform ationOrdered By: Bri Dumont on 01-23-2025 Clarity (U) Clear [facility] Color (U) Dk Yellow [facility] - UrinalysisOrder ed By: Bri Dumont on 01-23-2025 Nitrite Ql (U) Negative [facility] Protein Ql (U) Trace [facility] No Panel InformationOrdered By: Bri Dumont on 01-23-2025 Urine Leukocytes Positive [facility] Urine Non-Hemolyzed Blood Negative [facility] Urgent Care Visit Reporton 0 01-23-2025 Urgent Care Visit Report [facility] [address], [address] [place], [place] [id number] OFFICE VISIT Date of Service: 01/23/25 MR#: [id number] Acct: [id number] Name: JACKLYN WILSON Rep #: [id number] : 1970 Provider: WILLIAM Dumont Age/Sex: 54/F Location: [facility] [place] Status: Signed Intake Vital Signs 12/18/24 15:05 01/23/25 11:39 Height 5 ft 2 in 5 ft 2 in Weight: 113 lb BMI 20.6 Intake Visit Reasons: CONCERN FOR UTI Chief Complaint: dysuria 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: No Is patient in pain?: No Allergies oxycodone Adverse Reaction (Severe, Verified 01/23/25 12:15) Other Medications ???Medication ???Instructions ???Recorded ???Confirmed ???Type gabapentin 800 mg tablet 800 mg PO TID PAIN 05/23/23 History multivitamin (Daily Multi-Vitamin 1 tab PO DAILY SUPPLEMENT 4 01/23/25 History tablet) calcium acetate 667 mg tablet 667 mg PO ONCE 05/25/24 01/23/25 H istory ginkgo biloba leaf extract 60 mg 60 mg PO BID 05/25/24 01/23/25 His tory tablet tumeric PO 05/25/24 01/23/25 History zoledronic acid 5 mg/100 mL in 1 ea .Route ONCE #100 mL 06/18/24 01/23/25 Rx mannitol 5 %-water intravenous piggybck methocarbamol 500 mg tablet 500 mg PO TID PRN pain/spasms #30 11/12/24 01/23/25 Rx tabs Is last menstrual period known: No Post menopausal: Yes Patient : No Have you fallen in the past year?: No Nurse's Note: back pain, urinary odor, fatigue x 10 days. denies abd pain, fever, blood in urine. concern for [facility] History Bilateral hip joint arthritis Transitional [...] Orientation: alert and oriented x3 Resp Effort Inspection: normal respiratory effort, able [...] Grant on 01/23/25 12:25 Off Ur Spec [place] 1.020 Last Edit by Micaela Grant on 01/23/25 12:25 Office Urine pH 6.0 Last Edit by Miceala Grant on 01/23/25 12:25 Office Urine Bilirubin Negative Last Edit by Micaela Grant on 01/23/25 12:25 Office Urine Urobilinogen Negative Last Edit by Micaela Hatch (more content not included)... Normal [facility] L/S Spine Min 4 Views L/S Spine Min 4 Views [facility] [address] [place], [place] [address] (377) L/S Spine Min 4 Views MR#: [id number] Acct: [id number] Name: JACKLYN WILSON Rep #: [id number] : 1970 F 54 From: Donato Torres MD PCP: Dr. Moris Clement MD Status: DEP AMB Study: L/S Spine Min 4 Views Date of Exam: 12/18/24 Exam# [id number] Ordering Dr: Syl Liu PROCEDURE: L/S SPINE MIN 4 VIEWS 12/18/2024 REASON FOR EXAM: BACK PAIN, RECENT FALL DOWN STAIRS TECHNIQUE: L/S SPINE MIN 4 VIEWS COMPARISON: 04/28/2024 FINDINGS: Transitional anatomy. Vdlm-zwptzpk-zsnf-right hip osteoarthritis. Status post anterior and posterior fusion, L4-L5. Anterior wedge compression deformity, L3, small interval worsening. No abnormal motion with flexion/extension. RAD/L/S Spine Min 4 Views IMPRESSION: Small interval worsening in L3 anterior wedge compression deformity. Reading Location: [facility]-2 CC: NEVILLE Wilkinson; Dr. 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 Joss Lei MD Age/Sex: 54/F Location: [facility] [place] Status: Signed Intake Vital Signs 06/11/24 09:02 [...] you fallen in the past year?: Yes [facility] Medical History (Updated 12/18/24 @ 15:44 by [...] by me, Dr. Joss Lei MD 12/18/24 1383. Part of today???s visit was documented by [...] present, potentia (more content not included)... Normal [facility] SCRN MAMM (CAD)W/ANNETTA BILATo n 09-11-2024 SCRN MAMM (CAD)W/ANNETTA BILAT [facility] [address] [place] [address] SCRN MAMM (CAD)W/ANNETTA BILAT MR#: [id number] Acct: [id number] Name: JACKLYN WILSON Rep #: [id number] : 1970 F 54 From: Rocío Archuleta PCP: Dr. Moris Clement MD Status: REG CLI Study: SCRN MAMM (CAD)W/ANNETTA BILAT Date of Exam: 08/19 10/11 Exam# [id number] Ordering Dr: Moris Clement EXAM: SCRN MAMM [...] be mailed to the patient. Reading Location: [facility] CC: Dr. Moris Clement MD Washing Machine Mechanic: Signed Normal [facility] Absolute neutrophil countOrd ered By: Edgardo Jennings on 07-24-2024 Neutrophils (Bld) [#/Vol] 7.1 10*3/uL 2.0-7.7 [facility] Basophil percentageOrdered B y: Edgardo Jennings on 07-24-2024 Basophils/100 WBC (Bld) 0.5 % 0-1 [facility] CBC W/Diff, Automatedon 03-0 Absolute Lymph 3.21 X10 3/uL Normal 0.83-4.51 [facility] Comment on above: Performed By: #### M 100.0 #### [facility] [address] [facility] [place], [address] Absolute Neut 7.1 X10 3/uL Normal 2.0-7.7 [facility] Comment on above: Performed By: #### M 100.2200 #### [facility] [address] [place], [address] Basophils/100 WBC (Bld) 0.5 % Normal 0-1 [facility] Comment on above: Performed By: #### M 100.2200 #### [facility] [address] [facility] [place], [address] Eosinophils/100 WBC (Bld) 0.8 % Normal 0-5 [facility] Comment on above: Performed By: #### M 100.2200 #### [facility] [address] [place], [address] Erythrocyte distribution width (RBC) [Ratio] 13.3 % Normal 11.6-14.6 [facility] Comment on above: Performed By: #### M 100.2200 #### [facility] [address] [place], [address] Hematocrit (Bld) [Volume fraction] 37.2 % Normal 37-47 [facility] Comment on above: Performed By: #### M 100.2200 #### [facility] [address] [place], [address] Hemoglobin (Bld) [Mass/Vol] 12.5 g/dL Normal 12.0-15.0 [facility] Comment on above: Performed By: #### M 100.2200 #### [facility] [address] [place], [address] IG% 0.400 Normal 0.0-0.9 [facility] Comment on above: Result Comment: IG% - Immature Granulocytes (promyelocytes, myelocytes and metamyelocytes) > 1% indicates that a LEFT SHIFT is Present. Performed By: #### M 100.2200 #### [facility] [address] [place], [address] Lymphocytes/100 WBC (Bld) 28.2 % Normal 19-41 [facility] Comment on above: Performed By: #### M 100.2200 #### [facility] [address] [place], [address] MCH (RBC) [Entitic mass] 32.7 pg High 27.0-32.0 [facility] Comment on above: Performed By: #### M 100.2200 #### [facility] [address] [place], [address] MCHC (RBC) [Mass/Vol] 33.6 g/dL Normal 32-36 [facility] Comment on above: Performed By: #### M 100.2200 #### [facility] [address] [place], [address] MCV (RBC) [Entitic vol] 97.4 fL Normal 81-99 [facility] Comment on above: Performed By: #### M 100.2200 #### [facility] [address] [place], [address] Monocytes/100 WBC (Bld) 7.8 % Normal 0-10 [facility] Comment on above: Performed By: #### M 100.2200 #### [facility] [address] [place], [address] Neutrophils/100 WBC (Bld) 62.3 % Normal 47-70 [facility] Comment on above: Performed By: #### M 100.2200 #### [facility] [address] [place], [address] Nucleated RBC (Bld) [#/Vol] 0 10*3/uL Normal 0-5 [facility] Comment on above: Performed By: #### M 100.2200 #### [facility] [address] [place], [address] Platelet mean volume (Bld) [Entitic vol] 8.7 fL Normal 6.2-12.0 [facility] Comment on above: Performed By: #### M 100.2200 #### [facility] [address] [place], [address] Platelets (Bld) [#/Vol] 330 10*3/uL Normal 150-450 [facility] Comment on above: Performed By: #### M 100.2200 #### [facility] [address] [place], [address] RBC (Bld) [#/Vol] 3.82 10*6/uL Low 4.2-5.4 [facility] Comment on above: Performed By: #### M 100.2200 #### [facility] [address] [place], [address] RDW SD 47.9 fl High 35.1-43.9 [facility] Comment on above: Performed By: #### M 100.2200 #### [facility] [address] [place], [address] WBC (Bld) [#/Vol] 11.4 10*3/uL High 4.4-11.0 [facility] Comment on above: Performed By: #### M 100.2200 #### [facility] [address] [place], [address] Eosinophil percentageOrdered By: Edgardo Jennings on 07-24-2024 Eosinophils/100 WBC (Bld) 0.8 % 0-5 [facility] Erythrocyte distribution wid th ratioOrdered By: Edgardo Jennings on 07-24-2024 Erythrocyte distribution width (RBC) [Ratio] 13.3 % 11.6-14.6 [facility] Erythrocyte distribution wid th standard deviationOrdered By: Edgardo Jennings on 07-24-2024 Erythrocyte distribution width (RBC) [Entitic vol] 47.9 fL High 35.1-43.9 [facility] Hematocrit Auto (Bld) [Volum e fraction]Ordered By: Edgardo Jennings on 07-24-2024 Hematocrit (Bld) [Volume fraction] 37.2 % 37-47 [facility] Hemoglobin measurementOrdere d By: Edgardo Jennings on 07-24-2024 Hemoglobin (Bld) [Mass/Vol] 12.5 g/dL 12.0-15.0 [facility] Immature granulocytes/100 WB C Auto (Bld)Ordered By: Edgardo Jennings on 07-24-2024 Immature granulocytes/100 WBC (Bld) 0.400 % 0.0-0.9 [facility] Comment on above: IG% - Immature Granu locytes (promyelocytes, myelocytes and metamyelocytes) > 1% indicates that a LEFT SHIFT is Present. Lymphocytes Auto (Unsp spec) [#/Vol]Ordered By: Edgardo Jennings on 07-24-2024 Lymphocytes (Bld) [#/Vol] 3.21 10*3/uL 0.83-4.51 [facility] Lymphocytes/100 WBC Auto (Un sp spec)Ordered By: Edgardo Jennings on 07-24-2024 Lymphocytes/100 WBC (Bld) 28.2 % 19-41 [facility] MCV (mean corpuscular volume ) determinationOrdered By: Edgardo Jennings on 07-24-2024 MCV (RBC) [Entitic vol] 97.4 fL 81-99 [facility] Mean corpuscular hemoglobin (MCH) determinationOrdered By: Edgardo Jennings on 07-24-2024 MCH (RBC) [Entitic mass] 32.7 pg High 27.0-32.0 [facility] Mean corpuscular hemoglobin concentration (MCHC) determinationOrdered By: Edgardo Jennings on 07-24-2024 MCHC (RBC) [Mass/Vol] 33.6 g/dL 32-36 [facility] Mean platelet volume determi nationOrdered By: Edgardo Jennings on 07-24-2024 Platelet mean volume (Bld) [Entitic vol] 8.7 fL 6.2-12.0 [facility] Monocyte percentageOrdered B y: Edgardo Jennings on 07-24-2024 Monocytes/100 WBC (Bld) 7.8 % 0-10 [facility] Neutrophil percentageOrdered By: Edgardo Jennings on 07-24-2024 Neutrophils/100 WBC (Bld) 62.3 % 47-70 [facility] Nucleated red blood cell per centageOrdered By: Edgardo Jennings on 07-24-2024 Nucleated RBC/100 WBC (Bld) [Ratio] 0 % 0-5 [facility] Platelet countOrdered By: Nikolas Jennings on 07-24-2024 Platelets (Bld) [#/Vol] 330 10*3/uL 150-450 [facility] RBC Auto (Bld) [#/Vol]Ordere d By: Edgardo Jennings on 07-24-2024 RBC (Bld) [#/Vol] 3.82 10*6/uL Low 4.2-5.4 [facility] White blood cell (WBC) count Ordered By: Edgardo Jennings on 07-24-2024 WBC (Bld) [#/Vol] 11.4 10*3/uL High 4.4-11.0 [facility] Vitamin D,25 Hydroxyon 07-09 Vitamin D 25-OH 39.4 ng/mL Normal [facility] Comment on above: Result Comment: Alexandra min D 25(OH) Status Range Deficiency <20 ng/mL (50nmol/L) Insufficiency 20 - 30 ng/mL (50 - 75 nmol/L) Sufficiency 30 - 100 ng/mL (75 - 250 nmol/L) Toxicity >100 ng/mL (>250 nmol/L) Performed By: #### L 500.4050, L506.1000 #### [facility] [address] [place], [address] 12-GT-Ctyjdck DOrdered By: Trever Jennings on 07-07-2024 Vitamin D 25-Hydroxy 39.4 ng/mL [facility] Comment on above: Vitamin D 25(OH) Sta tus Range Deficiency <20 ng/mL (50nmol/L) Insufficiency 20 - 30 ng/mL (50 - 75 nmol/L) Sufficiency 30 - 100 ng/mL (75 - 250 nmol/L) Toxicity >100 ng/mL (>250 nmol/L) Albumin to globulin ratioOrd ered By: Edgardo Jennings on 07-07-2024 Albumin/Globulin [Mass ratio] 1.3 {ratio} 0.9-2.4 [facility] Bilirubin, totalOrdered By: Edgardo Jennings on 07-07-2024 Bilirubin [Mass/Vol] 0.50 mg/dL 0.20-1.00 [facility] Comment on above: For patients on eltr ombopag therapy, use of Dimension [place] TBIL is not recommended. Blood urea nitrogen (BUN)/cr eatinine ratioOrdered By: Edgardo Jennings on 07-07-2024 Urea nitrogen/Creatinine [Mass ratio] 21.6 mg/mg High 10-20 [facility] Carbon dioxide measurementOr dered By: Edgardo Jennings on 07-07-2024 CO2 [Moles/Vol] 32.0 mmol/L 21.0-32.0 [facility] Chloride measurementOrdered By: Edgardo Jennings on 07-07-2024 Chloride [Moles/Vol] 97 mmol/L Low 98-107 [facility] Comprehensive Metabolic Prof ilon 07-07-2024 Albumin [Mass/Vol] 4.3 g/dL Normal 3.2-5.[address] [facility] Comment on above: Performed By: #### L 500.4050, L506.1000 #### [facility] [address] [place], [address] Albumin/Globulin [Mass ratio] 1.3 {ratio} Normal 0.9-2.4 [facility] Comment on above: Performed By: #### L 500.4050, L506.1000 #### [facility] [address] [place], [address] ALK P 59 U/L Normal 45-117 [facility] Comment on above: Performed By: #### L 500.4050, L506.1000 #### [facility] [address] [place], [address] ALT [Catalytic activity/Vol] 22 U/L Normal 13-56 [facility] Comment on above: Performed By: #### L 500.4050, L506.1000 #### [facility] [address] [place], [address] AST [Catalytic activity/Vol] 20 U/L Normal 15-37 [facility] Comment on above: Performed By: #### L 500.4050, L506.1000 #### [facility] [address] [place], [address] Bilirubin [Mass/Vol] 0.50 mg/dL Normal 0.20-1.00 [facility] Comment on above: Result Comment: For patients on eltrombopag therapy, use of Dimension [place] TBIL is not recommended. Performed By: #### L 500.4050, L506.1000 #### [facility] [address] [place], [address] BUN/CRE 21.6 RATIO High 10-20 [facility] Comment on above: Performed By: #### L 500.4050, L506.1000 #### [facility] [address] [place], [address] CA,Total 10.6 mg/dL High 8.5-10.1 [facility] Comment on above: Performed By: #### L 500.4050, L506.1000 #### [facility] [address] [place], [address] Chloride [Moles/Vol] 97 mmol/L Low 98-107 [facility] Comment on above: Performed By: #### L 500.4050, L506.1000 #### [facility] [address] [place], [address] CO2 [Moles/Vol] 32.0 mmol/L Normal 21.0-32.0 [facility] Comment on above: Performed By: #### L 500.4050, L506.1000 #### [facility] [address] [place], [address] Creatinine [Mass/Vol] 0.51 mg/dL Low 0.55-1.02 [facility] Comment on above: Result Comment: The validity of the calculated GFR GFRAA in patients over 70 years has not been determined. Clinical correlation is essential. Performed By: #### L 500.4050, L506.1000 #### [facility] [address] [place], [address] EST GFR - AA 162 mL/min Normal >60 [facility] Comment on above: Result Comment: Afri can Ecuadorean GFR Calc Performed By: #### L 500.4050, L506.1000 #### [facility] [address] [place], [address] GAP 6 Normal 5-15 [facility] Comment on above: Performed By: #### L 500.4050, L506.1000 #### [facility] [address] [place], [address] GFR/1.73 sq M.predicted among non-blacks MDRD (S/P/Bld) [Vol rate/Area] 134 mL/min/{1.73_m2} Normal >60 [facility] Comment on above: Result Comment: Non- GFR Calc Performed By: #### L 500.4050, L506.1000 #### [facility] [address] [place], [address] Globulin (S) [Mass/Vol] 3.2 g/dL Normal 2.2-4.2 [facility] Comment on above: Performed By: #### L 500.4050, L506.1000 #### [facility] [address] [place], [address] Glucose [Mass/Vol] 84 mg/dL Normal 74-[address] [facility] Comment on above: Performed By: #### L 500.4050, L506.1000 #### [facility] [address] [place], [address] Potassium [Moles/Vol] 4.5 mmol/L Normal 3.5-5.1 [facility] Comment on above: Performed By: #### L 500.4050, L506.1000 #### [facility] [address] [place], [address] Sodium [Moles/Vol] 135 mmol/L Low 136-[address] [facility] Comment on above: Performed By: #### L 500.4050, L506.1000 #### [facility] [address] [place], [address] T PROT 7.5 g/dL Normal 6.4-8.2 [facility] Comment on above: Performed By: #### L 500.4050, L506.1000 #### [facility] [address] [place], [address] Urea nitrogen [Mass/Vol] 11 mg/dL Normal 7-18 [facility] Comment on above: Performed By: #### L 500.4050, L506.1000 #### [facility] [address] [place], [address] Estimated glomerular filtrat ion rate (GFR) AmericanOrdered By: Edgardo Jennings on 07-07-2024 Estimated GFR (MDRD) Amer 162 mL/min >60 [facility] Comment on above: GFR Calc Glomerular filtration rate ( GFR) estimationOrdered By: Edgardo Jennings on 07-07-2024 Estimated GFR (MDRD) Non-Af Amer 134 mL/min >60 [facility] Comment on above: Non- GFR Calc Glucose measurementOrdered B y: Edgardo Jennings on 07-07-2024 Glucose [Mass/Vol] 84 mg/dL 74-[address] [facility] - Chemistry and C hemistry - challengeOrdered By: Edgardo Jennings on 07-07-2024 AST [Catalytic activity/Vol] 20 U/L 15-37 [facility] Potassium measurementOrdered By: Edgardo Jennings on 07-07-2024 Potassium [Moles/Vol] 4.5 mmol/L 3.5-5.1 [facility] Serum anion gap measurementO rdered By: Edgardo Jennings on 07-07-2024 Anion gap [Moles/Vol] 6 mmol/L 5-15 [facility] Serum globulin measurementOr dered By: Edgardo Jennings on 07-07-2024 Globulin (S) [Mass/Vol] 3.2 g/dL 2.2-4.2 [facility] Serum or plasma alanine pineda otransferase (ALT) measurementOrdered By: Edgardo Jennings on 07-07-2024 ALT [Catalytic activity/Vol] 22 U/L 13-56 [facility] Serum or plasma albumin nate urement (mass/volume)Ordered By: Edgardo Jennings on 07-07-2024 Albumin [Mass/Vol] 4.3 g/dL 3.2-5.[address] [facility] Serum or plasma alkaline zulma sphatase measurementOrdered By: Edgardo Jennings on 07-07-2024 ALP [Catalytic activity/Vol] 59 U/L 45-117 [facility] Serum or plasma calcium nate urement (mass/volume)Ordered By: Edgardo Jennings on 07-07-2024 Calcium [Mass/Vol] 10.6 mg/dL High 8.5-10.[address] [facility] Serum or plasma creatinine m easurement (mass/volume)Ordered By: Edgardo Jennings on 07-07-2024 Creatinine [Mass/Vol] 0.51 mg/dL Low 0.55-1.02 [facility] Comment on above: The validity of the calculated GFR & GFRAA in patients over 70 years has not been determined. Clinical correlation is essential. Serum or plasma urea nitroge n measurement (mass/volume)Ordered By: Edgardo Jennings on 07-07-2024 Urea nitrogen [Mass/Vol] 11 mg/dL 7-18 [facility] Sodium levelOrdered By: dEgardo Jennings on 07-07-2024 Sodium [Moles/Vol] 135 mmol/L Low 136-[address] [facility] Total proteinOrdered By: Kirk Jennings on 07-07-2024 Protein [Mass/Vol] 7.5 g/dL 6.4-8.[address] [facility] Protein Electro.Ur-Randomon 06-17-2024 M-SPIKE,U Normal [facility] Comment on above: Order Comment: N Result Comment: NOT OBSERVED Performed By: #### M 100.2200 #### [facility] [address] [place], [place], [address] CORTISOL SERUMon 06-16-2024 CORTISOL 0.70 ug/dL Low 3.44-22.45 [facility] Comment on above: Result Comment: Adul t (AM) 5.27 - 22.45 ug/dL Adult (PM) 3.44 - 16.76 ug/dL Performed By: #### M 100.2200 #### [facility] [address] [place], [address] Cortisol [Mass/Vol]Ordered B y: Edgardo Jennings on 06-16-2024 Cortisol 0.70 ug/dL Low 3.44-22.45 [facility] Comment on above: Adult (AM) 5.27 - 22 .45 ug/dL Adult (PM) 3.44 - 16.76 ug/dL Insulin Like Growth Factoron 06-15-2024 SOMATOMEDIN C 140 ng/mL Normal 65-216 [facility] Comment on above: Order Comment: N Result Comment: Perf ormed at: - [facility] [address] [id number] Head Banquet Waiter/Waitress: Weston Gagnon PhD, Phone: [phone] Performed at: - [facility] [address] [id number] Head Banquet Waiter/Waitress: Lisa Rosales MD, Phone: [phone] Performed By: #### M 100.2200 #### [facility] [address] [place], [address] Protein Electroph, Son 06-15 Albumin [Mass/Vol] 5.1 g/dL High 2.9-4.[address] [facility] Comment on above: Order Comment: N Performed By: #### M 100.2200 #### [facility] [address] [place], [address] Albumin/Globulin [Mass ratio] 1.4 {ratio} Normal 0.7-1.7 [facility] Comment on above: Order Comment: N Performed By: #### M 100.2200 #### [facility] [address] [place], [address] ALPHA-1 GLOBUL 0.4 g/dL Normal 0.0-0.4 [facility] Comment on above: Order Comment: N Performed By: #### M 100.2200 #### [facility] [address] [place], [address] ALPHA-2 GLOBUL 0.8 g/dL Normal 0.4-1.0 [facility] Comment on above: Order Comment: N Performed By: #### M 100.2200 #### [facility] [address] [place], [address] BETA GLOBULIN 1.1 g/dL Normal 0.7-1.3 [facility] Comment on above: Order Comment: N Performed By: #### M 100.2200 #### [facility] [address] [place], [address] GAMMA GLOBULIN 1.2 g/dL Normal 0.4-1.8 [facility] Comment on above: Order Comment: N Performed By: #### M 100.2200 #### [facility] [address] [place], [address] Globulin (S) [Mass/Vol] 3.6 g/dL Normal 2.2-3.9 [facility] Comment on above: Order Comment: N Performed By: #### M 100.2200 #### [facility] [address] [place], [address] INTERPRETATION Comment Normal . [facility] Comment on above: Order Comment: N Result Comment: Prot ein electrophoresis scan will follow via computer, mail, or retail shift leader delivery. Performed By: #### M 100.2200 #### [facility] [address] [place], [address] M-SPIKE Not Observed Normal Not Observed [facility] Comment on above: Order Comment: N Performed By: #### M 100.2200 #### [facility] [address] [place], [address] NOTE Comment Normal . [facility] Comment on above: Order Comment: N Result Comment: Prot ein electrophoresis scan will follow via computer, mail, or retail shift leader delivery. Performed By: #### M 100.2200 #### [facility] [address] [place], [address] NOTE: Comment: Normal . [facility] Comment on above: Order Comment: N Result Comment: SPE shows an increased total protein and albumin. Performed By: #### M 100.2200 #### [facility] [facility] [address] [place], [place], [address] Protein [Mass/Vol] 8.7 g/dL High 6.0-8.[address] [facility] Comment on above: Order Comment: N Performed By: #### M 100.2200 #### [facility] [address] [place], [place], [address] Addendum DocumentOrdered By: Edgardo Jennings on 06-11-2024 Protein Electrophoresis Note Comment: . [facility] Comment on above: SPE shows an increas ed total protein and albumin. Albumin Elph (U) [Mass fract ion]Ordered By: Edgardo Jennings on 06-11-2024 Urine Albumin 14.3 % . [facility] Albumin Elph [Mass/Vol]Order ed By: Edgardo Jennings on 06-11-2024 Albumin [Mass/Vol] 5.1 g/dL High 2.9-4.[address] [facility] Albumin/Globulin Elph [Mass ratio]Ordered By: Edgardo Jennings on 06-11-2024 Albumin/Globulin (PEP) 1.4 0.7-1.7 [facility] Alpha 1 globulin Elph (U) [M ass fraction]Ordered By: Edgardo Jennings on 06-11-2024 Urine Afscq-0-Tsntsrdm 15.0 % . [facility] Alpha 2 globulin Elph (24H U ) [Mass fraction]Ordered By: Edgardo Jennings on 06-11-2024 Urine Niiwl-8-Rfwdplxvw 16.3 % . [facility] Wvifo-8-pskivjvl measurement by protein electrophoresisOrdered By: Edgardo Jennings on 06-11-2024 Loazc-9-Cyipjvnym 0.4 g/dL 0.0-0.4 [facility] Zeoqf-5-aqvpxtoe measurement by protein electrophoresisOrdered By: Edgardo Jennings on 06-11-2024 Aokib-5-Ziuxeruwg 0.8 g/dL 0.4-1.0 [facility] Beta globulin Elph (24H U) [ Mass fraction]Ordered By: Edgardo Jennings on 06-11-2024 Urine Beta Globulin 38.5 % . [facility] Beta globulin Elph [Mass/Vol ]Ordered By: Edgardo Jennings on 06-11-2024 Beta Globulins 1.1 g/dL 0.7-1.3 [facility] Endocrinology Visit Reporton 06-11-2024 Endocrinology Visit Report [facility] [address] [place] [address] OFFICE VISIT Date of Service: 06/11/24 MR#: [id number] Acct: [id number] Name: JACKLYN WILSON Rep #: [id number] : 1970 Provider: Vaishali Terry Age/Sex: 53/F Location: [facility] Status: Signed Intake Vital Signs 04/19/24 09:44 [...] 06/18/24 Rx mannitol 5 %-water intravenous piggybck [facility] Medical History (Updated 06/19/24 @ 09:18 by [...] nourished Orientation: alert, awake and oriented x3 HENMT Head: normal to inspection Ears: hearing grossly [...] intact bila (more content not included)... Normal [facility] Gamma globulin Elph (24H U) [Mass fraction]Ordered By: Edgardo Jennings on 06-11-2024 Urine Gamma Globulin 15.8 % . [facility] Gamma globulin measurement b y protein electrophoresisOrdered By: Edgardo Jennings on 06-11-2024 Gamma Globulins 1.2 g/dL 0.4-1.8 [facility] Globulin (S) [Mass/Vol]Order ed By: Edgardo Jennings on 06-11-2024 Globulin (PEP) 3.6 g/dL 2.2-3.9 [facility] Insulin-like growth factor [ Moles/Vol]Ordered By: Edgadro Jennings on 06-11-2024 Somatomedin-C 140 ng/mL 65-216 [facility] Comment on above: Performed at: [address] [id number] Director: Weston Gagnon PhD, Phone: [phone] at: [address] [id number] Director: Lisa Rosales MD, Phone: [phone] Intact parathyroid hormone ( iPTH) measurementOrdered By: Edgardo Jennings on 06-11-2024 Parathyroid Hormone (Intact) 40.9 pg/mL 18.4-80.1 [facility] No Panel InformationOrdered By: Edgardo Jennings on 06-11-2024 Urine Immunofixation PEP Note Comment . [facility] Comment on above: Protein electrophore sis scan will follow via computer,mail, or retail shift leader delivery. PTHINon 06-11-2024 PTH 40.9 pg/mL Normal 18.4-80.1 [facility] Comment on above: Performed By: #### L 3400.1350, L3100.3450, L3600.4000, L509.1000 #### [facility] [address] [place], [address] Protein (U) [Mass/Vol]Ordere d By: Edgardo Jennings on 06-11-2024 Urine Total Protein < 4.0 mg/dL Not Estab. [facility] Comment on above: Verified by repeat analysis Protein Fractions Elph [Inte rp]Ordered By: Edgardo Jennings on 06-11-2024 Protein Electrophoresis Interpret Comment . [facility] Comment on above: Protein electrophore sis scan will follow via computer,mail, or retail shift leader delivery. Protein.monoclonal Elph (U) [Mass fraction]Ordered By: Edgardo Jennings on 06-11-2024 Ur Protein Electrophoresis M-Louie See comment [facility] Comment on above: NOT OBSERVED Protein.monoclonal Elph [Mas s/Vol]Ordered By: Edgardo Jennings on 06-11-2024 Protein Electrophoresis M-Louie Not Observed g/dL Not Observed [facility] Serum or plasma protein nate urement (mass/volume)Ordered By: Edgardo Jennings on 06-11-2024 Protein [Mass/Vol] 8.7 g/dL High 6.0-8.[address] [facility] Lumbar Spine 2 or 3 Viewson 04-28-2024 Lumbar Spine 2 or 3 Views [facility] [address] [place] [address] Lumbar Spine 2 or 3 Views MR#: [id number] Acct: [id number] Name: JACKLYN WILSON SEPTEMBER Rep #: [id number] : 1970 F 53 From: César Fontanez PCP: Dr. Moris Clement MD Status: DEP AMB Study: Lumbar Spine 2 or 3 Views Date of Exam: Exam# [id number] Ordering Dr: Joss Lei MD [id number] STUDY: X-RAY - LUMBAR SPINE REASON FOR [...] Signed: César Desir MD at 23:55 EST Reading Location ID and State: [facility] / [place] Tel , Service support , CC: Dr. Joss Lei MD; Dr. 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 Joss Lei MD Age/Sex: 53/F Location[place] [facility] [place] Status: Signed Intake Vital Signs 04/19/24 09:44 Height 5 ft 2 in Intake Visit Reasons: lumbar spine Chief Complaint: lumbar spine Allergies oxycodone Allergy (Severe, Verified 01/24/24 09:35) Anaphylaxis Medications ???Medication ???Instructions ???Recorded ???Confirmed ???Type omega 7-mxh-cty-fish oil 60 mg-90 1 ea PO PRN [...] made by me, Dr. Joss Lei MD 04/28/24905. Part of today???s visit was documented by [...] graft whi (more content not included)... Normal [facility] Emergency Department Summary on 04-19-2024 Emergency Department Summary [facility] Medical Records Department [address] [place] [address] Emergency Department Summary 04/19/24 MR#: [id number] Acct: [id number] Name: JACKLYN WILSON Rep #: [id number] : 1970 53 From: Scottie Camacho MD [...] ???Medication ???Instructions ???Recorded ???Last Taken ???Type omega 4-skl-xtj-fish oil 60 mg-90 1 ea PO PRN [...] to ins (more content not included)... Normal [facility] Thin prep Papanicolaou smear with manual screeningOrdered By: Marito Faustin on 09-09-2023 Thin prep Papanicolaou smear with manual screening 134 mg/dL 74-106 [facility] Comment on above: MANAGEMENT OF PATIEN T CARE PER NURSING PROTOCOL Absolute lymphocyte countOrd ered By: Marito Faustin on 08-30-2023 Lymphocytes Auto (Unsp spec) [#/Vol] 2.11 10*3/uL 0.83-4.51 [facility] Automated lymphocyte count a s percentage of total leukocytesOrdered By: Marito Faustin on 08-30-2023 Lymphocytes/100 WBC Auto (Unsp spec) 23.5 % 19-41 [facility] Basophil percentageOrdered B y: Marito Faustin on 08-30-2023 Basophils/100 WBC (Bld) 0.9 % 0-1 [facility] Eosinophils/100 WBC (Bld) 1.3 % 0-5 [facility] Hemoglobin (Bld) [Mass/Vol] 13.8 g/dL 12.0-15.0 [facility] Monocytes/100 WBC (Bld) 7.7 % 0-10 [facility] Neutrophils (Bld) [#/Vol] 6.0 10*3/uL 2.0-7.7 [facility] Neutrophils/100 WBC (Bld) 66.2 % 47-70 [facility] WBC (Bld) [#/Vol] 9.0 10*3/uL 4.4-11.[address] [facility] Basophil percentageOrdered B y: Moris Clement on 08-30-2023 Bilirubin [Mass/Vol] 0.50 mg/dL 0.20-1.00 [facility] Comment on above: For patients on eltr ombopag therapy, use of Dimension [place] TBIL is not recommended. Chloride [Moles/Vol] 102 mmol/L 98-107 [facility] Cholesterol [Mass/Vol] 236 mg/dL <200 [facility] Comment on above: <200 mg/dL Desirable 200-240 mg/dL Borderline >240 mg/dL High Risk Glucose [Mass/Vol] 90 mg/dL 74-[address] [facility] Potassium [Moles/Vol] 4.0 mmol/L 3.5-5.1 [facility] Protein [Mass/Vol] 7.9 g/dL 6.4-8.[address] [facility] Sodium [Moles/Vol] 134 mmol/L 136-[address] [facility] Triglyceride [Mass/Vol] 61 mg/dL <199 [facility] Comment on above: The drugs N-Acetylcy steine and Metamizole may falsely depress this assay.Serum Triglycerides Reference Interval Normal <150 mg/dL Borderline high 150 - 199 mg/dL High 200 - 499 mg/dL Very High > or = 500 mg/dL Determination of erythrocyte mean corpuscular volume (MCV)Ordered By: Marito Faustin on 08-30-2023 MCV (RBC) [Entitic vol] 100.0 fL 81-99 [facility] Erythrocyte distribution wid th ratioOrdered By: Marito Faustin on 08-30-2023 Erythrocyte distribution width (RBC) [Ratio] 13.1 % 11.6-14.6 [facility] Erythrocyte distribution wid th standard deviationOrdered By: Marito Faustin on 08-30-2023 Erythrocyte distribution width (RBC) [Entitic vol] 48.4 fL 35.1-43.9 [facility] HIV 1 and HIV-2 antibody ass ay with HIV-1 p24 antigen detectionOrdered By: Marito Faustin on 08-30-2023 HIV 1+2 Ab+HIV1 p24 Ag IA Ql Non-Reactive Nonreactive [facility] Hematocrit Auto (Bld) [Volum e fraction]Ordered By: Marito Faustin on 08-30-2023 Hematocrit (Bld) [Volume fraction] 39.7 % 37-47 [facility] Immature granulocytes/100 WB C Auto (Bld)Ordered By: Marito Faustin on 08-30-2023 Immature granulocytes/100 WBC (Bld) 0.400 % 0.0-0.9 [facility] Comment on above: IG% - Immature Granu locytes (promyelocytes, myelocytes and metamyelocytes) > 1% indicates that a LEFT SHIFT is Present. Laboratory - Chemistry and C hemistry - challengeOrdered By: Moris Clement on 08-30-2023 Albumin/Globulin [Mass ratio] 1.3 {ratio} 0.9-2.4 [facility] ALP [Catalytic activity/Vol] 58 U/L 45-117 [facility] ALT [Catalytic activity/Vol] 24 U/L 13-56 [facility] Amylase [Catalytic activity/Vol] 52 U/L 5-55 [facility] Cholesterol in HDL [Mass/Vol] 122 mg/dL >40 [facility] Comment on above: The drugs N-Acetylcy steine and Metamizole may falsely depress this assay. Reference Range HDL <40 mg/dL Low HDL Cholesterol HDL >or= 60 mg/dL High HDL Cholesterol Cholesterol in LDL [Mass/Vol] 102 mg/dL 0-130 [facility] CO2 [Moles/Vol] 28.0 mmol/L 21.0-32.0 [facility] Cobalamin (Vitamin B12) [Mass/Vol] 1954 pg/mL 211-911 [facility] Ferritin [Mass/Vol] 110 ng/mL 8-252 [facility] Globulin (S) [Mass/Vol] 3.5 g/dL 2.2-4.2 [facility] Urea nitrogen/Creatinine [Mass ratio] 11.7 mg/mg 10-20 [facility] Laboratory - Chemistry and C hemistry - challengeOrdered By: Carlos A Jimenez on 08-30-2023 Magnesium [Mass/Vol] 2.2 mg/dL 1.6-2.6 [facility] Laboratory - Hematology and Cell countsOrdered By: Marito Faustin on 08-30-2023 MCH (RBC) [Entitic mass] 34.8 pg 27.0-32.0 [facility] MCHC (RBC) [Mass/Vol] 34.8 g/dL 32-36 [facility] Nucleated RBC/100 WBC (Bld) [Ratio] 0 % 0-5 [facility] Platelet mean volume (Bld) [Entitic vol] 8.3 fL 6.2-12.0 [facility] Platelets (Bld) [#/Vol] 287 10*3/uL 150-450 [facility] No Panel InformationOrdered By: Moris Clement on 08-30-2023 Estimated GFR (MDRD) Amer 135 mL/min >60 [facility] Comment on above: GFR Calc Estimated GFR (MDRD) Non-Af Amer 112 mL/min >60 [facility] Comment on above: Non- GFR Calc Vitamin D 25-Hydroxy 65.3 ng/mL [facility] Comment on above: Vitamin D 25(OH) Sta tus Range Deficiency <20 ng/mL (50nmol/L) Insufficiency 20 - 30 ng/mL (50 - 75 nmol/L) Sufficiency 30 - 100 ng/mL (75 - 250 nmol/L) Toxicity >100 ng/mL (>250 nmol/L) VLDL Cholesterol 12 mg/dL 5-40 [facility] No Panel InformationOrdered By: Marito Faustin on 08-30-2023 Hepatitis A Antibody Total Negative Negative [facility] Comment on above: Comment: The HAV [...] HAVtotal antibody results to IgM (e.g., panel #[id number] HAVAntibody w/ Rfx).Performed at: - [facility] [address] [id number] Director: Weston Gagnon PhD, Phone: [phone] Hepatitis C Antibody Non-Reactive Nonreactive [facility] Comment on above: Non Reactive: < 0.8 Equivocal: >/= 0.8 to < 1.0 Reactive: >/= 1.0The CDC requires that a reactive/equivocal HCV antibody result be sent out for confirmation. HCV Quant by PCR testing. Nasal Screen MRSA/MSSA [facility] RBC Auto (Bld) [#/Vol]Ordere d By: Marito Faustin on 08-30-2023 RBC (Bld) [#/Vol] 3.97 10*6/uL 4.2-5.4 [facility] Serum hepatitis B virus surf denae antibody IgG detectionOrdered By: Marito Faustin on 08-30-2023 HBV surface IgG Ql (S) Non-Reactive [facility] Comment on above: Non Reactive: Incons istent with immunity less than <10 mIU/mL Reactive: Consistent with immunity greater than or equal to 10 mIU/mL Serum or plasma calcium nate urement (mass/volume)Ordered By: Moris Clement on 08-30-2023 Calcium [Mass/Vol] 9.4 mg/dL 8.5-10.[address] [facility] Serum or plasma creatinine m easurement (mass/volume)Ordered By: Moris Clement on 08-30-2023 Creatinine [Mass/Vol] 0.60 mg/dL 0.55-1.02 [facility] Comment on above: The validity of the calculated GFR & GFRAA in patients over 70 years has not been determined. Clinical correlation is essential. Serum or plasma thyroid stim ulating hormone (TSH) measurement (units/volume)Ordered By: Moris Clement on 08-30-2023 TSH Qn 1.38 uIU/mL 0.358-3.74 [facility] Serum or plasma urea nitroge n measurement (mass/volume)Ordered By: Moris Clement on 08-30-2023 Urea nitrogen [Mass/Vol] 7 mg/dL 7-18 [facility] Thin prep Papanicolaou smear with manual screeningOrdered By: Moris Clement on 08-30-2023 Thin prep Papanicolaou smear with manual screening 4.4 g/dL 3.2-5.0 [facility] Thin prep Papanicolaou smear with manual screening 24 U/L 15-37 [facility] Thin prep Papanicolaou smear with manual screening 4 5-15 [facility] Thin prep Papanicolaou smear with manual screening 285 mOsm/KG 275-295 [facility] Thin prep Papanicolaou smear with manual screeningOrdered By: Bentley Clement on 04-03-2023 Thin prep Papanicolaou smear with manual screening 275 mOsm/KG 275-295 [facility] Absolute lymphocyte countOrd ered By: Bentley Clement on 03-27-2023 Lymphocytes Auto (Unsp spec) [#/Vol] 3.26 10*3/uL 0.83-4.51 [facility] Basophil percentageOrdered B y: Bentley Clement on 03-27-2023 Basophils/100 WBC (Bld) 0.9 % 0-1 [facility] Chloride [Moles/Vol] 97 mmol/L 98-107 [facility] Cholesterol [Mass/Vol] 241 mg/dL <200 [facility] Comment on above: <200 mg/dL Desirable 200-240 mg/dL Borderline >240 mg/dL High Risk Eosinophils/100 WBC (Bld) 1.9 % 0-5 [facility] Glucose [Mass/Vol] 88 mg/dL 74-[address] [facility] Neutrophils (Bld) [#/Vol] 4.7 10*3/uL 2.0-7.7 [facility] Neutrophils/100 WBC (Bld) 51.9 % 47-70 [facility] Potassium [Moles/Vol] 4.4 mmol/L 3.5-5.1 [facility] Sodium [Moles/Vol] 131 mmol/L 136-[address] [facility] Triglyceride [Mass/Vol] 54 mg/dL <199 [facility] Comment on above: The drugs N-Acetylcy steine and Metamizole may falsely depress this assay.Serum Triglycerides Reference Interval Normal <150 mg/dL Borderline high 150 - 199 mg/dL High 200 - 499 mg/dL Very High > or = 500 mg/dL WBC (Bld) [#/Vol] 9.1 10*3/uL 4.4-11.[address] [facility] Blood erythrocytes count (nu mber/volume)Ordered By: Bentley Clement on 03-27-2023 RBC (Bld) [#/Vol] 3.96 10*6/uL 4.2-5.4 [facility] Blood hemoglobin measurement (mass/volume)Ordered By: Bentley Clement on 03-27-2023 Hemoglobin (Bld) [Mass/Vol] 13.4 g/dL 12.0-15.0 [facility] Blood lymphocytes/100 leukoc ytesOrdered By: Bentley Clement on 03-27-2023 Lymphocytes/100 WBC (Bld) 35.7 % 19-41 [facility] Blood monocytes/100 leukocyt esOrdered By: Bentley Clement on 03-27-2023 Monocytes/100 WBC (Bld) 9.3 % 0-10 [facility] Blood platelet mean volumeOr dered By: Bentley Clement on 03-27-2023 Platelet mean volume (Bld) [Entitic vol] 8.8 fL 6.2-12.0 [facility] Determination of erythrocyte mean corpuscular volume (MCV)Ordered By: Bentley Clement on 03-27-2023 MCV (RBC) [Entitic vol] 100.5 fL 81-99 [facility] Hematocrit Auto (Bld) [Volum e fraction]Ordered By: Bentley Clement on 03-27-2023 Hematocrit (Bld) [Volume fraction] 39.8 % 37-47 [facility] Laboratory - Chemistry and C hemistry - challengeOrdered By: Bentley Clement on 03-27-2023 CO2 [Moles/Vol] 30.0 mmol/L 21.0-32.0 [facility] Urea nitrogen/Creatinine [Mass ratio] 12.3 mg/mg 10-20 [facility] Laboratory - Hematology and Cell countsOrdered By: Bentley Clement on 03-27-2023 Erythrocyte distribution width (RBC) [Entitic vol] 47.0 fL 35.1-43.9 [facility] Erythrocyte distribution width (RBC) [Ratio] 12.7 % 11.6-14.6 [facility] Immature granulocytes/100 WBC (Bld) 0.300 % 0.0-0.9 [facility] Comment on above: IG% - Immature Granu locytes (promyelocytes, myelocytes and metamyelocytes) > 1% indicates that a LEFT SHIFT is Present. MCH (RBC) [Entitic mass] 33.8 pg 27.0-32.0 [facility] Nucleated RBC/100 WBC (Bld) [Ratio] 0 % 0-5 [facility] MCHC Auto (RBC) [Mass/Vol]Or dered By: Bentley Clement on 03-27-2023 MCHC (RBC) [Mass/Vol] 33.7 g/dL 32-36 [facility] No Panel InformationOrdered By: Bentley Clement on 03-27-2023 Estimated GFR (MDRD) Amer 143 mL/min >60 [facility] Comment on above: GFR Calc Estimated GFR (MDRD) Non-Af Amer 118 mL/min >60 [facility] Comment on above: Non- GFR Calc Thyroid Stimulating Hormone (TSH) 1.12 uIU/mL 0.358-3.74 [facility] Platelets bldOrdered By: [facility] bayrontopesteban Racquel on 03-27-2023 Platelets (Bld) [#/Vol] 363 10*3/uL 150-450 [facility] Serum or plasma calcium nate urement (mass/volume)Ordered By: Bentley Clement on 03-27-2023 Calcium [Mass/Vol] 10.0 mg/dL 8.5-10.[address] [facility] Serum or plasma cholesterol in HDL measurement (mass/volume)Ordered By: Bentley Clement on 03-27-2023 Cholesterol in HDL [Mass/Vol] 110 mg/dL >40 [facility] Comment on above: The drugs N-Acetylcy steine and Metamizole may falsely depress this assay. Reference Range HDL <40 mg/dL Low HDL Cholesterol HDL >or= 60 mg/dL High HDL Cholesterol Serum or plasma cholesterol in VLDL measurement (mass/volume)Ordered By: Bentley Clement on 03-27-2023 Cholesterol in VLDL [Mass/Vol] 11 mg/dL 5-40 [facility] Serum or plasma creatinine m easurement (mass/volume)Ordered By: Bentley Clement on 03-27-2023 Creatinine [Mass/Vol] 0.57 mg/dL 0.55-1.02 [facility] Comment on above: The validity of the calculated GFR & GFRAA in patients over 70 years has not been determined. Clinical correlation is essential. Serum or plasma low density lipoprotein (LDL) cholesterol measurement (mass/volume)Ordered By: Bentley Clement on 03-27-2023 Cholesterol in LDL [Mass/Vol] 120 mg/dL 0-130 [facility] Serum or plasma urea nitroge n measurement (mass/volume)Ordered By: Bentley Clement on 03-27-2023 Urea nitrogen [Mass/Vol] 7 mg/dL 7-18 [facility] Thin prep Papanicolaou smear with manual screeningOrdered By: Bentley Clement on 03-27-2023 Thin prep Papanicolaou smear with manual screening 4 5-15 [facility] Absolute lymphocyte counton 04-17-2022 Lymphocytes Auto (Unsp spec) [#/Vol] 2.31 10*3/uL 0.83-4.51 [facility] Work Phone: Basophil percentageon 2021 Basophils/100 WBC (Bld) 0.3 % 0-1 [facility] Work Phone: Chloride [Moles/Vol] 99 mmol/L 98-107 [facility] Work Phone: Eosinophils/100 WBC (Bld) 0.1 % 0-5 [facility] Work Phone: Glucose [Mass/Vol] 80 mg/dL 74-[address] [facility] Work Phone: Neutrophils (Bld) [#/Vol] 4.3 10*3/uL 2.0-7.7 [facility] Work Phone: Neutrophils/100 WBC (Bld) 58.6 % 47-70 [facility] Work Phone: Potassium [Moles/Vol] 4.0 mmol/L 3.5-5.1 [facility] Work Phone: Sodium [Moles/Vol] 134 mmol/L 136-[address] [facility] Work Phone: WBC (Bld) [#/Vol] 7.4 10*3/uL 4.4-11.[address] [facility] Work Phone: Blood erythrocytes count (nu mber/volume)on 04-17-2022 RBC (Bld) [#/Vol] 3.55 10*6/uL 4.2-5.4 [facility] Work Phone: Blood hemoglobin measurement (mass/volume)on 04-17-2022 Hemoglobin (Bld) [Mass/Vol] 12.3 g/dL 12.0-15.0 [facility] Work Phone: Blood lymphocytes/100 leukoc yteson 04-17-2022 Lymphocytes/100 WBC (Bld) 31.4 % 19-41 [facility] Work Phone: Blood monocytes/100 leukocyt eson 04-17-2022 Monocytes/100 WBC (Bld) 9.3 % 0-10 [facility] Work Phone: Blood platelet mean volumeon 04-17-2022 Platelet mean volume (Bld) [Entitic vol] 9.1 fL 6.2-12.0 [facility] Work Phone: [phone] Determination of erythrocyte mean corpuscular volume (MCV)on 04-17-2022 MCV (RBC) [Entitic vol] 101.7 fL 81-99 [facility] Work Phone: [phone] Hematocrit Auto (Bld) [Volum e fraction]on 04-17-2022 Hematocrit (Bld) [Volume fraction] 36.1 % 37-47 [facility] Work Phone: [phone] Laboratory - Chemistry and C hemistry - challengeon 04-17-2022 CO2 [Moles/Vol] 32.0 mmol/L 21.0-32.0 [facility] Work Phone: [phone] Urea nitrogen/Creatinine [Mass ratio] 16.4 mg/mg 10-20 [facility] Work Phone: [phone] Laboratory - Hematology and Cell countson 04-17-2022 Erythrocyte distribution width (RBC) [Entitic vol] 47.1 fL 35.1-43.9 [facility] Work Phone: [phone] Erythrocyte distribution width (RBC) [Ratio] 12.5 % 11.6-14.6 [facility] Work Phone: [phone] Immature granulocytes/100 WBC (Bld) 0.300 % 0.0-0.9 [facility] Work Phone: [phone] Comment on above: IG% - Immature Granu locytes (promyelocytes, myelocytes and metamyelocytes) > 1% indicates that a LEFT SHIFT is Present. MCH (RBC) [Entitic mass] 34.6 pg 27.0-32.0 [facility] Work Phone: Nucleated RBC/100 WBC (Bld) [Ratio] 0 % 0-5 [facility] Work Phone: MCHC Auto (RBC) [Mass/Vol]on 04-17-2022 MCHC (RBC) [Mass/Vol] 34.1 g/dL 32-36 [facility] Work Phone: No Panel Informationon 04-17 Estimated Creatinine Clearance Calc 107.43 ml/min [facility] Work Phone: Estimated GFR (MDRD) Amer 171 mL/min >60 [facility] Work Phone: Comment on above: GFR Calc Estimated GFR (MDRD) Non-Af Amer 141 mL/min >60 [facility] Work Phone: Comment on above: Non- GFR Calc Platelets bldon 04-17-2022 Platelets (Bld) [#/Vol] 251 10*3/uL 150-450 [facility] Work Phone: Serum or plasma calcium nate urement (mass/volume)on 04-17-2022 Calcium [Mass/Vol] 8.9 mg/dL 8.5-10.[address] [facility] Work Phone: Serum or plasma creatinine m easurement (mass/volume)on 04-17-2022 Creatinine [Mass/Vol] 0.49 mg/dL 0.55-1.02 [facility] Work Phone: Comment on above: The validity of the calculated GFR & GFRAA in patients over 70 years has not been determined. Clinical correlation is essential. Serum or plasma urea nitroge n measurement (mass/volume)on 04-17-2022 Urea nitrogen [Mass/Vol] 8 mg/dL 7-18 [facility] Work Phone: Thin prep Papanicolaou smear with manual screeningon 11-29-2022 Thin prep Papanicolaou smear with manual screening 3 5-15 [facility] Work Phone: Glucose Glucometer (BldC) [M ass/Vol]on 04-16-2022 Glucose [Mass/Vol] 80 mg/dL 74-[address] [facility] Work Phone: Comment on above: MANAGEMENT OF PATIEN T CARE PER NURSING PROTOCOL HIV 1 and HIV-2 antibody ass ay with HIV-1 p24 antigen detectionon 04-09-2022 HIV 1+2 Ab+HIV1 p24 Ag IA Ql Non-Reactive Nonreactive [facility] Work Phone: Laboratory - Chemistry and C hemistry - challengeon 04-09-2022 Magnesium [Mass/Vol] 2.4 mg/dL 1.6-2.6 [facility] Work Phone: No Panel Informationon 04-09 Hepatitis A Antibody Total Negative Negative [facility] Work Phone: Comment on above: Performed at: [address] Director: Weston Gagnon PhD, Phone: [phone] Hepatitis C Antibody Non-Reactive Nonreactive [facility] Work Phone: Comment on above: Non Reactive: < 0.8 Equivocal: >/= 0.8 to < 1.0 Reactive: >/= 1.0The CDC recommends that a reactive/equivocal HCV antibody result be followed up by the HCV Nucleic Acid Amplificationtest (485568) Serum hepatitis B virus surf denae antibody IgG detectionon 04-09-2022 HBV surface IgG Ql (S) Non-Reactive [facility] Work Phone: Comment on above: Non Reactive: Incons istent with immunity less than <10 mIU/mL Reactive: Consistent with immunity greater than or equal to 10 mIU/mL Cervical or vagninal specime n microscopic examination by cytology stain (reported ason 03-08-2022 Cytology report Cyto stain Doc (Cvx/Vag) Comment . [facility] Work Phone: Comment on above: The [...] DNA Probe+sig amp Ql (Cvx) Negative Negative [facility] Work Phone: Comment on above: This nucleic acid am plification test detects fourteen high-risk HPV types (16,18,31,33,35,39,45,51,52,56,58,59,66,68)without differentiation.HPV Genotype ReflexCriteria not met, HPV Genotype not performed. Laboratory - Cytologyon 02-18 Prosecuting Attorney Cyto stain Nom (Cvx/Vag) [ID] Comment . [facility] Work Phone: Comment on above: Angel Mo totechnologist (ASCP) Pathologist Cyto stain Nom (Cvx/Vag) [ID] Comment . [facility] Work Phone: Comment on above: Camilla Thao MD, P athologist Laboratory - Miscellaneous t estson 03-08-2022 Service comment (Unsp spec) [Interp] Comment . [facility] Work Phone: Comment on above: This liquid based Th inPrep(R) pap test was screened withthe use of an image guided system. Service comment (Unsp spec) [Interp] . . [facility] Work Phone: No Panel Informationon 03-08 Pathology report final diagnosis Narrative Comment . [facility] Work Phone: Comment on above: NEGATIVE FOR INTRAEP ITHELIAL LESION OR MALIGNANCY.REACTIVE CELLULAR CHANGES AND/OR REPAIR ARE PRESENT. Absolute lymphocyte counton 10-13-2021 Lymphocytes Auto (Unsp spec) [#/Vol] 1.93 10*3/uL 0.83-4.51 [facility] Work Phone: Basophil percentageon 2021 Basophils/100 WBC (Bld) 0.9 % 0-1 [facility] Work Phone: Bilirubin [Mass/Vol] 0.50 mg/dL 0.20-1.00 [facility] Work Phone: Comment on above: For patients on eltr ombopag therapy, use of Dimension [place] TBIL is not recommended. Chloride [Moles/Vol] 100 mmol/L 98-107 [facility] Work Phone: Eosinophils/100 WBC (Bld) 1.6 % 0-5 [facility] Work Phone: Glucose [Mass/Vol] 76 mg/dL 74-[address] [facility] Work Phone: Neutrophils (Bld) [#/Vol] 4.2 10*3/uL 2.0-7.7 [facility] Work Phone: Neutrophils/100 WBC (Bld) 61.3 % 47-70 [facility] Work Phone: Potassium [Moles/Vol] 3.7 mmol/L 3.5-5.1 [facility] Work Phone: Protein [Mass/Vol] 7.9 g/dL 6.4-8.[address] [facility] Work Phone: Sodium [Moles/Vol] 133 mmol/L 136-[address] [facility] Work Phone: WBC (Bld) [#/Vol] 6.8 10*3/uL 4.4-11.[address] [facility] Work Phone: Blood erythrocytes count (nu mber/volume)on 10-13-2021 RBC (Bld) [#/Vol] 3.87 10*6/uL 4.2-5.4 [facility] Work Phone: Blood hemoglobin measurement (mass/volume)on 10-13-2021 Hemoglobin (Bld) [Mass/Vol] 13.6 g/dL 12.0-15.0 [facility] Work Phone: Blood lymphocytes/100 leukoc yteson 10-13-2021 Lymphocytes/100 WBC (Bld) 28.2 % 19-41 [facility] Work Phone: Blood monocytes/100 leukocyt eson 10-13-2021 Monocytes/100 WBC (Bld) 7.6 % 0-10 [facility] Work Phone: Blood platelet mean volumeon 10-13-2021 Platelet mean volume (Bld) [Entitic vol] 9.0 fL 6.2-12.0 [facility] Work Phone: [phone] Determination of erythrocyte mean corpuscular volume (MCV)on 10-13-2021 MCV (RBC) [Entitic vol] 101.3 fL 81-99 [facility] Work Phone: [phone] Erythrocyte sedimentation ra etelvina 10-13-2021 ESR (Bld) [Velocity] 6 mm[facility]h 0-30 [facility] Work Phone: [phone] Hematocrit Auto (Bld) [Volum e fraction]on 10-13-2021 Hematocrit (Bld) [Volume fraction] 39.2 % 37-47 [facility] Work Phone: [phone] Laboratory - Chemistry and C hemistry - challengeon 10-13-2021 ALP [Catalytic activity/Vol] 51 U/L 45-117 [facility] Work Phone: ALT [Catalytic activity/Vol] 31 U/L 13-56 [facility] Work Phone: [phone] CO2 [Moles/Vol] 27.0 mmol/L 21.0-32.0 [facility] Work Phone: [phone] Globulin (S) [Mass/Vol] 3.7 g/dL 2.2-4.2 [facility] Work Phone: [phone] Urea nitrogen/Creatinine [Mass ratio] 13.3 mg/mg 10-20 [facility] Work Phone: [phone] Laboratory - Hematology and Cell countson 10-13-2021 Erythrocyte distribution width (RBC) [Entitic vol] 47.7 fL 35.1-43.9 [facility] Work Phone: Erythrocyte distribution width (RBC) [Ratio] 12.6 % 11.6-14.6 [facility] Work Phone: Immature granulocytes/100 WBC (Bld) 0.400 % 0.0-0.9 [facility] Work Phone: Comment on above: IG% - Immature Granu locytes (promyelocytes, myelocytes and metamyelocytes) > 1% indicates that a LEFT SHIFT is Present. MCH (RBC) [Entitic mass] 35.1 pg 27.0-32.0 [facility] Work Phone: Nucleated RBC/100 WBC (Bld) [Ratio] 0 % 0-5 [facility] Work Phone: MCHC Auto (RBC) [Mass/Vol]on 10-13-2021 MCHC (RBC) [Mass/Vol] 34.7 g/dL 32-36 [facility] Work Phone: No Panel Informationon 10-13 Anti-Nuclear Antibody Screen Negative Negative [facility] Work Phone: Comment on above: Performed at: [address] [id number] Director: Weston Gagnon PhD, Phone: [phone] Estimated GFR (MDRD) Amer 157 mL/min >60 [facility] Work Phone: Comment on above: GFR Calc Estimated GFR (MDRD) Non-Af Amer 130 mL/min >60 [facility] Work Phone: Comment on above: Non- GFR Calc Platelets bldon 10-13-2021 Platelets (Bld) [#/Vol] 345 10*3/uL 150-450 [facility] Work Phone: Serum or plasma C reactive p rotein measurement (mass/volume)on 10-13-2021 CRP [Mass/Vol] mg/L 0.0-3.0 [facility] Work Phone: Comment on above: C-Reactive Protein ( CRP) provides useful information for thediagnosis, therapy and monitoring of inflammatory processesand associated diseases. For the evaluation of Relative Riskfor Cardiovascular Disease, a High Sensitivity CRP (HSCRP)should be ordered. Serum or plasma albumin nate urement (mass/volume)on 10-13-2021 Albumin [Mass/Vol] 4.2 g/dL 3.2-5.[address] [facility] Work Phone: Serum or plasma albumin/glob ulin mass ratioon 10-13-2021 Albumin/Globulin [Mass ratio] 1.1 {ratio} 0.9-2.4 [facility] Work Phone: Serum or plasma calcium nate urement (mass/volume)on 10-13-2021 Calcium [Mass/Vol] 8.9 mg/dL 8.5-10.[address] [facility] Work Phone: Serum or plasma creatinine m easurement (mass/volume)on 10-13-2021 Creatinine [Mass/Vol] 0.53 mg/dL 0.55-1.02 [facility] Work Phone: Comment on above: The validity of the calculated GFR & GFRAA in patients over 70 years has not been determined. Clinical correlation is essential. Serum or plasma urea nitroge n measurement (mass/volume)on 10-13-2021 Urea nitrogen [Mass/Vol] 7 mg/dL 7-18 [facility] Work Phone: Serum rheumatoid factor dete ctionon 10-13-2021 Rheumatoid factor Ql (S) < 10.0 IU/mL <15 [facility] Work Phone: Thin prep Papanicolaou smear with manual screeningon 10-13-2021 Thin prep Papanicolaou smear with manual screening 28 U/L 15-37 [facility] Work Phone: Thin prep Papanicolaou smear with manual screening 6 5-15 [facility] Work Phone: Thin prep Papanicolaou smear with manual screening Negative . [facility] Work Phone: Comment on above: HLA-B*27 PmcroqoxN52 allele interpretation for all loci based on IMGT/HLAdatabase version 3.44This test was developed and its performance characteristicsdetermined by [employer]. It has not been cleared or approvedby the Food and Drug Administration.[facility] CLIA ID Number [id number] test was performed using PCR (Polymerase ChainReaction)/SSOP (Sequence Specific Oligonucleotide Probes)technique. SBT (Sequence Based Typing) and/or SSP(Sequence Specific Primers) may be used as supplementalmethods when necessary. Please contact [facility] CustomerService at if you have any questions. Director of [facility] Laboratory Dr Yuri Higginbotham, PhDPerformed at: [address] [place] [address] [id number] Director: Yuri Higginbotham PhD, Phone: [phone] No Panel Information Nasal Screen MRSA/MSSA [facility] Work Phone: Vital Signs Date Time Vital Sign Value Performing Clinician Faci lity 01-23-2025 11:39-0400 Body height 157.[address] Moris Clement MD Work Phone: [facility] 12-18-2024 15:05-0400 Body height 157.[address] Moris Clement MD Work Phone: [facility] 12-18-2024 15:05-0400 Body mass index (BMI) [Ratio] 20.6 kg/m2 Dr. Moris Clement MD Work Phone: [facility] 12-18-2024 15:05-0400 Body weight 51.[address] Moris Clement MD Work Phone: [facility] 06-11-2024 09:02-0500 Body height 157.[address] Moris Clement MD Work Phone: [facility] 06-11-2024 09:02-0500 Body mass index (BMI) [Ratio] 20.7 kg/m2 Dr. Moris Clement MD Work Phone: [facility] 06-11-2024 09:02-0500 Body weight 51.[address] Moris Clement MD Work Phone: 9(144)943-637054 [place] [address] 06-11-2024 09:02-0500 Diastolic blood pressure 89 mm[Hg] Dr. Moris Clement MD Work Phone: 8(261)910-275054 [place] [address] 06-11-2024 09:02-0500 Heart rate 93 /min Dr. Moris Clement MD Work Phone: 6(629)607-244154 [place] [address] 06-11-2024 09:02-0500 SaO2% (BldA) [Mass fraction] 99 % Dr. Moris Clement MD Work Phone: 9(077)065-891055 [place] [address] 06-11-2024 09:02-0500 Systolic blood pressure 164 mm[Hg] Dr. Moris Clement MD Work Phone: 9(313)431-495855 [place] [address] 04-19-2024 11:18-0500 Body temperature 97.9 [degF] Dr. Moris Clement MD Work Phone: 1(710)358-333655 [place] [address] 04-19-2024 11:18-0500 Diastolic blood pressure 84 mm[Hg] Dr. Moris Clement MD Work Phone: 1(707)959-681155 [place] [address] 04-19-2024 11:18-0500 Heart rate 91 /min Dr. Moris Clement MD Work Phone: 6(031)330-721255 [place] [address] 04-19-2024 11:18-0500 Respiratory rate 16 /min Dr. Moris Clement MD Work Phone: 8(928)385-293755 [place] [address] 04-19-2024 11:18-0500 SaO2% (BldA) [Mass fraction] 96 % Dr. Moris Clement MD Work Phone: 2(105)445-969055 [place] [address] 04-19-2024 11:18-0500 Systolic blood pressure 136 mm[Hg] Dr. Moris Clement MD Work Phone: 2(551)958-348855 [place] [address] 04-19-2024 09:44-0500 Body mass index (BMI) [Ratio] 21.2 kg/m2 Dr. Moris Clement MD Work Phone: [facility] 04-19-2024 09:44-0500 Body weight 52.[address] Moris Clement MD Work Phone: [facility] 09-11-2023 08:00-0400 Body temperature 98.8 [degF] Dr. Moris Clement Work Phone: [facility] 09-11-2023 08:00-0400 Diastolic blood pressure 93 mm[Hg] Dr. Moris Clement Work Phone: [facility] 09-11-2023 08:00-0400 Heart rate 99 /min Dr. Moris Clement Work Phone: 1(251)797-344855 [place] [address] 09-11-2023 08:00-0400 Respiratory rate 16 /min Dr. Moris Clement Work Phone: 1(438)457-681621 [address] 09-11-2023 08:00-0400 SaO2% (BldA) [Mass fraction] 97 % Dr. Moris Clement Work Phone: [facility] 09-11-2023 08:00-0400 Systolic blood pressure 134 mm[Hg] Dr. Moris Clement Work Phone: [facility] 09-10-2023 15:04-0400 Body height 157.[address] Moris Clement Work Phone: 9(218)713-248954 [place] [address] 09-10-2023 15:04-0400 Body weight 50.[address] Moris Clement Work Phone: 0(683)538-213655 [place] [address] 09-09-2023 17:42-0400 Body mass index (BMI) [Ratio] 20.2 kg/m2 Dr. Moris Clement Work Phone: 0(726)304-188055 [place] [address] 09-09-2023 16:00-0400 Inhaled oxygen flow rate 4 L/min Dr. Moris Clement Work Phone: 9(807)504-609055 [place] [address] 09-09-2023 14:25-0400 Inhaled oxygen concentration 42 % Dr. Moris Clement Work Phone: [facility] 08-28-2023 11:25-0400 Body mass index (BMI) [Ratio] 20.5 kg/m2 Dr. Moris Clement Work Phone: [facility] 08-28-2023 11:25-0400 Body weight 51.[address] Moris Clement Work Phone: [facility] 06-20-2023 13:04-0500 Body height 157.[address] Bentley Clement Work Phone: [facility] 06-20-2023 13:04-0500 Body mass index (BMI) [Ratio] 20.7 kg/m2 Dr. Bentley Clement Work Phone: [facility] 06-20-2023 13:04-0500 Body weight 51.[address] Bentley Clement Work Phone: [facility] 08-17-2022 19:49-0400 Body height 157.[address] Bentley Clement Work Phone: [facility] 08-17-2022 19:49-0400 Body mass index (BMI) [Ratio] 20.8 kg/m2 Dr. Bentley Clement Work Phone: [facility] 08-17-2022 19:49-0400 Body temperature 97.8 [degF] Dr. Bentley Clement Work Phone: [facility] 08-17-2022 19:49-0400 Body weight 51.[address] Bentley Clement Work Phone: [facility] 08-17-2022 19:49-0400 Diastolic blood pressure 95 mm[Hg] Dr. Bentley Clement Work Phone: [facility] 08-17-2022 19:49-0400 Heart rate 89 /min Dr. Bentley Clement Work Phone: [facility] 08-17-2022 19:49-0400 Respiratory rate 16 /min Dr. Bentley Clement Work Phone: [facility] 08-17-2022 19:49-0400 SaO2% (BldA) [Mass fraction] 100 % Dr. Bentley Clement Work Phone: [facility] 08-17-2022 19:49-0400 Systolic blood pressure 145 mm[Hg] Dr. Bentley Clement Work Phone: [facility] 04-17-2022 11:51-0500 Body temperature 98.5 [degF] Dr. Bentley Clmeent Work Phone: [facility] Work Phone: 04-17-2022 11:51-0500 Diastolic blood pressure 92 mm[Hg] Dr. Bentley Clement Work Phone: [facility] Work Phone: 04-17-2022 11:51-0500 Heart rate 71 /min Dr. Bentley Clement Work Phone: [facility] Work Phone: 04-17-2022 11:51-0500 Respiratory rate 16 /min Dr. Bentley Clement Work Phone: [facility] Work Phone: 04-17-2022 11:51-0500 SaO2% (BldA) [Mass fraction] 100 % Dr. Bentley Clement Work Phone: [facility] Work Phone: 04-17-2022 11:51-0500 Systolic blood pressure 141 mm[Hg] Dr. Bentley Clement Work Phone: [facility] Work Phone: 04-17-2022 05:55-0500 Inhaled oxygen flow rate 4 L/min Dr. Bentley Clement Work Phone: [facility] Work Phone: 11-28-2022 14:41-0500 Body height 157.[address] Bentley Clement Work Phone: [facility] Work Phone: 04-16-2022 14:41-0500 Body weight 54.[address] Bentley Clement Work Phone: [facility] Work Phone: 04-16-2022 11:19-0500 Body mass index (BMI) [Ratio] 21.8 kg/m2 Dr. Bentley Clement Work Phone: [facility] Work Phone: 03-05-2022 14:49-0400 Body height 160.[address] Bentley Clement Work Phone: [facility] Work Phone: 03-05-2022 14:49-0400 Body mass index (BMI) [Ratio] 19.5 kg/m2 Dr. Bentley Clement Work Phone: [facility] Work Phone: 03-05-2022 14:49-0400 Body weight 50.[address] Bentley Clement Work Phone: [facility] Work Phone: 09-20-2021 19:23-0400 Body temperature 98.06 [degF] ABDIAS WONG MD [facility] 09-20-2021 19:23-0400 Diastolic blood pressure 104 mm[Hg] ABDIAS WONG MD [facility] 09-20-2021 19:23-0400 Heart rate 102 /min ABDIAS WONG MD [facility] 09-20-2021 19:23-0400 Respiratory rate 16 /min ABDIAS WONG MD [facility] 09-20-2021 19:23-0400 Systolic blood pressure 162 mm[Hg] ABDIAS WONG MD [facility] Encounters Encounter Date Encounter Type Care Provider Facility Start: 03-24-2025 ambulatory [facility]ity:[facility] Start: 01-23-2025 End: 01-23-[address] Moris Clement MD Work Phone: [facility] Start: 01-23-2025 End: 01-23-2025 Patient encounter procedure Bri Arlington CLAIM TECHNICIAN-C [facility] Work Phone: Start: 01-23-2025 End: 01-23-2025 ambulatory Bri Dumont Facility:[facility] Start: 12-18-2024 End: 12-18-[address] Charles Anthony MD [facility] Start: 12-18-2024 End: 12-18-[address] Moris Clement MD Work Phone: -[facility] Start: 09-11-2024 End: 09-11-[address] Moris Clement MD -Outpatient Breast Imaging Work Phone: Start: 09-11-2024 End: 09-11-2024 ambulatory Moris Clement Facility:[facility] Start: 07-24-2024 End: 07-24-[address] Moris Clement MD Work Phone: [facility] Work Phone: Start: 07-24-2024 End: 07-24-[address] Edgardo Jennings MD -Laboratory Work Phone: Start: 07-24-2024 End: 07-24-2024 ambulatory Edgardo Jennings Facility:[facility] Start: 07-07-2024 End: 07-07-[address] Edgardo Jennings MD -Laboratory Work Phone: Start: 07-07-2024 End: 07-07-2024 ambulatory [facility] Facility:[facility] Start: 06-16-2024 End: 06-16-[address] Edgardo Jennings MD -Laboratory Work Phone: Start: 06-16-2024 End: 06-16-2024 ambulatory [facility] Facility:[facility] Start: 06-11-2024 End: 06-11-[address] Edgardo Jennings MD -Laboratory Work Phone: Start: 06-11-2024 End: 06-11-[address] Edgardo Jennings MD -[facility] Work Phone: Start: 06-11-2024 End: 06-11-2024 ambulatory [facility] [place] Start: 06-11-2024 End: 06-11-2024 ambulatory [facility] Facility:[facility] Start: 04-28-2024 End: 04-28-[address] Joss Lei MD -[facility] Work Phone: Start: 04-28-2024 End: 04-28-2024 ambulatory [facility] [place] Start: 04-19-2024 End: 04-19-2024 Emergency department patient visit Dr. Scottie Camacho MD -Emergency Department Work Phone: Start: 09-11-2023 Non-patient / Non-visit Dr. Moris Clement Work Phone: [facility] Start: 09-10-2023 Non-patient / Non-visit Dr. Moris Clement Work Phone: [facility] Start: 09-10-2023 Non-patient / Non-visit Dr. Moris Clement Work Phone: [facility] Work Phone: Start: 09-09-2023 Non-patient / Non-visit Dr. Moris Clement Work Phone: [facility] Work Phone: Start: 09-09-2023 Non-patient / Non-visit Dr. Moris Clement Work Phone: [facility] Start: 09-09-2023 Non-patient / Non-visit Dr. Moris Clement Work Phone: [facility] Start: 09-09-2023 End: 09-11-2023 Evaluation and management of inpatient Dr. Moris Clement Work Phone: [facility]-Medical Surgical 3 Work Phone: Start: 09-05-2023 Non-patient / Non-visit Dr. Moris Clement Work Phone: [facility] Start: 08-30-2023 End: 08-30-2023 Non-patient / Non-visit Dr. Mrois Clement Work Phone: [facility] Work Phone: Start: 08-28-2023 End: 08-28-[address] Moris Clement Work Phone: [facility] Work Phone: Start: 06-20-2023 End: 06-20-[address] Bentley Clement Work Phone: [facility] Work Phone: Start: 06-18-2023 End: 06-18-[address] Bentley Clement Work Phone: [facility] Work Phone: Start: 06-11-2023 End: 06-11-[address] Bentley Clement Work Phone: [facility] Work Phone: Start: 06-11-2023 End: 06-11-[address] Bentley Clement Work Phone: [facility]-Physical Therapy Work Phone: Start: 05-23-2023 End: 05-23-[address] Bentley Clement Work Phone: [facility] Work Phone: Start: 04-03-2023 End: 04-03-2023 ambulatory [facility] Work Phone: Start: 04-03-2023 End: 04-03-2023 Patient encounter procedure [facility] Work Phone: Start: 03-27-2023 End: 03-27-2023 ambulatory [facility] Work Phone: Start: 03-27-2023 End: 03-27-2023 Patient encounter procedure [facility] Work Phone: Start: 02-06-2023 End: 02-06-2023 ambulatory [facility] Work Phone: Start: 02-06-2023 End: 02-06-2023 Patient encounter procedure [facility]-Outpatient Breast Imaging Work Phone: Start: 08-17-2022 End: 08-17-2022 Emergency department patient visit Dr. Bentley Clement Work Phone: [facility]-Emergency Department Start: 05-30-2022 End: 05-30-[address] Bentley Clement Work Phone: [facility] Start: 05-02-2022 End: 05-02-[address] Bentley Clement Work Phone: [facility] Start: 04-17-2022 Non-patient / Non-visit Dr. Bentley Clement Work Phone: [facility] Start: 04-16-2022 Non-patient / Non-visit Dr. Bentley Clement Work Phone: [facility] Start: 04-16-2022 Non-patient / Non-visit Dr. Bentley Clement Work Phone: [facility] Start: 04-16-2022 End: 04-17-2022 Evaluation and management of inpatient Dr. Bentley Clement Work Phone: [facility]-Medical Surgical 3 Start: 04-16-2022 End: 04-17-[address] Bentley Clement Work Phone: [facility] Work Phone: Start: 04-10-2022 Non-patient / Non-visit Dr. Bentley Clement Work Phone: [facility] Start: 04-09-2022 End: 04-09-[address] Bentley Clement Work Phone: [facility] Start: 03-08-2022 End: 03-08-[address] Bentley Clement Work Phone: [facility] Work Phone: Start: 03-08-2022 End: 03-08-[address] Bentley Clement Work Phone: [facility]-Laboratory, Specimen Start: 03-05-2022 End: 03-05-[address] Bentley Clement Work Phone: [facility] Radiology Start: 01-26-2022 End: 01-26-2022 ambulatory [facility] Work Phone: Start: 01-26-2022 End: 01-26-2022 Patient encounter procedure [facility]-Outpatient Breast Imaging Start: 12-16-2021 End: 12-16-2021 Patient encounter procedure [facility] - [facility] Start: 10-13-2021 End: 10-13-2021 Patient encounter procedure [facility]-Laboratory, Chantelle Ramirez Start: 09-20-2021 End: 09-20-2021 Emergency department patient visit NOT RECORDED PHYSICIAN Facility:B Start: 09-20-2021 End: 09-20-2021 Emergency department patient visit ABDIAS WONG MD [facility] Procedures Date Procedure Procedure Detail Performing Clinician Start: 01-25-[address] Braxton Clement MD Work Phone: Start: 12-18-2024 X-ray of lumbosacral spine Dr. [...] lumbosacral spine L/S Spine Min 4 Views [facility] Start: 12-18-2024 XR Spine Lumbar and Sacrum GE 4 Views [facility] Start: 04-28-2024 Patient referral [facility] Work Phone: Start: 04-19-2024 [facility] Start: 09-11-2023 Patient discharge [facility] Start: 09-09-2023 Following clinical p athway protocol [facility] Start: 09-09-2023 Application of inter mittent pneumatic compression device [facility] Start: 09-09-2023 Catheterization of vein [facility] Start: 09-09-2023 Consultation [facility] Start: 09-09-2023 Following clinical p athway protocol [facility] Start: 09-09-2023 Measuring intake and output [facility] Start: 09-09-2023 Neurovascular assessment [facility] Start: 09-09-2023 Patient education [facility] Start: 09-09-2023 Procedure discontinued [facility] Start: 09-09-2023 Provision of activit y privileges [facility] Start: 09-09-2023 Recommendation to co ntinue with treatment [facility] Start: 09-09-2023 Referral to service [facility] Start: 09-09-2023 Taking patient vital signs [facility] Start: 09-09-2023 Admission procedure [facility] Start: 09-09-2023 Patient referral to dietitian [facility] Start: 05-23-2023 Patient referral [facility] Work Phone: Start: 08-17-2022 Blood chemistry [facility] Start: 08-17-2022 Lipase measurement [facility] Start: 04-17-2022 Patient discharge [facility] Work Phone: Start: 04-16-2022 Application of inter mittent pneumatic compression device [facility] Work Phone: Start: 04-16-2022 Application of inter mittent pneumatic compression device [facility] Work Phone: Start: 04-16-2022 Catheterization of vein [facility] Work Phone: Start: 04-16-2022 Consultation [facility] Work Phone: Start: 04-16-2022 End: 04-16-2022 Following clinical pathway protocol [facility] Work Phone: Start: 04-16-2022 Incentive spirometry [facility] Work Phone: Start: 04-16-2022 Measuring intake and output [facility] Work Phone: Start: 04-16-2022 Neurovascular assessment [facility] Work Phone: Start: 04-16-2022 Oxygen therapy [facility] Work Phone: Start: 04-16-2022 Patient education [facility] Work Phone: Start: 04-16-2022 Procedure discontinued [facility] Work Phone: Start: 04-16-2022 Provision of activit y privileges [facility] Work Phone: Start: 04-16-2022 Referral to service [facility] Work Phone: Start: 04-16-2022 Taking patient vital signs [facility] Work Phone: Start: 04-16-2022 [facility] Work Phone: Start: 04-16-2022 Admission procedure [facility] Work Phone: Start: 04-16-2022 Patient referral to dietitian [facility] Work Phone: Anion gap measurement [facility] Bilirubin measurement, urine [facility] BUN/Creatinine ratio [facility] Calcium [Mass/volume ] in Serum or Plasma [facility] Carbon dioxide, tota l [Moles/volume] in Serum or Plasma [facility] Chloride [Moles/volu me] in Serum or Plasma [facility] Choriogonadotropin.b eta subunit ( test) [Presence] in Serum or Plasma [facility] Creatinine [Moles/vo lume] in Serum or Plasma [facility] Glucose [Mass/volume ] in Serum or Plasma [facility] Hematocrit [Volume F raction] of Blood [facility] Hemoglobin [Mass/vol ume] in Blood [facility] Hemoglobin [Presence ] in Urine [facility] Leukocytes [#/volume ] in Blood [facility] Mean corpuscular hem oglobin concentration determination [facility] Mean corpuscular hem oglobin determination [facility] Measurement of keton es in urine using dipstick [facility] Measurement of renal function [facility] Microscopic urinalysis [facility] Neutrophil count [facility] Neutrophil percent differential count [facility] Path report.final Dx Spec [facility] Work Phone: Patient Education ED Back and Ne ck Pain, General [facility] Work Phone: Patient referral [facility] Work Phone: pH of Urine [facility] Platelets [#/volume] in Blood [facility] Potassium [Moles/vol ume] in Serum or Plasma [facility] Red blood cell count [facility] Red cell distributio n width determination [facility] Sodium [Moles/volume ] in Serum or Plasma [facility] Specific gravity of Urine [facility] Urea nitrogen [Mass/ volume] in Serum or Plasma [facility] Urinalysis, blood, qualitative [facility] Urine dipstick for glucose [facility] Urine dipstick for l eukocyte esterase [facility] Urine dipstick for nitrite [facility] Urine dipstick for protein [facility] Urine examination [facility] Urine microscopy: ep ithelial cells [facility] Urine Microscopy: wh ite cells [facility] Urobilinogen [Presen ce] in Urine [facility] Immunizations Immunization Date Immunization Notes Care Provider Olga villaseñor 08-06-2018 tetanus toxoid, redu khurram diphtheria toxoid, and acellular pertussis vaccine, adsorbed [facility] Payers Date Payer Category Payer Unknown [id number] Self-pay [id number] 2021 Unknown [id number] 2013 Medicaid [id number] 2013 Unknown [id number] [facility] [id number] 1970 Unknown [id number] 2.16.8 [id number] Unknown [id number] Unknown [id number] 2.16.8 40.1.266313.3.579.2.462 Unknown [id number] 2.16.8 40.1.630455.3.579.2.462 Unknown [id number] 2.16.8 40.1.174325.3.579.2.462 Unknown [id number] 2.16.8 40.1.319263.3.579.2.462 Unknown [id number] 2.16.8 40.1.285340.3.579.2.462 Unknown [id number] 2.16.8 40.1.928196.3.579.2.462 Unknown [id number] 2.16.8 40.1.078475.3.579.2.462 Unknown [id number] 2.16.8 40.1.372314.3.579.2.462 Unknown [id number] 2.16.8 40.1.739318.3.579.2.462 Unknown [id number] 2.16.8 40.1.954587.3.579.2.462 Unknown [id number] 2.16.8 40.1.436197.3.579.2.462 Unknown [id number] 2.16.8 40.1.929728.3.579.2.462 Unknown [id number] 2.16.8 40.1.716699.3.579.2.462 Unknown [id number] 2.16.8 [id number] Social History Date Type Detail Facility Start: 09-20-2021 Tobacco smoking status Heavy t obacco smoker (finding) [facility] Sex Assigned At Sex [facility] Start: 08-02-2021 End: 09-09-2023 Tobacco smoking status RIIS Unknown if ever smoked [facility] Start: 08-06-2018 None [facility] Start: 08-06-2018 With Family [facility] Start: 04-19-2016 Cigarettes [facility] Start: 1970 Sex Assigned At Female [facility] Start: 05-25-2024 End: 01-23-2025 Tobacco smoking status NHIS Smokes tobacco daily (finding) [facility] Start: 08-04-2024 Sex Female (finding) [facility] Sex Female [facility] Medical Equipment Procedure Code Equipment Code Equipment Original Text Equipment Identifier Dates Fusion, spine, lumbar, 360 degree, starting in supine position transitioning to prone 25MM PLATE FDA Start: 09-09-2023 Fusion, spine, lumbar, 360 degree, starting in supine position transitioning to prone SPACER,10MM INTERLAM FDA Start: 09-09-2023 Fusion, spine, lumbar, 360 degree, starting in supine position transitioning to prone STRIP,BONE CANC [id number] FDA Start: 09-09-2023 Fusion, spine, lumbar, 360 degree, starting in supine position transitioning to prone Ligation clip, metallic ()[id number] FDA Start: 09-09-2023 Fusion, spine, lumbar, 360 degree, starting in supine position transitioning to prone ([id number]) Bare-metal biliary stent ()[id number] FDA Start: 09-09-2023 Fusion, spine, lumbar, 360 degree, starting in supine position transitioning to prone 3D ANTERIOR LUMBAR FDA Start: 09-09-2023 Fusion, spine, lumbar, 360 degree, starting in supine position transitioning to prone 40MM AXLE FDA Start: 09-09-2023 Fusion, spine, lumbar, 360 degree, starting in supine position transitioning to prone 5.0LWO54LS VARIABLE SCREWS FDA Start: 09-09-2023 Fusion, spine, lumbar, 360 degree, starting in supine position transitioning to prone 5.5DER71NF VARIABLE SCREWS FDA Start: 09-09-2023 Fusion, spine, lumbar, 360 degree, starting in supine position transitioning to prone 5.7LMM63IB VARIABLE SCREWS FDA Start: 09-09-2023 Fusion, spine, lumbar, 360 degree, starting in supine position transitioning to prone 5.9ADD35CU VARIABLE SCREWS FDA Start: 09-09-2023 Fusion, spine, [...] supine position transitioning to prone STRIP,BONE CANC [id number] FDA Start: 09-09-2023 Fusion, spine, lumbar, 360 degree, starting in supine position transitioning to prone 3D ANTERIOR LUMBAR FDA Start: 09-09-2023 Fusion, spine, lumbar, 360 degree, starting in supine position transitioning to prone 40MM AXLE FDA Start: 09-09-2023 Fusion, spine, lumbar, 360 degree, starting in supine position transitioning to prone 5.9NMF77NY VARIABLE SCREWS FDA Start: 09-09-2023 Fusion, spine, lumbar, 360 degree, starting in supine position transitioning to prone 5.2ZGE40GN VARIABLE SCREWS FDA Start: 09-09-2023 Fusion, spine, lumbar, 360 degree, starting in supine position transitioning to prone 5.6KLW23DA VARIABLE SCREWS FDA Start: 09-09-2023 Fusion, spine, lumbar, 360 degree, starting in supine position transitioning to prone 5.2MMP76SU VARIABLE SCREWS FDA Start: 09-09-2023 Fusion, spine, [...] supine position transitioning to prone STRIP,BONE CANC [id number] FDA Start: 09-09-2023 Fusion, spine, lumbar, 360 degree, starting in supine position transitioning to prone 3D ANTERIOR LUMBAR FDA Start: 09-09-2023 Fusion, spine, lumbar, 360 degree, starting in supine position transitioning to prone 40MM AXLE FDA Start: 09-09-2023 Fusion, spine, lumbar, 360 degree, starting in supine position transitioning to prone 5.1YGR24HT VARIABLE SCREWS FDA Start: 09-09-2023 Fusion, spine, lumbar, 360 degree, starting in supine position transitioning to prone 5.9GLX74NS VARIABLE SCREWS FDA Start: 09-09-2023 Fusion, spine, lumbar, 360 degree, starting in supine position transitioning to prone 5.8TJY39RK VARIABLE SCREWS FDA Start: 09-09-2023 Fusion, spine, lumbar, 360 degree, starting in supine position transitioning to prone 5.5PMF08IU VARIABLE SCREWS FDA Start: 09-09-2023 Fusion, spine, [...] supine position transitioning to prone STRIP,BONE CANC [id number] FDA Start: 09-09-2023 Fusion, spine, lumbar, 360 degree, starting in supine position transitioning to prone 3D ANTERIOR LUMBAR FDA Start: 09-09-2023 Fusion, spine, lumbar, 360 degree, starting in supine position transitioning to prone 40MM AXLE FDA Start: 09-09-2023 Fusion, spine, lumbar, 360 degree, starting in supine position transitioning to prone 5.3VQM54OK VARIABLE SCREWS FDA Start: 09-09-2023 Fusion, spine, lumbar, 360 degree, starting in supine position transitioning to prone 5.2AEW98VN VARIABLE SCREWS FDA Start: 09-09-2023 Fusion, spine, lumbar, 360 degree, starting in supine position transitioning to prone 5.1IGC58AU VARIABLE SCREWS FDA Start: 09-09-2023 Fusion, spine, lumbar, 360 degree, starting in supine position transitioning to prone 5.7KMQ08PB VARIABLE SCREWS FDA Start: 09-09-2023 Fusion, spine, [...] supine position transitioning to prone STRIP,BONE CANC [id number] FDA Start: 09-09-2023 Fusion, spine, lumbar, 360 degree, starting in supine position transitioning to prone 3D ANTERIOR LUMBAR FDA Start: 09-09-2023 Fusion, spine, lumbar, 360 degree, starting in supine position transitioning to prone 40MM AXLE FDA Start: 09-09-2023 Fusion, spine, lumbar, 360 degree, starting in supine position transitioning to prone 5.4RJY17MO VARIABLE SCREWS FDA Start: 09-09-2023 Fusion, spine, lumbar, 360 degree, starting in supine position transitioning to prone 5.8MIX31HY VARIABLE SCREWS FDA Start: 09-09-2023 Fusion, spine, lumbar, 360 degree, starting in supine position transitioning to prone 5.6AYB30BH VARIABLE SCREWS FDA Start: 09-09-2023 Fusion, spine, lumbar, 360 degree, starting in supine position transitioning to prone 5.4VZP11KK VARIABLE SCREWS FDA Start: 09-09-2023 Fusion, spine, [...] Result Facility 09-11-2023 Functional status Ambulates [facility] Work Phone: 04-17-2022 Functional status Ambulates;Bathroom Priv ilege [facility] Work Phone: 09-20-2021 Functional Status [facility] Mental Status Date Assessment Result Facility 09-11-2023 Cognitive function Voice/Name [facility] Work Phone: 04-17-2022 Cognitive function Voice/Name [facility] Work Phone: 09-20-2021 Mental Status [facility] Clinical Notes 09-20-2021 to 01-23-2025 Note Date & Type Note Facility 01-23-2025 Progress note [facility] 01-23-2025 Progress note Note Date/Time January 23, 2025 12:29pm [facility] [address], [address] [place] [address] OFFICE VISIT Date of Service: 01/23/25 MR#: [id number] Acct: [id number] Name: JACKLYN WILSON Rep #: [id number] : 1970 Provider: WILLIAM Najera Age/Sex: 54/F Location: [facility] [place] Status: Signed Intake Vital Signs 12/18/24 15:05 01/23/25 11:39 Height 5 ft 2 in 5 ft 2 in Weight: 113 lb BMI 20.6 Intake Visit Reasons: CONCERN FOR UTI Chief Complaint: dysuria 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: No Is patient in pain?: No [...] Grant on 01/23/25 12:25 Off Ur Spec [place] 1.020 Last Edit by Micaela Grant on [...] current regimen -follow up with pcp or social media content specialist Please follow up with your Primary [...] fallen in the past year?: No 01/23/25 1229 <Electronically signed by Bri THOMAS> Date _ Bri Dumont CLAIM TECHNICIAN-C Cosigner Signature: Date (if applicable) CC: ~ [facility] Work Phone: 1(154) 124-237708-01-2025 Evaluation note* Diagnosis Onset Date Resolution Status Admit Date Bilateral hip joint arthritis acute December 18, 2024 2:58pm Osteoporosis acute December 18, 2024 2:58pm S/P lumbar fusion acute December 18, 2024 2:58pm Sacroiliitis acute December 18, 2024 2:58pm Transitional vertebrae acute Au 2024 2:58pm Lower back pain acute January 23, 2025 12:00pm Urinary frequency acute 2024 12:00pm [facility] Work Phone: 1(596) 335-313112-10-2024 Evaluation note* Diagnosis Onset Date Resolution Status Admit Date Closed compression fracture of L3 vertebra acute April 28, 2 024 8:50am S/P lumbar fusion acute Decemb2023 8:50am Osteopenia deleted April 28, 2024 8:50am Closed compression fracture of L3 vertebra acute June 11 9:02am Osteoporosis acute May 9:02am [facility] Work Phone: 1(322) 857-386104-23-2024 Progress note Author Marito Faustin [facility] September 10, 2023 4:25pm Note Date/Time September 10, 2023 4:2 2pm [facility] Medical Records Department [address] [place] [address] Progress Note - Orthopedic 09/10/23 1620 MR#: [id number] Acct: [id number] Name: JACKLYN WILSON SEPTEMBER Rep #:[id number] : 1970 53 From: Marito Archuleta PCP: Dr. Moris Clement MD Status :ADM IN Location: [place] [address] Subjective Subjective Jacklyn is seen on rounds. [...] Cosigner Signature (if applicable): CC: ~ Signed [facility] Work Phone: 1(732) 904-302204-23-2024 Procedure [facility] 09-10-2023 Progress note Author Hussain Zapata [facility] September 10, 2023 1:19pm Note Date/Time September 10, 2023 10: 03am [facility] Medical Records Department [address] [place] [address] Progress Note - Hospitalist 09/10/23 1003 MR#: [id number] Acct: [id number] Name: JACKLYN WILSON SEPTEMBER Rep #:[id number] : 1970 53 From: Hussain Fontanez PCP: Dr. Moris Clement MD Status :ADM IN Location: [place] [address] Reason for Visit Reason for Visit: Diagnoses [...] spine surgery. Charges/Coding Visit Charges Inpatient E&M: 58262 Subs Hosp L2 09/10/23 1311 <Electronically signed by Hussain Zapata MD> Cosigner Signature (if applicable): CC: ~ Signed [facility] Work Phone: 1(242) 962-855104-22-2024 Progress note Author Fitz Dela Cruz [facility] September 09, 2023 7:04pm Note Date/Time September 09, 2023 7:0 4pm [facility] Medical Records Department [address] [place] [address] Progress Note - Hospitalist 09/09/23 1901 MR#: [id number] Acct: [id number] Name: JACKLYN WILSON Rep #:[id number] : 1970 53 From: Fitz Dela Cruz DO PCP: Dr. Moris Clement MD Status :ADM IN Location: [place] [address] Reason for Visit Reason for Visit: Consult [...] patient's hospitalization. Charges/Coding Visit Charges Inpatient E&M: 46421 Subs Hosp L2 09/09/23 1904 <Electronically signed by Fitz Dela Cruz DO> Cosigner Signature (if applicable): CC: ~ Signed [facility] Work Phone: 1(882) 572-517004-22-2024 Procedure [facility] 09-09-2023 Procedure [facility]04-18-2024 History and physical note Author Marito Faustin [facility] September 05, 2023 3:35pm Note Date/Time September 05, 2023 3:3 5pm [facility] Medical Records Department [address] [place] [address] History & Physical Exam 09/05/23 1534 MR#: [id number] Acct: [id number] Name: JACKLYN WILSON SEPTEMBER Rep #:[id number] : 1970 53 From: Marito Archuleta PCP: Dr. Moris Clement MD Status :PRE IN Location: [facility] History and Physical MR#: [id number] Acct: [id number] Name: JACKLYN WILSON SEPTEMBER Rep #: [id number] : 1970 Provider: Dr. Marito Faustin DO Age/Sex: 52/F Location[place] [facility] [place] Status: Signed Intake Vital Signs 08/17/2318:49 Height 5 ft 2 in Intake Visit Reasons: LUMBAR SPINE Chief Complaint: abd pain Allergies No Known Allergies Allergy (Verified 08/27/22 14:30) Medications omega 4-nga-kht-fish oil 60 mg-90 mg-500 mg capsule 1 [...] follow-up. Unfortunately she does not work at [employer] anymore. 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 Moris Clement MD; Dr. Marito Faustin DO~ Signed [facility] Work Phone: 1(814) 403-767102-05-2024 Discharge summary Author Estelle Harris [facility] June 24, 2023 8:15am Note Date/Time June 24, 2023 8 :15am [facility] Physical Therapy Health[address] [place] [address] / REHABILITATION SERVICES DISCHARGE SUMMARY MR#: [id number] Acct: [id number] Name: JACKLYN WILSON Rep #: [id number] : 1970 53 From: Estelle Perera Referring Dr.: Dr. Marito Faustin DO Status: REG RCR Insurance: [facility] SELF PAY INSURANCE Discharge Summary D/C [...] due to pain and radicular pain into [facility] at this time Goals Goal 1:: I HEP Goal 2:: Be able to pick up man and object off the floor keeping back [...] please feel free to call me at [phone]. Thank you for the referral of thispatient. Sincerely, TIFFANY Jeffrey Balance/Gait/Functional tests Balance/Special Test Scores Oswestry Low Back Score: 21 Improvement % Improvement: 0 <Electronically signed by Estelle Harris MPT> 06/24/23 0815 CC: Dr. Marito Faustin DO; Avril Santiago ~ Signed [facility] Work Phone: 1(102) 604-677801-23-2024 Discharge summary Author Estelle Harris [facility] June 11, 2023 11:54am Note Date/Time June 11, 2023 1 1:54am [facility] [place] [address] [place] [address] / REHABILITATION SERVICES DISCHARGE SUMMARY MR#: [id number] Acct: [id number] Name: JACKLYN WILSON Rep #: [id number] : 1970 52 From: Estelle Perera Referring Dr.: Dr. Marito Faustin DO Status: REG RCR Insurance: [facility] SELF PAY INSURANCE Discharge Summary D/C [...] due to pain and radicular pain into [facility] at this time Goals Goal 1:: I HEP Goal 2:: Be able to pick up man and object off the floor keeping back [...] please feel free to call me at [phone]. Thank you for the referral of thispatient. Sincerely, Estelle Harris, MPT Balance/Gait/Functional tests Balance/Special Test Scores Oswestry Low Back Score: 21 Improvement % Improvement: 0 <Electronically signed by Estelle Harris MPT> 06/11/23 1153 CC: Dr. Marito Faustin, DO; Avril Santiago ~ Signed [facility] Work Phone: 1(975) 376-490310-20-2022 NotePap Smear Specimen AdequacyOctober 2021 2:04pmComment.Satisfactory for evaluation. Endocervical and/or squamous metaplasticcells (endocervical component)are present.Areas of partially obscuring inflammatory exudate are present.[id number] Work Phone: Comment on above:Satisfactory for evaluation. [...] wound Decreased movement around the injured area 9731-3704 [employer]. [address] [place] [address], [place] [address]. All rights reserved. This information is not intended as a substitute for professional medical care. Always follow yourhealthcare professional's instructions. Follow Up Care 09/20/2021 19:19:49 With:CONOR PERDOMO Address: [address] [place] [address] [place] [address]- When:2-4 days [facility] Discharge summary Author Marito Faustin [facility] September 11, 2023 1:10pm Note Date/Time September 11, 2023 1:1 0pm [facility] Medical Records Department [address] [place] [address] Discharge Summary 09/11/23 1308 MR#: [id number] Acct: [id number] Name: JACKLYN WILSON Rep #:[id number] : 1970 53 From: Marito Archuleta PCP: Dr. Moris Clement MD Status :ADM IN Location: [facility] [place] [place] [id number] Providers Date of Admission: 09/09/23 Primary Care [...] Nausea Medications at Discharge Home Medications omega 9-mfe-ixd-fish oil 60 mg-90 mg-500 mg capsule 1 [...] unit) capsule 250 mcg PO PRN omega 8-qbv-biu-fish oil 1 EACH capsule 1 ea PO PRN gfzsenqb-ohvt-zmtxz-oreg-capry 100 mg-150 mg- 50 mg-150 mg Capsule [...] Clement MD; Dr. Marito Faustin DO~ Signed [facility] Work Phone: Evaluation + Plan note No data available for this section [facility] Evaluation noteNo assessment information available [facility] Work Phone: Evaluation note* Diagnosis Onset Date Resolution Status Herniated nucleus pulposus, L4-5 right acute [facility] Work Phone: Evaluation note* Diagnosis Onset Date Resolution Status Herniated nucleus pulposus, L4-5 right acute Herniated nucleus pulposus, L4-5 right acute Herniated nucleus pulposus, L4-5 right acute [facility] Work Phone: Evaluation note* Diagnosis Onset Date Resolution Status S/P laminectomy acute S/P laminectomy acute [facility] Work Phone: Evaluation note* Diagnosis Onset Date Resolution Status HNP (herniated nucleus pulposus), lumbar acute S/P laminectomy acute Herniated nucleus pulposus, L4-5 right acute S/P laminectomy acute [facility] Work Phone: Evaluation note* Diagnosis Onset Date Resolution Status HNP (herniated nucleus pulposus), lumbar acute S/P laminectomy acute Herniated nucleus pulposus, L4-5 right acute S/P laminectomy acute Herniated nucleus pulposus, L4-5 right acute S/P laminectomy acute Nausea acute [facility] Work Phone: Evaluation note* Diagnosis Onset Date Resolution Status Admit Date Bilateral hip joint arthritis acute December 18, 2024 2:58pm Osteoporosis acute December 18, 2024 2:58pm Sacroiliitis acute December 18, 2024 2:58pm Transitional vertebrae acute Au 2024 2:58pm [facility] Work Phone: Progress note No data available for this section [facility] Reason for referral (narrative)No reason for referral [facility] Work Phone: Chief Complaint and Reason for [...] frequency January 23, 2025 12:00pm Family History No Family History Records Found Relationship Condition Age at Onset Recorded Date/T [...] infarction Unknown Malignant neoplasm Unknown Advance Directives No Advanced Directives Records Found Advance Directive Response Recorded Date/ Time Advance Directives No April 1:46pm Living Will No August 02, 2021 5:00am Power of Utility Agent No August 02 5:00am Advance Directive Response Recorded Date/ Time Advance Directives No April 12:46pm Living Will No April 16, 022 11:19am Power of Utility Agent No April 16, 2022 11:19am Advance Directive Response Recorded Date/ Time Advance Directives No April 1:46pm Living Will No April 16 12:19pm Power of Utility Agent No April 16, 2022 12:19pm Advance Directive Response Recorded Date/ Time Advance Directives No April 1:46pm Living Will Yes September 09, 2023 5:42pm Power of Utility Agent No September 08 5:42pm Advance Directive Response Recorded Date/ Time Living Will No April 19 11:38am Power of Utility Agent No April 19, 2024 11:38am Advance Directives [...] Bentley Clement MD Primary Care Provider, Refe ing Provider Active Dr. Marito Faustin DO Attending [...] Ref erring Provider Active Dr. Marito Faustin DO Attending Provider Active Team Status: Inactive Member Role Status Dates Dr. Marito Faustin DO Attending Provider Active Dr. Moris Clement MD Primary Care Provider, Ref erring Provider Active Team Status: Active Member Role Status Dates Dr. Moris Clement MD Primary Care Provider Acti ve Dr. Albert Fountain MD Attending Provider Active Dr. Marito Faustin DO Referring Provider Active Team Status: Active Member Role Status Dates Dr. Moris Clement MD Primary Care Provider Acti ve Dr. Marito Faustin , DO Admit Provider, A ttending Provider, Other Provider Active Team Status: Active Member Role Status Dates Dr. Moris Clement MD Primary Care Provider Acti ve Dr. Marito Faustin DO Admit Provider, A ttending Provider, Referring [...] 23, 2025 End: January 23, 2025 WILLIAM Gerenfield Attending Provider Active Start: January 23, 2025 End: January 23, 2025 Team Status: Active Member Role/Relationship Status Dates Dr. Moris Clement MD Primary care physician Act maryellen Team Status: Inactive Member Role/Relationship Status Dates Dr. Moris Clement MD Primary care physician Act maryellen Start: December 18, 2024 End: December 18, 2024 Dr. Moris Clement MD Referring Provider Active Start: December 18, 2024 End: December 18, 2024 Dr. Joss Lei MD Attending physician Active Start: December 18, 2024 End: December 18, 2024 Team Status: Inactive Member Role/Relationship Status Dates Dr. Moris Clement MD Primary care physician Act maryellen Start: December 18, 2024 End: December 18, 2024 Dr. Charles Anthony MD Attending physician Active Start: December 18, 2024 End: December 18, 2024 Team Status: Inactive Member Role/Relationship Status Dates Dr. Moris Clement MD Primary care physician Act maryellen Start: January 23, 2025 End: January 23, 2025 WILLIAM Greenfield Attending physician Active Start: January 23, 2025 End: January 23, 2025 Team Status: Inactive Member Role/Relationship Status Dates Dr. Moris Clement MD Primary care physician Act maryellen Start: January 23, 2025 End: January 23, 2025 Dr. Moris Clement MD Referring Provider Active Start: January 23, 2025 End: January 23, 2025 WILLIAM Greenfield Attending physician Active Start: January 23, 2025 End: January 23, 2025 Goals (unrecognized section and content) Goals may be documented in a n alternate section INFORMATION SOURCE (unrecogn ized section and content) DATE CREATED AUTHOR 07/04/2022 [facility] ([place]) DATE CREATED AUTHOR 'S ORGANIZ ATION 03/06/2025 [facility] FOR RECORDS PERTAINING TO PATIENTS WHO [...] BE BASED ON THE PRIMARY CLINICAL RECORDS. [facility] provides no warranty or guarantee of the accuracy or completeness of information in this document.
--- OUTSIDE RECORDS SUMMARY | 2025-03-09 08:34 | XMS RPT_ITS | CCD ---
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 Moris Clement Primary Care Provider [phone] Dr. Moris Clement Referring Provider Dr. Marito [...] Other Provider Dr. Lamont Venegas Other Provider 1([facility])[phone] Hussain Zapata Other Provider 1([facility])[phone] Fitz Gutierrez Attending Provider Dr. Fitz Dela Cruz Attending Provider Dr. Hussain Zapata Attending Provider Dr. Moris Clement MD Primary Care Provider Doug BISHOP, Dr. Rubin Attending Provider Dr. Scottie Camacho MD Emergency Provider Dr. Moris Clemetn MD Referring Provider [phone] Quique BISHOP, Dr. Coreas Attending Provider Gabrielle BISHOP, Dr. Soto Attending Provider King EDNA, Dr. Reynoso Attending Provider King EDNA, Dr. Reynoso Referring Provider Racquel BISHOP, Dr. Subramanian Primary Care Provider Racquel BISHOP, Dr. Subramanian Attending Provider Racquel BISHOP, Dr. Subramanian Referring Provider [phone] Quique BISHOP, Dr. Coreas Attending Provider Gabrielle BISHOP, Dr. Soto Attending Provider Racquel BISHOP, Dr. Subramanian Primary Care Provider Racquel BISHOP, Dr. Subramanian Referring Provider Tim 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, Bri Attending Provider Racquel BISHOP, Dr. Subramanian Primary Care Physicia n Quique BISHOP, Dr. Coreas Attending Physician Gabrielle BISHOP, Dr. Soto Attending Physician Tim 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, Bri Attending Physician Ranney, Christopher Primary Care [...] sources) oxyCODONE Drug Allergy 4 Anaphylaxis, Other [facility] Comment on above: Sweating, Shaking un controllable and vomiting (1 source) oxyCODONE Drug Allergy 5 [facility] Repository Medications Current Medications Medication Drug Class(es) [...] DAILY March 05, 2022 12:00am Ginkgo Biloba Greer Extract (5 sources) Start: 05-25-2024 take 1 tablet by mouth twice daily Ginkgo Biloba Greer Extract 60 mg tablet Active 60 mg PO TWICE A DAY May 25, 2024 1:00am give with meal/snack Complies with drug therapy Start: 05-25-2024 take 1 tablet by cameron th twice daily Ginkgo Biloba Greer Extract 60 mg tablet Active 60 mg [...] TABLET PO DAILY August 26, 2023 12:00am [place] 9-Ipv-Ggt-Fish Oil (10 sources) Start: 04-30-2016 [place] 3-Dha-Ep a-Fish Oil Active 1 EACH PO NEEDED April 30, 2016 1:00am Start: 04-30-2016 [place] 3-Dha-Ep a-Fish Oil Active 1 EACH PO DAILY April 30, 2016 12:00am Start: 04-30-2016 [place] 3-Dha-Ep a-Fish Oil Active 1 EACH PO [...] tumeric Active PO May 25, 2024 1:00am Zphvews-Wxon-Mqpwa-Oreg-Capr yl (5 sources) Start: 03-27-2022 take 1 capsule by mouth once daily Lvenxlf-Lbca-Ouqnn-Oreg-Capryl Active 1 CAP PO DAILY March 27, 2022 1:00am Start: 03-27-2022 take 1 capsule by mouth once daily Eqdbcxb-Groh-Ndjgc-Oreg-Capryl Active 1 CAP PO DAILY March 27, 2022 12:00am Cnbhwczx-Onfl-Ogvna-Oreg-Cap ry (2 sources) Start: 03-27-2022 take 1 capsule by mouth once daily Rgvfipnb-Vncs-Nbvcd-Oreg-Capry Active 1 CAP PO DAILY March 27, 2022 1:00am Start: 03-27-2022 take 1 capsule by mouth once daily Dezbdjrp-Nkst-Mjgwi-Oreg-Capry Active 1 CAP PO DAILY March 27, 2022 12:00am Vitamin B Complex (3 sources) Start: 07-13-2013 Vitamin B Comp ann marie Active 1 EACH PO DAILY July 13, 2013 1:00am 100 ml zoledronic acid 0.05 mg/ml injection (5 sources) Bisphosphonate Start: 06-18-2024 Zoledronic Sjaf-Vrmkdzzl-Ybwgk 5 mg/100 mL piggyback Active 1 NMA [...] 2025 12:07am must administer with a meal/food [place] 7-Fkm-Oog-Fish Oil 1 EACH capsule (5 sources) Start: 04-30-2016 End: 06-11-2024 [place] 5-Mwe-Jtj-Fish Oil 1 EACH capsule Discontinued 1 NMA PO NEEDED April 30, 2016 1:00am June 11, 2024 10:06am SUPPLEMENT Start: 04-30-2016 End: 06-11-2024 [place] 4-Lct-Cwe-Fish Oil 1 E ACH capsule Discontinued 1 [...] 27, 2023 12:00am June 11, 2024 10:07am Wjrljzek-Ndwf-Dst md-Vjdo-Jrrqc 100 mg-150 mg- 50 mg-150 mg Capsule (5 sources) Start: 03-27-2022 End: 06-11-2024 take 1 capsule by mouth once daily as needed Xwghirwc-Hpib-Hhwcj-O reg-Capry 100 mg-150 mg- 50 mg-150 mg [...] Facility Urine Cultureon 01-27-2025 [facility] Escherichia coli [place] Count 25,000-50,000 Escherichia coli: REACTION Ampicillin Islt [...] TMP SMX Islt NORIS <=20 S Normal [facility] Comment on above: Performed By: #### M 100.2200 #### [facility] Laboratory [address] [place] [address], [id number] Urine cultureOrdered By: Kiran Dumont on 01-25-2025 Bacteria identified Cx Nom (U) Escherichia coli Abnormal [facility] Laboratory - Chemistry and C hemistry - challengeOrdered By: Bri Dumont on 01-23-2025 Bilirubin Ql (U) Negative [facility] Glucose Ql (U) Negative [facility] Ketones Ql (U) Negative [facility] pH (U) 6.0 [pH] [facility] Specific gravity (U) [Rel density] 1.020 [facility] Urobilinogen (U) [Mass/Vol] Negative [facility] Laboratory - Hematology and Cell countsOrdered By: Bri Dumont on 01-23-2025 Hemoglobin Ql (U) Trace [facility] Laboratory - Specimen inform ationOrdered By: Bri Dumont on 01-23-2025 Clarity (U) Clear [facility] Color (U) Dk Yellow [facility] Laboratory - UrinalysisOrder ed By: Bri Dumont on 01-23-2025 Nitrite Ql (U) Negative [facility] Protein Ql (U) Trace [facility] No Panel InformationOrdered By: Bri Dumont on 01-23-2025 Urine Leukocytes Positive [facility] Urine Non-Hemolyzed Blood Negative [facility] Urgent Care Visit Reporton 0 01-23-2025 Urgent Care Visit Report [facility] [address], [address] [place], [place] [id number] OFFICE VISIT Date of Service: 01/23/25 MR#: [id number] Acct: [id number] Name: JACKLYN WILSON Rep #: [id number] : 1970 Provider: WILLIAM Dumont Age/Sex: 54/F [place] [facility] [facility] [place] Status: Signed Intake Vital Signs 12/18/24 15:05 01/23/25 11:39 Height 5 ft 2 in 5 ft 2 in Weight: 113 lb BMI 20.6 Intake Visit Reasons: CONCERN FOR UTI Chief Complaint: dysuria Block Captain Required: No Is patient in pain?: No [...] fever, blood in urine. concern [facility] Medical History Bilateral hip joint arthritis Transitional [...] Color Dk Yellow Last Edit by Micaela Garnt on 01/23/25 12:25 Office Urine Clarity Clear Last Edit by Micaela Grant on 01/23/25 12:25 Office Urine Glucose Negative Last Edit by Micaela Grant on 01/23/25 12:25 Office Urine Ketones Negative Last Edit by Micaela Grant on 01/23/25 12:25 Off Ur Spec [place] 1.020 Last Edit by Micaela Grant on 01/23/25 12:25 Office Urine pH 6.0 Last Edit by Micaela Grant on 01/23/25 12:25 Office Urine Bilirubin Negative Last Edit by Micaela Grant on 01/23/25 12:25 Office Urine Urobilinogen Negative Last Edit by Micaela Hatch (more content not included)... Normal [facility] L/S Spine Min 4 Views L/S Spine Min 4 Views [facility] Imaging Services [address] [place], [place] [address] ([phone]) L/S Spine Min 4 Views MR#: [id number] Acct: [id number] Name: JACKLYN WILSON Rep #: [id number] : 1970 F 54 From: Donato Torres MD PCP: Dr. Moris Clement MD Status: DEP AMB Study: L/S Spine Min 4 Views Date of Exam: 12/18/24 Exam# [id number] Ordering Dr: Syl Liu PROCEDURE: L/S SPINE MIN 4 VIEWS 12/18/2024 REASON FOR EXAM: BACK PAIN, RECENT FALL DOWN STAIRS TECHNIQUE: L/S SPINE MIN 4 VIEWS COMPARISON: 04/28/2024 FINDINGS: Transitional anatomy. Oage-lcmdgda-ajbe-right hip osteoarthritis. Status post anterior and posterior fusion, L4-L5. Anterior wedge compression deformity, L3, small interval worsening. No abnormal motion with flexion/extension. RAD/L/S Spine Min 4 Views IMPRESSION: Small interval worsening in L3 anterior wedge compression deformity. [place] Location: HUSSEIN-2 CC: NEVILLE Wilkinson; Dr. Moris Clement MD Head Of Digital: Signed Normal [facility] Orthopedic Visit Reporton Orthopedic Visit Report [facility] [address] [place] [address] [place] [address] OFFICE VISIT Date of Service: 12/18/24 MR#: [id number] Acct: [id number] Name: JACKLYN WILSON Rep #: [id number] : 1970 Provider: Dr. Joss Lei MD Age/Sex: 54/F [place] [facility] [facility] [place] Status: Signed Intake Vital Signs 06/11/24 09:02 [...] you fallen in the past year?: Yes [facility] Medical History (Updated 12/18/24 @ 15:44 by [...] by me, Dr. Joss Lei MD 12/18/24 2019. Part of today???s visit was documented by [...] present, potentia (more content not included)... Normal [facility] SCRN MAMM (CAD)W/ANNETTA BILATo n 09-11-2024 SCRN MAMM (CAD)W/ANNETTA BILAT [facility] Imaging Services [address] [place] [address] SCRN MAMM (CAD)W/ANNETTA BILAT MR#: [id number] Acct: [id number] Name: JACKLYN WILSON Rep #: [id number] : 1970 F 54 From: Rocío Archuleta PCP: Dr. Moris Clement MD Status: REG CLI Study: SCRN MAMM (CAD)W/ANNETTA BILAT Date of Exam: 08/19 10/11 Exam# [id number] Ordering Dr: Moris Clement EXAM: SCRN MAMM [...] be mailed to the patient. [place] Location: [facility] CC: Dr. Moris Clement MD Head Of Digital: Signed Normal [facility] Absolute neutrophil countOrd ered By: Edgardo Jennings on 07-24-2024 Neutrophils (Bld) [#/Vol] 7.1 10*3/uL 2.0-7.7 [facility] Basophil percentageOrdered B y: Edgardo Jennings on 07-24-2024 Basophils/100 WBC (Bld) 0.5 % 0-[address] [facility] CBC W/Diff, Automatedon 03-0 Absolute Lymph 3.21 X10 3/uL Normal 0.83-4.51 [facility] Comment on above: Performed By: #### M 100.0 #### [facility] [address] [place], [address] Absolute Neut 7.1 X10 3/uL Normal 2.0-7.7 [facility] Comment on above: Performed By: #### M 100.2200 #### [facility] [address] [place], [address] Basophils/100 WBC (Bld) 0.5 % Normal 0-[address] [facility] Comment on above: Performed By: #### M 100.2200 #### [facility] [address] [place], [address] Eosinophils/100 WBC (Bld) 0.8 % Normal 0-5 [facility] Comment on above: Performed By: #### M 100.2200 #### [facility] [address] [place], [address] Erythrocyte distribution width (RBC) [Ratio] 13.3 % Normal 11.6-14.6 [facility] Comment on above: Performed By: #### M 100.2200 #### [facility] [address] [place], [address] Hematocrit (Bld) [Volume fraction] 37.2 % Normal 37-47 [facility] Comment on above: Performed By: #### M 100.2200 #### [facility] [address] [place], [address] Hemoglobin (Bld) [Mass/Vol] 12.5 g/dL Normal 12.0-15.0 [facility] Comment on above: Performed By: #### M 100.2200 #### [facility] [address] [place], [address] IG% 0.400 Normal 0.0-0.9 [facility] Comment on above: Result Comment: IG% - Immature Granulocytes (promyelocytes, myelocytes and metamyelocytes) > 1% indicates that a LEFT SHIFT is Present. Performed By: #### M 100.2200 #### [facility] [address] [place], [address] Lymphocytes/100 WBC (Bld) 28.2 % Normal 19-41 [facility] Comment on above: Performed By: #### M 100.2200 #### [facility] [address] [place], [address] MCH (RBC) [Entitic mass] 32.7 pg High 27.0-32.0 [facility] Comment on above: Performed By: #### M 100.2200 #### [facility] [address] [place], [address] MCHC (RBC) [Mass/Vol] 33.6 g/dL Normal 32-36 [facility] Comment on above: Performed By: #### M 100.2200 #### [facility] [address] [place], [address] MCV (RBC) [Entitic vol] 97.4 fL Normal 81-[address] [facility] Comment on above: Performed By: #### M 100.2200 #### [facility] [address] [place], [address] Monocytes/100 WBC (Bld) 7.8 % Normal 0-10 [facility] Comment on above: Performed By: #### M 100.2200 #### [facility] [address] [place], [address] Neutrophils/100 WBC (Bld) 62.3 % Normal 47-70 [facility] Comment on above: Performed By: #### M 100.2200 #### [facility] [address] [place], [address] Nucleated RBC (Bld) [#/Vol] 0 10*3/uL Normal 0-5 [facility] Comment on above: Performed By: #### M 100.2200 #### [facility] [address] [place], [address] Platelet mean volume (Bld) [Entitic vol] 8.7 fL Normal 6.2-12.0 [facility] Comment on above: Performed By: #### M 100.2200 #### [facility] [address] [place], [address] Platelets (Bld) [#/Vol] 330 10*3/uL Normal 150-450 [facility] Comment on above: Performed By: #### M 100.2200 #### [facility] [address] [place], [address] RBC (Bld) [#/Vol] 3.82 10*6/uL Low 4.2-5.4 [facility] Comment on above: Performed By: #### M 100.2200 #### [facility] [address] [place], [address] RDW SD 47.9 fl High 35.1-43.9 [facility] Comment on above: Performed By: #### M 100.2200 #### [facility] [address] [place], [address] WBC (Bld) [#/Vol] 11.4 10*3/uL High 4.4-11.0 [facility] Comment on above: Performed By: #### M 100.2200 #### [facility] [address] [place], [address] Eosinophil percentageOrdered By: Edgardo Jennings on 07-24-2024 Eosinophils/100 WBC (Bld) 0.8 % 0-5 [facility] Erythrocyte distribution wid th ratioOrdered By: Edgardo Jennings on 07-24-2024 Erythrocyte distribution width (RBC) [Ratio] 13.3 % 11.6-14.6 [facility] Erythrocyte distribution wid th standard deviationOrdered By: Edgardo Jennings on 07-24-2024 Erythrocyte distribution width (RBC) [Entitic vol] 47.9 fL High 35.1-43.9 [facility] Hematocrit Auto (Bld) [Volum e fraction]Ordered By: Edgardo Jennings on 07-24-2024 Hematocrit (Bld) [Volume fraction] 37.2 % 37-47 [facility] Hemoglobin measurementOrdere d By: Edgardo Jennings on 07-24-2024 Hemoglobin (Bld) [Mass/Vol] 12.5 g/dL 12.0-15.0 [facility] Immature granulocytes/100 WB C Auto (Bld)Ordered By: Edgardo Jennings on 07-24-2024 Immature granulocytes/100 WBC (Bld) 0.400 % 0.0-0.9 [facility] Comment on above: IG% - Immature Granu locytes (promyelocytes, myelocytes and metamyelocytes) > 1% indicates that a LEFT SHIFT is Present. Lymphocytes Auto (Unsp spec) [#/Vol]Ordered By: Edgardo Jennings on 07-24-2024 Lymphocytes (Bld) [#/Vol] 3.21 10*3/uL 0.83-4.51 [facility] Lymphocytes/100 WBC Auto (Un sp spec)Ordered By: Edgardo Jennings on 07-24-2024 Lymphocytes/100 WBC (Bld) 28.2 % 19-41 [facility] MCV (mean corpuscular volume ) determinationOrdered By: Edgardo Jennings on 07-24-2024 MCV (RBC) [Entitic vol] 97.4 fL 81-[address] [facility] Mean corpuscular hemoglobin (MCH) determinationOrdered By: Edgardo Jennings on 07-24-2024 MCH (RBC) [Entitic mass] 32.7 pg High 27.0-32.0 [facility] Mean corpuscular hemoglobin concentration (MCHC) determinationOrdered By: Edgardo Jennings on 07-24-2024 MCHC (RBC) [Mass/Vol] 33.6 g/dL 32-36 [facility] Mean platelet volume determi nationOrdered By: Edgardo Jennings on 07-24-2024 Platelet mean volume (Bld) [Entitic vol] 8.7 fL 6.2-12.0 [facility] Monocyte percentageOrdered B y: Edgardo Jennings on 07-24-2024 Monocytes/100 WBC (Bld) 7.8 % 0-[address] [facility] Neutrophil percentageOrdered By: Edgardo Jennings on 07-24-2024 Neutrophils/100 WBC (Bld) 62.3 % 47-70 [facility] Nucleated red blood cell per centageOrdered By: Edgardo Jennings on 07-24-2024 Nucleated RBC/100 WBC (Bld) [Ratio] 0 % 0-5 [facility] Platelet countOrdered By: Nikolas Jennings on 07-24-2024 Platelets (Bld) [#/Vol] 330 10*3/uL 150-450 [facility] RBC Auto (Bld) [#/Vol]Ordere d By: Edgardo Jennings on 07-24-2024 RBC (Bld) [#/Vol] 3.82 10*6/uL Low 4.2-5.4 [facility] White blood cell (WBC) count Ordered By: Edgardo Jennings on 07-24-2024 WBC (Bld) [#/Vol] 11.4 10*3/uL High 4.4-11.0 [facility] Vitamin D,25 Hydroxyon 07-09 Vitamin D 25-OH 39.4 ng/mL Normal [facility] Comment on above: Result Comment: Alexandra min D 25(OH) Status Range Deficiency <20 ng/mL (50nmol/L) Insufficiency 20 - 30 ng/mL (50 - 75 nmol/L) Sufficiency 30 - 100 ng/mL (75 - 250 nmol/L) Toxicity >100 ng/mL (>250 nmol/L) Performed By: #### L 500.4050, L506.1000 #### [facility] [address] [place], [address] 41-AN-Iwmvyub DOrdered By: Trever Jennings on 07-07-2024 Vitamin D 25-Hydroxy 39.4 ng/mL [facility] Comment on above: Vitamin D 25(OH) Sta tus Range Deficiency <20 ng/mL (50nmol/L) Insufficiency 20 - 30 ng/mL (50 - 75 nmol/L) Sufficiency 30 - 100 ng/mL (75 - 250 nmol/L) Toxicity >100 ng/mL (>250 nmol/L) Albumin to globulin ratioOrd ered By: Edgardo Jennings on 07-07-2024 Albumin/Globulin [Mass ratio] 1.3 {ratio} 0.9-2.4 [facility] Bilirubin, totalOrdered By: Edgardo Jennings on 07-07-2024 Bilirubin [Mass/Vol] 0.50 mg/dL 0.20-1.00 [facility] Comment on above: For patients on eltr ombopag therapy, use of Dimension [place] TBIL is not recommended. Blood urea nitrogen (BUN)/cr eatinine ratioOrdered By: Edgardo Jennings on 07-07-2024 Urea nitrogen/Creatinine [Mass ratio] 21.6 mg/mg High 10-20 [facility] Carbon dioxide measurementOr dered By: Edgardo Jennings on 07-07-2024 CO2 [Moles/Vol] 32.0 mmol/L 21.0-32.0 [facility] Chloride measurementOrdered By: Edgardo Jennings on 07-07-2024 Chloride [Moles/Vol] 97 mmol/L Low 98-107 [facility] Comprehensive Metabolic Prof ilon 07-07-2024 Albumin [Mass/Vol] 4.3 g/dL Normal 3.2-5.0 [facility] Comment on above: Performed By: #### L 500.4050, L506.1000 #### [facility] [address] [place], [address] Albumin/Globulin [Mass ratio] 1.3 {ratio} Normal 0.9-2.4 [facility] Comment on above: Performed By: #### L 500.4050, L506.1000 #### [facility] [address] [place], [address] ALK P 59 U/L Normal 45-117 [facility] Comment on above: Performed By: #### L 500.4050, L506.1000 #### [facility] [address] [place], [address] ALT [Catalytic activity/Vol] 22 U/L Normal 13-56 [facility] Comment on above: Performed By: #### L 500.4050, L506.1000 #### [facility] [address] [place], [address] AST [Catalytic activity/Vol] 20 U/L Normal 15-37 [facility] Comment on above: Performed By: #### L 500.4050, L506.1000 #### [facility] [address] [place], [address] Bilirubin [Mass/Vol] 0.50 mg/dL Normal 0.20-1.00 [facility] Comment on above: Result Comment: For patients on eltrombopag therapy, use of Dimension [place] TBIL is not recommended. Performed By: #### L 500.4050, L506.1000 #### [facility] [address] [place], [address] BUN/CRE 21.6 RATIO High 10-20 [facility] Comment on above: Performed By: #### L 500.4050, L506.1000 #### [facility] [address] [place], [address] CA,Total 10.6 mg/dL High 8.5-10.1 [facility] Comment on above: Performed By: #### L 500.4050, L506.1000 #### [facility] [address] [place], [address] Chloride [Moles/Vol] 97 mmol/L Low 98-107 [facility] Comment on above: Performed By: #### L 500.4050, L506.1000 #### [facility] [address] [place], [address] CO2 [Moles/Vol] 32.0 mmol/L Normal 21.0-32.0 [facility] Comment on above: Performed By: #### L 500.4050, L506.1000 #### [facility] [address] [place], [address] Creatinine [Mass/Vol] 0.51 mg/dL Low 0.55-1.02 [facility] Comment on above: Result Comment: The validity of the calculated GFR GFRAA in patients over 70 years has not been determined. Clinical correlation is essential. Performed By: #### L 500.4050, L506.1000 #### [facility] [address] [place], [address] EST GFR - AA 162 mL/min Normal >60 [facility] Comment on above: Result Comment: Afri can Indian GFR Calc Performed By: #### L 500.4050, L506.1000 #### [facility] [address] [place], [address] GAP 6 Normal 5-15 [facility] Comment on above: Performed By: #### L 500.4050, L506.1000 #### [facility] [address] [place], [address] GFR/1.73 sq M.predicted among non-blacks MDRD (S/P/Bld) [Vol rate/Area] 134 mL/min/{1.73_m2} Normal >60 [facility] Comment on above: Result Comment: Non- GFR Calc Performed By: #### L 500.4050, L506.1000 #### [facility] [address] [place], [address] Globulin (S) [Mass/Vol] 3.2 g/dL Normal 2.2-4.2 [facility] Comment on above: Performed By: #### L 500.4050, L506.1000 #### [facility] [address] [place], [address] Glucose [Mass/Vol] 84 mg/dL Normal 74-106 [facility] Comment on above: Performed By: #### L 500.4050, L506.1000 #### [facility] [address] [place], [address] Potassium [Moles/Vol] 4.5 mmol/L Normal 3.5-5.1 [facility] Comment on above: Performed By: #### L 500.4050, L506.1000 #### [facility] [address] [place], [address] Sodium [Moles/Vol] 135 mmol/L Low 136-145 [facility] Comment on above: Performed By: #### L 500.4050, L506.1000 #### [facility] [address] [place], [address] T PROT 7.5 g/dL Normal 6.4-8.2 [facility] Comment on above: Performed By: #### L 500.4050, L506.1000 #### [facility] [address] [place], [address] Urea nitrogen [Mass/Vol] 11 mg/dL Normal 7-18 [facility] Comment on above: Performed By: #### L 500.4050, L506.1000 #### [facility] [address] [place], [address] Estimated glomerular filtrat ion rate (GFR) AmericanOrdered By: Edgardo Jennings on 07-07-2024 Estimated GFR (MDRD) Amer 162 mL/min >60 [facility] Comment on above: GFR Calc Glomerular filtration rate ( GFR) estimationOrdered By: Edgardo Jennings on 07-07-2024 Estimated GFR (MDRD) Non-Af Amer 134 mL/min >60 [facility] Comment on above: Non- GFR Calc Glucose measurementOrdered B y: Edgardo Jennings on 07-07-2024 Glucose [Mass/Vol] 84 mg/dL 74-106 [facility] Laboratory - Chemistry and C hemistry - challengeOrdered By: Edgardo Jennings on 07-07-2024 AST [Catalytic activity/Vol] 20 U/L 15-37 [facility] Potassium measurementOrdered By: Edgardo Jennings on 07-07-2024 Potassium [Moles/Vol] 4.5 mmol/L 3.5-5.1 [facility] Serum anion gap measurementO rdered By: Edgardo Jennings on 07-07-2024 Anion gap [Moles/Vol] 6 mmol/L 5-15 [facility] Serum globulin measurementOr dered By: Edgardo Jennings on 07-07-2024 Globulin (S) [Mass/Vol] 3.2 g/dL 2.2-4.[address] [facility] Serum or plasma alanine pineda otransferase (ALT) measurementOrdered By: Edgardo Jennings on 07-07-2024 ALT [Catalytic activity/Vol] 22 U/L 13-56 [facility] Serum or plasma albumin nate urement (mass/volume)Ordered By: Edgardo Jennings on 07-07-2024 Albumin [Mass/Vol] 4.3 g/dL 3.2-5.0 [facility] Serum or plasma alkaline zulma sphatase measurementOrdered By: Edgardo Jennings on 07-07-2024 ALP [Catalytic activity/Vol] 59 U/L 45-117 [facility] Serum or plasma calcium nate urement (mass/volume)Ordered By: Edgardo Jennings on 07-07-2024 Calcium [Mass/Vol] 10.6 mg/dL High 8.5-10.1 [facility] Serum or plasma creatinine m easurement (mass/volume)Ordered By: Edgardo Jennings on 07-07-2024 Creatinine [Mass/Vol] 0.51 mg/dL Low 0.55-1.02 [facility] Comment on above: The validity of the calculated GFR & GFRAA in patients over 70 years has not been determined. Clinical correlation is essential. Serum or plasma urea nitroge n measurement (mass/volume)Ordered By: Edgardo Jennings on 07-07-2024 Urea nitrogen [Mass/Vol] 11 mg/dL 7-18 [facility] Sodium levelOrdered By: Edgardo Jennings on 07-07-2024 Sodium [Moles/Vol] 135 mmol/L Low 136-145 [facility] Total proteinOrdered By: Kirk Jennings on 07-07-2024 Protein [Mass/Vol] 7.5 g/dL 6.4-8.2 [facility] Protein Electro.Ur-Randomon 06-17-2024 M-SPIKE,U Normal [facility] Comment on above: Order Comment: N Result Comment: NOT OBSERVED Performed By: #### M 100.2200 #### [facility] [address] [place], [place], [address] CORTISOL SERUMon 06-16-2024 CORTISOL 0.70 ug/dL Low 3.44-22.45 [facility] Comment on above: Result Comment: Adul t (AM) 5.27 - 22.45 ug/dL Adult (PM) 3.44 - 16.76 ug/dL Performed By: #### M 100.2200 #### [facility] [address] [place], [address] Cortisol [Mass/Vol]Ordered B y: Edgardo Jennings on 06-16-2024 Cortisol 0.70 ug/dL Low 3.44-22.45 [facility] Comment on above: Adult (AM) 5.27 - 22 .45 ug/dL Adult (PM) 3.44 - 16.76 ug/dL Insulin Like Growth Factoron 06-15-2024 SOMATOMEDIN C 140 ng/mL Normal 65-216 [facility] Comment on above: Order Comment: N Result Comment: Perf ormed at: - [facility] [address] [id number] Force Dispatcher: Weston Gagnon PhD, Phone: [phone] Performed at: - [facility] [address] [id number] Force Dispatcher: Lisa Rosales MD, Phone: [phone] Performed By: #### M 100.2200 #### [facility] [address] [place], [address] Protein Electroph, Son 06-15 Albumin [Mass/Vol] 5.1 g/dL High 2.9-4.4 [facility] Comment on above: Order Comment: N Performed By: #### M 100.2200 #### [facility] [address] [place], [address] Albumin/Globulin [Mass ratio] 1.4 {ratio} Normal 0.7-1.7 [facility] Comment on above: Order Comment: N Performed By: #### M 100.2200 #### [facility] [address] [place], [address] ALPHA-1 GLOBUL 0.4 g/dL Normal 0.0-0.4 [facility] Comment on above: Order Comment: N Performed By: #### M 100.2200 #### [facility] [address] [place], [address] ALPHA-2 GLOBUL 0.8 g/dL Normal 0.4-1.0 [facility] Comment on above: Order Comment: N Performed By: #### M 100.2200 #### [facility] [address] [place], [address] BETA GLOBULIN 1.1 g/dL Normal 0.7-1.3 [facility] Comment on above: Order Comment: N Performed By: #### M 100.2200 #### [facility] [address] [place], [address] GAMMA GLOBULIN 1.2 g/dL Normal 0.4-1.8 [facility] Comment on above: Order Comment: N Performed By: #### M 100.2200 #### [facility] [address] [place], [address] Globulin (S) [Mass/Vol] 3.6 g/dL Normal 2.2-3.9 [facility] Comment on above: Order Comment: N Performed By: #### M 100.2200 #### [facility] [address] [place], [address] INTERPRETATION Comment Normal . [facility] Comment on above: Order Comment: N Result Comment: Prot ein electrophoresis scan will follow via computer, mail, or senior oracle pl sql developer delivery. Performed By: #### M 100.2200 #### [facility] [address] [place], [address] M-SPIKE Not Observed Normal Not Observed [facility] Comment on above: Order Comment: N Performed By: #### M 100.2200 #### [facility] [address] [place], [address] NOTE Comment Normal . [facility] Comment on above: Order Comment: N Result Comment: Prot ein electrophoresis scan will follow via computer, mail, or senior oracle pl sql developer delivery. Performed By: #### M 100.2200 #### [facility] [address] [place], [address] NOTE: Comment: Normal . [facility] Comment on above: Order Comment: N Result Comment: SPE shows an increased total protein and albumin. Performed By: #### M 100.2200 #### [facility] [address] [place], [place], [address] Protein [Mass/Vol] 8.7 g/dL High 6.0-8.5 [facility] Comment on above: Order Comment: N Performed By: #### M 100.2200 #### [facility] [address] [place], [place], [address] Addendum DocumentOrdered By: Edgardo Jennings on 06-11-2024 Protein Electrophoresis Note Comment: . [facility] Comment on above: SPE shows an increas ed total protein and albumin. Albumin Elph (U) [Mass fract ion]Ordered By: Edgardo Jennings on 06-11-2024 Urine Albumin 14.3 % . [facility] Albumin Elph [Mass/Vol]Order ed By: Edgardo Jennings on 06-11-2024 Albumin [Mass/Vol] 5.1 g/dL High 2.9-4.4 [facility] Albumin/Globulin Elph [Mass ratio]Ordered By: Edgardo Jennings on 06-11-2024 Albumin/Globulin (PEP) 1.4 0.7-1.7 [facility] Alpha 1 globulin Elph (U) [M ass fraction]Ordered By: Edgardo Jennings on 06-11-2024 Urine Fidhh-2-Vxjjocpc 15.0 % . [facility] Alpha 2 globulin Elph (24H U ) [Mass fraction]Ordered By: Edgardo Jennings on 06-11-2024 Urine Doayd-8-Vbucmtssd 16.3 % . [facility] Rnzvq-0-quvstkbb measurement by protein electrophoresisOrdered By: Edgardo Jennings on 06-11-2024 Sagiz-1-Bmfiokkow 0.4 g/dL 0.0-0.4 [facility] Jpqgu-9-pfkncczy measurement by protein electrophoresisOrdered By: Edgardo Jennings on 06-11-2024 Adytj-9-Qcldidmbj 0.8 g/dL 0.4-1.0 [facility] Beta globulin Elph (24H U) [ Mass fraction]Ordered By: Edgardo Jennings on 06-11-2024 Urine Beta Globulin 38.5 % . [facility] Beta globulin Elph [Mass/Vol ]Ordered By: Edgardo Jennings on 06-11-2024 Beta Globulins 1.1 g/dL 0.7-1.3 [facility] Endocrinology Visit Reporton 06-11-2024 Endocrinology Visit Report [facility] [address] [place] [address] OFFICE VISIT Date of Service: 06/11/24 MR#: [id number] Acct: [id number] Name: JACKLYN WILSON Rep #: [id number] : 1970 Provider: Vaishali Terry Age/Sex: 53/F [place] [facility] [place]: Signed Intake Vital Signs 04/19/24 09:44 [...] 06/18/24 Rx mannitol 5 %-water intravenous piggybck [facility] Medical History (Updated 06/19/24 @ 09:18 by [...] intact bila (more content not included)... Normal [facility] Gamma globulin Elph (24H U) [Mass fraction]Ordered By: Edgardo Jennings on 06-11-2024 Urine Gamma Globulin 15.8 % . [facility] Gamma globulin measurement b y protein electrophoresisOrdered By: Edgardo Jennings on 06-11-2024 Gamma Globulins 1.2 g/dL 0.4-1.8 [facility] Globulin (S) [Mass/Vol]Order ed By: Edgardo Jennings on 06-11-2024 Globulin (PEP) 3.6 g/dL 2.2-3.9 [facility] Insulin-like growth factor [ Moles/Vol]Ordered By: Edgardo Jennings on 06-11-2024 Somatomedin-C 140 ng/mL 65-216 [facility] Comment on above: Performed at: [address] [id number] Director: Weston Gagnon PhD, Phone: [phone] at: [address] [id number] Director: Lisa Rosales MD, Phone: [phone] Intact parathyroid hormone ( iPTH) measurementOrdered By: Edgardo Jennings on 06-11-2024 Parathyroid Hormone (Intact) 40.9 pg/mL 18.4-80.1 [facility] No Panel InformationOrdered By: Edgardo Jennings on 06-11-2024 Urine Immunofixation PEP Note Comment . [facility] Comment on above: Protein electrophore sis scan will follow via computer,mail, or senior oracle pl sql developer delivery. PTHINon 06-11-2024 PTH 40.9 pg/mL Normal 18.4-80.1 [facility] Comment on above: Performed By: #### L 3400.1350, L3100.3450, L3600.4000, L509.1000 #### [facility] [address] [place], [address] Protein (U) [Mass/Vol]Ordere d By: Edgardo Jennings on 06-11-2024 Urine Total Protein < 4.0 mg/dL Not Estab. [facility] Comment on above: Verified by repeat analysis Protein Fractions Elph [Inte rp]Ordered By: Edgardo Jennings on 06-11-2024 Protein Electrophoresis Interpret Comment . [facility] Comment on above: Protein electrophore sis scan will follow via computer,mail, or senior oracle pl sql developer delivery. Protein.monoclonal Elph (U) [Mass fraction]Ordered By: Edgardo Jennings on 06-11-2024 Ur Protein Electrophoresis M-Louie See comment [facility] Comment on above: NOT OBSERVED Protein.monoclonal Elph [Mas s/Vol]Ordered By: Edgardo Jennings on 06-11-2024 Protein Electrophoresis M-Louie Not Observed g/dL Not Observed [facility] Serum or plasma protein nate urement (mass/volume)Ordered By: Edgardo Jennings on 06-11-2024 Protein [Mass/Vol] 8.7 g/dL High 6.0-8.5 [facility] Lumbar Spine 2 or 3 Viewson 04-28-2024 Lumbar Spine 2 or 3 Views [facility] [address] [place] [address] Lumbar Spine 2 or 3 Views MR#: [id number] Acct: [id number] Name: JACKLYN WILSON SEPTEMBER Rep #: [id number] : 1970 F 53 From: éCsar Fontanez PCP: Dr. Moris lCement MD Status: DEP AMB Study: Lumbar Spine 2 or 3 Views Date of Exam: Exam# [id number] Ordering Dr: Joss Lei MD [id number] STUDY: X-RAY - LUMBAR SPINE REASON FOR [...] 23:55 EST Reading Location ID and State: [facility] / [place] Tel , Service support , CC: Dr. Joss Lei MD; Dr. Moris Clement MD Head Of Digital: Signed Normal [facility] Orthopedic Visit Reporton Orthopedic Visit Report [facility] [address] [place] [address] OFFICE VISIT Date of Service: 04/28/24 MR#: [id number] Acct: [id number] Name: JACKLYN WILSON SEPTEMBER Rep #: [id number] : 1970 Provider: Dr. Joss Lei MD Age/Sex: 53/F [place] [facility] [place] Status: Signed Intake Vital Signs 04/19/24 09:44 Height 5 ft 2 in Intake Visit Reasons: lumbar spine Chief Complaint: lumbar spine Allergies oxycodone Allergy (Severe, Verified 01/24/24 09:35) Anaphylaxis Medications ???Medication ???Instructions ???Recorded ???Confirmed ???Type omega 9-nia-vuv-fish oil 60 mg-90 1 ea PO PRN [...] graft whi (more content not included)... Normal [facility] Emergency Department Summary on 04-19-2024 Emergency Department Summary [facility] Medical Records Department [address] [place] [address] Emergency Department Summary 04/19/24 MR#: [id number] Acct: [id number] Name: JACKLYN WILSON Rep #: [id number] : 1970 53 From: Scottie Camacho MD [...] ???Medication ???Instructions ???Recorded ???Last Taken ???Type omega 6-paq-ptt-fish oil 60 mg-90 1 ea PO PRN [...] to ins (more content not included)... Normal [facility] Thin prep Papanicolaou smear with manual screeningOrdered By: Marito Faustin on 09-09-2023 Thin prep Papanicolaou smear with manual screening 134 mg/dL 74-106 [facility] Comment on above: MANAGEMENT OF PATIEN T CARE PER NURSING PROTOCOL Absolute lymphocyte countOrd ered By: Marito Faustin on 08-30-2023 Lymphocytes Auto (Unsp spec) [#/Vol] 2.11 10*3/uL 0.83-4.51 [facility] Automated lymphocyte count a s percentage of total leukocytesOrdered By: Marito Faustin on 08-30-2023 Lymphocytes/100 WBC Auto (Unsp spec) 23.5 % 19-41 [facility] Basophil percentageOrdered B y: Marito Faustin on 08-30-2023 Basophils/100 WBC (Bld) 0.9 % 0-[address] [facility] Eosinophils/100 WBC (Bld) 1.3 % 0-5 [facility] Hemoglobin (Bld) [Mass/Vol] 13.8 g/dL 12.0-15.0 [facility] Monocytes/100 WBC (Bld) 7.7 % 0-[address] [facility] Neutrophils (Bld) [#/Vol] 6.0 10*3/uL 2.0-7.7 [facility] Neutrophils/100 WBC (Bld) 66.2 % 47-70 [facility] WBC (Bld) [#/Vol] 9.0 10*3/uL 4.4-11.0 [facility] Basophil percentageOrdered B y: Moris Clement on 08-30-2023 Bilirubin [Mass/Vol] 0.50 mg/dL 0.20-1.00 [facility] Comment on above: For patients on eltr ombopag therapy, use of Dimension [place] TBIL is not recommended. Chloride [Moles/Vol] 102 mmol/L 98-107 [facility] Cholesterol [Mass/Vol] 236 mg/dL <200 [facility] Comment on above: <200 mg/dL Desirable 200-240 mg/dL Borderline >240 mg/dL High Risk Glucose [Mass/Vol] 90 mg/dL 74-106 [facility] Potassium [Moles/Vol] 4.0 mmol/L 3.5-5.1 [facility] Protein [Mass/Vol] 7.9 g/dL 6.4-8.2 [facility] Sodium [Moles/Vol] 134 mmol/L 136-145 [facility] Triglyceride [Mass/Vol] 61 mg/dL <[address] [facility] Comment on above: The drugs N-Acetylcy [...] distribution width (RBC) [Ratio] 13.1 % 11.6-14.6 [facility] Erythrocyte distribution wid th standard deviationOrdered By: Marito Faustin on 08-30-2023 Erythrocyte distribution width (RBC) [Entitic vol] 48.4 fL 35.1-43.9 [facility] HIV 1 and HIV-2 antibody ass ay with HIV-1 p24 antigen detectionOrdered By: Marito Faustin on 08-30-2023 HIV 1+2 Ab+HIV1 p24 Ag IA Ql Non-Reactive Nonreactive [facility] Hematocrit Auto (Bld) [Volum e fraction]Ordered By: Marito Faustin on 08-30-2023 Hematocrit (Bld) [Volume fraction] 39.7 % 37-47 [facility] Immature granulocytes/100 WB C Auto (Bld)Ordered By: Marito Faustin on 08-30-2023 Immature granulocytes/100 WBC (Bld) 0.400 % 0.0-0.9 [facility] Comment on above: IG% - Immature Granu locytes (promyelocytes, myelocytes and metamyelocytes) > 1% indicates that a LEFT SHIFT is Present. Laboratory - Chemistry and C hemistry - challengeOrdered By: Moris Clement on 08-30-2023 Albumin/Globulin [Mass ratio] 1.3 {ratio} 0.9-2.4 [facility] ALP [Catalytic activity/Vol] 58 U/L 45-117 [facility] ALT [Catalytic activity/Vol] 24 U/L 13-56 [facility] Amylase [Catalytic activity/Vol] 52 U/L 5-55 [facility] Cholesterol in HDL [Mass/Vol] 122 mg/dL >40 [facility] Comment on above: The drugs N-Acetylcy steine and Metamizole may falsely depress this assay. Reference Range HDL <40 mg/dL Low HDL Cholesterol HDL >or= 60 mg/dL High HDL Cholesterol Cholesterol in LDL [Mass/Vol] 102 mg/dL 0-130 [facility] CO2 [Moles/Vol] 28.0 mmol/L 21.0-32.0 [facility] Cobalamin (Vitamin B12) [Mass/Vol] 1954 pg/mL 211-911 [facility] Ferritin [Mass/Vol] 110 ng/mL 8-252 [facility] Globulin (S) [Mass/Vol] 3.5 g/dL 2.2-4.[address] [facility] Urea nitrogen/Creatinine [Mass ratio] 11.7 mg/mg 10-20 [facility] Laboratory - Chemistry and C hemistry - challengeOrdered By: Carlos A Jimenez on 08-30-2023 Magnesium [Mass/Vol] 2.2 mg/dL 1.6-2.6 [facility] Laboratory - Hematology and Cell countsOrdered By: Marito Faustin on 08-30-2023 MCH (RBC) [Entitic mass] 34.8 pg 27.0-32.0 [facility] MCHC (RBC) [Mass/Vol] 34.8 g/dL 32-36 [facility] Nucleated RBC/100 WBC (Bld) [Ratio] 0 % 0-5 [facility] Platelet mean volume (Bld) [Entitic vol] 8.3 fL 6.2-12.0 [facility] Platelets (Bld) [#/Vol] 287 10*3/uL 150-450 [facility] No Panel InformationOrdered By: Moris Clement on 08-30-2023 Estimated GFR (MDRD) Amer 135 mL/min >60 [facility] Comment on above: GFR Calc Estimated GFR (MDRD) Non-Af Amer 112 mL/min >60 [facility] Comment on above: Non- GFR Calc Vitamin D 25-Hydroxy 65.3 ng/mL [facility] Comment on above: Vitamin D 25(OH) Sta tus Range Deficiency <20 ng/mL (50nmol/L) Insufficiency 20 - 30 ng/mL (50 - 75 nmol/L) Sufficiency 30 - 100 ng/mL (75 - 250 nmol/L) Toxicity >100 ng/mL (>250 nmol/L) VLDL Cholesterol 12 mg/dL 5-40 [facility] No Panel InformationOrdered By: Marito Faustin on 08-30-2023 Hepatitis A Antibody Total Negative Negative [facility] Comment on above: Comment: The HAV tot [...] HAVtotal antibody results to IgM (e.g., panel #[id number] HAVAntibody w/ Rfx).Performed at: - [facility] [address] [id number] Director: Weston Gagnon PhD, Phone: [phone] Hepatitis C Antibody Non-Reactive Nonreactive [facility] Comment on above: Non Reactive: < 0.8 Equivocal: >/= 0.8 to < 1.0 Reactive: >/= 1.0The CDC requires that a reactive/equivocal HCV antibody result be sent out for confirmation. HCV Quant by PCR testing. Nasal Screen MRSA/MSSA [facility] RBC Auto (Bld) [#/Vol]Ordere d By: Marito Faustin on 08-30-2023 RBC (Bld) [#/Vol] 3.97 10*6/uL 4.2-5.4 [facility] Serum hepatitis B virus surf denae antibody IgG detectionOrdered By: Marito Faustin on 08-30-2023 HBV surface IgG Ql (S) Non-Reactive [facility] Comment on above: Non Reactive: Incons istent with immunity less than <10 mIU/mL Reactive: Consistent with immunity greater than or equal to 10 mIU/mL Serum or plasma calcium nate urement (mass/volume)Ordered By: Moris Clement on 08-30-2023 Calcium [Mass/Vol] 9.4 mg/dL 8.5-10.1 [facility] Serum or plasma creatinine m easurement (mass/volume)Ordered By: Moris Clement on 08-30-2023 Creatinine [Mass/Vol] 0.60 mg/dL 0.55-1.02 [facility] Comment on above: The validity of the calculated GFR & GFRAA in patients over 70 years has not been determined. Clinical correlation is essential. Serum or plasma thyroid stim ulating hormone (TSH) measurement (units/volume)Ordered By: Moris Clement on 08-30-2023 TSH Qn 1.38 uIU/mL 0.358-3.74 [facility] Serum or plasma urea nitroge n measurement (mass/volume)Ordered By: Moris Clement on 08-30-2023 Urea nitrogen [Mass/Vol] 7 mg/dL 7-18 [facility] Thin prep Papanicolaou smear with manual screeningOrdered By: Moris Clement on 08-30-2023 Thin prep Papanicolaou smear with manual screening 4.4 g/dL 3.2-5.0 [facility] Thin prep Papanicolaou smear with manual screening 24 U/L 15-37 [facility] Thin prep Papanicolaou smear with manual screening 4 5-15 [facility] Thin prep Papanicolaou smear with manual screening 285 mOsm/KG 275-295 [facility] Thin prep Papanicolaou smear with manual screeningOrdered By: Bentley Clement on 04-03-2023 Thin prep Papanicolaou smear with manual screening 275 mOsm/KG 275-295 [facility] Absolute lymphocyte countOrd ered By: Bentley Clement on 03-27-2023 Lymphocytes Auto (Unsp spec) [#/Vol] 3.26 10*3/uL 0.83-4.51 [facility] Basophil percentageOrdered B y: Bentley Clement on 03-27-2023 Basophils/100 WBC (Bld) 0.9 % 0-[address] [facility] Chloride [Moles/Vol] 97 mmol/L 98-107 [facility] Cholesterol [Mass/Vol] 241 mg/dL <200 [facility] Comment on above: <200 mg/dL Desirable 200-240 mg/dL Borderline >240 mg/dL High Risk Eosinophils/100 WBC (Bld) 1.9 % 0-5 [facility] Glucose [Mass/Vol] 88 mg/dL 74-106 [facility] Neutrophils (Bld) [#/Vol] 4.7 10*3/uL 2.0-7.7 [facility] Neutrophils/100 WBC (Bld) 51.9 % 47-70 [facility] Potassium [Moles/Vol] 4.4 mmol/L 3.5-5.1 [facility] Sodium [Moles/Vol] 131 mmol/L 136-145 [facility] Triglyceride [Mass/Vol] 54 mg/dL <[address] [facility] Comment on above: The drugs N-Acetylcy steine and Metamizole may falsely depress this assay.Serum Triglycerides Reference Interval Normal <150 mg/dL Borderline high 150 - 199 mg/dL High 200 - 499 mg/dL Very High > or = 500 mg/dL WBC (Bld) [#/Vol] 9.1 10*3/uL 4.4-11.0 [facility] Blood erythrocytes count (nu mber/volume)Ordered By: Bentley Clement on 03-27-2023 RBC (Bld) [#/Vol] 3.96 10*6/uL 4.2-5.4 [facility] Blood hemoglobin measurement (mass/volume)Ordered By: Bentley Clement on 03-27-2023 Hemoglobin (Bld) [Mass/Vol] 13.4 g/dL 12.0-15.0 [facility] Blood lymphocytes/100 leukoc ytesOrdered By: Bentley Clement on 03-27-2023 Lymphocytes/100 WBC (Bld) 35.7 % 19-41 [facility] Blood monocytes/100 leukocyt esOrdered By: Bentley Clement on 03-27-2023 Monocytes/100 WBC (Bld) 9.3 % 0-[address] [facility] Blood platelet mean volumeOr dered By: Bentley Clement on 03-27-2023 Platelet mean volume (Bld) [Entitic vol] 8.8 fL 6.2-12.0 [facility] Determination of erythrocyte mean corpuscular volume (MCV)Ordered By: Bentley Clement on 03-27-2023 MCV (RBC) [Entitic vol] 100.5 fL 81-[address] [facility] Hematocrit Auto (Bld) [Volum e fraction]Ordered By: Bentley Clement on 03-27-2023 Hematocrit (Bld) [Volume fraction] 39.8 % 37-47 [facility] Laboratory - Chemistry and C hemistry - challengeOrdered By: Bentley Clement on 03-27-2023 CO2 [Moles/Vol] 30.0 mmol/L 21.0-32.0 [facility] Urea nitrogen/Creatinine [Mass ratio] 12.3 mg/mg 10-20 [facility] Laboratory - Hematology and Cell countsOrdered By: Bentley Clement on 03-27-2023 Erythrocyte distribution width (RBC) [Entitic vol] 47.0 fL 35.1-43.9 [facility] Erythrocyte distribution width (RBC) [Ratio] 12.7 % 11.6-14.6 [facility] Immature granulocytes/100 WBC (Bld) 0.300 % 0.0-0.9 [facility] Comment on above: IG% - Immature Granu locytes (promyelocytes, myelocytes and metamyelocytes) > 1% indicates that a LEFT SHIFT is Present. MCH (RBC) [Entitic mass] 33.8 pg 27.0-32.0 [facility] Nucleated RBC/100 WBC (Bld) [Ratio] 0 % 0-5 [facility] MCHC Auto (RBC) [Mass/Vol]Or dered By: Bentley Clement on 03-27-2023 MCHC (RBC) [Mass/Vol] 33.7 g/dL 32-36 [facility] No Panel InformationOrdered By: Bentley Clement on 03-27-2023 Estimated GFR (MDRD) Amer 143 mL/min >60 [facility] Comment on above: GFR Calc Estimated GFR (MDRD) Non-Af Amer 118 mL/min >60 [facility] Comment on above: Non- GFR Calc Thyroid Stimulating Hormone (TSH) 1.12 uIU/mL 0.358-3.74 [facility] Platelets bldOrdered By: [facility] bayrontopesteban Racquel on 03-27-2023 Platelets (Bld) [#/Vol] 363 10*3/uL 150-450 [facility] Serum or plasma calcium nate urement (mass/volume)Ordered By: Bentley Clement on 03-27-2023 Calcium [Mass/Vol] 10.0 mg/dL 8.5-10.1 [facility] Serum or plasma cholesterol in HDL measurement (mass/volume)Ordered By: Bentley Clement on 03-27-2023 Cholesterol in HDL [Mass/Vol] 110 mg/dL >40 [facility] Comment on above: The drugs N-Acetylcy steine and Metamizole may falsely depress this assay. Reference Range HDL <40 mg/dL Low HDL Cholesterol HDL >or= 60 mg/dL High HDL Cholesterol Serum or plasma cholesterol in VLDL measurement (mass/volume)Ordered By: Bentley Clement on 03-27-2023 Cholesterol in VLDL [Mass/Vol] 11 mg/dL 5-40 [facility] Serum or plasma creatinine m easurement (mass/volume)Ordered By: Bentley Clement on 03-27-2023 Creatinine [Mass/Vol] 0.57 mg/dL 0.55-1.02 [facility] Comment on above: The validity of the calculated GFR & GFRAA in patients over 70 years has not been determined. Clinical correlation is essential. Serum or plasma low density lipoprotein (LDL) cholesterol measurement (mass/volume)Ordered By: Bentley Clement on 03-27-2023 Cholesterol in LDL [Mass/Vol] 120 mg/dL 0-130 [facility] Serum or plasma urea nitroge n measurement (mass/volume)Ordered By: Bentley Clement on 03-27-2023 Urea nitrogen [Mass/Vol] 7 mg/dL 7-18 [facility] Thin prep Papanicolaou smear with manual screeningOrdered By: Bentley Clement on 03-27-2023 Thin prep Papanicolaou smear with manual screening 4 5-15 [facility] Absolute lymphocyte counton 04-17-2022 Lymphocytes Auto (Unsp spec) [#/Vol] 2.31 10*3/uL 0.83-4.51 [facility] Work Phone: Basophil percentageon 2021 Basophils/100 WBC (Bld) 0.3 % 0-[address] [facility] Work Phone: Chloride [Moles/Vol] 99 mmol/L 98-107 [facility] Work Phone: Eosinophils/100 WBC (Bld) 0.1 % 0-5 [facility] Work Phone: Glucose [Mass/Vol] 80 mg/dL 74-106 [facility] Work Phone: Neutrophils (Bld) [#/Vol] 4.3 10*3/uL 2.0-7.7 [facility] Work Phone: Neutrophils/100 WBC (Bld) 58.6 % 47-70 [facility] Work Phone: Potassium [Moles/Vol] 4.0 mmol/L 3.5-5.1 [facility] Work Phone: Sodium [Moles/Vol] 134 mmol/L 136-145 [facility] Work Phone: WBC (Bld) [#/Vol] 7.4 10*3/uL 4.4-11.0 [facility] Work Phone: Blood erythrocytes count (nu mber/volume)on 04-17-2022 RBC (Bld) [#/Vol] 3.55 10*6/uL 4.2-5.4 [facility] Work Phone: Blood hemoglobin measurement (mass/volume)on 04-17-2022 Hemoglobin (Bld) [Mass/Vol] 12.3 g/dL 12.0-15.0 [facility] Work Phone: Blood lymphocytes/100 leukoc yteson 04-17-2022 Lymphocytes/100 WBC (Bld) 31.4 % 19-41 [facility] Work Phone: Blood monocytes/100 leukocyt eson 04-17-2022 Monocytes/100 WBC (Bld) 9.3 % 0-[address] [facility] Work Phone: Blood platelet mean volumeon 04-17-2022 Platelet mean volume (Bld) [Entitic vol] 9.1 fL 6.2-12.0 [facility] Work Phone: [phone] Determination of erythrocyte mean corpuscular volume (MCV)on 04-17-2022 MCV (RBC) [Entitic vol] 101.7 fL 81-[address] [facility] Work Phone: [phone] Hematocrit Auto (Bld) [Volum e fraction]on 04-17-2022 Hematocrit (Bld) [Volume fraction] 36.1 % 37-47 [facility] Work Phone: [phone] Laboratory - Chemistry and C hemistry - challengeon 04-17-2022 CO2 [Moles/Vol] 32.0 mmol/L 21.0-32.0 [facility] Work Phone: [phone] Urea nitrogen/Creatinine [Mass ratio] 16.4 mg/mg 10-20 [facility] Work Phone: [phone] Laboratory - Hematology and Cell countson 04-17-2022 Erythrocyte distribution width (RBC) [Entitic vol] 47.1 fL 35.1-43.9 [facility] Work Phone: [phone] Erythrocyte distribution width (RBC) [Ratio] 12.5 % 11.6-14.6 [facility] Work Phone: [phone] Immature granulocytes/100 WBC (Bld) 0.300 % 0.0-0.9 [facility] Work Phone: [phone] Comment on above: IG% - Immature Granu locytes (promyelocytes, myelocytes and metamyelocytes) > 1% indicates that a LEFT SHIFT is Present. MCH (RBC) [Entitic mass] 34.6 pg 27.0-32.0 [facility] Work Phone: Nucleated RBC/100 WBC (Bld) [Ratio] 0 % 0-5 [facility] Work Phone: MCHC Auto (RBC) [Mass/Vol]on 04-17-2022 MCHC (RBC) [Mass/Vol] 34.1 g/dL 32-36 [facility] Work Phone: No Panel Informationon 04-17 Estimated Creatinine Clearance Calc 107.43 ml/min [facility] Work Phone: Estimated GFR (MDRD) Amer 171 mL/min >60 [facility] Work Phone: Comment on above: GFR Calc Estimated GFR (MDRD) Non-Af Amer 141 mL/min >60 [facility] Work Phone: Comment on above: Non- GFR Calc Platelets bldon 04-17-2022 Platelets (Bld) [#/Vol] 251 10*3/uL 150-450 [facility] Work Phone: Serum or plasma calcium nate urement (mass/volume)on 04-17-2022 Calcium [Mass/Vol] 8.9 mg/dL 8.5-10.1 [facility] Work Phone: Serum or plasma creatinine m easurement (mass/volume)on 04-17-2022 Creatinine [Mass/Vol] 0.49 mg/dL 0.55-1.02 [facility] Work Phone: Comment on above: The validity of the calculated GFR & GFRAA in patients over 70 years has not been determined. Clinical correlation is essential. Serum or plasma urea nitroge n measurement (mass/volume)on 04-17-2022 Urea nitrogen [Mass/Vol] 8 mg/dL 7-18 [facility] Work Phone: Thin prep Papanicolaou smear with manual screeningon 11-29-2022 Thin prep Papanicolaou smear with manual screening 3 5-15 [facility] Work Phone: Glucose Glucometer (BldC) [M ass/Vol]on 04-16-2022 Glucose [Mass/Vol] 80 mg/dL 74-106 [facility] Work Phone: Comment on above: MANAGEMENT OF PATIEN T CARE PER NURSING PROTOCOL HIV 1 and HIV-2 antibody ass ay with HIV-1 p24 antigen detectionon 04-09-2022 HIV 1+2 Ab+HIV1 p24 Ag IA Ql Non-Reactive Nonreactive [facility] Work Phone: Laboratory - Chemistry and C hemistry - challengeon 04-09-2022 Magnesium [Mass/Vol] 2.4 mg/dL 1.6-2.6 [facility] Work Phone: No Panel Informationon 04-09 Hepatitis A Antibody Total Negative Negative [facility] Work Phone: Comment on above: Performed at: [address] Director: Weston Gagnon PhD, Phone: [phone] Hepatitis C Antibody Non-Reactive Nonreactive [facility] Work Phone: Comment on above: Non Reactive: < 0.8 Equivocal: >/= 0.8 to < 1.0 Reactive: >/= 1.0The CDC recommends that a reactive/equivocal HCV antibody result be followed up by the HCV Nucleic Acid Amplificationtest (345553) Serum hepatitis B virus surf denae antibody IgG detectionon 04-09-2022 HBV surface IgG Ql (S) Non-Reactive [facility] Work Phone: Comment on above: Non Reactive: Incons istent with immunity less than <10 mIU/mL Reactive: Consistent with immunity greater than or equal to 10 mIU/mL Cervical or vagninal specime n microscopic examination by cytology stain (reported ason 03-08-2022 Cytology report Cyto stain Doc (Cvx/Vag) Comment . [facility] Work Phone: Comment on above: The Pap [...] DNA Probe+sig amp Ql (Cvx) Negative Negative [facility] Work Phone: Comment on above: This nucleic acid am plification test detects fourteen high-risk HPV types (16,18,31,33,35,39,45,51,52,56,58,59,66,68)without differentiation.HPV Genotype ReflexCriteria not met, HPV Genotype not performed. Laboratory - Cytologyon 02-18 Prorate Clerk Cyto stain Nom (Cvx/Vag) [ID] Comment . [facility] Work Phone: Comment on above: Angel Mo totechnologist (ASCP) Pathologist Cyto stain Nom (Cvx/Vag) [ID] Comment . [facility] Work Phone: Comment on above: Camilla Thao MD, P athologist Laboratory - Miscellaneous t estson 03-08-2022 Service comment (Unsp spec) [Interp] Comment . [facility] Work Phone: Comment on above: This liquid based Th inPrep(R) pap test was screened withthe use of an image guided system. Service comment (Unsp spec) [Interp] . . [facility] Work Phone: No Panel Informationon 03-08 Pathology report final diagnosis Narrative Comment . [facility] Work Phone: Comment on above: NEGATIVE FOR INTRAEP ITHELIAL LESION OR MALIGNANCY.REACTIVE CELLULAR CHANGES AND/OR REPAIR ARE PRESENT. Absolute lymphocyte counton 10-13-2021 Lymphocytes Auto (Unsp spec) [#/Vol] 1.93 10*3/uL 0.83-4.51 [facility] Work Phone: Basophil percentageon 2021 Basophils/100 WBC (Bld) 0.9 % 0-[address] [facility] Work Phone: Bilirubin [Mass/Vol] 0.50 mg/dL 0.20-1.00 [facility] Work Phone: Comment on above: For patients on eltr ombopag therapy, use of Dimension [place] TBIL is not recommended. Chloride [Moles/Vol] 100 mmol/L 98-107 [facility] Work Phone: Eosinophils/100 WBC (Bld) 1.6 % 0-5 [facility] Work Phone: Glucose [Mass/Vol] 76 mg/dL 74-106 [facility] Work Phone: Neutrophils (Bld) [#/Vol] 4.2 10*3/uL 2.0-7.7 [facility] Work Phone: Neutrophils/100 WBC (Bld) 61.3 % 47-70 [facility] Work Phone: Potassium [Moles/Vol] 3.7 mmol/L 3.5-5.1 [facility] Work Phone: Protein [Mass/Vol] 7.9 g/dL 6.4-8.2 [facility] Work Phone: Sodium [Moles/Vol] 133 mmol/L 136-145 [facility] Work Phone: WBC (Bld) [#/Vol] 6.8 10*3/uL 4.4-11.0 [facility] Work Phone: Blood erythrocytes count (nu mber/volume)on 10-13-2021 RBC (Bld) [#/Vol] 3.87 10*6/uL 4.2-5.4 [facility] Work Phone: Blood hemoglobin measurement (mass/volume)on 10-13-2021 Hemoglobin (Bld) [Mass/Vol] 13.6 g/dL 12.0-15.0 [facility] Work Phone: Blood lymphocytes/100 leukoc yteson 10-13-2021 Lymphocytes/100 WBC (Bld) 28.2 % 19-41 [facility] Work Phone: Blood monocytes/100 leukocyt eson 10-13-2021 Monocytes/100 WBC (Bld) 7.6 % 0-[address] [facility] Work Phone: Blood platelet mean volumeon 10-13-2021 Platelet mean volume (Bld) [Entitic vol] 9.0 fL 6.2-12.0 [facility] Work Phone: [phone] Determination of erythrocyte mean corpuscular volume (MCV)on 10-13-2021 MCV (RBC) [Entitic vol] 101.3 fL 81-[address] [facility] Work Phone: [phone] Erythrocyte sedimentation ra etelvina 10-13-2021 ESR (Bld) [Velocity] 6 mm/h 0-30 [facility] Work Phone: [phone] Hematocrit Auto (Bld) [Volum e fraction]on 10-13-2021 Hematocrit (Bld) [Volume fraction] 39.2 % 37-47 [facility] Work Phone: [phone] Laboratory - Chemistry and C hemistry - challengeon 10-13-2021 ALP [Catalytic activity/Vol] 51 U/L 45-117 [facility] Work Phone: ALT [Catalytic activity/Vol] 31 U/L 13-56 [facility] Work Phone: [phone] CO2 [Moles/Vol] 27.0 mmol/L 21.0-32.0 [facility] Work Phone: [phone] Globulin (S) [Mass/Vol] 3.7 g/dL 2.2-4.[address] [facility] Work Phone: [phone] Urea nitrogen/Creatinine [Mass ratio] 13.3 mg/mg 10-20 [facility] Work Phone: [phone] Laboratory - Hematology and Cell countson 10-13-2021 Erythrocyte distribution width (RBC) [Entitic vol] 47.7 fL 35.1-43.9 [facility] Work Phone: Erythrocyte distribution width (RBC) [Ratio] 12.6 % 11.6-14.6 [facility] Work Phone: Immature granulocytes/100 WBC (Bld) 0.400 % 0.0-0.9 [facility] Work Phone: Comment on above: IG% - Immature Granu locytes (promyelocytes, myelocytes and metamyelocytes) > 1% indicates that a LEFT SHIFT is Present. MCH (RBC) [Entitic mass] 35.1 pg 27.0-32.0 [facility] Work Phone: Nucleated RBC/100 WBC (Bld) [Ratio] 0 % 0-5 [facility] Work Phone: MCHC Auto (RBC) [Mass/Vol]on 10-13-2021 MCHC (RBC) [Mass/Vol] 34.7 g/dL 32-36 [facility] Work Phone: No Panel Informationon 10-13 Anti-Nuclear Antibody Screen Negative Negative [facility] Work Phone: Comment on above: Performed at: [address] [id number] Director: Weston Gagnon PhD, Phone: [phone] Estimated GFR (MDRD) Amer 157 mL/min >60 [facility] Work Phone: Comment on above: GFR Calc Estimated GFR (MDRD) Non-Af Amer 130 mL/min >60 [facility] Work Phone: Comment on above: Non- GFR Calc Platelets bldon 10-13-2021 Platelets (Bld) [#/Vol] 345 10*3/uL 150-450 [facility] Work Phone: Serum or plasma C reactive p rotein measurement (mass/volume)on 10-13-2021 CRP [Mass/Vol] mg/L 0.0-3.0 [facility] Work Phone: Comment on above: C-Reactive Protein ( CRP) provides useful information for thediagnosis, therapy and monitoring of inflammatory processesand associated diseases. For the evaluation of Relative Riskfor Cardiovascular Disease, a High Sensitivity CRP (HSCRP)should be ordered. Serum or plasma albumin nate urement (mass/volume)on 10-13-2021 Albumin [Mass/Vol] 4.2 g/dL 3.2-5.0 [facility] Work Phone: Serum or plasma albumin/glob ulin mass ratioon 10-13-2021 Albumin/Globulin [Mass ratio] 1.1 {ratio} 0.9-2.4 [facility] Work Phone: Serum or plasma calcium nate urement (mass/volume)on 10-13-2021 Calcium [Mass/Vol] 8.9 mg/dL 8.5-10.1 [facility] Work Phone: Serum or plasma creatinine m easurement (mass/volume)on 10-13-2021 Creatinine [Mass/Vol] 0.53 mg/dL 0.55-1.02 [facility] Work Phone: Comment on above: The validity of the calculated GFR & GFRAA in patients over 70 years has not been determined. Clinical correlation is essential. Serum or plasma urea nitroge n measurement (mass/volume)on 10-13-2021 Urea nitrogen [Mass/Vol] 7 mg/dL 7-18 [facility] Work Phone: Serum rheumatoid factor dete ctionon 10-13-2021 Rheumatoid factor Ql (S) < 10.0 IU/mL <15 [facility] Work Phone: Thin prep Papanicolaou smear with manual screeningon 10-13-2021 Thin prep Papanicolaou smear with manual screening 28 U/L 15-37 [facility] Work Phone: Thin prep Papanicolaou smear with manual screening 6 5-15 [facility] Work Phone: Thin prep Papanicolaou smear with manual screening Negative . [facility] Work Phone: Comment on above: HLA-B*27 [id number] allele interpretation for all loci based on IMGT/HLAdatabase version 3.44This test was developed and its performance characteristicsdetermined by [employer]. It has not been cleared or approvedby the Food and Drug Administration.[facility] CLIA ID Number [id number] test was performed using PCR (Polymerase ChainReaction)/SSOP (Sequence Specific Oligonucleotide Probes)technique. SBT (Sequence Based Typing) and/or SSP(Sequence Specific Primers) may be used as supplementalmethods when necessary. Please contact [facility] CustomerService at if you have any questions. Director of [facility] Dr Yuri Higginbotham, PhDPerformed at: [address] [place] [address] [id number] Director: Yuri Higginbotham PhD, Phone: [phone] No Panel Information Nasal Screen MRSA/MSSA [facility] Work Phone: Vital Signs Date Time Vital Sign Value Performing Clinician Faci lity 01-23-2025 11:39-0400 Body height 157.[address] Moris Clement MD Work Phone: [facility] 12-18-2024 15:05-0400 Body height 157.[address] Moris Clement MD Work Phone: [facility] 12-18-2024 15:05-0400 Body mass index (BMI) [Ratio] 20.6 kg/m2 Dr. Moris Clement MD Work Phone: [facility] 12-18-2024 15:05-0400 Body weight 51.[address] Moris Clement MD Work Phone: [facility] 06-11-2024 09:02-0500 Body height 157.[address] Moris Clement MD Work Phone: [facility] 06-11-2024 09:02-0500 Body mass index (BMI) [Ratio] 20.7 kg/m2 Dr. Moris Clement MD Work Phone: [facility] 06-11-2024 09:02-0500 Body weight 51.[address] Moris Clement MD Work Phone: [phone] [place] [address] 06-11-2024 09:02-0500 Diastolic blood pressure 89 mm[Hg] Dr. Moris Clement MD Work Phone: 1(152)[phone] [place] [address] 06-11-2024 09:02-0500 Heart rate 93 /min Dr. Moris Clement MD Work Phone: [phone] [place] [address] 06-11-2024 09:02-0500 SaO2% (BldA) [Mass fraction] 99 % Dr. Moris Clement MD Work Phone: 4(925)587-128273 [place] [address] 06-11-2024 09:02-0500 Systolic blood pressure 164 mm[Hg] Dr. Moris Clement MD Work Phone: 3(640)568-485173 [place] [address] 04-19-2024 11:18-0500 Body temperature 97.9 [degF] Dr. Moris Clement MD Work Phone: 3(605)750-372473 [place] [address] 04-19-2024 11:18-0500 Diastolic blood pressure 84 mm[Hg] Dr. Moris Clement MD Work Phone: 0(334)691-841673 [place] [address] 04-19-2024 11:18-0500 Heart rate 91 /min Dr. Moris Clement MD Work Phone: [phone])576-385473 [place] [address] 04-19-2024 11:18-0500 Respiratory rate 16 /min Dr. Moris Clement MD Work Phone: 8(843)703-138473 [place] [address] 04-19-2024 11:18-0500 SaO2% (BldA) [Mass fraction] 96 % Dr. Moris Clement MD Work Phone: 1(036)639-371473 [place] [address] 04-19-2024 11:18-0500 Systolic blood pressure 136 mm[Hg] Dr. Moris Clement MD Work Phone: [phone])266-918273 [place] [address] 04-19-2024 09:44-0500 Body mass index (BMI) [Ratio] 21.2 kg/m2 Dr. Moris Clement MD Work Phone: [facility] 04-19-2024 09:44-0500 Body weight 52.[address] Moris Clement MD Work Phone: [facility] 09-11-2023 08:00-0400 Body temperature 98.8 [degF] Dr. Moris Clement Work Phone: [facility] 09-11-2023 08:00-0400 Diastolic blood pressure 93 mm[Hg] Dr. Moris Clement Work Phone: [facility] 09-11-2023 08:00-0400 Heart rate 99 /min Dr. Moris Clement Work Phone: 3(546)[phone] [place] [address] 09-11-2023 08:00-0400 Respiratory rate 16 /min Dr. Moris Clement Work Phone: 5(401)819-142239 [address] 09-11-2023 08:00-0400 SaO2% (BldA) [Mass fraction] 97 % Dr. Moris Clement Work Phone: [facility] 09-11-2023 08:00-0400 Systolic blood pressure 134 mm[Hg] Dr. Moris Clement Work Phone: [facility] 09-10-2023 15:04-0400 Body height 157.[address] Moris Clement Work Phone: 8([phone])301-555759 [place] [address] 09-10-2023 15:04-0400 Body weight 50.[address] Moris Clement Work Phone: 8(258)774-849973 [place] [address] 09-09-2023 17:42-0400 Body mass index (BMI) [Ratio] 20.2 kg/m2 Dr. Moris Clement Work Phone: 4(201)[phone] [place] [address] 09-09-2023 16:00-0400 Inhaled oxygen flow rate 4 L/min Dr. Moris Clement Work Phone: 5([phone])894-641173 [place] [address] 09-09-2023 14:25-0400 Inhaled oxygen concentration 42 % Dr. Moris Clement Work Phone: [facility] 08-28-2023 11:25-0400 Body mass index (BMI) [Ratio] 20.5 kg/m2 Dr. Moris Clement Work Phone: [facility] 08-28-2023 11:25-0400 Body weight 51.[address] Moris Clement Work Phone: [facility] 06-20-2023 13:04-0500 Body height 157.[address] Bentley Clement Work Phone: [facility] 06-20-2023 13:04-0500 Body mass index (BMI) [Ratio] 20.7 kg/m2 Dr. Bentley Clement Work Phone: [facility] 06-20-2023 13:04-0500 Body weight 51.[address] Bentley Clement Work Phone: [facility] 08-17-2022 19:49-0400 Body height 157.[address] Bentley Clement Work Phone: [facility] 08-17-2022 19:49-0400 Body mass index (BMI) [Ratio] 20.8 kg/m2 Dr. Bentley Clement Work Phone: [facility] 08-17-2022 19:49-0400 Body temperature 97.8 [degF] Dr. Bentley Clement Work Phone: [facility] 08-17-2022 19:49-0400 Body weight 51.[address] Bentley Clement Work Phone: [facility] 08-17-2022 19:49-0400 Diastolic blood pressure 95 mm[Hg] Dr. Bentley Clement Work Phone: [facility] 08-17-2022 19:49-0400 Heart rate 89 /min Dr. Bentley Clement Work Phone: [facility] 08-17-2022 19:49-0400 Respiratory rate 16 /min Dr. Bentley Clement Work Phone: [facility] 08-17-2022 19:49-0400 SaO2% (BldA) [Mass fraction] 100 % Dr. Bentley Clement Work Phone: [facility] 08-17-2022 19:49-0400 Systolic blood pressure 145 mm[Hg] Dr. Bentley Clement Work Phone: [facility] 04-17-2022 11:51-0500 Body temperature 98.5 [degF] Dr. Bentley Clement Work Phone: [facility] Work Phone: 04-17-2022 11:51-0500 Diastolic blood pressure 92 mm[Hg] Dr. Bentley Clement Work Phone: [facility] Work Phone: 04-17-2022 11:51-0500 Heart rate 71 /min Dr. Bentley Clement Work Phone: [facility] Work Phone: 04-17-2022 11:51-0500 Respiratory rate 16 /min Dr. Bentley Clement Work Phone: [facility] Work Phone: 04-17-2022 11:51-0500 SaO2% (BldA) [Mass fraction] 100 % Dr. Bentley Clement Work Phone: [facility] Work Phone: 04-17-2022 11:51-0500 Systolic blood pressure 141 mm[Hg] Dr. Bentley Clement Work Phone: [facility] Work Phone: 04-17-2022 05:55-0500 Inhaled oxygen flow rate 4 L/min Dr. Bentley Clemnet Work Phone: [facility] Work Phone: 11-28-2022 14:41-0500 Body height 157.[address] Bentley Clement Work Phone: [facility] Work Phone: 04-16-2022 14:41-0500 Body weight 54.[address] Bentley Clement Work Phone: [facility] Work Phone: 04-16-2022 11:19-0500 Body mass index (BMI) [Ratio] 21.8 kg/m2 Dr. Bentley Clement Work Phone: [facility] Work Phone: 03-05-2022 14:49-0400 Body height 160.[address] Bentley Clement Work Phone: [facility] Work Phone: 03-05-2022 14:49-0400 Body mass index (BMI) [Ratio] 19.5 kg/m2 Dr. Bentley lCement Work Phone: [facility] Work Phone: 03-05-2022 14:49-0400 Body weight 50.[address] Bentley Clement Work Phone: [facility] Work Phone: 09-20-2021 19:23-0400 Body temperature 98.06 [degF] ABDIAS WONG MD [facility] 09-20-2021 19:23-0400 Diastolic blood pressure 104 mm[Hg] ABDIAS WONG MD [facility] 09-20-2021 19:23-0400 Heart rate 102 /min ABDIAS WONG MD [facility] 09-20-2021 19:23-0400 Respiratory rate 16 /min ABDIAS WONG MD [facility] 09-20-2021 19:23-0400 Systolic blood pressure 162 mm[Hg] ABDIAS WONG MD [facility] Encounters Encounter Date Encounter Type Care Provider Facility Start: 03-24-2025 ambulatory [facility] lity:[facility] Start: 01-23-2025 End: 01-23-[address] Moris [facility] Work Phone: [facility] Start: 01-23-2025 End: 01-23-2025 Patient encounter procedure Bri Creekside 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 [facility] Work Phone: Start: 01-23-2025 End: 01-23-2025 ambulatory Bri Dumont Facility:[facility] Start: 12-18-2024 End: 12-18-[address] Charles Anthony MD -[facility] Start: 12-18-2024 End: 12-18-[address] Moris Clement MD Work Phone: -[facility] Start: 09-11-2024 End: 09-11-[address] Moris Clement MD -Outpatient Breast Imaging Work Phone: Start: 09-11-2024 End: 09-11-2024 ambulatory Moris Clement Facility:[facility] Start: 07-24-2024 End: 07-24-[address] Moris Clement MD Work Phone: [facility] Work Phone: Start: 07-24-2024 End: 07-24-[address] Edgardo Jennings MD -Laboratory Work Phone: Start: 07-24-2024 End: 07-24-2024 ambulatory Edgardo Jennings Facility:[facility] Start: 07-07-2024 End: 07-07-[address] Edgardo Jennings MD -Laboratory Work Phone: Start: 07-07-2024 End: 07-07-2024 ambulatory [facility] Facility:[facility] Start: 06-16-2024 End: 06-16-[address] Edgardo Jennings MD -Laboratory Work Phone: Start: 06-16-2024 End: 06-16-2024 ambulatory [facility] Facility:[facility] Start: 06-11-2024 End: 06-11-[address] Edgardo Jennings MD -Laboratory Work Phone: Start: 06-11-2024 End: 06-11-[address] Edgardo Jennings MD -[facility] Work Phone: Start: 06-11-2024 End: 06-11-2024 ambulatory [facility] [place] [place]: 06-11-2024 End: 06-11-2024 ambulatory [facility] Facility:[facility] Start: 04-28-2024 End: 04-28-[address] Joss Lei MD -[facility] Work Phone: Start: 04-28-2024 End: 04-28-2024 ambulatory [facility] [place] [place] Start: 04-19-2024 End: 04-19-2024 Emergency department patient visit Dr. Scottie Camacho MD -Emergency Department Work Phone: Start: 09-11-2023 Non-patient / Non-visit Dr. Moris Clement Work Phone: [facility] Start: 09-10-2023 Non-patient / Non-visit Dr. Moris Clement Work Phone: [facility] Start: 09-10-2023 Non-patient / Non-visit Dr. Moris Clement Work Phone: [facility] Work Phone: Start: 09-09-2023 Non-patient / Non-visit Dr. Moris Clement Work Phone: [facility] Work Phone: Start: 09-09-2023 Non-patient / Non-visit Dr. Moris Clement Work Phone: [facility] Start: 09-09-2023 Non-patient / Non-visit Dr. Moris Clement Work Phone: [facility] Start: 09-09-2023 End: 09-11-2023 Evaluation and management of inpatient Dr. Moris Clement Work Phone: [facility]-Medical Surgical 3 Work Phone: Start: 09-05-2023 Non-patient / Non-visit Dr. Moris Clement Work Phone: [facility] Start: 08-30-2023 End: 08-30-2023 Non-patient / Non-visit Dr. Moris Clement Work Phone: [facility] Work Phone: Start: 08-28-2023 End: 08-28-[address] Moris Clement Work Phone: [facility] Work Phone: Start: 06-20-2023 End: 06-20-[address] Bentley Clement Work Phone: [facility] Work Phone: Start: 06-18-2023 End: 06-18-[address] Bentley Clement Work Phone: [facility] Work Phone: Start: 06-11-2023 End: 06-11-[address] Bentley Clement Work Phone: [facility] Work Phone: Start: 06-11-2023 End: 06-11-[address] Bentley Clement Work Phone: [facility]-Physical Therapy Work Phone: Start: 05-23-2023 End: 05-23-[address] Bentley Clement Work Phone: [facility] Work Phone: Start: 04-03-2023 End: 04-03-2023 ambulatory [facility] Work Phone: Start: 04-03-2023 End: 04-03-2023 Patient encounter procedure [facility] Work Phone: Start: 03-27-2023 End: 03-27-2023 ambulatory [facility] Work Phone: Start: 03-27-2023 End: 03-27-2023 Patient encounter procedure [facility] Work Phone: Start: 02-06-2023 End: 02-06-2023 ambulatory [facility] Work Phone: Start: 02-06-2023 End: 02-06-2023 Patient encounter procedure [facility]-Outpatient Breast Imaging Work Phone: Start: 08-17-2022 End: 08-17-2022 Emergency department patient visit Dr. Bentley Clement Work Phone: [facility]-Emergency Department Start: 05-30-2022 End: 05-30-[address] Bentley Clement Work Phone: [facility] Start: 05-02-2022 End: 05-02-[address] Bentley Clement Work Phone: [facility] Start: 04-17-2022 Non-patient / Non-visit Dr. Bentley Clement Work Phone: [facility] Start: 04-16-2022 Non-patient / Non-visit Dr. Bentley Clement Work Phone: [facility] Inpatient Physicians Start: 04-16-2022 Non-patient / Non-visit Dr. Bentley Clement Work Phone: [facility] Start: 04-16-2022 End: 04-17-2022 Evaluation and management of inpatient Dr. Bentley Clement Work Phone: [facility]-Medical Surgical 3 Start: 04-16-2022 End: 04-17-[address] Bentley Clement Work Phone: [facility] Work Phone: Start: 04-10-2022 Non-patient / Non-visit Dr. Bentley Clement Work Phone: [facility] Start: 04-09-2022 End: 04-09-[address] Bentley Clement Work Phone: [facility] Start: 03-08-2022 End: 03-08-[address] Bentley Clement Work Phone: [facility] Work Phone: Start: 03-08-2022 End: 03-08-[address] Bentley Clement Work Phone: [facility]-Laboratory, Specimen Start: 03-05-2022 End: 03-05-[address] Bentley Clement Work Phone: [facility] Start: 01-26-2022 End: 01-26-2022 ambulatory [facility] Work Phone: Start: 01-26-2022 End: 01-26-2022 Patient encounter procedure [facility]-Outpatient Breast Imaging Start: 12-16-2021 End: 12-16-2021 Patient encounter procedure [facility]-MRI - [facility] Start: 10-13-2021 End: 10-13-2021 Patient encounter procedure [facility]-Laboratory, Chantelle Ramirez Start: 09-20-2021 End: 09-20-2021 Emergency department patient visit NOT RECORDED PHYSICIAN Facility:B Start: 09-20-2021 End: 09-20-2021 Emergency department patient visit ABDIAS WONG MD [facility] Procedures Date Procedure Procedure Detail Performing Clinician [...] lumbosacral spine L/S Spine Min 4 Views [facility] Start: 12-18-2024 XR Spine Lumbar and Sacrum GE 4 Views [facility] Start: 04-28-2024 Patient referral [facility] Work Phone: Start: 04-19-2024 [facility] Start: 09-11-2023 Patient discharge [facility] Start: 09-09-2023 Following clinical p athway protocol [facility] Start: 09-09-2023 Application of inter mittent pneumatic compression device [facility] Start: 09-09-2023 Catheterization of vein [facility] Start: 09-09-2023 Consultation [facility] Start: 09-09-2023 Following clinical p athway protocol [facility] Start: 09-09-2023 Measuring intake and output [facility] Start: 09-09-2023 Neurovascular assessment [facility] Start: 09-09-2023 Patient education [facility] Start: 09-09-2023 Procedure discontinued [facility] Start: 09-09-2023 Provision of activit y privileges [facility] Start: 09-09-2023 Recommendation to co ntinue with treatment [facility] Start: 09-09-2023 Referral to service [facility] Start: 09-09-2023 Taking patient vital signs [facility] Start: 09-09-2023 Admission procedure [facility] Start: 09-09-2023 Patient referral to dietitian [facility] Start: 05-23-2023 Patient referral [facility] Work Phone: Start: 08-17-2022 Blood chemistry [facility] Start: 08-17-2022 Lipase measurement [facility] Start: 04-17-2022 Patient discharge [facility] Work Phone: Start: 04-16-2022 Application of inter mittent pneumatic compression device [facility] Work Phone: Start: 04-16-2022 Application of inter mittent pneumatic compression device [facility] Work Phone: Start: 04-16-2022 Catheterization of vein [facility] Work Phone: Start: 04-16-2022 Consultation [facility] Work Phone: Start: 04-16-2022 End: 04-16-2022 Following clinical pathway protocol [facility] Work Phone: Start: 04-16-2022 Incentive spirometry [facility] Work Phone: Start: 04-16-2022 Measuring intake and output [facility] Work Phone: Start: 04-16-2022 Neurovascular assessment [facility] Work Phone: Start: 04-16-2022 Oxygen therapy [facility] Work Phone: Start: 04-16-2022 Patient education [facility] Work Phone: Start: 04-16-2022 Procedure discontinued [facility] Work Phone: Start: 04-16-2022 Provision of activit y privileges [facility] Work Phone: Start: 04-16-2022 Referral to service [facility] Work Phone: Start: 04-16-2022 Taking patient vital signs [facility] Work Phone: Start: 04-16-2022 [facility] Work Phone: Start: 04-16-2022 Admission procedure [facility] Work Phone: Start: 04-16-2022 Patient referral to dietitian [facility] Work Phone: Anion gap measurement [facility] Bilirubin measurement, urine [facility] BUN/Creatinine ratio [facility] Calcium [Mass/volume ] in Serum or Plasma [facility] Carbon dioxide, tota l [Moles/volume] in Serum or Plasma [facility] Chloride [Moles/volu me] in Serum or Plasma [facility] Choriogonadotropin.b eta subunit ( test) [Presence] in Serum or Plasma [facility] Creatinine [Moles/vo lume] in Serum or Plasma [facility] Glucose [Mass/volume ] in Serum or Plasma [facility] Hematocrit [Volume F raction] of Blood [facility] Hemoglobin [Mass/vol ume] in Blood [facility] Hemoglobin [Presence ] in Urine [facility] Leukocytes [#/volume ] in Blood [facility] Mean corpuscular hem oglobin concentration determination [facility] Mean corpuscular hem oglobin determination [facility] Measurement of keton es in urine using dipstick [facility] Measurement of renal function [facility] Microscopic urinalysis [facility] Neutrophil count [facility] Neutrophil percent differential count [facility] Path report.final Dx Spec [facility] Work Phone: Patient Education ED Back and Ne ck Pain, General [facility] Work Phone: Patient referral [facility] Work Phone: pH of Urine [facility] Platelets [#/volume] in Blood [facility] Potassium [Moles/vol ume] in Serum or Plasma [facility] Red blood cell count [facility] Red cell distributio n width determination [facility] Sodium [Moles/volume ] in Serum or Plasma [facility] Specific gravity of Urine [facility] Urea nitrogen [Mass/ volume] in Serum or Plasma [facility] Urinalysis, blood, qualitative [facility] Urine dipstick for glucose [facility] Urine dipstick for l eukocyte esterase [facility] Urine dipstick for nitrite [facility] Urine dipstick for protein [facility] Urine examination [facility] Urine microscopy: ep ithelial cells [facility] Urine Microscopy: wh ite cells [facility] Urobilinogen [Presen ce] in Urine [facility] Immunizations Immunization Date Immunization Notes Care Provider Olga villaseñor 08-06-2018 tetanus toxoid, redu khurram diphtheria toxoid, and acellular pertussis vaccine, adsorbed [facility] Payers Date Payer Category Payer Unknown [id number] 2024 Self-pay [id number] 2021 Unknown [id number] 2013 Medicaid [id number] 2013 Unknown [id number] [facility] [id number] 1970 Unknown [id number] 2.16.8 [id number] Unknown [id number] Unknown [id number] 2.16.8 [id number] Unknown [id number] 2.16.8 [id number] Unknown [id number] 2.16.8 [id number] Unknown [id number] 2.16.8 [id number] Unknown [id number] 2.16.8 [id number] Unknown [id number] 2.16.8 [id number] Unknown [id number] 2.16.8 [id number] Unknown [id number] 2.16.8 [id number] Unknown [id number] 2.16.8 [id number] Unknown [id number] 2.16.8 [id number] Unknown [id number] 2.16.8 [id number] Unknown [id number] 2.16.8 [id number] Unknown [id number] 2.16.8 [id number] Unknown [id number] 2.16.8 [id number] Social History Date Type Detail Facility Start: 09-20-2021 Tobacco smoking status Heavy t obacco smoker (finding) [facility] Sex Assigned At Sex [facility] [place] Start: 08-02-2021 End: 09-09-2023 Tobacco smoking status TXIS Unknown if ever smoked [facility] Start: 08-06-2018 None [facility] Start: 08-06-2018 With Family [facility] Start: 04-19-2016 Cigarettes [facility] Start: 1970 Sex Assigned At Female [facility] Start: 05-25-2024 End: 01-23-2025 Tobacco smoking status NHIS Smokes tobacco daily (finding) [facility] Start: 08-04-2024 Sex Female (finding) [facility] Sex Female [facility] Medical Equipment Procedure Code Equipment Code Equipment Original Text Equipment Identifier Dates Fusion, spine, lumbar, 360 degree, starting in supine position transitioning to prone 25MM PLATE FDA Start: 09-09-2023 Fusion, spine, lumbar, 360 degree, starting in supine position transitioning to prone SPACER,10MM INTERLAM FDA Start: 09-09-2023 Fusion, spine, lumbar, 360 degree, starting in supine position transitioning to prone STRIP,BONE CANC [id number] FDA Start: 09-09-2023 Fusion, spine, lumbar, 360 degree, starting in supine position transitioning to prone Ligation clip, metallic ()[id number] FDA Start: 09-09-2023 Fusion, spine, lumbar, 360 degree, starting in supine position transitioning to prone ([id number]) Bare-metal biliary stent ()[id number] FDA Start: 09-09-2023 Fusion, spine, lumbar, 360 degree, starting in supine position transitioning to prone 3D ANTERIOR LUMBAR FDA Start: 09-09-2023 Fusion, spine, lumbar, 360 degree, starting in supine position transitioning to prone 40MM AXLE FDA Start: 09-09-2023 Fusion, spine, lumbar, 360 degree, starting in supine position transitioning to prone [id number] VARIABLE SCREWS FDA Start: 09-09-2023 Fusion, spine, lumbar, 360 degree, starting in supine position transitioning to prone [id number] VARIABLE SCREWS FDA Start: 09-09-2023 Fusion, spine, lumbar, 360 degree, starting in supine position transitioning to prone [id number] VARIABLE SCREWS FDA Start: 09-09-2023 Fusion, spine, lumbar, 360 degree, starting in supine position transitioning to prone [id number] VARIABLE SCREWS FDA Start: 09-09-2023 Fusion, spine, [...] supine position transitioning to prone STRIP,BONE CANC [id number] FDA Start: 09-09-2023 Fusion, spine, lumbar, 360 degree, starting in supine position transitioning to prone 3D ANTERIOR LUMBAR FDA Start: 09-09-2023 Fusion, spine, lumbar, 360 degree, starting in supine position transitioning to prone 40MM AXLE FDA Start: 09-09-2023 Fusion, spine, lumbar, 360 degree, starting in supine position transitioning to prone 5.1OOC09OK VARIABLE SCREWS FDA Start: 09-09-2023 Fusion, spine, lumbar, 360 degree, starting in supine position transitioning to prone 5.5IDH52YI VARIABLE SCREWS FDA Start: 09-09-2023 Fusion, spine, lumbar, 360 degree, starting in supine position transitioning to prone [id number] VARIABLE SCREWS FDA Start: 09-09-2023 Fusion, spine, lumbar, 360 degree, starting in supine position transitioning to prone [id number] VARIABLE SCREWS FDA Start: 09-09-2023 Fusion, spine, [...] supine position transitioning to prone STRIP,BONE CANC [id number] FDA Start: 09-09-2023 Fusion, spine, lumbar, 360 degree, starting in supine position transitioning to prone 3D ANTERIOR LUMBAR FDA Start: 09-09-2023 Fusion, spine, lumbar, 360 degree, starting in supine position transitioning to prone 40MM AXLE FDA Start: 09-09-2023 Fusion, spine, lumbar, 360 degree, starting in supine position transitioning to prone 5.5AOF11NO VARIABLE SCREWS FDA Start: 09-09-2023 Fusion, spine, lumbar, 360 degree, starting in supine position transitioning to prone 5.8RVW01BD VARIABLE SCREWS FDA Start: 09-09-2023 Fusion, spine, lumbar, 360 degree, starting in supine position transitioning to prone [id number] VARIABLE SCREWS FDA Start: 09-09-2023 Fusion, spine, lumbar, 360 degree, starting in supine position transitioning to prone 5.7LMY85NC VARIABLE SCREWS FDA Start: 09-09-2023 Fusion, spine, [...] supine position transitioning to prone STRIP,BONE CANC [id number] FDA Start: 09-09-2023 Fusion, spine, lumbar, 360 degree, starting in supine position transitioning to prone 3D ANTERIOR LUMBAR FDA Start: 09-09-2023 Fusion, spine, lumbar, 360 degree, starting in supine position transitioning to prone 40MM AXLE FDA Start: 09-09-2023 Fusion, spine, lumbar, 360 degree, starting in supine position transitioning to prone 5.5MNA99LO VARIABLE SCREWS FDA Start: 09-09-2023 Fusion, spine, lumbar, 360 degree, starting in supine position transitioning to prone 5.2UMH07OF VARIABLE SCREWS FDA Start: 09-09-2023 Fusion, spine, lumbar, 360 degree, starting in supine position transitioning to prone 5.0NRS80CS VARIABLE SCREWS FDA Start: 09-09-2023 Fusion, spine, lumbar, 360 degree, starting in supine position transitioning to prone 5.4WVR71OF VARIABLE SCREWS FDA Start: 09-09-2023 Fusion, spine, [...] supine position transitioning to prone STRIP,BONE CANC [id number] FDA Start: 09-09-2023 Fusion, spine, lumbar, 360 degree, starting in supine position transitioning to prone 3D ANTERIOR LUMBAR FDA Start: 09-09-2023 Fusion, spine, lumbar, 360 degree, starting in supine position transitioning to prone 40MM AXLE FDA Start: 09-09-2023 Fusion, spine, lumbar, 360 degree, starting in supine position transitioning to prone 5.7OCA08UR VARIABLE SCREWS FDA Start: 09-09-2023 Fusion, spine, lumbar, 360 degree, starting in supine position transitioning to prone 5.7IEH02YB VARIABLE SCREWS FDA Start: 09-09-2023 Fusion, spine, lumbar, 360 degree, starting in supine position transitioning to prone 5.8WHD47XY VARIABLE SCREWS FDA Start: 09-09-2023 Fusion, spine, lumbar, 360 degree, starting in supine position transitioning to prone 5.9MOA35YL VARIABLE SCREWS FDA Start: 09-09-2023 Fusion, spine, [...] Assessment Result Facility 09-11-2023 Functional status Ambulates [facility] Work Phone: 04-17-2022 Functional status Ambulates;Bathroom Priv ilege [facility] Work Phone: 09-20-2021 Functional Status [facility] Mental Status Date Assessment Result Facility 09-11-2023 Cognitive function Voice/Name [facility] Work Phone: 04-17-2022 Cognitive function Voice/Name [facility] Work Phone: 09-20-2021 Mental Status [facility] Clinical Notes 09-20-2021 to 01-23-2025 Note Date & Type Note Facility 01-23-2025 Progress note [facility] 01-23-2025 Progress note Note Date/Time January 23, 2025 12:29pm [facility] [address], [address] [place] [address] OFFICE VISIT Date of Service: 01/23/25 MR#: [id number] Acct: [id number] Name: JACKLYN WILSON Rep #: [id number] : 1970 Provider: WILLIAM Najera Age/Sex: 54/F [place] [facility] [place] Signed Intake Vital Signs 12/18/24 15:05 01/23/25 11:39 Height 5 ft 2 in 5 ft 2 in Weight: 113 lb BMI 20.6 Intake Visit Reasons: CONCERN FOR UTI Chief Complaint: dysuria Block Captain Required: No Is patient in pain?: No [...] Grant on 01/23/25 12:25 Off Ur Spec [place] 1.020 Last Edit by Micaela Grant on [...] current regimen -follow up with pcp or medical information specialist Please follow up with your Primary [...] by Bri THOMAS> Date _ Bri Dumont 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 Signature: Date (if applicable) CC: ~ [facility] Work Phone: 1(771) 235-246608-01-2025 Evaluation note* Diagnosis Onset Date Resolution Status Admit Date Bilateral hip joint arthritis acute December 18, 2024 2:58pm Osteoporosis acute December 18, 2024 2:58pm S/P lumbar fusion acute December 18, 2024 2:58pm Sacroiliitis acute December 18, 2024 2:58pm Transitional vertebrae acute Au 2024 2:58pm Lower back pain acute January 23, 2025 12:00pm Urinary frequency acute 2024 12:00pm [facility] Work Phone: 1(181) 328-677812-10-2024 Evaluation note* Diagnosis Onset Date Resolution Status Admit Date Closed compression fracture of L3 vertebra acute April 28, 2 024 8:50am S/P lumbar fusion acute Decemb2023 8:50am Osteopenia deleted April 28, 2024 8:50am Closed compression fracture of L3 vertebra acute June 11 9:02am Osteoporosis acute May 9:02am [facility] Work Phone: 1(564) 585-947504-23-2024 Progress note Author Marito Faustin [facility] September 10, 2023 4:25pm Note Date/Time September 10, 2023 4:2 2pm [facility] Medical Records Department [address] [place] [address] Progress Note - Orthopedic 09/10/23 1620 MR#: [id number] Acct: [id number] Name: JACKLYN WILSON SEPTEMBER Rep #:[id number] 0 : 1970 53 From: Marito Archuleta PCP: Dr. Moris Clement MD Status :ADM IN Location: [place] [address] Subjective Subjective Jacklyn is seen on rounds. [...] Cosigner Signature (if applicable): CC: ~ Signed [facility] Work Phone: 1(865) 390-541004-23-[address] [facility] 09-10-2023 Progress note Author Hussain Zapata [facility] September 10, 2023 1:19pm Note Date/Time September 10, 2023 10: 03am [facility] Medical Records Department [address] [place] [address] Progress Note - Hospitalist 09/10/23 1003 MR#: [id number] Acct: [id number] Name: JACKLYN WILSON SEPTEMBER Rep #:[id number] : 1970 53 From: Hussain Fontanez PCP: Dr. Moris Clement MD Status :ADM IN Location: [place] [address] Reason for Visit Reason for Visit: Diagnoses [...] spine surgery. Charges/Coding Visit Charges Inpatient E&M: 05125 Subs Hosp L2 09/10/23 1312 <Electronically signed by Hussain Zapata MD> Cosigner Signature (if applicable): CC: ~ Signed [facility] Work Phone: 1(423) 633-155904-22-2024 Progress note Author Fitz Dela Cruz [facility] September 09, 2023 7:04pm Note Date/Time September 09, 2023 7:0 4pm [facility] Medical Records Department [address] [facility] [place] [address] Progress Note - Hospitalist 09/09/23 1901 MR#: [id number] Acct: [id number] Name: JACKLYN WILSON Rep #:[id number] : 1970 53 From: Fitz Dela Cruz DO PCP: Dr. Moris Clement MD Status :ADM IN Location: [place] [address] Reason for Visit Reason for Visit: Consult requested by Dr. Faustni for postoperative medical management. Subjective Subjective Nauseated [...] patient's hospitalization. Charges/Coding Visit Charges Inpatient E&M: 58859 Subs Hosp L2 09/09/23 1904 <Electronically signed by Fitz Dela Cruz DO> Cosigner Signature (if applicable): CC: ~ Signed [facility] Work Phone: 1(687) 918-521304-22-[address] [facility] 09-09-[address] [facility]04-18-2024 History and physical note Author Marito Faustin [facility] September 05, 2023 3:35pm Note Date/Time September 05, 2023 3:3 5pm [facility] Medical Records Department [address] [place] [address] History & Physical Exam 09/05/23 1534 MR#: [id number] Acct: [id number] Name: JACKLYN WILSON SEPTEMBER Rep #:[id number] 0 : 1970 53 From: Marito Archuleta PCP: Dr. Moris Clement MD Status :PRE IN Location: [facility] History and Physical MR#: [id number] Acct: [id number] Name: JACKLYN WILSON SEPTEMBER Rep #: [id number] : 1970 Provider: Dr. Marito Faustin DO Age/Sex: 52/F [place] [facility] [place] Status: Signed Intake Vital Signs 08/17/2318:49 Height 5 ft 2 in Intake Visit Reasons: LUMBAR SPINE Chief Complaint: abd pain Allergies No Known Allergies Allergy (Verified 08/27/22 14:30) Medications omega 6-rfn-ull-fish oil 60 mg-90 mg-500 mg capsule 1 [...] follow-up. Unfortunately she does not work at [employer] anymore. 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 Marito Faustin DO~ Signed [facility] Work Phone: 1([phone]) 130-716002-05-2024 Discharge summary Author Estelle Harris [facility] June 24, 2023 8:15am Note Date/Time June 24, 2023 8 :15am [facility] Physical Therapy Health[address] [place] [address] / REHABILITATION SERVICES DISCHARGE SUMMARY MR#: [id number] Acct: [id number] Name: JACKLYN WILSON Rep #: [id number] : 1970 53 From: Estelle Perera Referring Dr.: Dr. 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 Thank you for the referral of thispatient. Sincerely, TIFFANY Jeffrey Balance/Gait/Functional tests Balance/Special Test Scores Oswestry Low Back Score: 21 Improvement % Improvement: 0 <Electronically signed by Estelle Harris MPT> 06/24/23 0815 CC: Dr. Marito Faustin DO; Avril Santiago ~ Signed [facility] Work Phone: 1([phone]) 407-475601-23-2024 Discharge summary Author Estelle Harris [facility] June 11, 2023 11:54am Note Date/Time June 11, 2023 1 1:54am [facility] [place] [address] [facility] [place] [address] / REHABILITATION SERVICES DISCHARGE SUMMARY MR#: [id number] Acct: [id number] Name: JACKLYN WILSON Rep #: [id number] : 1970 52 From: Estelle Perera Referring Dr.: Dr. 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 Thank you for the referral of thispatient. Sincerely, Estelle Harris, MPT Balance/Gait/Functional tests Balance/Special Test Scores Oswestry Low Back Score: 21 Improvement % Improvement: 0 <Electronically signed by Estelle Harris MPT> 06/11/23 1158 CC: Dr. Marito Faustin, DO; Avril Santiago ~ Signed [facility] Work Phone: 1([phone]) 624-313410-20-2022 NotePap Smear Specimen AdequacyOctober 2021 2:04pmComment.Satisfactory for evaluation. Endocervical and/or squamous metaplasticcells (endocervical component)are present.Areas of partially obscuring inflammatory exudate are present.[facility] A#[id number] Work Phone: Comment on above:Satisfactory for [...] wound Decreased movement around the injured area [id number] [employer]. [address] [place] [address], [place] [address]. All rights reserved. This information is not intended as a substitute for professional medical care. Always follow yourhealthcare professional's instructions. Follow Up Care 09/20/2021 19:19:49 With:CONOR PERDOMO Address: [address] [place] [address] [place] [address]- When:2-4 days [facility] Discharge summary Author Marito Faustin [facility] September 11, 2023 1:10pm Note Date/Time September 11, 2023 1:1 0pm [facility] Medical Records Department [address] [place] [address] Discharge Summary 09/11/23 1308 MR#: [id number] Acct: [id number] Name: JACKLYN WILSON Rep #:[id number] : 1970 53 From: Marito Archuleta PCP: Dr. Moris Clement MD Status :ADM IN Location: [facility] [id number] Providers Date of Admission: 09/09/23 Primary Care [...] Nausea Medications at Discharge Home Medications omega 9-uce-mjy-fish oil 60 mg-90 mg-500 mg capsule 1 [...] unit) capsule 250 mcg PO PRN omega 0-nix-xpe-fish oil 1 EACH capsule 1 ea PO PRN sdufmdyv-rzzl-qdkwr-oreg-capry 100 mg-150 mg- 50 mg-150 mg Capsule [...] Clement MD; Dr. Marito Faustin DO~ Signed [facility] Work Phone: Evaluation + Plan note No data available for this section [facility] Evaluation noteNo assessment information available [facility] Work Phone: Evaluation note* Diagnosis Onset Date Resolution Status Herniated nucleus pulposus, L4-5 right acute [facility] Work Phone: Evaluation note* Diagnosis Onset Date Resolution Status Herniated nucleus pulposus, L4-5 right acute Herniated nucleus pulposus, L4-5 right acute Herniated nucleus pulposus, L4-5 right acute [facility] Work Phone: Evaluation note* Diagnosis Onset Date Resolution Status S/P laminectomy acute S/P laminectomy acute [facility] Work Phone: Evaluation note* Diagnosis Onset Date Resolution Status HNP (herniated nucleus pulposus), lumbar acute S/P laminectomy acute Herniated nucleus pulposus, L4-5 right acute S/P laminectomy acute [facility] Work Phone: Evaluation note* Diagnosis Onset Date Resolution Status HNP (herniated nucleus pulposus), lumbar acute S/P laminectomy acute Herniated nucleus pulposus, L4-5 right acute S/P laminectomy acute Herniated nucleus pulposus, L4-5 right acute S/P laminectomy acute Nausea acute [facility] Work Phone: Evaluation note* Diagnosis Onset Date Resolution Status Admit Date Bilateral hip joint arthritis acute December 18, 2024 2:58pm Osteoporosis acute December 18, 2024 2:58pm Sacroiliitis acute December 18, 2024 2:58pm Transitional vertebrae acute Au 2024 2:58pm 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 No August 02 5:00am Advance Directive Response Recorded Date/ Time Advance Directives No April 12:46pm Living Will No April 16, 022 11:19am Power of Frit Mixer [employer] Burner No April 16, 2022 11:19am Advance Directive Response Recorded Date/ Time Advance Directives No April 1:46pm Living Will No April 16 12:19pm Power of Frit Mixer [employer] Burner No April 16, 2022 12:19pm Advance Directive Response Recorded Date/ Time Advance Directives No April 1:46pm Living Will Yes September 09, 2023 5:42pm Power of Frit Mixer And Burner No September 08 5:42pm Advance Directive Response Recorded Date/ Time Living Will No April 19 11:38am Power of Frit Mixer And Burner No April 19, 2024 11:38am Advance Directives [...] Hussain Zapata MD Other Provider Active Dr. Traik Monterroso MD Other Provider Active Dr. Kaitlin [...] Ellis , DO Other Provider Active Dr. Sherene Cook MD Other Provider Active Dr. Thalia [...] section and content) DATE CREATED AUTHOR 07/04/2022 [facility] ([place]) DATE CREATED AUTHOR 'S ORGANIZ ATION 03/06/2025 [facility] FOR RECORDS PERTAINING TO PATIENTS WHO ARE [...] BE BASED ON THE PRIMARY CLINICAL RECORDS. [facility] [employer] [facility]. provides no warranty or guarantee of the accuracy or completeness of information in this document.
[2025-03-09 10:10] LABS: Hematocrit 36.0 % (37-47); Hemoglobin 12.5 g/dL (12.0-15.0); Mean Corp Hgb Conc 34.7 g/dL (32-36); Mean Corpuscular Volume 97.6 fL (81-99); Mean Platelet Vol. 8.8 fl (6.2-12.0); Platelet Count 337 K/mm3 (150-450); RBC Distribution Width CV 12.0 % (11.6-14.6); RBC Distribution Width SD 43.1 fl (35.1-43.9); Red Blood Count 3.69 M/mm3 (4.2-5.4); White Blood Count 6.1 K/mm3 (4.4-11.0)
[2025-03-09 10:22] LABS: Color, Urine Yellow (Yellow); Glucose, Dipstick Normal (Normal); Ketone-Dipstick Negative (Negative); Leukocyte Esterase-Dipstick Negative /ul (Negative); Nitrite-Dipstick Negative (Negative); Occult Blood-Urine 10 /ul (Negative); Protein-Dipstick 15 mg/dl (Negative); Specific Gravity, Urine 1.005 (1.002-1.030); Urine Bilirubin Dipstick Negative (Negative)
[2025-03-09 11:01] LABS: AST(SGOT) 33 U/L (<=31); Alanine Aminotransfer ALT/SGPT 26 U/L (<=34); Albumin, Serum 4.8 g/dL (3.5-5.0); Alkaline Phosphatase 63 U/L (35-104); Anion Gap 13 (5-15); BUN 7 mg/dL (4-19); BUN/Creat Ratio 12.1 RATIO (10-20); Calcium,Total 9.9 mg/dL (7.6-11.0); Carbon Dioxide 26.7 mmol/L (21.0-32.0); Chloride 91 mmol/L (98-108); Globulin 3.0 g/dL (2.2-4.2); Glucose 86 mg/dL (70-99); Magnesium 2.0 mg/dL (1.5-2.2); Potassium 4.1 mmol/L (3.3-5.1); Vitamin D,25 Hydroxy 112.0 ng/mL (30-100)
[2025-03-09 11:15] LABS: Cholesterol 254 mg/dL (<=200); Low Density Lipoprotein Calc. 99 mg/dL; Triglycerides 56 mg/dL; Very Low Density Lipoprotein 11 mg/dL (5-40); cholesterol:hdl ratio screen 1.74
[2025-03-10 04:07] LABS: GGTP 37 IU/L (0-60)
== END | disposition home or self-care (01) ==
LOC: MTLAB 08:11
PROVIDERS: PCP Family Medicine; Referring Provider Family Medicine; Visit Provider Family Medicine
DX: Z00.00 Encounter for general adult medical examination without abnormal findings (principal); Z78.9 Other specified health status; R00.2 Palpitations
CPT/HCPCS: 36415; 80053; 80061; 81002; 82306; 82977; 83735; 84443; 85027

== ENCOUNTER → 2025-03-16 | Outpatient (CLI) | payer BC, SELFPAY ==
[2025-03-16 15:29] LABS: Osmolality, Serum 276 mOsm/KG (275-295)
[2025-03-16 15:41] LABS: Anion Gap 10 (5-15); BUN 11 mg/dL (4-19); BUN/Creat Ratio 18.8 RATIO (10-20); Calcium,Total 10.2 mg/dL (7.6-11.0); Carbon Dioxide 29.1 mmol/L (21.0-32.0); Chloride 90 mmol/L (98-108); Glucose 154 mg/dL (70-99); Potassium 4.3 mmol/L (3.3-5.1)
== END | disposition home or self-care (01) ==
LOC: MTLAB 13:32
PROVIDERS: PCP Family Medicine; Referring Provider Family Medicine; Visit Provider Family Medicine
DX: R79.89 Other specified abnormal findings of blood chemistry (principal)
CPT/HCPCS: 36415; 80048; 83930; 84443

== ENCOUNTER → 2025-03-18 | Outpatient (CLI) | payer BC, SELFPAY | END | disposition home or self-care (01) | LOC: MFPLAB 17:02 | PROVIDERS: PCP Family Medicine; Visit Provider Family Medicine | DX: R30.0 Dysuria (principal) | CPT/HCPCS: 87086 ==

== ENCOUNTER → 2025-03-24 | Outpatient (CLI) | payer BC, SELFPAY ==
--- NOTE | 2025-03-24 09:06 | ECHOD_ITS ---
Reason For Study Reason For Study: MVP Procedure This was a 2D Doppler, Color Flow transthoracic echocardiogram. The study was technically difficult. Exam performed in department. Left Ventricle Normal size and thickness. Mild inferior septal and apical hypokinesis. Estimated LVEF 60%. Stage I diastolic dysfunction. Right Ventricle Normal right ventricle. Atria The left and right atria are normal. Mitral Valve No mitral valve prolapse noted. Trivial mitral valve regurgitation. Tricuspid Valve Normal tricuspid valve. Aortic Valve Trisinus/trileaflet aortic valve. Pulmonic Valve The pulmonic valve is not well visualized. Great Vessels The aortic root is not well visualized. Pericardium/Pleural No pericardial effusion. MMode/2D Measurements & Calculations LVIDd: 5.1 cm IVSd: 0.96 cm LAV(MOD- bp): 31.7 ml LVIDs: 3.0 cm LVPWd: 0.81 cm LAV(MOD- bp) Indexed: 20.9 ml/m2 RVDd: 3.1 cm FS: 40.1 % LAV(MOD- sp2): 35.3 ml LAV(MOD- sp4): 26.3 ml SV(MOD-sp4): 58.0 ml SV(sp4- el): 60.9 ml LVAd ap4: 28.4 cm2 LVLd ap4: 7.4 cm SI(MOD-sp4): 38.2 ml/m2 EDV(MOD-sp4): 91.2 ml EDV(sp4-el): 92.7 ml LVAs ap4: 15.9 cm2 LVLs ap4: 6.7 cm ESV(MOD-sp4): 33.2 ml ESV(sp4-el): 31.8 ml EF(MOD-sp4): 63.6 % EF(sp4-el): 65.7 % LA A4 area: 13.4 cm2 LA dimension(2D): 3.0 cm RA A4 area: 9.2 cm2 TAPSE: 1.8 cm Time Measurements MV dec time: 0.25 sec Doppler Measurements & Calculations MV E max roddy: 58.2 cm/sec Lat Peak E' Roddy: 9.6 cm/sec Med Peak E' Roddy: 7.9 cm/sec MV A max roddy: 58.5 cm/sec E/E' lat: 6.1 E/E' med: 7.4 MV E/A: 0.99 MV V2 max: 78.5 cm/sec MV P1/2t max roddy: 78.5 cm/sec Ao V2 max: 115.8 cm/sec MV max P.5 mmHg MV P1/2t: 87.7 msec Ao max P.4 mmHg MV V2 mean: 46.6 cm/sec Ao V2 mean: 82.3 cm/sec MV mean P.0 mmHg MV dec slope: 262.2 cm/sec2 Ao mean P.1 mmHg MV V2 VTI: 20.2 cm MVA(P1/2t): 2.5 cm2 Ao V2 VTI: 25.7 cm AV (velocity ratio): 0.71 LV V1 max: 77.3 cm/sec PA V2 max: 84.5 cm/sec LV V1 max P.4 mmHg LV V1 mean P.2 mmHg LV V1 mean: 51.0 cm/sec LV V1 VTI: 18.2 cm ECHO/Echo Complete Interpretation Summary Mild inferior septal and apical hypokinesis. Estimated LVEF 60%. Stage I diasto lic dysfunction. No mitral valve prolapse noted. Trivial mitral valve regurgitation. The study was technically difficult. Ordering Physician: Moris Clement Referring Physician: Moris Clement Performed By: Charles Reece RCS
== END | disposition home or self-care (01) ==
LOC: CVS 09:05
PROVIDERS: PCP Family Medicine; Referring Provider Family Medicine; Visit Provider Family Medicine
DX: I34.1 Nonrheumatic mitral (valve) prolapse (principal)
CPT/HCPCS: 93306